=== PATIENT | male | born 1945 | race Caucasian/White ===

== ENCOUNTER 2017-09-17 14:42 | Emergency (ER) | payer MEDICARE, BC ==
--- NOTE | 2017-09-17 14:59 | ED ---
General Adult HPI - General Chief complaint: Urogenital Stated complaint: Poss UTI Time Seen by Provider: 09/17/17 14:50 Source: patient, family Mode of arrival: ambulatory Limitations: no limitations - History of Present Illness Initial comments: Cayetano is a 72-year-old man presents to the emergency department today for evaluation of inability to urinate since last night. Patient reports that he is having pain with urination, he is experiencing a constant urge to urinate but when he attempts he is only able to dribble out a little bit of urinated very painful. He has not noticed any blood in the urine. Patient does report that after a surgery 1 year ago he did develop similar symptoms and was diagnosed with a urinary tract infection. He did have to have a Kaur catheter while he was in the hospital at that time, however he is never required a Kaur catheter home. He does know he has an enlarged prostate but doesn't follow regularly with a urologist. He denies any fevers, chills, nausea, vomiting, change in bowel habits. He reports he is otherwise in his usual state of health. - Related Data Home Medications Medication Instructions Recorded Confirmed Atorvastatin [Lipitor] 80 mg PO HS 05/25/16 09/17/17 Cholecalciferol [Vitamin D3] 2,000 unit PO DAILY 05/25/16 09/17/17 Furosemide [Lasix] 40 mg PO DAILY 05/25/16 09/17/17 Multivitamin [Men's Multi-Vitamin] 1 tab PO HS 05/25/16 09/17/17 Clopidogrel [Plavix] 75 mg PO DAILY 08/25/16 09/17/17 Metoprolol Tartrate [Lopressor] 50 mg PO BID 08/25/16 09/17/17 Nitroglycerin Sl Tabs [Nitrostat] 0.4 mg SUBLINGUAL Q5M PRN 08/25/16 09/17/17 Tamsulosin HCl [Flomax] 0.4 mg PO DAILY 08/25/16 09/17/17 Fish Oil/Dha/Epa [Fish Oil 1,200 1 cap PO DAILY 09/17/17 09/17/17 mg Fish Oil] Lisinopril [Zestril] 10 mg PO DAILY 09/17/17 09/17/17 Rivaroxaban [Xarelto] 20 mg PO W/SUPPER 09/17/17 09/17/17 Allergies Allergy/AdvReac Type Severity Reaction Status Date / Time onion AdvReac Indigestion Verified 09/17/17 14:53 Pepper AdvReac Indigestion Verified 09/17/17 14:53 tomato AdvReac Indigestion Verified 09/17/17 14:53 Review of Systems ROS Statement: Those systems with pertinent positive or pertinent negative responses have been documented in the HPI. ROS Other: All systems not noted in ROS Statement are negative. Past Medical History Past Medical History: Atrial Flutter, Heart Failure, COPD, Hyperlipidemia, Hypertension, Pneumonia, Prostate Disorder, Sleep Apnea/CPAP/BIPAP Additional Past Medical History / Comment(s): not using CPAP- unable to sleep on his back, SOB w/activity, "bad aortic valve"-had it replaced at [facility] History of Any Multi-Drug Resistant Organisms: None Reported Past Surgical History: Heart Catheterization, Hernia Repair Additional Past Surgical History / Comment(s): hernia repairs x 3 jade, aortic valve replacement 07-24-14 at [facility] Past Anesthesia/Blood Transfusion Reactions: No Reported Reaction Past Psychological History: No Psychological Hx Reported Smoking Status: Former smoker Past Alcohol Use History: None Reported Past Drug Use History: None Reported - Past Family History Father Additional Family Medical History / Comment(s): "hypochondric" Mother History Unknown: Yes General Exam Limitations: no limitations General appearance: alert, other (appears uncomfortable) Head exam: Present: atraumatic, normocephalic Eye exam: Present: normal appearance ENT exam: Present: normal exam Neck exam: Present: normal inspection Respiratory exam: Absent: respiratory distress Cardiovascular Exam: Present: regular rate GI/Abdominal exam: Present: soft, distended, other (palpable bladder) Extremities exam: Present: normal inspection Back exam: Present: normal inspection Neurological exam: Present: alert, oriented X3, other (antalgic gait) Psychiatric exam: Present: normal affect Skin exam: Present: warm Course Vital Signs 09/17/17 09/17/17 14:43 16:26 Temperature 97.5 F L 97.8 F Pulse Rate 75 68 Respiratory 17 18 Rate Blood Pressure 156/68 141/78 O2 Sat by Pulse 97 97 Oximetry Medical Decision Making - Medical Decision Making Patient seen and evaluated, history obtained from the patient Vital signs with no Sirs criteria History and physical exam are concerning for acute urinary retention, at this time the patient has a urge to urinate. I advised the patient to use the restroom and attempt to provide a urinary sample. After this we will get a postvoid residual Patient was able to provide a urine sample, bladder scan subsequently revealed greater than 1 L of volume in the bladder Patient very anxious about a year Kaur catheter placement, by mouth Ativan was ordered Urinalysis reveals no UTI, at this time I think the patient's urinary retention is secondary to prostatic hyperplasia. We will place a Kaur catheter and discharge home. There is no indication for antibiotics at this time. Patient tolerated only catheter placement without complication. Clear urine drained out. Patient was discharged home with Kaur catheter in place in a referral to urology. Questions pertaining to care were answered to the best my ability and the patient was discharged - Lab Data Lab Results 09/17/17 Range/Units 14:57 Urine Color Yellow Urine Appearance Clear (Clear) Urine pH 5.0 (5.0-8.0) Ur Specific [place] 1.010 (1.001-1.035) Urine Protein Negative (Negative) Urine Glucose (UA) Negative (Negative) Urine Ketones Negative (Negative) Urine Blood Negative (Negative) Urine Nitrite Negative (Negative) Urine Bilirubin Negative (Negative) Urine Urobilinogen <2.0 (<2.0) mg/dL Ur Leukocyte Esterase Negative (Negative) Disposition Clinical Impression: Acute retention of urine Disposition: HOME SELF-CARE Condition: Good Instructions: Urinary Retention in Men (ED), Kaur Catheter Placement and Care (ED) Referrals: Rolo Nicholas MD [Primary Care Provider] - 1-2 days Toni Chris MD [STAFF PHYSICIAN] - 1-2 days Time of Disposition: 15:58
[2017-09-17 15:17] LABS: Appearance,Urine Clear (Clear); Bilirubin,Urine Negative (Negative); Blood,Urine Negative (Negative); Color,Urine Yellow; Glucose,Urine (UA) Negative (Negative); Ketones,Urine Negative (Negative); Leukocyte Esterase,Urine Negative (Negative); Nitrite,Urine Negative (Negative); Protein,Urine Negative (Negative); Urobilinogen,Urine <2.0 mg/dL (<2.0)
[2017-09-17] MEDS ORDERED: LIDOCAINE URO-JET JELLY 2% 5 ML KIT URETHRAL ONE (15:17)
[2017-09-17] MEDS ORDERED: LORazepam 1 MG TAB PO STA (15:24)
[2017-09-17 16:29] VITALS: BP 141/78; PULSE 68; RESP 18; TEMP 97.8
== END 2017-09-17 16:26 | disposition home or self-care (01) ==
LOC: EC 14:42
DX: R33.9 Retention of urine, unspecified (principal); N40.1 Benign prostatic hyperplasia with lower urinary tract symptoms; R39.15 Urgency of urination; I48.92 Unspecified atrial flutter; I11.0 Hypertensive heart disease with heart failure; I50.9 Heart failure, unspecified; Z79.01 Long term (current) use of anticoagulants; Z79.02 Long term (current) use of antithrombotics/antiplatelets; Z79.899 Other long term (current) drug therapy; Z91.018 Allergy to other foods; E78.5 Hyperlipidemia, unspecified; G47.30 Sleep apnea, unspecified; Z99.89 Dependence on other enabling machines and devices; Z95.5 Presence of coronary angioplasty implant and graft; Z87.891 Personal history of nicotine dependence
CPT/HCPCS: 51702; 51798; 81003; 87086; 99283

== ENCOUNTER 2017-12-10 12:22 | Inpatient (IN) | payer MEDICARE, BC ==
[2017-12-10 12:31] LABS: Glucose,Whole Blood 130 mg/dL (75-99)
[2017-12-10] MEDS ORDERED: IPRATROPIUM-ALBUTEROL 3 ML NEB INHALATION STA (15:28)
[2017-12-10] MEDS ORDERED: SODIUM CHLORIDE 0.9% 1,000 ML IV STA (15:30)
--- NOTE | 2017-12-10 15:41 | ED ---
General Adult HPI - General Source: patient, RN notes reviewed Mode of arrival: wheelchair Limitations: no limitations <Mejia Vo - Last Filed: 12/10/17 17:47> <Jacques Day - Last Filed: 12/10/17 18:10> - General Chief complaint: Upper Respiratory Infection Stated complaint: Chills, Tired Time Seen by Provider: 12/10/17 15:10 - History of Present Illness Initial comments: 72-year-old male presents for chief complaint of shortness of breath x the past 3 days. Patient states his shortness of breath was worse today and has been in the previous past few days. Patient states he had a cough that was productive cough for the past week that is feeling slightly better today. Patient states it was a very bad cough yesterday. Patient has never been diagnosed with COPD. Patient states he is no longer a smoker but smoked a pack to 3 packs a day for 50 years. Patient also admits to some congestion and pressure in the bilateral ears. Patient denies sore throat. Patient denies chest pain or abdominal pain. Patient denies nausea or vomiting. Patient had an aortic valve replacement 2 years ago. Patient also has a history of A. fib for which he takes metoprolol. Patient denies any past history of ACS. Patient does not have inhalers or breathing treatments at home. (Mejia Vo) - Related Data Home Medications Medication Instructions Recorded Confirmed Atorvastatin [Lipitor] 80 mg PO HS 05/25/16 12/10/17 Cholecalciferol [Vitamin D3] 5,000 unit PO DAILY 05/25/16 12/10/17 Multivitamin [Men's Multi-Vitamin] 1 tab PO HS 05/25/16 12/10/17 Clopidogrel [Plavix] 75 mg PO DAILY 08/25/16 12/10/17 Metoprolol Tartrate [Lopressor] 50 mg PO BID 08/25/16 12/10/17 Tamsulosin HCl [Flomax] 0.4 mg PO BID 08/25/16 12/10/17 Lisinopril [Zestril] 10 mg PO DAILY 09/17/17 12/10/17 Rivaroxaban [Xarelto] 20 mg PO W/SUPPER 09/17/17 12/10/17 Finasteride [Proscar] 5 mg PO DAILY 12/10/17 12/10/17 Furosemide [Lasix] 20 mg PO DAILY 12/10/17 12/10/17 Allergies Allergy/AdvReac Type Severity Reaction Status Date / Time onion AdvReac Indigestion Verified 12/10/17 16:18 Pepper AdvReac Indigestion Verified 12/10/17 16:18 tomato AdvReac Indigestion Verified 12/10/17 16:18 Review of Systems ROS Other: All systems not noted in ROS Statement are negative. <Mejia Vo - Last Filed: 12/10/17 17:47> ROS Other: All systems not noted in ROS Statement are negative. <Jacques Day - Last Filed: 12/10/17 18:10> ROS Statement: Those systems with pertinent positive or pertinent negative responses have been documented in the HPI. Past Medical History Past Medical History: Atrial Flutter, Heart Failure, COPD, Hyperlipidemia, Hypertension, Pneumonia, Prostate Disorder, Sleep Apnea/CPAP/BIPAP Additional Past Medical History / Comment(s): not using CPAP- unable to sleep on his back, SOB w/activity, "bad aortic valve"-had it replaced at [facility] History of Any Multi-Drug Resistant Organisms: None Reported Past Surgical History: Heart Catheterization, Hernia Repair Additional Past Surgical History / Comment(s): hernia repairs x 3 jade, aortic valve replacement 07-24-14 at [facility] Past Anesthesia/Blood Transfusion Reactions: No Reported Reaction Past Psychological History: No Psychological Hx Reported Smoking Status: Former smoker Past Alcohol Use History: None Reported Past Drug Use History: None Reported - Past Family History Father Additional Family Medical History / Comment(s): "hypochondric" Mother History Unknown: Yes <Mejia Vo P - Last Filed: 12/10/17 17:47> General Exam Limitations: no limitations General appearance: alert, in no apparent distress Head exam: Present: atraumatic, normocephalic, normal inspection Eye exam: Present: normal appearance, PERRL, EOMI. Absent: scleral icterus, conjunctival injection, periorbital swelling ENT exam: Present: normal exam, normal oropharynx, mucous membranes moist, TM's normal bilaterally Neck exam: Present: normal inspection. Absent: tenderness, meningismus, lymphadenopathy Respiratory exam: Present: wheezes (Wheezes noted bilaterally.). Absent: chest wall tenderness, accessory muscle use, decreased breath sounds Cardiovascular Exam: Present: regular rate, normal rhythm, normal heart sounds. Absent: systolic murmur, diastolic murmur, rubs, gallop, clicks GI/Abdominal exam: Present: soft, normal bowel sounds, other (Patient states his abdomen is tender bilaterally due to coughing.). Absent: distended, tenderness, guarding, rebound, rigid Extremities exam: Present: normal inspection, full ROM, normal capillary refill (In lower extremities bilaterally), other (Radial pulse 2+ bilaterally). Absent : tenderness, pedal edema, joint swelling, calf tenderness Neurological exam: Present: alert, oriented X3 <Mejia Vo P - Last Filed: 12/10/17 17:47> Vital Signs 12/10/17 12/10/17 12/10/17 12:25 15:45 15:57 Temperature 98.3 F Pulse Rate 73 87 75 Respiratory 18 16 16 Rate Blood Pressure 105/62 O2 Sat by Pulse 96 Oximetry 12/10/17 12/10/17 16:05 17:50 Temperature Pulse Rate 79 68 Respiratory 18 18 Rate Blood Pressure 113/56 139/58 O2 Sat by Pulse 95 95 Oximetry EKG Findings - EKG Comments: EKG Findings:: A. fib with ventricular rate 135, QRS duration 106, indeterminate AK interval, QT/QTc 284/426 <Mejia Vo - Last Filed: 12/10/17 17:47> Medical Decision Making - Lab Data Result diagrams: 12/10/17 15:30 12/10/17 15:30 <Mejia Vo - Last Filed: 12/10/17 17:47> - Lab Data Result diagrams: 12/10/17 15:30 12/10/17 15:30 <Jacques Day - Last Filed: 12/10/17 18:10> - Medical Decision Making 72-year-old male presents to the emergency department for a chief complaint of shortness of breath. Patient states he has had a cough for about a week which has since resolved somewhat. Patient has not been diagnosed as COPD but has a [id number] history. Patient has a history of A. fib and aortic valve replacement 2 years ago. He is currently taking metoprolol for the A. fib. Chest x-ray shows no focal airspace opacity, pleural effusion, or pneumothorax seen. Lung lines are compatible with underlying COPD and bronchial wall thickening. Difficult to exclude an early left upper lobe pneumonia. Patient has a troponin of 0.037. Other labs unremarkable. Patient is on Xarelto and Plavix. Patient takes metoprolol. Patient is in A. fib with RVR. Patient will be admitted under Dr. Andersen. (Mejia Vo) medical decision making; is a 72-year-old male here with several complaints. Dyspnea with even mild exertion and diaphoresis of time. This is the first days been like that. Past history of A. fib on Xarelto and Plavix. The patient denies any fever. The patient's heart rate initially was 79 on emergency room he did have an episode of A. fib with RVR rate 135 and then slowed again. Labs show d-dimer normal at 0.47 CK 121 but his troponin 0.037. Chest x-ray is reviewed radiologist's his impression is early left lower lobe pneumonia. I examined the patient and he does have crepitant rales on that left mid lung field. the patient has had heart valve replaced. He'll be started on Rocephin. He is early on Xarelto. The patient will have serial cardiac enzymestroponin repeated.Dr. Day patient be admitted to Dr. Andersen or who ever is covering for him. (Jacques Day) - Lab Data Lab Results 12/10/17 12/10/17 12/10/17 Range/Units 12:29 15:25 15:30 WBC 6.4 (3.8-10.6) k/uL RBC 4.89 (4.30-5.90) m/uL Hgb 15.1 (13.0-17.5) gm/dL Hct 42.6 (39.0-53.0) % MCV 87.2 (80.0-100.0) fL MCH 30.8 (25.0-35.0) pg MCHC 35.3 (31.0-37.0) g/dL RDW 13.9 (11.5-15.5) % Plt Count 114 L (150-450) k/uL Neutrophils % (Manual) 67 % Band Neutrophils % 4 % Lymphocytes % (Manual) 21 % Monocytes % (Manual) 8 % Neutrophils # (Manual) 4.50 (1.3-7.7) k/uL Lymphocytes # (Manual) 1.34 (1.0-4.8) k/uL Monocytes # (Manual) 0.51 (0-1.0) k/uL Nucleated RBCs 0 (0-0) /100 WBC Manual Slide Review Performed PT (9.0-12.0) sec INR (<1.2) APTT (22.0-30.0) sec D-Dimer (<0.60) mg/L FEU Sodium (137-145) mmol/L Potassium (3.5-5.1) mmol/L Chloride (98-107) mmol/L Carbon Dioxide (22-30) mmol/L Anion Gap mmol/L BUN (9-20) mg/dL Creatinine (0.66-1.25) mg/dL Est GFR (CKD-EPI)AfAm (>60 ml/min/1.73 sqM) Est GFR (CKD-EPI)NonAf (>60 ml/min/1.73 sqM) Glucose (74-99) mg/dL POC Glucose (mg/dL) 130 H (75-99) mg/dL POC Glu [employer] ID Ferreira, Johann Calcium (8.4-10.2) mg/dL Magnesium (1.6-2.3) mg/dL Total Bilirubin (0.2-1.3) mg/dL AST (17-59) U/L ALT (21-72) U/L Alkaline Phosphatase (38-126) U/L Total Creatine Kinase (55-170) U/L CK-MB (CK-2) (0.0-2.4) ng/mL CK-MB (CK-2) Rel Index Troponin I (0.000-0.034) ng/mL Total Protein (6.3-8.2) g/dL Albumin (3.5-5.0) g/dL Influenza Type A RNA Not Detected (Not Detectd) Influenza Type B (PCR) Not Detected (Not Detectd) 12/10/17 12/10/17 12/10/17 Range/Units 15:30 15:30 15:30 WBC (3.8-10.6) k/uL RBC (4.30-5.90) m/uL Hgb (13.0-17.5) gm/dL Hct (39.0-53.0) % MCV (80.0-100.0) fL MCH (25.0-35.0) pg MCHC (31.0-37.0) g/dL RDW (11.5-15.5) % Plt Count (150-450) k/uL Neutrophils % (Manual) % Band Neutrophils % % Lymphocytes % (Manual) % Monocytes % (Manual) % Neutrophils # (Manual) (1.3-7.7) k/uL Lymphocytes # (Manual) (1.0-4.8) k/uL Monocytes # (Manual) (0-1.0) k/uL Nucleated RBCs (0-0) /100 WBC Manual Slide Review PT 10.1 (9.0-12.0) sec INR 1.0 (<1.2) APTT 26.0 (22.0-30.0) sec D-Dimer 0.47 (<0.60) mg/L FEU Sodium (137-145) mmol/L Potassium (3.5-5.1) mmol/L Chloride (98-107) mmol/L Carbon Dioxide (22-30) mmol/L Anion Gap mmol/L BUN (9-20) mg/dL Creatinine (0.66-1.25) mg/dL Est GFR (CKD-EPI)AfAm (>60 ml/min/1.73 sqM) Est GFR (CKD-EPI)NonAf (>60 ml/min/1.73 sqM) Glucose (74-99) mg/dL POC Glucose (mg/dL) (75-99) mg/dL POC Glu [employer] ID Calcium (8.4-10.2) mg/dL Magnesium 2.1 (1.6-2.3) mg/dL Total Bilirubin (0.2-1.3) mg/dL AST (17-59) U/L ALT (21-72) U/L Alkaline Phosphatase (38-126) U/L Total Creatine Kinase 121 (55-170) U/L CK-MB (CK-2) 1.6 (0.0-2.4) ng/mL CK-MB (CK-2) Rel Index 1.3 Troponin I 0.037 H* (0.000-0.034) ng/mL Total Protein (6.3-8.2) g/dL Albumin (3.5-5.0) g/dL Influenza Type A RNA (Not Detectd) Influenza Type B (PCR) (Not Detectd) 12/10/17 Range/Units 15:30 WBC (3.8-10.6) k/uL RBC (4.30-5.90) m/uL Hgb (13.0-17.5) gm/dL Hct (39.0-53.0) % MCV (80.0-100.0) fL MCH (25.0-35.0) pg MCHC (31.0-37.0) g/dL RDW (11.5-15.5) % Plt Count (150-450) k/uL Neutrophils % (Manual) % Band Neutrophils % % Lymphocytes % (Manual) % Monocytes % (Manual) % Neutrophils # (Manual) (1.3-7.7) k/uL Lymphocytes # (Manual) (1.0-4.8) k/uL Monocytes # (Manual) (0-1.0) k/uL Nucleated RBCs (0-0) /100 WBC Manual Slide Review PT (9.0-12.0) sec INR (<1.2) APTT (22.0-30.0) sec D-Dimer (<0.60) mg/L FEU Sodium 142 (137-145) mmol/L Potassium 4.9 (3.5-5.1) mmol/L Chloride 104 (98-107) mmol/L Carbon Dioxide 26 (22-30) mmol/L Anion Gap 12 mmol/L BUN 19 (9-20) mg/dL Creatinine 1.10 (0.66-1.25) mg/dL Est GFR (CKD-EPI)AfAm 78 (>60 ml/min/1.73 sqM) Est GFR (CKD-EPI)NonAf 68 (>60 ml/min/1.73 sqM) Glucose 111 H (74-99) mg/dL POC Glucose (mg/dL) (75-99) mg/dL POC Glu [employer]ic ID Calcium 9.6 (8.4-10.2) mg/dL Magnesium (1.6-2.3) mg/dL Total Bilirubin 0.8 (0.2-1.3) mg/dL AST 33 (17-59) U/L ALT 35 (21-72) U/L Alkaline Phosphatase 77 (38-126) U/L Total Creatine Kinase (55-170) U/L CK-MB (CK-2) (0.0-2.4) ng/mL CK-MB (CK-2) Rel Index Troponin I (0.000-0.034) ng/mL Total Protein 6.5 (6.3-8.2) g/dL Albumin 3.8 (3.5-5.0) g/dL Influenza Type A RNA (Not Detectd) Influenza Type B (PCR) (Not Detectd) Disposition Decision Time: 17:46 <Mejia Vo - Last Filed: 12/10/17 17:47> <Jacques Day - Last Filed: 12/10/17 18:10> Clinical Impression: Atrial fibrillation with RVR, Pneumonia, Elevated troponin I level Disposition: ADMITTED IP TO THIS HOSP Condition: Good Referrals: Rolo Nicholas MD [Primary Care Provider] - 1-2 days
--- NOTE | 2017-12-10 15:49 | XR ---
EXAMINATION TYPE: XR chest 2V DATE OF EXAM: 12/10/2017 COMPARISON: Prior chest x-ray dated 08/25/2016 HISTORY: Shortness of breath, fever and cough TECHNIQUE: Frontal and lateral views of the chest are obtained. FINDINGS: There is no focal air space opacity, pleural effusion, or pneumothorax seen. The cardiac silhouette size is enlarged. Prominent lung lines compatible with underlying COPD. Patient shows with out replacement change as on prior exam. There is bronchial wall thickening. Question some early airs pace disease in the left upper lobe. The osseous structures are intact. IMPRESSION: Difficult to exclude an early left upper lobe pneumonia, follow-up suggested. [facility] ly.
[2017-12-10 15:58] LABS: HCT 42.6 % (39.0-53.0); HGB 15.1 gm/dL (13.0-17.5); MCH 30.8 pg (25.0-35.0); MCHC 35.3 g/dL (31.0-37.0); MCV 87.2 fL (80.0-100.0); Mean Platelet Volume 9.6; Platelet Count 114 k/uL (150-450); RBC 4.89 m/uL (4.30-5.90); RDW 13.9 % (11.5-15.5); WBC 6.4 k/uL (3.8-10.6)
[2017-12-10 16:01] LABS: D-Dimer 0.47 mg/L FEU (<0.60)
[2017-12-10 16:05] LABS: Prothrombin Time 10.1 sec (9.0-12.0)
[2017-12-10 16:17] LABS: Albumin 3.8 g/dL (3.5-5.0); Calcium 9.6 mg/dL (8.4-10.2); Potassium 4.9 mmol/L (3.5-5.1); Total Bilirubin 0.8 mg/dL (0.2-1.3); Total Protein 6.5 g/dL (6.3-8.2)
[2017-12-10 16:19] LABS: Creatine Kinase MB 1.6 ng/mL (0.0-2.4)
[2017-12-10 16:30] LABS: Band Neutrophils % 4 %; Lymphocytes # (M) 1.34 k/uL (1.0-4.8); Monocytes # (M) 0.51 k/uL (0-1.0); Neutrophils % (M) 67 %; Nucleated Red Blood Cells 0 /100 WBC (0-0); Total Cells Counted 100; Troponin I 0.037 ng/mL (0.000-0.034)
[2017-12-10] MEDS ORDERED: VERAPAMIL 2.5 MG/ML 2 ML AMP IVP STA (17:46)
[2017-12-10] MEDS ORDERED: NALOXONE 0.4 MG/ML 1 ML VIAL IV PRN (17:47)
[2017-12-10] MEDS ORDERED: ACETAMINOPHEN TAB 325 MG TAB PO PRN (17:47)
[2017-12-10] MEDS ORDERED: cefTRIAXone IN SWFI 1,000 MG/10 ML SYRINGE IVP STA (17:57)
[2017-12-10] MEDS: SODIUM CHLORIDE 0.9% 1,000 ML IV SCH (18:08)
[2017-12-10] MEDS ORDERED: TAMSULOSIN 0.4 MG CAP.ER.24H PO SCH (21:00)
[2017-12-10] MEDS: RIVAROXABAN 20 MG TAB PO SCH (21:45)
[2017-12-10] MEDS: ATORVASTATIN 80 MG TAB PO SCH (21:45)
[2017-12-10] MEDS: MULTIVITAMINS, THERA 1 EACH TAB PO SCH (21:45)
[2017-12-10] MEDS ORDERED: METOPROLOL TARTRATE 50 MG TAB PO SCH (22:00)
[2017-12-10 22:47] VITALS: BMI 44.4
[2017-12-11] MEDS ORDERED: MELATONIN 3 MG TABLET PO PRN (00:06)
[2017-12-11] MEDS ORDERED: LACTULOSE 20 GM/30 ML CUP PO PRN (00:06)
[2017-12-11] MEDS ORDERED: NALOXONE 0.4 MG/ML 1 ML VIAL IV PRN (00:06)
[2017-12-11] MEDS ORDERED: LORazepam 0.5 MG TAB PO PRN (00:06)
[2017-12-11] MEDS ORDERED: MAGNESIUM HYDROXIDE 2,400 MG/10 ML CUP PO PRN (00:06)
[2017-12-11] MEDS ORDERED: ONDANSETRON 4 MG/2 ML VIAL IVP PRN (00:06)
[2017-12-11] MEDS ORDERED: CALCIUM CARBONATE 500 MG CHEWABLE PO PRN (00:06)
--- NOTE | 2017-12-11 05:12 | HP ---
HISTORY AND PHYSICAL DATE OF ADMISSION: 12/10/2017 DATE OF SERVICE: 12/10/2017 PRESENTING COMPLAINT: Perspiration. HISTORY OF PRESENTING COMPLAINT: This is a pleasant 72-year-old patient of Dr. Nicholas. Chronic stable medical conditions include COPD, left bundle branch block, hypertension, hyperlipidemia, atrial flutter. The patient around noon today suddenly felt very weak in his legs and subsequently became drenched in his sweat. There was no shortness of breath. No chest pain. No nausea or vomiting. This culminated him coming down to the ER where he was found to be in atrial fibrillation with rapid ventricular rate and being admitted for the same. The patient is already on Xarelto for anticoagulation. The patient is still currently in atrial flutter fibrillation. REVIEW OF SYSTEMS: CONSTITUTIONAL: Tired. HEENT: None. RESPIRATORY: Occasional short of breath. CARDIOVASCULAR: As above. GASTROINTESTINAL: None. GENITOURINARY: None. MUSCULOSKELETAL: None. DERMATOLOGICAL: None. HEMATOLOGIC: None. LYMPHATIC: None. PSYCHIATRY: None. NEUROLOGICAL: None. PAST MEDICAL HISTORY: Atrial flutter, congestive heart failure, COPD, hypertension, hyperlipidemia, prostate disorder. PAST SURGICAL HISTORY: Cardiac catheterization, hernia repair x3, aortic valve replacement in 2014 in [facility]. SOCIAL HISTORY: The patient smoked for close to 55 years, stopped in 2016. Lives in a senior citizen apartment. No alcohol. FAMILY HISTORY: Reviewed noncontributory to presentation. HOME MEDICATIONS: 1. Flomax 0.4 mg p.o. b.i.d. 2. Xarelto 20 mg with supper. 3. Lopressor 50 mg b.i.d. 4. Zestril 10 mg p.o. daily. 5. Proscar 5 mg p.o. daily. 6. Plavix 75 mg p.o. daily. 7. Lipitor 80 mg q.h.s. 8. Men's multivitamin tablet p.o. q.h.s. 9. Lasix 20 mg p.o. daily. 10.Vitamin D3, 5000 units p.o. daily. ALLERGIES: Allergic to ONION, PEPPER, TOMATO. PHYSICAL EXAMINATION: On examination, vital signs on presentation, temperature 98.3, pulse up to 126, respiration 18, blood pressure 139/79, pulse ox 97% on room air. GENERAL APPEARANCE: Well built, BMI 44.4. Sitting up on a chair. Tired-appearing. EYES: Pupils equal. Conjunctivae normal. HENT: External appearance of the noses and ears normal. Oral cavity normal. . NECK: JVD not raised. Mass not palpable. RESPIRATORY: Effort normal. LUNGS: Slightly decreased breath sounds. CARDIOVASCULAR: Heart sounds irregular, minimal edema. ABDOMEN: Soft, nontender. Liver and spleen not palpable. LYMPHATIC: No lymph nodes palpable in neck or axillae. PSYCHIATRY: Alert and oriented x3. Mood and affect normal. NEUROLOGICAL: Pupils equal. Cranial nerves grossly intact. Power and sensation grossly intact. INVESTIGATIONS: White count 6.4, hemoglobin 15.1. Potassium 4.9. Troponin 0.037, 0.022. ASSESSMENT: 1. Persistent atrial flutter fibrillation with rapid ventricular rate, symptomatic. 2. Troponin leak from above. May need to rule out underlying ischemic heart disease if patient did not have a previous cardiac catheterization. 3. Chronic obstructive pulmonary disease in an ex-smoker, stable. 4. Essential hypertension. 5. Hyperlipidemia. 6. History of aortic valve replacement. 7. Morbid obesity with body mass index 44.4. PLAN: Home medications are resumed. The patient was felt to have pneumonia in the ER. Patient has no respiratory symptoms, no fever, no white count. Will DC the ceftriaxone. Cardiology was consulted. Care was discussed with the patient and family member at the bedside. MMRAL / EL: [id number] /
[2017-12-11] MEDS: CLOPIDOGREL 75 MG TAB PO SCH (08:21)
[2017-12-11] MEDS: METOPROLOL TARTRATE 50 MG TAB PO SCH ×2 (08:21→18:35)
[2017-12-11] MEDS: FINASTERIDE 5 MG TAB PO SCH (08:21)
[2017-12-11] MEDS ORDERED: cefTRIAXone IN SWFI 1,000 MG/10 ML SYRINGE IVP SCH (09:00)
[2017-12-11 11:48] VITALS: RESP 18
--- NOTE | 2017-12-11 13:58 | CONS ---
CONSULTATION CHIEF COMPLAINT: Atrial fibrillation with rapid ventricular rate. This is a 72-year-old gentleman with history of chronic atrial fibrillation, hypertension, dyslipidemia, COPD, who yesterday felt weak, fatigued, tired and was drenching in sweat. There was no shortness of breath. No chest pain. No nausea, vomiting. He came to the ER where he was found to be in atrial fibrillation with rapid ventricular rate for which he is admitted and Cardiology had been consulted. At the time of my evaluation, he remains in atrial fibrillation with better controlled ventricular rate. I am adding digoxin for more optimal control. He is already on an anticoagulant. PAST MEDICAL HISTORY: Significant for COPD, hypertension, dyslipidemia, atrial fibrillation. PAST SURGICAL HISTORY: Aortic valve replacement. MEDICATIONS: Include Xarelto 20 mg daily, Lopressor 50 b.i.d., Zestril 10 q. daily, Proscar, Plavix, Lipitor, Lasix, and vitamins. Allergic to ONION, PEPPER and TOMATO. REVIEW OF SYSTEMS: HEENT is unremarkable. CARDIAC: As described above. RESPIRATORY: As described above. GI: Negative. GENITOURINARY: Negative. ALLERGY/IMMUNOLOGY: Negative. SKIN: Negative. MUSCULOSKELETAL: Significant for arthritis. PSYCHOSOCIAL: Negative ENDOCRINE: Negative. DERM: negative. CONSTITUTIONAL: Negative. PHYSICAL EXAM: Patient is comfortable at rest. Heart rate is 82 beats per minute, irregular, regular. Blood pressure is 108/71, respiratory rate is 18, O2 sat is 97% on room air. There is no jugular venous distention. Chest exam reveals good air entry bilaterally. Heart exam reveals first and second heart sounds. Systolic murmur at the apex. Abdomen is soft. Exam of the extremities did not reveal any edema. Peripheral pulses are felt. LABS: Show that the hemoglobin is 15.1, potassium is 4.9. Troponin is 0.03, 0.02 and 0 02. EKG showed atrial fibrillation with rapid ventricular rate, is better controlled this morning. ASSESSMENT AND PLAN: 1. Chronic atrial fibrillation with poorly-controlled ventricular rate. Troponin elevation probably related to that. 2. History of aortic valve replacement with normal coronaries at that time. 3. Hypertension. PLAN: Patient will continue the Xarelto that he was on. I am adding digoxin to the Lopressor that he is on. He does not need a stress test. I will obtain a 2D echo. We should be able to discharge him home tomorrow. MMODL / IJN: [id number] /
[2017-12-11] MEDS: SODIUM CHLORIDE 0.9% 1,000 ML IV SCH (15:16)
[2017-12-11] MEDS: DIGOXIN 250 MCG TAB PO SCH (15:17)
[2017-12-11] MEDS: RIVAROXABAN 20 MG TAB PO SCH (15:18)
[2017-12-11] MEDS ORDERED: TAMSULOSIN 0.4 MG CAP.ER.24H PO SCH (18:30)
[2017-12-11] MEDS: ATORVASTATIN 80 MG TAB PO SCH (20:20)
[2017-12-11] MEDS: MULTIVITAMINS, THERA 1 EACH TAB PO SCH (20:20)
[2017-12-11 20:38] LABS: Glucose,Whole Blood 99 mg/dL (75-99)
--- NOTE | 2017-12-11 23:57 | PN ---
PROGRESS NOTE DATE OF SERVICE: 12/11/2017 PRESENT COMPLAINT: Tired. INTERVAL HISTORY: This patient presented with atrial flutter/fibrillation with rapid ventricular rate. This is chronic with acute rapid heart rate. Feeling better today, sitting up on a chair. Heart rate is still up. The patient's ex- is with him. I saw this patient this morning. REVIEW OF SYSTEMS: Done for constitutional, cardiovascular, GI, pulmonary; relevant findings as above. CURRENT MEDICATIONS: Reviewed that include: 1. Lipitor. 2. Digoxin 250 mg added today. 3. Lopressor 50 mg b.i.d. increased today. EXAMINATION: Temperature 98.3, pulse 130, respirations 18, blood pressure 108/71, pulse ox 97% on room air. GENERAL APPEARANCE: Sitting up, comfortable. EYES: Pupil equal. Conjunctivae normal. HEENT: External nose and ears normal. Oral cavity normal. NECK: JVD not raised. Mass not palpable. RESPIRATORY: Effort normal. LUNGS: Decreased breath sounds. CARDIOVASCULAR: Heart sounds irregular, minimal edema. ABDOMEN: Soft, nontender. Liver, spleen not palpable. PSYCHIATRY: Alert and oriented x3. Mood and affect normal. INVESTIGATION: Telemetry shows atrial flutter/fib with increased heart rate. Troponin 0.037, 0.022, 0.023. ASSESSMENT: 1. Persistent atrial flutter/fibrillation with rapid ventricular rate, uncontrolled this morning. 2. Troponin leak from above. May need to rule out underlying ischemic heart disease. 3. Chronic obstructive pulmonary disease in an ex-smoker. 4. Essential hypertension. 5. Hyperlipidemia. 6. History of aortic valve replacement. 7. Morbid obesity, BMI of 44.4. PLAN: Care was discussed with the patient. Follow with Cardiology pending results of 2D echo. MMODL / IJN: [id number] /
[2017-12-12] MEDS: METOPROLOL TARTRATE 50 MG TAB PO SCH (06:24)
[2017-12-12] MEDS: CLOPIDOGREL 75 MG TAB PO SCH (08:44)
[2017-12-12] MEDS: DIGOXIN 250 MCG TAB PO SCH (08:49)
[2017-12-12] MEDS: FINASTERIDE 5 MG TAB PO SCH (08:49)
[2017-12-12 12:00] VITALS: BP 102/69; PULSE 59; TEMP 97.7
--- NOTE | 2017-12-12 15:04 | P.PN ---
Subjective Progress Note Date: 12/12/17 Principal diagnosis: Atrial fibrillation 6 is a 72-year-old gentleman with history of chronic persistent atrial fibrillation, aortic valve replacement, hypertension, hyperlipidemia, COPD, who presented to the hospital with symptoms of weakness and fatigue as well as diaphoresis. In the emergency room he is found to be in atrial fibrillation with a rapid ventricular response for which cardiology consultation was requested. Medication adjustments were made including the addition of Lanoxin, patient was seen and examined this morning continues to be in atrial fibrillation with a heart rate in the 80s to 90s. Echo with Doppler study was performed and remains pending. Patient is on Xarelto for anticoagulation. Objective - Vital Signs Vital signs: Vital Signs Temp 97.7 F 12/12/17 11:56 Pulse 59 L 12/12/17 11:56 Resp 18 12/12/17 11:56 BP 102/69 12/12/17 11:56 Pulse Ox 97 12/12/17 11:56 Intake & Output 12/11/17 12/12/17 12/12/17 18:59 06:59 18:59 Intake Total 222 200 0 Balance 222 200 0 Weight 131 kg Intake: Oral 222 200 0 Other: Voiding Method Urinal Urinal # Voids 2 - Exam PHYSICAL EXAMINATION: HEENT: Head is atraumatic, normocephalic. Pupils equal, round. Neck is supple. There is no elevated jugular venous pressure. HEART EXAMINATION: Heart S1 and S2 irregularly irregular systolic murmur is heard CHEST EXAMINATION: Lungs are clear to auscultation and precussion. No chest wall tenderness is noted on palpation or with deep breathing. ABDOMEN: Soft, nontender. Bowel sounds are heard. No organomegaly noted. EXTREMITIES: 2+ peripheral pulses with no evidence of peripheral edema and no calf tenderness noted. NEUROLOGIC patient is awake, alert and oriented -3. . - Labs CBC & Chem 7: 12/10/17 15:30 12/10/17 15:30 Assessment and Plan Plan: Assessment and plan #1 chronic persistent atrial fibrillation, rate under better control today. #2 history of aortic valve replacement with cardiac catheterization performed prior to that revealing normal coronary arteries #3 hypertension Plan From cardiology's perspective, patient may be able to be discharged home once cleared by the primary. We will make him a follow-up appointment in the office post discharge. DNP note has been reviewed, I agree with a documented findings and plan of care. Patient was seen and examined.
--- NOTE | 2017-12-12 20:56 | ECHOF ---
Referral Reason:afib MEASUREMENTS -------- HEIGHT: 175.3 cm WEIGHT: 130.2 kg BP: 108/71 RVIDd: 3.5 cm (< 3.3) IVSd: 1.8 cm (0.6 - 1.1) LVIDd: 4.2 cm (3.9 - 5.3) LVPWd: 1.5 cm (0.6 - 1.1) EDV(Teich): 79 ml IVSs: 1.8 cm LVIDs: 3.5 cm LVPWs: 2.1 cm ESV(Teich): 49 ml EF(Teich): 38 % %FS: 18 % SV(Teich): 30 ml LA Diam: 4.7 cm (2.7 - 3.8) LALs A4C: 5.5 cm LAAs A4C: 21.9 cm LAESV A-L A4C: 74 ml LAESV MOD A4C: 66 ml LALs A2C: 7.0 cm LAAs A2C: 27.6 cm LAESV A-L A2C: 92 ml LAESV MOD A2C: 88 ml LAESV(A-L): 93 ml LAESV Index (A-L): 38.71 ml/m Ao Diam: 3.3 cm (2.0 - 3.7) AV Cusp: 1.7 cm (1.5 - 2.6) EPSS: 1.4 cm MV DecT: 99 ms MV PHT: 35 ms MVA By PHT: 6.4 cm LVOT Vmax: 1.63 m/s LVOT maxP.76 mmHg LVOT Vmax: 1.65 m/s LVOT Vmean: 1.11 m/s LVOT maxP.03 mmHg LVOT meanP.82 mmHg LVOT Env.Ti: 275 ms LVOT VTI: 30.7 cm AV Vmax: 2.44 m/s AV maxP.84 mmHg AV Vmax: 2.43 m/s AV Vmean: 1.69 m/s AV maxP.80 mmHg AV meanP.77 mmHg AV Env.Ti: 244 ms AV VTI: 41.2 cm TR Vmax: 2.73 m/s TR maxP.79 mmHg RAP: 5.00 mmHg RVSP: 34.79 mmHg MV EF SLOPE: 78.23 mm/s (70 - 150) MV EXCURSION: 1.52 cm (> 18.000) FINDINGS -------- Atrial fibrillation. This was a technically difficult study with suboptimal apical views. The left ventricular size is normal. There is severe concentric left ventricular hypertrophy. Ove rall left ventricular systolic function is moderate-severely impaired with, an EF between 30 - 35 %. The right ventricle is mildly enlarged. LA is moderately dilated 34-39 ml/m2 The right atrium was not well visualized. 5 ml of Lumason was utilized for enhancement of images. Peak/mean gradient across the Aortic Valve is 23.80mmHg / 12.77mmHg. Normally functioning bioprosth etic valve. Mild mitral annular calcification present. There is trace mitral regurgitation. Mild tricuspid regurgitation present. There is mild pulmonary hypertension. The right ventricular systolic pressure, as measured by Doppler, is 34.79mmHg. There is no pulmonic regurgitation present. The aortic root size is normal. There is no pericardial effusion. CONCLUSIONS -------- 1. Atrial fibrillation. 2. This was a technically difficult study with suboptimal apical views. 3. The left ventricular size is normal. 4. There is severe concentric left ventricular hypertrophy. 5. Overall left ventricular systolic function is moderate-severely impaired with, an EF between 30 - 35 %. 6. The right ventricle is mildly enlarged. 7. LA is moderately dilated 34-39 ml/m2 8. The right atrium was not well visualized. 9. 5 ml of Lumason was utilized for enhancement of images. 10. Peak/mean gradient across the Aortic Valve is 23.80mmHg / 12.77mmHg. 11. Normally functioning bioprosthetic valve. 12. Mild mitral annular calcification present. 13. There is trace mitral regurgitation. 14. Mild tricuspid regurgitation present. 15. There is mild pulmonary hypertension. 16. The right ventricular systolic pressure, as measured by Doppler, is 34.79mmHg. 17. There is no pulmonic regurgitation present. 18. The aortic root size is normal. 19. There is no pericardial effusion. SPEECH INSTRUCTOR: DVAID Downey
--- NOTE | 2017-12-13 04:13 | DS ---
DISCHARGE SUMMARY DATE OF ADMISSION: December 10, 2017. DATE OF DISCHARGE: December 12, 2017. FINAL DIAGNOSES: 1. Persistent atrial flutter fibrillation with rapid ventricular rate uncontrolled. 2. Chronic obstructive pulmonary disease in an ex-smoker. 3. Essential hypertension. 4. Hyperlipidemia. 5. History of aortic valve replacement. 6. Morbid obesity BMI 44.4. 7. Troponin leak probably from atrial flutter fibrillation. 8. Cardiomyopathy ejection fraction 30-35%. At this point cause unknown. It could be secondary to arrhythmia induced cardiomyopathy or rule out underlying coronary artery disease. HOSPITAL COURSE: The patient presented fairly weak, tired, run down, found to be atrial flutter fibrillation with rapid ventricular rate. Did have some troponin leak. Seen by Cardiology. Dr. Abdulaziz Balderas. The patient's 2-D echo showed EF of 30-35% percent and severe concentric left ventricular hypertrophy. Given patient's low EF and troponin leak, patient will need to be studied down the road. At this point, he has been cleared to go home. He is feeling well, up and about. Heart rate is better controlled. EXAMINATION: HEART: Sounds irregular. DISCHARGE MEDICATIONS: 1. Lipitor 80 mg q.h.s. 2. Vitamin D3 5000 units p.o. daily. 3. Men's multivitamin 1 tab p.o. q.h.s. 4. Plavix 75 mg p.o. daily. 5. Lopressor 50 mg b.i.d. 6. Xarelto 20 mg with supper. 7. Proscar 5 mg p.o. daily. 8. Lasix 20 mg p.o. daily. 9. Digoxin 250 mcg p.o. daily. 10.Flomax 0.8 mg p.o. q.h.s. CONSULTATION: Dr. Abdulaziz Balderas. FOLLOWUP: Follow up with Dr. Nicholas on December 17, 2017, follow up with Dr. Meng in [address] Nicholas. MMODL / IJN: [id number] /
== END 2017-12-12 16:06 | disposition home or self-care (01) | DRG 309 ==
LOC: EC 12:22 → 6SEL 18:10 → OBSVTOIN 12-11 00:08 → 6SEL 12-11 08:55
PROVIDERS: ADMIT Hospitalist; ATTEND Hospitalist
DX: I48.2 Chronic atrial fibrillation (principal); Z68.41 Body mass index [BMI] 40.0-44.9, adult; I42.9 Cardiomyopathy, unspecified; E66.01 Morbid (severe) obesity due to excess calories; I11.0 Hypertensive heart disease with heart failure; I50.9 Heart failure, unspecified; I48.1 Persistent atrial fibrillation; J44.9 Chronic obstructive pulmonary disease, unspecified; E78.5 Hyperlipidemia, unspecified; N42.9 Disorder of prostate, unspecified; I44.7 Left bundle-branch block, unspecified; I48.92 Unspecified atrial flutter; Z95.2 Presence of prosthetic heart valve; Z91.018 Allergy to other foods; Z79.899 Other long term (current) drug therapy; Z87.891 Personal history of nicotine dependence; Z79.01 Long term (current) use of anticoagulants; Z79.02 Long term (current) use of antithrombotics/antiplatelets; Z87.19 Personal history of other diseases of the digestive system
CPT/HCPCS: 36415; 71046; 80053; 82550; 82553; 83735; 84484; 85025; 85379; 85610; 85730; 87502; 93005; 93306; 94640; 96361; 96374; 96375; 99284

== ENCOUNTER → 2018-02-18 | Outpatient (CLI) | payer MEDICARE, BC ==
[2018-02-18 10:10] LABS: HCT 39.1 % (39.0-53.0); HGB 13.1 gm/dL (13.0-17.5); MCH 30.8 pg (25.0-35.0); MCHC 33.5 g/dL (31.0-37.0); MCV 91.8 fL (80.0-100.0); Mean Platelet Volume 9.4; Platelet Count 127 k/uL (150-450); RBC 4.27 m/uL (4.30-5.90); RDW 14.5 % (11.5-15.5); WBC 5.4 k/uL (3.8-10.6)
[2018-02-18 10:11] LABS: Calcium 9.4 mg/dL (8.4-10.2); Potassium 4.3 mmol/L (3.5-5.1)
== END | disposition home or self-care (01) ==
LOC: LABWHC1 09:20
PROVIDERS: ATTEND Internal Medicine Clinical Cardiac Electrophysiology
DX: E78.5 Hyperlipidemia, unspecified (principal); I48.1 Persistent atrial fibrillation; I42.0 Dilated cardiomyopathy; I10 Essential (primary) hypertension
CPT/HCPCS: 36415; 80048; 85027

== ENCOUNTER 2018-02-26 05:49 | Day surgery (SDC) | payer MEDICARE, BC ==
[2018-02-20 10:49] VITALS: BMI 41.9
[~2018-02-26 05:49] MED LIST: LACTATED RINGERS 1,000 ML IV SCH
[2018-02-26] MEDS ORDERED: SODIUM CHLORIDE 0.9% 1,000 ML IV SCH (05:54)
[2018-02-26 06:45] VITALS: TEMP 98.4
[2018-02-26] MEDS ORDERED: MIDAZOLAM 2 MG/2 ML VIAL IV ONE (06:53)
[2018-02-26] MEDS ORDERED: MIDAZOLAM 2 MG/2 ML VIAL ONE (06:55)
[2018-02-26] MEDS ORDERED: PROPOFOL 10 MG/ML 20 ML VIAL IV ONE (07:25)
[2018-02-26] MEDS ORDERED: LIDOCAINE 1% INJ 10MG/ML (20 ML MDV) ONE (07:25)
--- NOTE | 2018-02-26 07:41 | P.PCN ---
Preoperative Diagnosis: Procedure Electrical cardioversion for atrial fibrillation Indication for the procedure Symptomatic atrial fibrillation despite rate control, tiredness fatigue and shortness of breath and associated mild cardio myopathy History of TAVR Details Successful electrical cardioversion with a single 360 J shock to sinus rhythm heart rate in the mid 50s Plan Continue anticoagulation with xarelto Continue metoprolol 50 mrem twice daily Continue amiodarone 200 mg a day Follow-up 24-hour Holter monitor Follow-up 2-D echo and Doppler study to assess chronic structure and function If symptoms continue consider pharmacologic stress testing Anesthesia: MAC
[2018-02-26 08:17] VITALS: RESP 16
[2018-02-26] MEDS ORDERED: SODIUM CHLORIDE 0.9% 500 ML IV ONE (08:36)
[2018-02-26 10:25] VITALS: BP 108/72; PULSE 60
== END 2018-02-26 09:55 | disposition home or self-care (01) ==
LOC: CATHCVL 05:49
PROVIDERS: ATTEND Internal Medicine Clinical Cardiac Electrophysiology
DX: I48.1 Persistent atrial fibrillation (principal); R00.1 Bradycardia, unspecified; I44.0 Atrioventricular block, first degree; I10 Essential (primary) hypertension; I42.0 Dilated cardiomyopathy; E78.00 Pure hypercholesterolemia, unspecified; Z95.2 Presence of prosthetic heart valve; Z82.49 Family history of ischemic heart disease and other diseases of the circulatory system; Z79.01 Long term (current) use of anticoagulants; Z79.02 Long term (current) use of antithrombotics/antiplatelets; Z79.899 Other long term (current) drug therapy; Z87.891 Personal history of nicotine dependence; E66.9 Obesity, unspecified; Z68.41 Body mass index [BMI] 40.0-44.9, adult
CPT/HCPCS: 92960; J2250; J2001; J2704

== ENCOUNTER → 2018-05-21 | Outpatient (CLI) | payer MEDICARE, BC | END | disposition home or self-care (01) | LOC: CPPFTMAIN 10:01 | PROVIDERS: ATTEND Internal Medicine Clinical Cardiac Electrophysiology | DX: I48.1 Persistent atrial fibrillation (principal) | CPT/HCPCS: 94060; 94726; 94729 ==

== ENCOUNTER → 2018-07-15 | Outpatient (CLI) | payer MEDICARE, BC ==
--- NOTE | 2018-07-15 09:52 | US ---
EXAMINATION TYPE: US duplex aorta DATE OF EXAM: 07/15/2018 COMPARISON: NONE CLINICAL HISTORY: Z13.6 Screening for cardiovascular disorder. reassess aorta EXAM MEASUREMENTS: Abdominal Aorta: Proximal: 1.9 x 2.2cm Mid: 1.9 x 1.9cm Distal: 1.4 x 1.7cm Bifurcation: not seen due to bowel gas Very difficult patient to image due to bowel gas and habitus Normal appearing caliber of aorta seen, bifurcation was gassed out IMPRESSION: No evidence for abdominal aortic aneurysm.
== END | disposition home or self-care (01) ==
LOC: RADUSWWP 08:59
PROVIDERS: ATTEND Family Medicine
DX: Z13.6 Encounter for screening for cardiovascular disorders (principal)
CPT/HCPCS: 93979

== ENCOUNTER 2018-09-26 02:04 | Emergency (ER) | payer MEDICARE, BC ==
[2018-09-26] MEDS ORDERED: MECLIZINE 12.5 MG TAB PO STA (03:19)
[2018-09-26 03:43] LABS: Basophils % (A) 0 %; Eosinophils # (A) 0.2 k/uL (0-0.7); Eosinophils % (A) 5 %; HCT 38.4 % (39.0-53.0); HGB 13.1 gm/dL (13.0-17.5); Lymphocytes # (A) 1.4 k/uL (1.0-4.8); Lymphocytes % (A) 28 %; MCH 31.6 pg (25.0-35.0); MCHC 34.1 g/dL (31.0-37.0); MCV 92.6 fL (80.0-100.0); Mean Platelet Volume 9.5; Monocytes # (A) 0.4 k/uL (0-1.0); Monocytes % (A) 7 %; Neutrophils # (A) 2.8 k/uL (1.3-7.7); Neutrophils % (A) 56 %; Platelet Count 121 k/uL (150-450); RBC 4.14 m/uL (4.30-5.90); RDW 13.7 % (11.5-15.5); WBC 4.9 k/uL (3.8-10.6)
[2018-09-26 03:58] LABS: Albumin 3.7 g/dL (3.5-5.0); Calcium 9.1 mg/dL (8.4-10.2); Potassium 4.4 mmol/L (3.5-5.1); Total Bilirubin 0.7 mg/dL (0.2-1.3)
--- NOTE | 2018-09-26 05:58 | CT ---
EXAMINATION TYPE: CT angio head DATE OF EXAM: 09/26/2018 5:50 AM COMPARISON: None HISTORY: patient feels dizzy CT DLP: 2801.4 mGycm Automated exposure control for dose reduction was used. TECHNIQUE: Performed with IV Contrast, patient injected with 100mL mL of Isovue 370. . Exam was performed without and with IV contrast. There are 3-D post processed images. FINDINGS: There is cerebral cortical atrophy. There is evidence of old lacunar infarcts right anterior internal capsule and caudate nucleus. There is arterial flow in the vertebrobasilar artery system. There is arterial flow in both intracran ial internal carotid arteries. There is arterial flow in the anterior middle and posterior cerebral a rteries bilaterally. I see no evidence of hemodynamic stenosis. I see no aneurysm or neovascularity. There is no mass effect. There is patency of the right posterior communicating artery. There is otilio l contrast opacification of the venous sinuses. IMPRESSION: NEGATIVE CT ANGIOGRAM OF THE BRAIN.
--- NOTE | 2018-09-26 06:41 | ED ---
Dizziness HPI - General Chief Complaint: Dizziness Stated Complaint: Dizziness Time Seen by Provider: 09/26/18 02:10 Source: patient Mode of arrival: EMS Limitations: no limitations - History of Present Illness Initial Comments: This patient is 73-year-old man who presents to be evaluated for acute onset of vertigo tonight. The patient states she had been doing some reading tonight around 10 and then when he went to move he developed intense spinning sensation. When the symptoms did not resolve he felt he should be evaluated for this. He has had a similar episode in the past and states that meclizine did help previously. He is denying any neurologic symptoms, including no change in vision, hearing, speech or swallowing. No weakness or numbness of the extremities. No headache. No fever or chills. MD Complaint: dizziness -: hour(s) Timing: sudden onset Description: "room spinning" History of Same: Yes History of Trauma: No Severity: moderate Improves With: remaining still Worsens With: movement Associated Symptoms: denies other symptoms - Related Data Home Medications Medication Instructions Recorded Confirmed Atorvastatin [Lipitor] 80 mg PO W/SUPPER 05/25/16 09/26/18 Cholecalciferol [Vitamin D3] 5,000 unit PO W/SUPPER 05/25/16 09/26/18 Multivitamin [Men's Multi-Vitamin] 1 tab PO W/SUPPER 05/25/16 09/26/18 Clopidogrel [Plavix] 75 mg PO DAILY 08/25/16 09/26/18 Rivaroxaban [Xarelto] 20 mg PO W/SUPPER 09/17/17 09/26/18 Finasteride [Proscar] 5 mg PO DAILY 12/10/17 09/26/18 Furosemide [Lasix] 20 mg PO Q48H 12/10/17 09/26/18 Amiodarone [Cordarone] 100 mg PO DAILY 12/27/17 09/26/18 Tamsulosin HCl [Flomax] 0.4 mg PO DAILY 02/20/18 09/26/18 Clobetasol Propionate [Temovate 1 applic TOPICAL BID 09/26/18 09/26/18 0.05% Cream] Latanoprost [Xalatan 0.005%] 1 drop BOTH EYES HS 09/26/18 09/26/18 Previous Rx's Medication Instructions Recorded Meclizine [Antivert] 25 mg PO TID PRN #15 tab 09/26/18 Allergies Allergy/AdvReac Type Severity Reaction Status Date / Time onion AdvReac Indigestion Verified 09/26/18 07:05 Pepper AdvReac Indigestion Verified 09/26/18 07:05 tomato AdvReac Indigestion Verified 09/26/18 07:05 Review of Systems ROS Statement: Those systems with pertinent positive or pertinent negative responses have been documented in the HPI. ROS Other: All systems not noted in ROS Statement are negative. Constitutional: Denies: fever, chills, weakness Eyes: Denies: vision change ENT: Denies: ear pain, hearing loss, congestion Respiratory: Denies: cough, dyspnea Cardiovascular: Denies: chest pain, palpitations, orthopnea, edema, syncope Gastrointestinal: Reports: nausea. Denies: abdominal pain, vomiting Musculoskeletal: Denies: back pain Skin: Denies: rash Neurological: Reports: vertigo. Denies: headache, weakness, numbness, paresthesias, confusion Past Medical History Past Medical History: Atrial Flutter, Heart Failure, COPD, Hyperlipidemia, Hypertension, Pneumonia, Prostate Disorder, Sleep Apnea/CPAP/BIPAP Additional Past Medical History / Comment(s): not using CPAP- unable to sleep on his back, SOB w/activity, "bad aortic valve"-had it replaced at [facility] History of Any Multi-Drug Resistant Organisms: None Reported Past Surgical History: Heart Catheterization, Hernia Repair Additional Past Surgical History / Comment(s): hernia repairs x 3 jade, aortic valve replacement 07-24-14 at [facility] Past Anesthesia/Blood Transfusion Reactions: No Reported Reaction Past Psychological History: No Psychological Hx Reported Smoking Status: Former smoker Past Alcohol Use History: None Reported, Occasional Past Drug Use History: None Reported - Past Family History Father Additional Family Medical History / Comment(s): "hypochondric" Mother History Unknown: Yes General Exam Limitations: no limitations General appearance: alert, in no apparent distress Head exam: Present: atraumatic, normocephalic Eye exam: Present: normal appearance, PERRL, EOMI, nystagmus. Absent: scleral icterus, conjunctival injection ENT exam: Present: normal oropharynx Neck exam: Present: normal inspection, full ROM, other (No carotid bruit) Respiratory exam: Present: normal lung sounds bilaterally. Absent: respiratory distress, wheezes, rales, rhonchi, stridor Cardiovascular Exam: Present: regular rate, normal rhythm, normal heart sounds. Absent: systolic murmur, diastolic murmur, rubs, gallop GI/Abdominal exam: Present: soft. Absent: distended, tenderness, guarding, rebound, rigid Extremities exam: Present: normal inspection, normal capillary refill. Absent: pedal edema, calf tenderness Back exam: Present: normal inspection. Absent: CVA tenderness (R), CVA tenderness (L) Neurological exam: Present: alert, oriented X3, CN II-XII intact. Absent: motor sensory deficit Skin exam: Present: warm, dry, intact, normal color. Absent: rash Course Vital Signs 09/26/18 09/26/18 09/26/18 02:08 03:30 03:34 Temperature 98 F Pulse Rate 63 64 67 Respiratory 18 18 20 Rate Blood Pressure 167/77 140/68 140/68 O2 Sat by Pulse 97 98 Oximetry 09/26/18 06:56 Temperature 98.6 F Pulse Rate 62 Respiratory 17 Rate Blood Pressure 131/58 O2 Sat by Pulse 95 Oximetry Medical Decision Making - Lab Data Result diagrams: 09/26/18 02:30 09/26/18 02:30 Lab Results 09/26/18 09/26/18 09/26/18 Range/Units 02:30 02:30 02:30 WBC 4.9 (3.8-10.6) k/uL RBC 4.14 L (4.30-5.90) m/uL Hgb 13.1 (13.0-17.5) gm/dL Hct 38.4 L (39.0-53.0) % MCV 92.6 (80.0-100.0) fL MCH 31.6 (25.0-35.0) pg MCHC 34.1 (31.0-37.0) g/dL RDW 13.7 (11.5-15.5) % Plt Count 121 L (150-450) k/uL Neutrophils % 56 % Lymphocytes % 28 % Monocytes % 7 % Eosinophils % 5 % Basophils % 0 % Neutrophils # 2.8 (1.3-7.7) k/uL Lymphocytes # 1.4 (1.0-4.8) k/uL Monocytes # 0.4 (0-1.0) k/uL Eosinophils # 0.2 (0-0.7) k/uL Basophils # 0.0 (0-0.2) k/uL Sodium 140 (137-145) mmol/L Potassium 4.4 (3.5-5.1) mmol/L Chloride 109 H (98-107) mmol/L Carbon Dioxide 25 (22-30) mmol/L Anion Gap 6 mmol/L BUN 20 (9-20) mg/dL Creatinine 1.11 (0.66-1.25) mg/dL Est GFR (CKD-EPI)AfAm 77 (>60 ml/min/1.73 sqM) Est GFR (CKD-EPI)NonAf 67 (>60 ml/min/1.73 sqM) Glucose 94 (74-99) mg/dL POC Glucose (mg/dL) (75-99) mg/dL POC Glu Wind Site Manager ID Calcium 9.1 (8.4-10.2) mg/dL Total Bilirubin 0.7 (0.2-1.3) mg/dL AST 24 (17-59) U/L ALT 37 (21-72) U/L Alkaline Phosphatase 63 (38-126) U/L Troponin I 0.012 (0.000-0.034) ng/mL Total Protein 6.0 L (6.3-8.2) g/dL Albumin 3.7 (3.5-5.0) g/dL Urine Color Urine Appearance (Clear) Urine pH (5.0-8.0) Ur Specific [place] (1.001-1.035) Urine Protein (Negative) Urine Glucose (UA) (Negative) Urine Ketones (Negative) Urine Blood (Negative) Urine Nitrite (Negative) Urine Bilirubin (Negative) Urine Urobilinogen (<2.0) mg/dL Ur Leukocyte Esterase (Negative) 09/26/18 09/26/18 Range/Units 03:54 06:35 WBC (3.8-10.6) k/uL RBC (4.30-5.90) m/uL Hgb (13.0-17.5) gm/dL Hct (39.0-53.0) % MCV (80.0-100.0) fL MCH (25.0-35.0) pg MCHC (31.0-37.0) g/dL RDW (11.5-15.5) % Plt Count (150-450) k/uL Neutrophils % % Lymphocytes % % Monocytes % % Eosinophils % % Basophils % % Neutrophils # (1.3-7.7) k/uL Lymphocytes # (1.0-4.8) k/uL Monocytes # (0-1.0) k/uL Eosinophils # (0-0.7) k/uL Basophils # (0-0.2) k/uL Sodium (137-145) mmol/L Potassium (3.5-5.1) mmol/L Chloride (98-107) mmol/L Carbon Dioxide (22-30) mmol/L Anion Gap mmol/L BUN (9-20) mg/dL Creatinine (0.66-1.25) mg/dL Est GFR (CKD-EPI)AfAm (>60 ml/min/1.73 sqM) Est GFR (CKD-EPI)NonAf (>60 ml/min/1.73 sqM) Glucose (74-99) mg/dL POC Glucose (mg/dL) 111 H (75-99) mg/dL POC Glu Wind Site Manager ID Blayne Lynn Calcium (8.4-10.2) mg/dL Total Bilirubin (0.2-1.3) mg/dL AST (17-59) U/L ALT (21-72) U/L Alkaline Phosphatase (38-126) U/L Troponin I (0.000-0.034) ng/mL Total Protein (6.3-8.2) g/dL Albumin (3.5-5.0) g/dL Urine Color Yellow Urine Appearance Clear (Clear) Urine pH 6.0 (5.0-8.0) Ur Specific [place] 1.026 (1.001-1.035) Urine Protein Negative (Negative) Urine Glucose (UA) Negative (Negative) Urine Ketones Negative (Negative) Urine Blood Negative (Negative) Urine Nitrite Negative (Negative) Urine Bilirubin Negative (Negative) Urine Urobilinogen 2.0 (<2.0) mg/dL Ur Leukocyte Esterase Negative (Negative) Disposition Clinical Impression: Vertigo Disposition: HOME SELF-CARE Condition: Good Instructions: Vertigo (DC) Prescriptions: Meclizine [Antivert] 25 mg PO TID PRN #15 tab PRN Reason: Vertigo Is patient prescribed a controlled substance at d/c from ED?: No Referrals: Rolo Nicholas MD [Primary Care Provider] - 1-2 days
[2018-09-26 06:56] LABS: Appearance,Urine Clear (Clear); Bilirubin,Urine Negative (Negative); Blood,Urine Negative (Negative); Color,Urine Yellow; Glucose,Urine (UA) Negative (Negative); Ketones,Urine Negative (Negative); Leukocyte Esterase,Urine Negative (Negative); Nitrite,Urine Negative (Negative); Protein,Urine Negative (Negative); Specific Gravity,Urine 1.026 (1.001-1.035)
[2018-09-26 06:58] VITALS: BP 131/58; PULSE 62; RESP 17; TEMP 98.6
[2018-09-26 10:42] LABS: Glucose,Whole Blood 111 mg/dL (75-99)
--- NOTE | 2018-09-28 00:54 | CDI ---
Documentation Clarification OP Dear Dr. Raine Lester Please do addendum to ED report for missing HPI and Physical examination. Thank you, Elizabeth Malhotra Head Setter If you have any questions, please contact Rug Receiving Clerk at [phone] [facility]
== END 2018-09-26 06:52 | disposition home or self-care (01) ==
LOC: EC 02:04
DX: R42 Dizziness and giddiness (principal); I48.92 Unspecified atrial flutter; E78.5 Hyperlipidemia, unspecified; I11.0 Hypertensive heart disease with heart failure; I50.9 Heart failure, unspecified; G47.30 Sleep apnea, unspecified; Z99.89 Dependence on other enabling machines and devices; Z87.438 Personal history of other diseases of male genital organs; Z95.818 Presence of other cardiac implants and grafts; Z95.2 Presence of prosthetic heart valve; Z87.891 Personal history of nicotine dependence; Z79.02 Long term (current) use of antithrombotics/antiplatelets; Z79.01 Long term (current) use of anticoagulants; Z79.52 Long term (current) use of systemic steroids; Z79.899 Other long term (current) drug therapy; Z91.018 Allergy to other foods
CPT/HCPCS: 99285; 36415; 93005; 80053; 84484; 85025; 81003; 70496; Q9967

== ENCOUNTER → 2018-10-02 | Outpatient (CLI) | payer MEDICARE, BC ==
[2018-10-04 17:07] VITALS: BMI 43.8
== END | disposition home or self-care (01) ==
LOC: LABWHC1 09:53
PROVIDERS: ATTEND Internal Medicine
DX: E66.01 Morbid (severe) obesity due to excess calories (principal); Z68.41 Body mass index [BMI] 40.0-44.9, adult
CPT/HCPCS: 97802

== ENCOUNTER → 2018-10-10 | Outpatient (CLI) | payer MEDICARE, BC ==
--- NOTE | 2018-10-11 07:13 | US ---
EXAMINATION TYPE: US carotid duplex BILAT DATE OF EXAM: 10/10/2018 COMPARISON: NONE CLINICAL HISTORY: R42 DIZZINESS AND GIDDINESS. EXAM MEASUREMENTS: RIGHT: Peak Systolic Velocity (PSV) cm/sec ----- Right CCA: 85.0 ----- Right ICA: 99.2 ----- Right ECA: 143.1 ICA/CCA ratio: 1.2 RIGHT: End Diastole cm/sec ----- Right CCA: 17.6 ----- Right ICA: 26.7 ----- Right ECA: 0.0 LEFT: Peak Systolic Velocity (PSV) cm/sec ----- Left CCA: 86.6 ----- Left ICA: 94.1 ----- Left ECA: 103.1 ICA/CCA ratio: 1.1 LEFT: End Diastole cm/sec ----- Left CCA: 17.2 ----- Left ICA: 31.9 ----- Left ECA: 9.8 VERTEBRALS (direction of flow): Right Vertebral: Antegrade Left Vertebral: Antegrade Rhythm: Normal IMPRESSION: No evidence for hemodynamically significant stenosis. Criteria for Assigning % of Stenosis / Diameter reduction (Estimation based on the indirect measurements of the internal carotid artery velocities (ICA PSV). 1. Normal (no stenosis)=ICA PSV < 125 cm/s: ratio < 2.0: ICA EDV<40 cm/s. 2. Less than 50% stenosis=ICA PSV < 125 cm/s: ratio < 2.0: ICA EDV<40 cm/s. 3. 50 to 69% stenosis=ICA PSV of 125 to 230 cm/s: ration 2.0 ? 4.0: ICA EDV 40-100 cm/s. 4. Greater than 70% stenosis to near occlusion= ICA PSV > 230 cm/s: ratio > 4.0: ICA EDV > 100 cm/s. 5. Near occlusion= ICA PSV velocities may be low or undetectable: variable ratio and ICA EDV. 6. Total occlusion=unable to detect flow.
== END ==
LOC: RADUSWWP 16:36
PROVIDERS: ATTEND Physician Assistant
DX: R42 Dizziness and giddiness (principal)
CPT/HCPCS: 93880

== ENCOUNTER 2018-12-16 22:30 | Emergency (ER) | payer MEDICARE, BC ==
[2018-12-16 22:59] LABS: Basophils % (A) 1 %; Eosinophils # (A) 0.2 k/uL (0-0.7); Eosinophils % (A) 3 %; HCT 39.9 % (39.0-53.0); Lymphocytes # (A) 1.8 k/uL (1.0-4.8); Lymphocytes % (A) 29 %; MCH 30.2 pg (25.0-35.0); MCHC 32.6 g/dL (31.0-37.0); MCV 92.5 fL (80.0-100.0); Monocytes # (A) 0.4 k/uL (0-1.0); Monocytes % (A) 6 %; Neutrophils # (A) 3.6 k/uL (1.3-7.7); Neutrophils % (A) 60 %; Platelet Count 121 k/uL (150-450); RBC 4.32 m/uL (4.30-5.90); RDW 13.8 % (11.5-15.5)
[2018-12-16 23:08] LABS: Albumin 3.8 g/dL (3.5-5.0); Calcium 9.6 mg/dL (8.4-10.2); Potassium 4.5 mmol/L (3.5-5.1); Total Bilirubin 0.6 mg/dL (0.2-1.3)
[2018-12-16 23:24] LABS: INR 1.4 (<1.2); Prothrombin Time 13.9 sec (9.0-12.0)
--- NOTE | 2018-12-16 23:53 | XR ---
EXAM: XR Chest, 1 View CLINICAL HISTORY: ITS.REASON XR Reason: dysrhythmia TECHNIQUE: Frontal view of the chest. COMPARISON: 12/10/17. FINDINGS: Lungs: No clear pulmonary edema or consolidation Pleural space: Unremarkable. No pneumothorax. Heart: Enlarged cardiac silhouette. Mitral valve prosthesis. Mediastinum: Unremarkable. Bones/joints: Unremarkable. IMPRESSION: Cardiomegaly with mitral valve prosthesis. No overt edema.
--- NOTE | 2018-12-17 01:43 | ED ---
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 Patient has previous history of atrial fibrillation and was concerned that he had gone back into that rhythm. Patient denies any associated chest pain. No dyspnea, diaphoresis, nausea or vomiting. Patient notes that his medications were recently changed to include amiodarone. He does state he is compliant with his meds. MD Complaint: irregular heart beat -: hour(s) Context: occurred during rest Arrhythmia History: atrial fibrillation Associated Symptoms: denies other symptoms - Related Data Home Medications Medication Instructions Recorded Confirmed Atorvastatin [Lipitor] 80 mg PO W/SUPPER 05/25/16 01/13/19 Cholecalciferol [Vitamin D3] 5,000 unit PO W/SUPPER 05/25/16 01/13/19 Multivitamin [Men's Multi-Vitamin] 1 tab PO W/SUPPER 05/25/16 01/13/19 Rivaroxaban [Xarelto] 20 mg PO W/SUPPER 09/17/17 01/13/19 Finasteride [Proscar] 5 mg PO DAILY 12/10/17 01/13/19 Furosemide [Lasix] 20 mg PO Q48H 12/10/17 01/13/19 Amiodarone [Cordarone] 100 mg PO DAILY 12/27/17 01/13/19 Tamsulosin HCl [Flomax] 0.4 mg PO BID 02/20/18 01/13/19 Clobetasol Propionate [Temovate 1 applic TOPICAL BID 09/26/18 01/13/19 0.05% Cream] Latanoprost [Xalatan 0.005%] 1 drop BOTH EYES HS 09/26/18 01/13/19 Previous Rx's Medication Instructions Recorded Losartan [Cozaar] 50 mg PO DAILY #30 tab 12/25/18 amLODIPine [Norvasc] 5 mg PO HS #30 tab 12/25/18 Allergies Allergy/AdvReac Type Severity Reaction Status Date / Time onion AdvReac Indigestion Verified 01/13/19 22:30 Pepper AdvReac Indigestion Verified 01/13/19 22:30 tomato AdvReac Indigestion Verified 01/13/19 22:30 Review of Systems ROS Statement: Those systems with pertinent positive or pertinent negative responses have been documented in the HPI. ROS Other: All systems not noted in ROS Statement are negative. Constitutional: Denies: fever, chills Respiratory: Denies: cough, dyspnea Cardiovascular: Reports: palpitations. 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 at [facility] History of Any Multi-Drug Resistant Organisms: None Reported Past Surgical History: Heart Catheterization, Hernia Repair Additional Past Surgical History / Comment(s): hernia repairs x 3 jade, aortic valve replacement 07-24-14 at [facility] Past Anesthesia/Blood Transfusion Reactions: No Reported Reaction Past Psychological History: No Psychological Hx Reported Smoking Status: Former smoker Past Alcohol Use History: Occasional Past Drug Use History: None Reported - Past Family History Father Additional Family Medical History / Comment(s): "hypochondric" Mother History Unknown: Yes General Exam General appearance: alert, in no apparent distress Head exam: Present: atraumatic, normocephalic Eye exam: Present: normal appearance. Absent: scleral icterus, conjunctival injection ENT exam: Present: normal oropharynx Neck exam: Present: normal inspection, full ROM Respiratory exam: Present: normal lung sounds bilaterally. Absent: respiratory distress, wheezes, rales, rhonchi, stridor Cardiovascular Exam: Present: regular rate, normal rhythm, normal heart sounds. Absent: systolic murmur, diastolic murmur, rubs, gallop GI/Abdominal exam: Present: soft, hernia (Patient does have moderate sized umbilical hernia which is nontender and). Absent: distended, tenderness, guarding, rebound, mass Extremities exam: Present: normal inspection, normal capillary refill, pedal edema (Trace of edema bilaterally at the ankles). Absent: calf tenderness Back exam: Present: normal inspection. Absent: CVA tenderness (R), CVA tenderness (L) Neurological exam: Present: alert Skin exam: Present: warm, dry, intact, normal color. Absent: rash Course Vital Signs 12/16/18 12/17/18 12/17/18 22:30 00:26 02:19 Temperature 98.7 F 98 F 98.7 F Pulse Rate 66 60 61 Respiratory 16 16 18 Rate Blood Pressure 171/92 146/74 139/86 O2 Sat by Pulse 97 96 97 Oximetry EKG Findings - EKG Results: EKG: interpreted by JEFF, sinus rhythm (Rate 64 bpm), normal ST/T - Blocks, [place], Hypertrophy, ST Abn: AV and intraventricular conduction: intraventricular conduction delay QRS axis and voltage: left axis deviation (-30 to -90) Medical Decision Making - Medical Decision Making Patient 73-year-old man presenting for palpitations. He is found to be in sinus rhythm. His workup is unremarkable and he is feeling better, requesting to go home. He will follow-up with the email designer, returning if symptoms recur if any new symptoms develop - Lab Data Result diagrams: 12/16/18 22:35 12/16/18 22:35 Lab Results 12/16/18 12/16/18 12/16/18 Range/Units 22:35 22:35 22:35 WBC 6.0 (3.8-10.6) k/uL RBC 4.32 (4.30-5.90) m/uL Hgb 13.0 (13.0-17.5) gm/dL Hct 39.9 (39.0-53.0) % MCV 92.5 (80.0-100.0) fL MCH 30.2 (25.0-35.0) pg MCHC 32.6 (31.0-37.0) g/dL RDW 13.8 (11.5-15.5) % Plt Count 121 L (150-450) k/uL Neutrophils % 60 % Lymphocytes % 29 % Monocytes % 6 % Eosinophils % 3 % Basophils % 1 % Neutrophils # 3.6 (1.3-7.7) k/uL Lymphocytes # 1.8 (1.0-4.8) k/uL Monocytes # 0.4 (0-1.0) k/uL Eosinophils # 0.2 (0-0.7) k/uL Basophils # 0.0 (0-0.2) k/uL PT 13.9 H (9.0-12.0) sec INR 1.4 H (<1.2) APTT 37.0 H (22.0-30.0) sec Sodium 143 (137-145) mmol/L Potassium 4.5 (3.5-5.1) mmol/L Chloride 111 H (98-107) mmol/L Carbon Dioxide 25 (22-30) mmol/L Anion Gap 7 mmol/L BUN 20 (9-20) mg/dL Creatinine 1.02 (0.66-1.25) mg/dL Est GFR (CKD-EPI)AfAm 85 (>60 ml/min/1.73 sqM) Est GFR (CKD-EPI)NonAf 74 (>60 ml/min/1.73 sqM) Glucose 86 (74-99) mg/dL Calcium 9.6 (8.4-10.2) mg/dL Magnesium 2.0 (1.6-2.3) mg/dL Total Bilirubin 0.6 (0.2-1.3) mg/dL AST 20 (17-59) U/L ALT 28 (21-72) U/L Alkaline Phosphatase 67 (38-126) U/L Troponin I (0.000-0.034) ng/mL Total Protein 6.0 L (6.3-8.2) g/dL Albumin 3.8 (3.5-5.0) g/dL 12/16/18 Range/Units 22:35 WBC (3.8-10.6) k/uL RBC (4.30-5.90) m/uL Hgb (13.0-17.5) gm/dL Hct (39.0-53.0) % MCV (80.0-100.0) fL MCH (25.0-35.0) pg MCHC (31.0-37.0) g/dL RDW (11.5-15.5) % Plt Count (150-450) k/uL Neutrophils % % Lymphocytes % % Monocytes % % Eosinophils % % Basophils % % Neutrophils # (1.3-7.7) k/uL Lymphocytes # (1.0-4.8) k/uL Monocytes # (0-1.0) k/uL Eosinophils # (0-0.7) k/uL Basophils # (0-0.2) k/uL PT (9.0-12.0) sec INR (<1.2) APTT (22.0-30.0) sec Sodium (137-145) mmol/L Potassium (3.5-5.1) mmol/L Chloride (98-107) mmol/L Carbon Dioxide (22-30) mmol/L Anion Gap mmol/L BUN (9-20) mg/dL Creatinine (0.66-1.25) mg/dL Est GFR (CKD-EPI)AfAm (>60 ml/min/1.73 sqM) Est GFR (CKD-EPI)NonAf (>60 ml/min/1.73 sqM) Glucose (74-99) mg/dL Calcium (8.4-10.2) mg/dL Magnesium (1.6-2.3) mg/dL Total Bilirubin (0.2-1.3) mg/dL AST (17-59) U/L ALT (21-72) U/L Alkaline Phosphatase (38-126) U/L Troponin I 0.019 (0.000-0.034) ng/mL Total Protein (6.3-8.2) g/dL Albumin (3.5-5.0) g/dL Disposition Clinical Impression: Palpitations Disposition: HOME SELF-CARE Condition: Good Instructions (If sedation given, give patient instructions): Heart Palpitations (ED) Is patient prescribed a controlled substance at d/c from ED?: No Referrals: Rolo Nicholas MD [Primary Care Provider] - 1-2 days Marvin Foreman MD [STAFF PHYSICIAN] - 1-2 days
[2018-12-17 02:20] VITALS: BP 139/86; PULSE 61; RESP 18; TEMP 98.7
== END 2018-12-17 02:19 | disposition home or self-care (01) ==
LOC: EC 22:30
DX: R00.2 Palpitations (principal); I48.91 Unspecified atrial fibrillation; I48.92 Unspecified atrial flutter; I11.0 Hypertensive heart disease with heart failure; I50.9 Heart failure, unspecified; J44.9 Chronic obstructive pulmonary disease, unspecified; E78.5 Hyperlipidemia, unspecified; N42.9 Disorder of prostate, unspecified; Z87.891 Personal history of nicotine dependence; Z79.01 Long term (current) use of anticoagulants; Z79.899 Other long term (current) drug therapy; Z91.018 Allergy to other foods; Z95.818 Presence of other cardiac implants and grafts; Z95.2 Presence of prosthetic heart valve
CPT/HCPCS: 36415; 71045; 80053; 83735; 84484; 85025; 85610; 85730; 93005; 99285

== ENCOUNTER 2018-12-24 19:37 | Observation (INO) | payer MEDICARE, BC ==
[2018-12-24] MEDS ORDERED: SODIUM CHLORIDE 0.9% 1,000 ML IV STA (19:59)
[2018-12-24] MEDS ORDERED: hydrALAZINE HCL 20 MG/ML 1 ML VIAL IVP STA (20:23)
--- NOTE | 2018-12-24 20:28 | ED ---
Dizziness HPI - General Source: patient, RN notes reviewed, old records reviewed Limitations: no limitations <Debbie Lincoln - Last Filed: 12/24/18 23:08> <Trevon Ni - Last Filed: 12/26/18 08:03> - General Chief Complaint: Dizziness Stated Complaint: Hypertensive, Dizziness Time Seen by Provider: 12/24/18 19:54 - History of Present Illness Initial Comments: Patient is a 73-year-old male who presents emergency Department today with complaints of chest burning pain off-and-on. As well as complaining of some dizziness today. Patient reports he spends emergency department twice within the past 2 weeks for similar complaint concern for A. fib. Patient reports a follow-up with Dr. Cardozo. They told him to monitor his blood pressure. Today patient's blood pressure was 190/100. Patient is also concerned because he is recently increase his amiodarone. Patient states that he denies any shortness of breath. He had this episode of lightheadedness and fell he is about to pass out. Patient states that his symptoms resolved after he sat down. (Debbie Lincoln) - Related Data Home Medications Medication Instructions Recorded Confirmed Atorvastatin [Lipitor] 80 mg PO W/SUPPER 05/25/16 12/24/18 Cholecalciferol [Vitamin D3] 5,000 unit PO W/SUPPER 05/25/16 12/24/18 Multivitamin [Men's Multi-Vitamin] 1 tab PO W/SUPPER 05/25/16 12/24/18 Clopidogrel [Plavix] 75 mg PO DAILY 08/25/16 12/24/18 Rivaroxaban [Xarelto] 20 mg PO W/SUPPER 09/17/17 12/24/18 Finasteride [Proscar] 5 mg PO DAILY 12/10/17 12/24/18 Furosemide [Lasix] 20 mg PO Q48H 12/10/17 12/24/18 Amiodarone [Cordarone] 200 mg PO TID 12/27/17 12/24/18 Tamsulosin HCl [Flomax] 0.4 mg PO BID 02/20/18 12/24/18 Clobetasol Propionate [Temovate 1 applic TOPICAL BID 09/26/18 12/24/18 0.05% Cream] Latanoprost [Xalatan 0.005%] 1 drop BOTH EYES HS 09/26/18 12/24/18 Previous Rx's Medication Instructions Recorded Losartan [Cozaar] 50 mg PO DAILY #30 tab 12/25/18 amLODIPine [Norvasc] 5 mg PO HS #30 tab 12/25/18 Allergies Allergy/AdvReac Type Severity Reaction Status Date / Time onion AdvReac Indigestion Verified 12/24/18 20:05 Pepper AdvReac Indigestion Verified 12/24/18 20:05 tomato AdvReac Indigestion Verified 12/24/18 20:05 Review of Systems ROS Other: All systems not noted in ROS Statement are negative. <Debbie Lincoln - Last Filed: 12/24/18 23:08> ROS Other: All systems not noted in ROS Statement are negative. <Trevon Ni - Last Filed: 12/26/18 08:03> ROS Statement: Those systems with pertinent positive or pertinent negative responses have been documented in the HPI. 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 at [facility] History of Any Multi-Drug Resistant Organisms: None Reported Past Surgical History: Heart Catheterization, Hernia Repair Additional Past Surgical History / Comment(s): hernia repairs x 3 jade, aortic valve replacement 07-24-14 at [facility] Past Anesthesia/Blood Transfusion Reactions: No Reported Reaction Past Psychological History: No Psychological Hx Reported Smoking Status: Former smoker Past Alcohol Use History: Occasional Past Drug Use History: None Reported - Past Family History Father Additional Family Medical History / Comment(s): "hypochondric" Mother History Unknown: Yes <Debbie Lincoln - Last Filed: 12/24/18 23:08> General Exam Limitations: no limitations General appearance: alert, in no apparent distress Head exam: Present: atraumatic, normocephalic, normal inspection Eye exam: Present: normal appearance, PERRL, EOMI. Absent: scleral icterus, conjunctival injection, periorbital swelling ENT exam: Present: normal exam, mucous membranes moist Neck exam: Present: normal inspection. Absent: tenderness, meningismus, lymphadenopathy Respiratory exam: Present: normal lung sounds bilaterally. Absent: respiratory distress, wheezes, rales, rhonchi, stridor Cardiovascular Exam: Present: regular rate, normal rhythm, normal heart sounds. Absent: systolic murmur, diastolic murmur, rubs, gallop, clicks GI/Abdominal exam: Present: soft, normal bowel sounds. Absent: distended, tenderness, guarding, rebound, rigid Extremities exam: Present: normal inspection, full ROM, normal capillary refill. Absent: tenderness, pedal edema, joint swelling, calf tenderness Back exam: Present: normal inspection Neurological exam: Present: alert, oriented X3, CN II-XII intact Psychiatric exam: Present: normal affect, normal mood <Debbie Lincoln - Last Filed: 12/24/18 23:08> - General Exam Comments Initial Comments: 73-year-old male. Alert and oriented 3. Patient appears in no significant distress. (Debbie Lincoln) Course Vital Signs 12/24/18 12/24/18 12/24/18 19:43 20:56 23:19 Temperature 97.7 F Pulse Rate 70 65 Respiratory 22 18 18 Rate Blood Pressure 191/77 137/74 O2 Sat by Pulse 97 94 L Oximetry EKG Findings - EKG Comments: EKG Findings:: Normal sinus rhythm left axis deviation. Left ventricular hypertrophy with QRS widening. Cannot rule out septal infarct age- indeterminate. Abnormal EKG. Ventricular rate of 60 bpm. [place] interval is 194 ms. She religious 124 ms. QT QTc is 4522 ms. <Debbie Lincoln - Last Filed: 12/24/18 23:08> Medical Decision Making - Lab Data Result diagrams: 12/24/18 20:21 12/24/18 20:21 <Debbie Lincoln - Last Filed: 12/24/18 23:08> - Lab Data Result diagrams: 12/24/18 20:21 12/24/18 20:21 <Trevon Ni - Last Filed: 12/26/18 08:03> - Medical Decision Making Patient is a pleasant 73-year-old male presents for his pharmacy today with left-sided burning chest pain. He complains of some dizziness and lightheadedness. Patient denies any headache. Denies any syncopal episodes. Patient was given IV fluids labwork obtained. Laboratory was reviewed including troponin unremarkable. Patient to emergency arm 3 times in the past 2 weeks for similar complaints. He followed up with Dr. Clark in. Blood pressure was elevated upon arrival 190/100. Patient states 3 check blood pressure is 130/90. Patient did not receive any antihypertensives in the emergency department. I discussed the concern for patient's symptoms of palpitations dizziness lightheadedness and repeat visits. Discussed admit the Patient with consult to cardiology. discussed the case with Dr. Ni. (Debbie Lincoln) I saw this patient in conjunction with the physician assistant brand manager. I performed independent history and physical exam. Agree with case management. (Trevon Ni) - Lab Data Lab Results 12/24/18 12/24/18 12/24/18 Range/Units 20:21 20:21 20:21 WBC 5.7 (3.8-10.6) k/uL RBC 4.54 (4.30-5.90) m/uL Hgb 14.0 (13.0-17.5) gm/dL Hct 40.5 (39.0-53.0) % MCV 89.3 (80.0-100.0) fL MCH 30.8 (25.0-35.0) pg MCHC 34.5 (31.0-37.0) g/dL RDW 13.7 (11.5-15.5) % Plt Count 116 L (150-450) k/uL Neutrophils % 65 % Lymphocytes % 22 % Monocytes % 8 % Eosinophils % 2 % Basophils % 1 % Neutrophils # 3.7 (1.3-7.7) k/uL Lymphocytes # 1.2 (1.0-4.8) k/uL Monocytes # 0.5 (0-1.0) k/uL Eosinophils # 0.1 (0-0.7) k/uL Basophils # 0.0 (0-0.2) k/uL PT (9.0-12.0) sec INR (<1.2) APTT (22.0-30.0) sec Sodium 141 (137-145) mmol/L Potassium 4.4 (3.5-5.1) mmol/L Chloride 110 H (98-107) mmol/L Carbon Dioxide 22 (22-30) mmol/L Anion Gap 9 mmol/L BUN 16 (9-20) mg/dL Creatinine 1.16 (0.66-1.25) mg/dL Est GFR (CKD-EPI)AfAm 73 (>60 ml/min/1.73 sqM) Est GFR (CKD-EPI)NonAf 64 (>60 ml/min/1.73 sqM) Glucose 86 (74-99) mg/dL Plasma Lactic Acid Izaiah 1.0 (0.7-2.0) mmol/L Calcium 9.6 (8.4-10.2) mg/dL Total Bilirubin 0.9 (0.2-1.3) mg/dL AST 22 (17-59) U/L ALT 26 (21-72) U/L Alkaline Phosphatase 66 (38-126) U/L Troponin I (0.000-0.034) ng/mL NT-Pro-B Natriuret Pep pg/mL Total Protein 6.1 L (6.3-8.2) g/dL Albumin 3.9 (3.5-5.0) g/dL Urine Color Urine Appearance (Clear) Urine pH (5.0-8.0) Ur Specific [place] (1.001-1.035) Urine Protein (Negative) Urine Glucose (UA) (Negative) Urine Ketones (Negative) Urine Blood (Negative) Urine Nitrite (Negative) Urine Bilirubin (Negative) Urine Urobilinogen (<2.0) mg/dL Ur Leukocyte Esterase (Negative) 12/24/18 12/24/18 12/24/18 Range/Units 20:21 20:21 20:25 WBC (3.8-10.6) k/uL RBC (4.30-5.90) m/uL Hgb (13.0-17.5) gm/dL Hct (39.0-53.0) % MCV (80.0-100.0) fL MCH (25.0-35.0) pg MCHC (31.0-37.0) g/dL RDW (11.5-15.5) % Plt Count (150-450) k/uL Neutrophils % % Lymphocytes % % Monocytes % % Eosinophils % % Basophils % % Neutrophils # (1.3-7.7) k/uL Lymphocytes # (1.0-4.8) k/uL Monocytes # (0-1.0) k/uL Eosinophils # (0-0.7) k/uL Basophils # (0-0.2) k/uL PT 13.8 H (9.0-12.0) sec INR 1.4 H (<1.2) APTT 36.4 H (22.0-30.0) sec Sodium (137-145) mmol/L Potassium (3.5-5.1) mmol/L Chloride (98-107) mmol/L Carbon Dioxide (22-30) mmol/L Anion Gap mmol/L BUN (9-20) mg/dL Creatinine (0.66-1.25) mg/dL Est GFR (CKD-EPI)AfAm (>60 ml/min/1.73 sqM) Est GFR (CKD-EPI)NonAf (>60 ml/min/1.73 sqM) Glucose (74-99) mg/dL Plasma Lactic Acid Izaiah (0.7-2.0) mmol/L Calcium (8.4-10.2) mg/dL Total Bilirubin (0.2-1.3) mg/dL AST (17-59) U/L ALT (21-72) U/L Alkaline Phosphatase (38-126) U/L Troponin I <0.012 (0.000-0.034) ng/mL NT-Pro-B Natriuret Pep 251 pg/mL Total Protein (6.3-8.2) g/dL Albumin (3.5-5.0) g/dL Urine Color Urine Appearance (Clear) Urine pH (5.0-8.0) Ur Specific [place] (1.001-1.035) Urine Protein (Negative) Urine Glucose (UA) (Negative) Urine Ketones (Negative) Urine Blood (Negative) Urine Nitrite (Negative) Urine Bilirubin (Negative) Urine Urobilinogen (<2.0) mg/dL Ur Leukocyte Esterase (Negative) 12/24/18 Range/Units 22:00 WBC (3.8-10.6) k/uL RBC (4.30-5.90) m/uL Hgb (13.0-17.5) gm/dL Hct (39.0-53.0) % MCV (80.0-100.0) fL MCH (25.0-35.0) pg MCHC (31.0-37.0) g/dL RDW (11.5-15.5) % Plt Count (150-450) k/uL Neutrophils % % Lymphocytes % % Monocytes % % Eosinophils % % Basophils % % Neutrophils # (1.3-7.7) k/uL Lymphocytes # (1.0-4.8) k/uL Monocytes # (0-1.0) k/uL Eosinophils # (0-0.7) k/uL Basophils # (0-0.2) k/uL PT (9.0-12.0) sec INR (<1.2) APTT (22.0-30.0) sec Sodium (137-145) mmol/L Potassium (3.5-5.1) mmol/L Chloride (98-107) mmol/L Carbon Dioxide (22-30) mmol/L Anion Gap mmol/L BUN (9-20) mg/dL Creatinine (0.66-1.25) mg/dL Est GFR (CKD-EPI)AfAm (>60 ml/min/1.73 sqM) Est GFR (CKD-EPI)NonAf (>60 ml/min/1.73 sqM) Glucose (74-99) mg/dL Plasma Lactic Acid Izaiah (0.7-2.0) mmol/L Calcium (8.4-10.2) mg/dL Total Bilirubin (0.2-1.3) mg/dL AST (17-59) U/L ALT (21-72) U/L Alkaline Phosphatase (38-126) U/L Troponin I (0.000-0.034) ng/mL NT-Pro-B Natriuret Pep pg/mL Total Protein (6.3-8.2) g/dL Albumin (3.5-5.0) g/dL Urine Color Yellow Urine Appearance Clear (Clear) Urine pH 7.0 (5.0-8.0) Ur Specific [place] 1.012 (1.001-1.035) Urine Protein Negative (Negative) Urine Glucose (UA) Negative (Negative) Urine Ketones Negative (Negative) Urine Blood Negative (Negative) Urine Nitrite Negative (Negative) Urine Bilirubin Negative (Negative) Urine Urobilinogen <2.0 (<2.0) mg/dL Ur Leukocyte Esterase Negative (Negative) Disposition Is patient prescribed a controlled substance at d/c from ED?: No Time of Disposition: 23:09 <Debbie Lincoln Filed: 12/24/18 23:08> <Trevon Ni - Last Filed: 12/26/18 08:03> Clinical Impression: Chest pain, Palpitations, Dizziness Disposition: ADMITTED IP TO THIS HOSP Condition: Stable
[2018-12-24 20:33] LABS: Basophils % (A) 1 %; Eosinophils # (A) 0.1 k/uL (0-0.7); Eosinophils % (A) 2 %; HCT 40.5 % (39.0-53.0); Lymphocytes # (A) 1.2 k/uL (1.0-4.8); Lymphocytes % (A) 22 %; MCH 30.8 pg (25.0-35.0); MCHC 34.5 g/dL (31.0-37.0); MCV 89.3 fL (80.0-100.0); Mean Platelet Volume 9.5; Monocytes # (A) 0.5 k/uL (0-1.0); Monocytes % (A) 8 %; Neutrophils # (A) 3.7 k/uL (1.3-7.7); Neutrophils % (A) 65 %; Platelet Count 116 k/uL (150-450); RBC 4.54 m/uL (4.30-5.90); RDW 13.7 % (11.5-15.5); WBC 5.7 k/uL (3.8-10.6)
[2018-12-24 20:44] LABS: Albumin 3.9 g/dL (3.5-5.0); Calcium 9.6 mg/dL (8.4-10.2); INR 1.4 (<1.2); Partial Thromboplastin Time 36.4 sec (22.0-30.0); Potassium 4.4 mmol/L (3.5-5.1); Prothrombin Time 13.8 sec (9.0-12.0); Total Bilirubin 0.9 mg/dL (0.2-1.3); Total Protein 6.1 g/dL (6.3-8.2)
--- NOTE | 2018-12-24 20:56 | XR ---
EXAMINATION: XR chest 2V DATE AND TIME: 12/24/2018 8:32 PM CLINICAL INDICATION: PHH; Pain TECHNIQUE: Departmental protocol COMPARISON: 12/16/2018 FINDINGS: The lungs are clear. The pleural spaces are negative. The cardiac silhouette is mild-moderately enlarged, and aortic valve prosthesis is noted. EKG leads a lso noted. The remainder of the mediastinal silhouette is unremarkable. The skeletal structures and soft tissues are negative for acute findings. IMPRESSION: NO ACUTE PROCESS.
[2018-12-24 22:26] LABS: Appearance,Urine Clear (Clear); Bilirubin,Urine Negative (Negative); Blood,Urine Negative (Negative); Color,Urine Yellow; Glucose,Urine (UA) Negative (Negative); Ketones,Urine Negative (Negative); Leukocyte Esterase,Urine Negative (Negative); Nitrite,Urine Negative (Negative); Protein,Urine Negative (Negative); Specific Gravity,Urine 1.012 (1.001-1.035); Urobilinogen,Urine <2.0 mg/dL (<2.0)
[2018-12-24] MEDS ORDERED: NALOXONE 0.4 MG/ML 1 ML VIAL IV PRN (23:10)
[2018-12-24] MEDS ORDERED: ONDANSETRON 4 MG/2 ML VIAL IVP PRN (23:10)
[2018-12-24] MEDS ORDERED: MORPHINE SULFATE 4 MG/ML SYRINGE IV PRN (23:10)
[2018-12-24] MEDS ORDERED: KETOROLAC 30 MG/ML 1 ML VIAL IVP PRN (23:10)
[2018-12-24] MEDS ORDERED: ASPIRIN 325 MG TAB PO STA (23:12)
[2018-12-24] MEDS ORDERED: NITROGLYCERIN SL TABS 0.4 MG TAB SUBLINGUAL PRN (23:12)
[2018-12-24] MEDS: SODIUM CHLORIDE 0.9% 1,000 ML IV SCH (23:53)
[2018-12-25 03:10] LABS: Cholesterol 125 mg/dL (<200); HDL Cholesterol 46 mg/dL (40-60); LDL Cholesterol,Calculated 55 mg/dL (0-99); Triglycerides 120 mg/dL (<150)
[2018-12-25] MEDS ORDERED: CLOBETASOL PROP 0.05% CR 15GM TOPICAL SCH (09:00)
[2018-12-25] MEDS ORDERED: CLOPIDOGREL 75 MG TAB PO SCH (09:00)
[2018-12-25] MEDS ORDERED: TAMSULOSIN 0.4 MG CAP.ER.24H PO SCH (09:00)
[2018-12-25] MEDS ORDERED: FINASTERIDE 5 MG TAB PO SCH (09:00)
[2018-12-25] MEDS ORDERED: ASPIRIN 325 MG TAB PO SCH (09:00)
[2018-12-25] MEDS: SODIUM CHLORIDE 0.9% 1,000 ML IV SCH (09:21)
[2018-12-25] MEDS ORDERED: amLODIPine 5 MG TAB PO SCH (10:00)
[2018-12-25] MEDS ORDERED: LOSARTAN 50 MG TAB PO SCH (10:00)
[2018-12-25] MEDS: AMIODARONE 200 MG TAB PO SCH ×2 (10:41→18:26)
--- NOTE | 2018-12-25 13:57 | P.CRDCN ---
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 He follows in the office with Dr. Meng. He saw Dr. Moreau in the office on December 19 after mohini krause been to the emergency department twice for going into atrial fibrillation and he was started on a burst of amiodarone 200 mg 3 times a day. He has been taking that as prescribed. He was also advised to check his blood pressure at home and keep record. His blood pressures been consistently elevated over the previous 3 days with readings in the 150s, 130s and 190 systolic. Last evening the blood pressure was 190/80 and he started feeling what he describes as a vibration in his chest associated with dizziness. No significant or clear-cut palpitations and he states it did not feel like he was in atrial fibrillation however there was an odd sensation. He did undergo cardiac catheterization in 2015 prior to his aortic valve repair which revealed normal coronary arteries with no significant obstructive disease. He is seen and examined resting comfortably in no acute distress with his daughter at the bedside. Blood pressure on arrival to the emergency department was 191/77. EKG on arrival reveals sinus mechanism with left axis deviation and poor R-wave progression. Telemetry tracings have been reviewed and consistently reveal sinus mechanism with no evidence of atrial fibrillation. Chest x-ray is negative for acute cardiopulmonary process. Laboratory data reviewed, WBC 5.7, hemoglobin 14, platelets 116, INR 1.4, sodium 141, potassium 4.4, creatinine 1.16, cardiac enzymes negative 3, NT proBNP 251, LDL 55. Current cardiac medications include amiodarone 200 mg 3 times a day, atorvastatin 80 mg daily, Plavix 75 mg daily, Lasix 20 mg every other day and Xarelto 20 mg daily. Most recent echocardiogram obtained in the office July 2018 reveals preserved left ventricular systolic function with ejection fraction 50-55%, moderate concentric left ventricular hypertrophy and no regional wall motion abnormalities, grade 1 diastolic dysfunction, moderately dilated left atrium, mild mitral regurgitation with moderate mitral calcification, aortic valve process he says with mild regurgitation with a mean gradient of 15 mmHg across the valve and mild tricuspid regurgitation. At the time of my exam: CONSTITUTIONAL: Denies fever. Denies chills. EYES: Denies blurred vision. Denies vision changes. Denies eye pain. EARS, NOSE, MOUTH & THROAT: Denies headache. Denies sore throat. Denies ear pain. CARDIOVASCULAR: Denies chest pain. Denies shortness of breath. Denies orthopnea. Denies PND. Denies palpitations. RESPIRATORY: Denies cough. GASTROINTESTINAL: Denies abdominal pain. Denies diarrhea. Denies constipation. Denies nausea. Denies vomiting. MUSCULOSKELETAL: Denies myalgias. INTEGUMENTARY: Denies pruitis. Denies rash. NEUROLOGIC: Denies numbness. Denies tingling. Denies weakness. PSYCHIATRIC: Denies anxiety. Denies depression. ENDOCRINE: Denies fatigue. Denies weight change. Denies polydipsia. Denies polyurina. GENITOURINARY: Denies burning, hematuria or urgency with micturation. HEMATOLOGIC: Denies history of anemia. Denies bleeding. Blood pressure 162/73 heart rate 60 afebrile maintaining oxygen saturation on room air GENERAL: This is a 73-year-old male in no apparent distress at the time of my examination. Obese. HEENT: Head is atraumatic, normocephalic. Pupils are equal, round. Sclerae anicteric. Conjunctivae are clear. Mucous membranes of the mouth are moist. Neck is supple. There is no jugular venous distention. No carotid bruit is heard. LUNGS: Clear to auscultation no wheezes, rales or rhonchi. No chest wall tenderness is noted on palpation or with deep breathing. HEART: Regular rate and rhythm with systolic ejection murmur at the base, no rubs or gallops. S1 and S2 heard. ABDOMEN: Soft, nontender. Bowel sounds are heard. No organomegaly noted. EXTREMITIES: No evidence of peripheral edema and no calf tenderness noted. VASCULAR: Radial and dorsalis pedis pulses palpated, no evidence of clubbing. NEUROLOGIC: Patient is awake, alert and oriented x3. ASSESSMENT Hypertension, uncontrolled Chest pain, atypical for angina. An acute coronary event has been ruled out. History of aortic valve repair, TAVR Dyslipidemia Paroxysmal atrial fibrillation on long-term anticoagulation currently maintaining sinus mechanism on amiodarone taper dose to reduce tomorrow Morbid obesity, BMI 42 PLAN An acute coronary event has been ruled out. Initiate the patient on losartan 50 mg daily and amlodipine 5 mg daily. If blood pressure is stable he may discharged home to follow up with Dr. Meng as previously established. Amiodarone to be cut in half starting tomorrow. Thank you kindly for this consultation. Nurse Practitioner note has been reviewed, I agree with a documented findings and plan of care. Patient was seen and examined. 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 at formerly [facility] History of Any Multi-Drug Resistant Organisms: None Reported Past Surgical History: Heart Catheterization, Hernia Repair Additional Past Surgical History / Comment(s): hernia repairs x 3 jade, aortic valve replacement 07-24-14 at formerly [facility] Past Anesthesia/Blood Transfusion Reactions: No Reported Reaction Past Psychological History: No Psychological Hx Reported Additional Psychological History / Comment(s): denies. Smoking Status: Former smoker Past Alcohol Use History: Occasional Additional Past Alcohol Use History / Comment(s): . Past Drug Use History: None Reported - Past Family History Father Additional Family Medical History / Comment(s): . Mother History Unknown: Yes Medications and Allergies Home Medications Medication Instructions Recorded Confirmed Type Atorvastatin [Lipitor] 80 mg PO W/SUPPER 05/25/16 12/24/18 History Cholecalciferol [Vitamin D3] 5,000 unit PO W/SUPPER 05/25/16 12/24/18 History Multivitamin [Men's Multi-Vitamin] 1 tab PO W/SUPPER 05/25/16 12/24/18 History Clopidogrel [Plavix] 75 mg PO DAILY 08/25/16 12/24/18 History Rivaroxaban [Xarelto] 20 mg PO W/SUPPER 09/17/17 12/24/18 History Finasteride [Proscar] 5 mg PO DAILY 12/10/17 12/24/18 History Furosemide [Lasix] 20 mg PO Q48H 12/10/17 12/24/18 History Amiodarone [Cordarone] 200 mg PO TID 12/27/17 12/24/18 History Tamsulosin HCl [Flomax] 0.4 mg PO BID 02/20/18 12/24/18 History Clobetasol Propionate [Temovate 1 applic TOPICAL BID 09/26/18 12/24/18 History 0.05% Cream] Latanoprost [Xalatan 0.005%] 1 drop BOTH EYES HS 09/26/18 12/24/18 History Allergies Allergy/AdvReac Type Severity Reaction Status Date / Time onion AdvReac Indigestion Verified 12/24/18 20:05 Pepper AdvReac Indigestion Verified 12/24/18 20:05 tomato AdvReac Indigestion Verified 12/24/18 20:05 Physical Exam Vitals: Vital Signs Temp Pulse Pulse Resp BP BP BP 12/25/18 11:52 98.2 F 65 18 183/90 12/25/18 07:20 98.0 F 60 18 162/73 12/25/18 04:08 97.7 F 62 18 150/69 12/25/18 04:00 55 L 18 12/25/18 00:17 97.5 F L 66 18 131/66 12/25/18 00:00 97.7 F 63 18 182/82 12/24/18 23:19 18 12/24/18 20:56 65 18 137/74 12/24/18 19:43 97.7 F 70 22 191/77 Pulse Ox 12/25/18 11:52 97 12/25/18 07:20 98 12/25/18 04:08 98 12/25/18 04:00 12/25/18 00:17 95 12/25/18 00:00 95 12/24/18 23:19 12/24/18 20:56 94 L 12/24/18 19:43 97 Intake and Output 12/24/18 12/25/18 12/25/18 22:59 06:59 14:59 Intake Total 118 Balance 118 Intake: Oral 118 Other: Voiding Method Toilet Toilet # Voids 1 Weight 131.542 kg Results 12/24/18 20:21 12/24/18 20:21 Cardiac Enzymes 12/24/18 12/24/18 12/25/18 Range/Units 20:21 20:21 02:35 AST 22 (17-59) U/L Troponin I <0.012 <0.012 (0.000-0.034) ng/mL 12/25/18 Range/Units 07:56 AST (17-59) U/L Troponin I 0.016 (0.000-0.034) ng/mL Coagulation 12/24/18 Range/Units 20:21 PT 13.8 H (9.0-12.0) sec APTT 36.4 H (22.0-30.0) sec Lipids 12/25/18 Range/Units 02:35 Triglycerides 120 (<150) mg/dL Cholesterol 125 (<200) mg/dL HDL Cholesterol 46 (40-60) mg/dL CBC 12/24/18 Range/Units 20:21 WBC 5.7 (3.8-10.6) k/uL RBC 4.54 (4.30-5.90) m/uL Hgb 14.0 (13.0-17.5) gm/dL Hct 40.5 (39.0-53.0) % Plt Count 116 L (150-450) k/uL Comprehensive Metabolic Panel 12/24/18 Range/Units 20:21 Sodium 141 (137-145) mmol/L Potassium 4.4 (3.5-5.1) mmol/L Chloride 110 H (98-107) mmol/L Carbon Dioxide 22 (22-30) mmol/L BUN 16 (9-20) mg/dL Creatinine 1.16 (0.66-1.25) mg/dL Glucose 86 (74-99) mg/dL Calcium 9.6 (8.4-10.2) mg/dL AST 22 (17-59) U/L ALT 26 (21-72) U/L Alkaline Phosphatase 66 (38-126) U/L Total Protein 6.1 L (6.3-8.2) g/dL Albumin 3.9 (3.5-5.0) g/dL Current Medications Generic Name Dose Route Start Last Admin Trade Name Freq PRN Reason Stop Dose Admin Amiodarone HCl 200 mg 12/25/18 09:00 12/25/18 10:41 Cordarone PO 200 mg TID MARY ANN Administration Amlodipine Besylate 5 mg 12/25/18 10:00 12/25/18 10:49 Norvasc PO 5 mg DAILY MARY ANN Administration Aspirin 325 mg 12/25/18 09:00 12/25/18 10:41 Aspirin PO 325 mg DAILY MARY ANN Administration Atorvastatin Calcium 80 mg 12/25/18 17:30 Lipitor PO W/SUPPER [facility] Cholecalciferol 5,000 unit 12/25/18 17:30 Vitamin D3 PO W/SUPPER [facility] Clobetasol Propionate 1 applic 12/25/18 09:00 12/25/18 10:42 Temovate TOPICAL Not Given BID [facility] Finasteride 5 mg 12/25/18 09:00 12/25/18 10:41 Proscar PO 5 mg DAILY [facility] Administration Furosemide 20 mg 12/26/18 09:00 Lasix PO Q48H [facility] Sodium Chloride 1,000 mls @ 100 mls/hr 12/24/18 23:15 12/25/18 09:21 Saline 0.9% IV 100 mls/hr .Q10H [facility] Administration Ketorolac Tromethamine 15 mg 12/24/18 23:10 Toradol IVP 12/29/18 23:11 Q6HR PRN Moderate Pain Latanoprost 1 drops 12/25/18 21:00 Xalatan 0.005% BOTH EYES HS [facility] Losartan Potassium 50 mg 12/25/18 10:00 12/25/18 10:49 Cozaar PO 50 mg DAILY [facility] Administration Morphine Sulfate 4 mg 12/24/18 23:10 Morphine Sulfate (Inj) IV Q4HR PRN Severe Pain Multivitamins 1 each 12/25/18 17:30 Theragran PO W/SUPPER [facility] Naloxone HCl 0.2 mg 12/24/18 23:10 Narcan IV Q2M PRN Opioid Reversal Nitroglycerin 0.4 mg 12/24/18 23:12 Nitrostat SUBLINGUAL Q5M PRN Chest Pain Ondansetron HCl 4 mg 12/24/18 23:10 Zofran IVP Q8HR PRN Nausea And Vomiting Rivaroxaban 20 mg 12/25/18 17:30 Xarelto PO W/SUPPER [facility] Tamsulosin HCl 0.4 mg 12/25/18 09:00 12/25/18 10:41 Flomax PO 0.4 mg BID [facility] Administration Intake and Output 12/24/18 12/25/18 12/25/18 22:59 06:59 14:59 Intake Total 118 Balance 118 Intake: Oral 118 Other: Voiding Method Toilet Toilet # Voids 1 Weight 131.542 kg 12/24/18 20:21 12/24/18 20:21
[2018-12-25 15:54] VITALS: TEMP 97.9
[2018-12-25] MEDS ORDERED: MULTIVITAMINS, THERA 1 EACH TAB PO SCH (17:30)
[2018-12-25] MEDS ORDERED: CHOLECALCIFEROL 1,000 UNIT TAB PO SCH (17:30)
[2018-12-25] MEDS ORDERED: ATORVASTATIN 80 MG TAB PO SCH (17:30)
[2018-12-25] MEDS ORDERED: RIVAROXABAN 20 MG TAB PO SCH (17:30)
[2018-12-25 19:13] VITALS: BP 151/80; PULSE 72; RESP 15
[2018-12-25] MEDS ORDERED: LATANOPROST 0.005% OPHTH DROPS 2.5 ML BTL BOTH EYES SCH (21:00)
--- NOTE | 2018-12-25 21:57 | HP ---
HISTORY AND PHYSICAL DATE OF ADMISSION: 12/24/2018. DATE OF SERVICE: 12/25/2018 PRESENTING COMPLAINT: High blood pressure. HISTORY OF PRESENTING COMPLAINT: A very pleasant 73-year-old patient of Dr. Nicholas, chronic stable medical conditions include atrial fibrillation, COPD, hyperlipidemia, aortic valve replaced, congestive heart failure, EF 30-35 percent, and left bundle branch block. The patient's Amiodarone is being adjusted by his automobile sales representative, Dr. Meng. Yesterday noticed the blood pressure has gone up to 192/95. The patient was feeling a bit dizzy. There was no change in vision. No headache. No focal weakness. Decided to present to the ER. Patient was seen by Cardiology earlier today and Cozaar and amlodipine was added. There is no chest pain or palpitation. Patient is chronically on Xarelto. The patient is feeling somewhat better when I saw this patient earlier today. REVIEW OF SYSTEMS: CONSTITUTIONAL: Tired. HEENT: None. RESPIRATORY: None. CARDIOVASCULAR: None. GASTROINTESTINAL: None. GENITOURINARY: None. MUSCULOSKELETAL: None. DERMATOLOGICAL, HEMATOLOGIC, LYMPHATIC: None. PSYCHIATRY none. NEUROLOGICAL: None. PAST MEDICAL HISTORY: Of atrial fibrillation, COPD, hypertension, hyperlipidemia, aortic valve replacement, congestive heart failure, EF 30-35 percent. Left bundle branch block. PAST SURGICAL HISTORY: Hernia repair x3, aortic valve replacement in 2014 at [facility]. SOCIAL HISTORY: The patient smoked for close to 55 years. Stopped in 2016. No alcohol. FAMILY HISTORY: Reviewed noncontributory to presentation. HOME MEDICATIONS: 1. Flomax 0.4 mg p.o. b.i.d. 2. Xarelto 20 mg with supper. 3. Men's multivitamin 1 tablet p.o. with supper. 4. Xalatan 0.005% 1 drop to both eyes at bedtime. 5. Lasix 20 mg p.o. q.48 hours. 6. Proscar 5 mg p.o. daily. 7. Plavix 75 mg p.o. daily. 8. Temovate 0.05% 1 application topical b.i.d. 9. Vitamin D3 5000 units with supper. 10.Lipitor 80 mg with supper. 11.Cordarone 200 mg p.o. t.i.d. ALLERGIES: TO ONION, PEPPER AND TOMATO. PHYSICAL EXAMINATION: VITAL SIGNS: On presentation: Temperature 97.7, pulse 72, respiration 22, blood pressure 119/77, pulse ox 97% on room air. GENERAL APPEARANCE: Well built, BMI 42.8. Lying in bed, not in distress. EYES: Pupils are equal. Conjunctivae normal. HEENT: External appearance of nose and ears normal. Oral cavity normal. NECK: JVD not raised. Mass not palpable. RESPIRATORY: Effort normal. LUNGS fair entry. CARDIOVASCULAR: Heart sounds irregular. No edema. ABDOMEN: Soft, nontender. Liver and spleen not palpable. LYMPHATICS: No lymph nodes palpable in the neck and axilla. PSYCHIATRY: Alert and oriented x3. Mood and affect normal. NEUROLOGICAL: Pupils equal. Cranial nerves grossly intact. Power and sensation grossly intact. INVESTIGATIONS: White count 5.7, hemoglobin 14, potassium 4.4. BUN and creatinine normal. Troponin x3 negative. LDL is 55. UA negative. EKG tracing personally reviewed by me shows normal sinus rhythm. Poor R-wave progression in the anterior leads. Chest x-ray film personally reviewed by me shows some cardiomegaly. ASSESSMENT: 1. Essential hypertension with urgency. 2. Paroxysmal atrial fibrillation currently in sinus rhythm chronically on Xarelto. 3. Chronic obstructive pulmonary disease in an ex-smoker. 4. Hyperlipidemia. 5. History of aortic valve replacement. 6. Chronic congestive heart failure from systolic dysfunction, EF 30-35 percent, possibly arrhythmia induced. PLAN: Home medications resumed. Norvasc and Cozaar was added. The patient has been encouraged to ambulate. Will see how he does. Blood pressure being better controlled. Copy to Dr. Nicholas. MMODL / IJN: [id number] /
--- NOTE | 2018-12-25 23:20 | DS ---
DISCHARGE SUMMARY DATE OF ADMISSION: 12/24/2018. DATE OF DISCHARGE: 12/25/2018. FINAL DIAGNOSES: 1. Essential hypertension uncontrolled. 2. Paroxysmal atrial fibrillation currently in sinus rhythm chronically on Xarelto. 3. COPD in an ex-smoker. 4. Hyperlipidemia. 5. History of aortic valve replacement. 6. Chronic congestive heart failure from systolic dysfunction/EF 30 to 35%. HOSPITAL COURSE: This patient whose Amiodarone dose is being adjusted follows with Dr. Cardozo and also blood pressure medication, presented with a blood pressure greater than 190 systolic. The patient had been a bit dizzy. No chest pain. No palpitations. No change in vision. Blood pressure medications adjusted. Doing better, better by the time of discharge. On examination, blood pressure 150/80. Lungs clear. Cardiovascular 1st and 2nd sounds normal. CONSULTATION: Consultation with Dr. Dejon Hermosillo. DISCHARGE MEDICATIONS: 1. Lipitor 80 mg with supper. 2. Vitamin D3, 5000 units with supper. 3. Medications multivitamin 1 tablet p.o. with supper. 4. Plavix 75 mg p.o. daily. 5. Xarelto 20 mg with supper. 6. Proscar 5 mg p.o. daily. 7. Lasix 20 mg p.o. every 48 hours. 8. Cordarone 200 mg p.o. t.i.d. and as directed by Dr. Meng to the patient. 9. Flomax 0.4 mg b.i.d. 10.Temovate 0.05% 1 application topical b.i.d. 11.Xalatan 0.005% 1 drop to both eyes at bedtime. 12.Cozaar 50 mg p.o. daily. 13.Norvasc 5 mg p.o. at bedtime. FOLLOW UP: Follow up with Dr. Nicholas in [address] Meng in 1 week. MMODL / IJN: [id number] /
[2018-12-26] MEDS ORDERED: FUROSEMIDE 20 MG TAB PO SCH (09:00)
== END 2018-12-25 21:35 ==
LOC: EC 19:37 → 1SOBS 22:41
PROVIDERS: ADMIT Hospitalist; ATTEND Hospitalist
DX: I16.0 Hypertensive urgency (principal); I11.0 Hypertensive heart disease with heart failure; I50.22 Chronic systolic (congestive) heart failure; I48.0 Paroxysmal atrial fibrillation; J44.9 Chronic obstructive pulmonary disease, unspecified; I48.92 Unspecified atrial flutter; I42.9 Cardiomyopathy, unspecified; I08.3 Combined rheumatic disorders of mitral, aortic and tricuspid valves; R07.89 Other chest pain; I44.7 Left bundle-branch block, unspecified; G47.30 Sleep apnea, unspecified; E78.5 Hyperlipidemia, unspecified; E66.01 Morbid (severe) obesity due to excess calories; Z68.41 Body mass index [BMI] 40.0-44.9, adult; N42.9 Disorder of prostate, unspecified; Z79.02 Long term (current) use of antithrombotics/antiplatelets; Z79.01 Long term (current) use of anticoagulants; Z79.899 Other long term (current) drug therapy; Z91.018 Allergy to other foods; Z95.2 Presence of prosthetic heart valve; Z99.89 Dependence on other enabling machines and devices; Z87.891 Personal history of nicotine dependence; Z87.01 Personal history of pneumonia (recurrent); Z81.8 Family history of other mental and behavioral disorders
CPT/HCPCS: 96360; 99285; 36415; 93005; 83880; 80061; 80053; 83605; 84484 ×2; 85025; 85610; 85730; 81003; 71046; G0378 ×2; S0138

== ENCOUNTER 2019-01-13 22:14 | Emergency (ER) | payer MEDICARE, BC ==
--- NOTE | 2019-01-13 22:53 | ED ---
Dizziness HPI - General Chief Complaint: Dizziness Stated Complaint: Dizziness Time Seen by Provider: 01/13/19 22:21 Source: family, EMS Mode of arrival: EMS Limitations: no limitations - History of Present Illness Initial Comments: This patient is 73-year-old man with history of previous vertigo who states that he had recurrence of symptoms tonight. He describes a feeling of instability and spinning and then the inability to walk. He states that it came on when he was attempting to get up to use the bathroom. He also was feeling very nauseated. Patient denies headache. No focal neurologic symptoms MD Complaint: dizziness, difficulty walking -: hour(s) Timing: sudden onset Description: "room spinning", difficulty walking, nausea History of Same: Yes History of Trauma: No Severity: severe Improves With: nothing Worsens With: nothing Associated Symptoms: denies other symptoms - Related Data Home Medications Medication Instructions Recorded Confirmed Atorvastatin [Lipitor] 80 mg PO W/SUPPER 05/25/16 01/13/19 Cholecalciferol [Vitamin D3 (25 5,000 unit PO W/SUPPER 05/25/16 01/13/19 Mcg = 1000 Iu)] Multivitamin [Men's Multi-Vitamin] 1 tab PO W/SUPPER 05/25/16 01/13/19 Rivaroxaban [Xarelto] 20 mg PO W/SUPPER 09/17/17 01/13/19 Finasteride [Proscar] 5 mg PO DAILY 12/10/17 01/13/19 Furosemide [Lasix] 20 mg PO Q48H 12/10/17 01/13/19 Amiodarone [Cordarone] 100 mg PO DAILY 12/27/17 01/13/19 Tamsulosin HCl [Flomax] 0.4 mg PO BID 02/20/18 01/13/19 Clobetasol Propionate [Temovate 1 applic TOPICAL BID 09/26/18 01/13/19 0.05% Cream] Latanoprost [Xalatan 0.005%] 1 drop BOTH EYES HS 09/26/18 01/13/19 Previous Rx's Medication Instructions Recorded Losartan [Cozaar] 50 mg PO DAILY #30 tab 12/25/18 amLODIPine [Norvasc] 5 mg PO HS #30 tab 12/25/18 Allergies Allergy/AdvReac Type Severity Reaction Status Date / Time onion AdvReac Indigestion Verified 01/13/19 22:30 Pepper AdvReac Indigestion Verified 01/13/19 22:30 tomato AdvReac Indigestion Verified 01/13/19 22:30 Review of Systems ROS Statement: Those systems with pertinent positive or pertinent negative responses have been documented in the HPI. ROS Other: All systems not noted in ROS Statement are negative. Constitutional: Denies: fever, chills, weakness Eyes: Denies: eye pain, vision change ENT: Denies: ear pain, hearing loss Respiratory: Denies: cough, dyspnea Cardiovascular: Denies: chest pain, palpitations, edema Gastrointestinal: Reports: nausea. Denies: abdominal pain, diarrhea, constipation, melena, hematochezia Genitourinary: Denies: dysuria Musculoskeletal: Denies: back pain Skin: Denies: rash Neurological: Reports: vertigo. Denies: headache, weakness, numbness, paresthesias 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 at [facility] History of Any Multi-Drug Resistant Organisms: None Reported Past Surgical History: Heart Catheterization, Hernia Repair Additional Past Surgical History / Comment(s): hernia repairs x 3 jade, aortic valve replacement 07-24-14 at [facility] Past Anesthesia/Blood Transfusion Reactions: No Reported Reaction Past Psychological History: No Psychological Hx Reported Smoking Status: Former smoker Past Alcohol Use History: Occasional Past Drug Use History: None Reported - Past Family History Father Additional Family Medical History / Comment(s): . Mother History Unknown: Yes General Exam Limitations: no limitations General appearance: alert, in no apparent distress Head exam: Present: atraumatic, normocephalic Eye exam: Present: normal appearance, PERRL, EOMI, nystagmus. Absent: scleral icterus, conjunctival injection ENT exam: Present: normal oropharynx Neck exam: Present: normal inspection Respiratory exam: Present: normal lung sounds bilaterally. Absent: respiratory distress, wheezes, rales, rhonchi, stridor Cardiovascular Exam: Present: regular rate, normal rhythm, normal heart sounds. Absent: systolic murmur, diastolic murmur, rubs, gallop GI/Abdominal exam: Present: soft. Absent: distended, tenderness, guarding, rebound, mass Extremities exam: Present: normal inspection, normal capillary refill. Absent: pedal edema, calf tenderness Back exam: Present: normal inspection Neurological exam: Present: alert, oriented X3, CN II-XII intact. Absent: motor sensory deficit Skin exam: Present: warm, dry, intact, normal color. Absent: rash Course Vital Signs 01/13/19 01/13/19 01/14/19 22:15 23:57 01:20 Temperature 99 F Pulse Rate 60 85 52 L Respiratory 16 16 18 Rate Blood Pressure 138/70 120/64 130/46 O2 Sat by Pulse 98 96 98 Oximetry 01/14/19 01/14/19 01/14/19 01:40 02:00 02:48 Temperature 97.9 F Pulse Rate 64 59 L 55 L Respiratory 16 16 18 Rate Blood Pressure 134/69 129/69 140/71 O2 Sat by Pulse 99 99 100 Oximetry EKG Findings - EKG Results: EKG: interpreted by ERMD, sinus rhythm (Rate 61 bpm) - Blocks, [place], Hypertrophy, ST Abn: AV and intraventricular conduction: intraventricular conduction delay QRS axis and voltage: left axis deviation (-30 to -90) Medical Decision Making - Lab Data Result diagrams: 01/13/19 22:21 01/13/19 22:21 Lab Results 01/13/19 01/13/19 01/13/19 Range/Units 22:21 22:21 22:21 WBC 6.0 (3.8-10.6) k/uL RBC 4.49 (4.30-5.90) m/uL Hgb 13.5 (13.0-17.5) gm/dL Hct 41.0 (39.0-53.0) % MCV 91.4 (80.0-100.0) fL MCH 30.2 (25.0-35.0) pg MCHC 33.0 (31.0-37.0) g/dL RDW 14.9 (11.5-15.5) % Plt Count 125 L (150-450) k/uL Neutrophils % 67 % Lymphocytes % 23 % Monocytes % 6 % Eosinophils % 2 % Basophils % 1 % Neutrophils # 4.1 (1.3-7.7) k/uL Lymphocytes # 1.4 (1.0-4.8) k/uL Monocytes # 0.3 (0-1.0) k/uL Eosinophils # 0.1 (0-0.7) k/uL Basophils # 0.0 (0-0.2) k/uL Sodium 141 (137-145) mmol/L Potassium 4.1 (3.5-5.1) mmol/L Chloride 109 H (98-107) mmol/L Carbon Dioxide 27 (22-30) mmol/L Anion Gap 5 mmol/L BUN 18 (9-20) mg/dL Creatinine 1.09 (0.66-1.25) mg/dL Est GFR (CKD-EPI)AfAm 79 (>60 ml/min/1.73 sqM) Est GFR (CKD-EPI)NonAf 68 (>60 ml/min/1.73 sqM) Glucose 99 (74-99) mg/dL Plasma Lactic Acid Izaiah 0.9 (0.7-2.0) mmol/L Calcium 9.2 (8.4-10.2) mg/dL Total Bilirubin 0.8 (0.2-1.3) mg/dL AST 24 (17-59) U/L ALT 29 (21-72) U/L Alkaline Phosphatase 53 (38-126) U/L Troponin I (0.000-0.034) ng/mL Total Protein 6.2 L (6.3-8.2) g/dL Albumin 4.0 (3.5-5.0) g/dL Urine Color Urine Appearance (Clear) Urine pH (5.0-8.0) Ur Specific Jet (1.001-1.035) Urine Protein (Negative) Urine Glucose (UA) (Negative) Urine Ketones (Negative) Urine Blood (Negative) Urine Nitrite (Negative) Urine Bilirubin (Negative) Urine Urobilinogen (<2.0) mg/dL Ur Leukocyte Esterase (Negative) 01/13/19 01/13/19 Range/Units 22:21 23:25 WBC (3.8-10.6) k/uL RBC (4.30-5.90) m/uL Hgb (13.0-17.5) gm/dL Hct (39.0-53.0) % MCV (80.0-100.0) fL MCH (25.0-35.0) pg MCHC (31.0-37.0) g/dL RDW (11.5-15.5) % Plt Count (150-450) k/uL Neutrophils % % Lymphocytes % % Monocytes % % Eosinophils % % Basophils % % Neutrophils # (1.3-7.7) k/uL Lymphocytes # (1.0-4.8) k/uL Monocytes # (0-1.0) k/uL Eosinophils # (0-0.7) k/uL Basophils # (0-0.2) k/uL Sodium (137-145) mmol/L Potassium (3.5-5.1) mmol/L Chloride (98-107) mmol/L Carbon Dioxide (22-30) mmol/L Anion Gap mmol/L BUN (9-20) mg/dL Creatinine (0.66-1.25) mg/dL Est GFR (CKD-EPI)AfAm (>60 ml/min/1.73 sqM) Est GFR (CKD-EPI)NonAf (>60 ml/min/1.73 sqM) Glucose (74-99) mg/dL Plasma Lactic Acid Izaiah (0.7-2.0) mmol/L Calcium (8.4-10.2) mg/dL Total Bilirubin (0.2-1.3) mg/dL AST (17-59) U/L ALT (21-72) U/L Alkaline Phosphatase (38-126) U/L Troponin I <0.012 (0.000-0.034) ng/mL Total Protein (6.3-8.2) g/dL Albumin (3.5-5.0) g/dL Urine Color Yellow Urine Appearance Clear (Clear) Urine pH 7.0 (5.0-8.0) Ur Specific Jet 1.014 (1.001-1.035) Urine Protein Negative (Negative) Urine Glucose (UA) Negative (Negative) Urine Ketones Negative (Negative) Urine Blood Negative (Negative) Urine Nitrite Negative (Negative) Urine Bilirubin Negative (Negative) Urine Urobilinogen 2.0 (<2.0) mg/dL Ur Leukocyte Esterase Negative (Negative) Disposition Clinical Impression: Dizziness Disposition: HOME SELF-CARE Condition: Fair Instructions (If sedation given, give patient instructions): Dizziness (ED) Is patient prescribed a controlled substance at d/c from ED?: No Referrals: Rolo Nicholas MD [Primary Care Provider] - 1-2 days Maria Del Carmen Sotelo MD [STAFF PHYSICIAN] - 1-2 days
[2019-01-13 23:12] LABS: Basophils % (A) 1 %; Eosinophils # (A) 0.1 k/uL (0-0.7); Eosinophils % (A) 2 %; HGB 13.5 gm/dL (13.0-17.5); Lymphocytes # (A) 1.4 k/uL (1.0-4.8); Lymphocytes % (A) 23 %; MCH 30.2 pg (25.0-35.0); MCV 91.4 fL (80.0-100.0); Mean Platelet Volume 9.9; Monocytes # (A) 0.3 k/uL (0-1.0); Monocytes % (A) 6 %; Neutrophils # (A) 4.1 k/uL (1.3-7.7); Neutrophils % (A) 67 %; Platelet Count 125 k/uL (150-450); RBC 4.49 m/uL (4.30-5.90); RDW 14.9 % (11.5-15.5)
[2019-01-13 23:21] LABS: Calcium 9.2 mg/dL (8.4-10.2); Total Bilirubin 0.8 mg/dL (0.2-1.3); Total Protein 6.2 g/dL (6.3-8.2)
[2019-01-13 23:24] LABS: Potassium 4.1 mmol/L (3.5-5.1)
[2019-01-13 23:44] LABS: Appearance,Urine Clear (Clear); Bilirubin,Urine Negative (Negative); Blood,Urine Negative (Negative); Color,Urine Yellow; Glucose,Urine (UA) Negative (Negative); Ketones,Urine Negative (Negative); Leukocyte Esterase,Urine Negative (Negative); Nitrite,Urine Negative (Negative); Protein,Urine Negative (Negative); Specific Gravity,Urine 1.014 (1.001-1.035)
--- NOTE | 2019-01-14 02:05 | CT ---
EXAM: CT Angiography Head With Intravenous Contrast CLINICAL HISTORY: ITS.REASON CT Reason: Pain TECHNIQUE: Axial computed tomographic angiography images of the head with intravenous contrast using CT angiography protocol. CTDI is 57.7 mGy and DLP is 1447 mGy-cm. This CT exam was performed using one or more of the following dose reduction techniques: automated exposure control, adjustment of the mA and/or kV according to patient size, and/or use of iterative reconstruction technique. MIP reconstructed images were created and reviewed. COMPARISON: CTA dated 09/26/2018. FINDINGS: Right internal carotid artery: No acute findings. No occlusion or significant stenosis. No aneurysm. Right anterior cerebral artery: Partially azygos anterior cerebral artery. No occlusion or significant stenosis. No aneurysm. Right middle cerebral artery: 3 mm saccular aneurysm directed superiorly and arising from the proximal right M1 segments with lenticulostriate vessels originating from it. No occlusion or significant stenosis. Right posterior cerebral artery: Unremarkable. No occlusion or significant stenosis. No aneurysm. Right vertebral artery: Unremarkable as visualized. Left internal carotid artery: No acute findings. Intracranial segment is patent with no significant stenosis. No aneurysm. Left anterior cerebral artery: See above. Left middle cerebral artery: Unremarkable. No occlusion or significant stenosis. No aneurysm. Left posterior cerebral artery: Unremarkable. No occlusion or significant stenosis. No aneurysm. Left vertebral artery: Unremarkable as visualized. Basilar artery: Unremarkable. No occlusion or significant stenosis. No aneurysm. IMPRESSION: 1. 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 2. No significant steno-occlusive lesion in the head. EXAM: CT Angiography Neck With Intravenous Contrast CLINICAL HISTORY: ITS.REASON CT Reason: Pain TECHNIQUE: Axial computed tomographic angiography images of the neck with intravenous contrast using CT angiography protocol. CTDI is 15.5 mGy and DLP is 76 mGy-cm. This CT exam was performed using one or more of the following dose reduction techniques: automated exposure control, adjustment of the mA and/or kV according to patient size, and/or use of iterative reconstruction technique. MIP reconstructed images were created and reviewed. COMPARISON: No relevant prior studies available. FINDINGS: VASCULATURE: Right common carotid artery: Unremarkable. No significant stenosis. No dissection or occlusion. Right internal carotid artery: There is calcified and noncalcified plaque the right carotid bulb and proximal right internal carotid artery resulting in approximately 50% stenosis. No dissection or occlusion. Right external carotid artery: Unremarkable. No occlusion. Right vertebral artery: Unremarkable. No significant stenosis. No dissection or occlusion. Left common carotid artery: See below. Left internal carotid artery: There is calcified and noncalcified plaque left carotid bulb and proximal left internal carotid artery without significant stenosis. No dissection or occlusion. Left external carotid artery: Unremarkable. No occlusion. Left vertebral artery: Unremarkable. No significant stenosis. No dissection or occlusion. NECK: Bones/joints: Moderate degenerative changes of cervical spine. No acute fracture. No dislocation. Soft tissues: Unremarkable as visualized. No mass. Retropharyngeal space: There is a retropharyngeal course of the left common carotid artery. Lung apices: Paraseptal emphysema. Heart: Mild coronary artery calcification. CAROTID STENOSIS REFERENCE USING NASCET CRITERIA: % ICA stenosis = (1 - narrowest ICA diameter/diameter of distal cervical ICA) x 100. Mild - <50% stenosis. Moderate - 50-69% stenosis. Severe - 70-94% stenosis. Near occlusion - 95-99% stenosis. Occluded - 100% stenosis. IMPRESSION: There is calcified and noncalcified plaque the right carotid bulb and proximal right internal carotid artery resulting in approximately 50% stenosis. EXAM: CT Head Without Intravenous Contrast CLINICAL HISTORY: ITS.REASON CT Reason: Pain TECHNIQUE: Axial computed tomography images of the head/brain without intravenous contrast. CTDI is 2.4 mGy and DLP is 33.6 mGy-cm. This CT exam was performed using one or more of the following dose reduction techniques: automated exposure control, adjustment of the mA and/or kV according to patient size, and/or use of iterative reconstruction technique. COMPARISON: No relevant prior studies available. FINDINGS: Brain: No evidence of acute intracranial hemorrhage. Multiple punctate cortical calcifications. No mass effect or herniation. Multiple small chronic appearing lacunar infarcts in the right basal ganglia. Ventricles: Unremarkable. No ventriculomegaly. Bones/joints: No acute fracture. Soft tissues: Unremarkable. Vasculature: Calcification of the distal internal carotid arteries. Sinuses: Unremarkable as visualized. Mastoid air cells: Unremarkable as visualized. IMPRESSION: 1. No evidence of acute intracranial hemorrhage. 2. Multiple punctate cortical calcifications. These are nonspecific but may related to remote infection.
[2019-01-14 02:48] VITALS: BP 140/71; PULSE 55; RESP 18; TEMP 97.9
== END 2019-01-14 02:48 | disposition home or self-care (01) ==
LOC: EC 22:14
DX: R42 Dizziness and giddiness (principal); R11.0 Nausea; I48.91 Unspecified atrial fibrillation; I48.92 Unspecified atrial flutter; I11.0 Hypertensive heart disease with heart failure; I50.9 Heart failure, unspecified; N42.9 Disorder of prostate, unspecified; Z87.891 Personal history of nicotine dependence; Z79.01 Long term (current) use of anticoagulants; Z79.899 Other long term (current) drug therapy; Z91.018 Allergy to other foods; Z95.818 Presence of other cardiac implants and grafts; Z95.2 Presence of prosthetic heart valve
CPT/HCPCS: 36415; 80053; 83605; 84484; 85025; 81003; 70496; 70498; 99285; Q9967

== ENCOUNTER → 2019-01-28 | Outpatient (CLI) | payer MEDICARE, BC ==
--- NOTE | 2019-01-28 14:56 | MR ---
EXAMINATION TYPE: MR brain wo/w con DATE OF EXAM: 01/28/2019 COMPARISON: Correlation CTA 01/13/2019 HISTORY: 73-year-old male Aneurysm of carotid artery / Calcification of brain TECHNIQUE: Multiplanar, multisequence images of the brain and brainstem were acquired before and aft er administration of 13 mL IV Gadavist. Diffusion weighted imaging is performed. FINDINGS: No evidence for acute infarction, hemorrhage, mass, mass effect, midline shift, herniation, effacemen t of basal cisterns, or extra-axial fluid collection. There is mild to moderate generalized supratentorial volume loss. No hydrocephalus. Major intracranial flow voids are intact. Known 3 mm saccular aneurysm projecting superiorly from the M1 segment right MCA not well demonstrated on the present study. T2/FLAIR weighted sequences show mild to moderate scattered burden of white white matter change in th e periventricular deep white matter regions of both hemispheres. In addition, cystic areas are presen t in the right coronal radiata measuring up to 7 mm suggesting prominent perivascular spaces or small areas of old white matter infarcts. Midline structures demonstrate normal morphology. The craniocervical junction is normal. Post contrast images demonstrate no evidence of pathologic enhancement. Dural venous sinuses are pat ent. Moderate mucosal thickening ethmoid air cells and mild within the maxillary sinuses. Globes are intac t. IMPRESSION: 1. Mild to moderate cerebral atrophy. There is also scattered bright white matter change most likely representing mild to moderate burden of chronic small vessel ischemic disease. 2. No acute intracranial abnormality seen. No enhancing lesions. 3. A few cystic areas measuring up to 7 mm in the right mayfield radiata most likely represent prominen t perivascular spaces. Old white matter lacunar infarcts are also possible. 4. Known 3 mm saccular aneurysm M1 segment right MCA not well-demonstrated on the current study.
== END | disposition home or self-care (01) ==
LOC: RADMRIMAIN 13:01
PROVIDERS: ATTEND Psychiatry & Neurology Neurology
DX: G31.1 Senile degeneration of brain, not elsewhere classified (principal); G93.0 Cerebral cysts; I67.1 Cerebral aneurysm, nonruptured; I72.0 Aneurysm of carotid artery
CPT/HCPCS: 70553; A9585

== ENCOUNTER → 2019-04-04 | Outpatient (CLI) | payer MEDICARE, BC ==
--- NOTE | 2019-04-04 13:58 | CT ---
EXAMINATION TYPE: CT lumbar spine wo con DATE OF EXAM: 04/04/2019 COMPARISON: None HISTORY: Severe lumbar psin CT DLP: 2232.[address] of the lumbar spine was performed. Bone and soft tissue window settings are submitted as well as coronal and sagittal reconstructions. L1-L2: Vacuum disks noted. Severe degenerative disc space narrowing. Mild posterior disc bulge. No ev idence for central stenosis disc herniation. Facet joint arthropathy with mild left-sided foraminal e ncroachment. L2-L3: Vacuum disks noted. Severe degenerative disc space narrowing. Mild posterior disc bulge. No ev idence for central stenosis disc herniation. Facet joint arthropathy with mild left-sided foraminal e ncroachment. L3-L4: Vacuum disks noted. Severe degenerative disc space narrowing. Mild posterior disc bulge. No ev idence for central stenosis disc herniation. Facet joint arthropathy without encroachment. L4-L5: Severe degenerative disc space narrowing and vacuum disc. Ventral and dorsal spondylosis with hard disc noted. Mild to moderate central stenosis appreciated. Facet joint arthropathy with bilater al foraminal encroachment. L5-S1: Vacuum disks noted. Severe degenerative disc space narrowing. Mild posterior disc bulge. No ev idence for central stenosis disc herniation. Facet joint arthropathy with mild left-sided foraminal e ncroachment. No paraspinal masses are identified. Lumbar segments are free if fracture. IMPRESSION: 1. Severe multilevel degenerative disc disease with vacuum discs. Central stenosis at L4-5.
== END | disposition home or self-care (01) ==
LOC: RADCTMAIN 13:20
PROVIDERS: ATTEND Family Medicine
DX: M51.36 Other intervertebral disc degeneration, lumbar region (principal); M48.061 Spinal stenosis, lumbar region without neurogenic claudication
CPT/HCPCS: 72131

== ENCOUNTER 2019-04-29 08:42 | Day surgery (SDC) | payer MEDICARE, BC ==
[2019-04-24 11:33] VITALS: BMI 42.3
[~2019-04-29 08:42] MED LIST changes: -LACTATED RINGERS 1,000 ML IV SCH; +SODIUM CHLORIDE 0.9% 1,000 ML IV SCH
[2019-04-29] MEDS ORDERED: ceFAZolin 3 GM in SODIUM CHLORIDE 0.9% 100 ML IVPB ONE (09:00)
[2019-04-29 09:20] VITALS: RESP 16; TEMP 97.8
[2019-04-29] MEDS ORDERED: SODIUM CHLORIDE 0.9% 1,000 ML IV ONE (09:26)
[2019-04-29] MEDS ORDERED: LIDOCAINE 1% INJ 10MG/ML (20 ML MDV) ONE (09:59)
[2019-04-29] MEDS ORDERED: fentaNYL (PF) 50 MCG/ML 2 ML AMP ONE (09:59)
[2019-04-29] MEDS ORDERED: SODIUM CHLORIDE 0.9% 500 ML 500 ML IV ONE (10:03)
[2019-04-29] MEDS: MIDAZOLAM (PF) 2 MG/2 ML VIAL IV ONE ×2 (10:12→10:24)
[2019-04-29] MEDS ORDERED: LIDOCAINE 1% INJ 10MG/ML (20 ML MDV) SQ ONE (10:13)
--- NOTE | 2019-04-29 10:37 | P.PCN ---
Preoperative Diagnosis: Loop monitor implant Primary physicians: Dr. Nicholas Wood Last Maker: Dr. Meng Operators: Dr. Meng and Jacqueline Lewis PA-C Indication: Post TAVR, atrial fibrillation Patient was brought to the EP lab in a fasting state. Written informed consent was obtained prior to the procedure. The left pectoral area was prepped and draped per protocol. Intravenous antibiotic was administered preoperatively. A subcutaneous Loop monitor was implanted successfully and the wound was closed per protocol. The device was programmed to detect significant chelo- arrhythmic and tachy-arrhythmic events, per protocol. Device and programming details: Programmed for A. fib and AV block
--- NOTE | 2019-04-29 10:40 | P.PCN ---
Preoperative Diagnosis: Diagnosis: Post TAVR, atrial fibrillation Patient underwent EP procedure under conscious sedation/moderate sedation under Dr. Meng's supervision, monitoring of the level of consciousness and physiologic parameters including but not limited to vital signs and oxygenation. Patient tolerated the procedure well without any acute complications. Start time: 1012 Stop time: 1032
--- NOTE | 2019-04-29 10:47 | P.PRLE ---
RE: Cayetano Lemus Dear Rolo Monteiro underwent implantation of a loop monitor for monitoring for atrial fibrillation as well as for paroxysmal AV block since he is undergone transvalvular aortic valve replacement in the past He'll continue to follow with you and there've been no changes in his medications so far he Thank you for entrusting me with the care of the patient Warm regards Sincerely Luke Meng
[2019-04-29 11:40] VITALS: BP 125/79; PULSE 61
== END 2019-04-29 11:45 | disposition home or self-care (01) ==
LOC: CATHEP 08:42
PROVIDERS: ATTEND Internal Medicine Clinical Cardiac Electrophysiology
DX: I48.0 Paroxysmal atrial fibrillation (principal); I45.4 Nonspecific intraventricular block; I49.5 Sick sinus syndrome; Z95.2 Presence of prosthetic heart valve; I10 Essential (primary) hypertension; E78.5 Hyperlipidemia, unspecified; Z72.0 Tobacco use; Z82.49 Family history of ischemic heart disease and other diseases of the circulatory system; Z79.01 Long term (current) use of anticoagulants; Z79.899 Other long term (current) drug therapy
CPT/HCPCS: 33285; C1764; J0690; J2001; J3010; J2250

== ENCOUNTER → 2019-08-22 | Outpatient (CLI) | payer MEDICARE, BC | END | disposition home or self-care (01) | LOC: CPPFTMAIN 12:27 | PROVIDERS: ATTEND Internal Medicine Clinical Cardiac Electrophysiology | DX: J44.9 Chronic obstructive pulmonary disease, unspecified (principal); R94.2 Abnormal results of pulmonary function studies | CPT/HCPCS: 94060; 94726; 94729 ==

== ENCOUNTER 2019-08-31 18:53 | Emergency (ER) | payer MEDICARE, BC ==
[2019-08-31 18:59] VITALS: RESP 18
[2019-08-31] MEDS ORDERED: MECLIZINE 12.5 MG TAB PO STA (19:45)
[2019-08-31] MEDS ORDERED: SODIUM CHLORIDE 0.9% 500 ML 500 ML IV STA (19:45)
--- NOTE | 2019-08-31 19:51 | ED ---
Dizziness HPI - General Chief Complaint: Dizziness Stated Complaint: Afib Time Seen by Provider: 08/31/19 18:55 Source: patient Mode of arrival: ambulatory Limitations: no limitations - History of Present Illness Initial Comments: The patient is a 74-year-old male with past medical history of A. fib, hypertension and hyperlipidemia who presents to the emergency department with reported vertiginous symptoms and presyncope. The patient states that his symptoms have been present for the past several days. He does believe it secondary to recent medication change. He was on amlodipine and losartan. He was switched to a combination pill of lisinopril and hydrochlorothiazide. The changes happens last week on Sunday. He also states that he is only taking half doses of his amlodipine. This is the third week that he has had an adjustment in this medication. He takes these medications for hypertension and A. fib. He is currently under the care of Dr. Thibodeaux. He is anticoagulated on Xarelto. The medication changes were made by his primary care physician. Symptoms appear to be worse. States that he feels lightheaded. Also reports that when he turns his head he does have some vertiginous symptoms. Does have a history of vertigo. He denies any chest pain or shortness of breath. Does admit to chest palpitations. He had an ablation 1 year ago and states that he has been out of A. fib ever since. He feels as if he has gone back into the rhythm. He denies any abdominal pain. No changes in his bowel or bladder habits. No ripping or tearing sensation to his back. There are no other alleviating, precipitating or modifying factors - Related Data Home Medications Medication Instructions Recorded Confirmed Atorvastatin [Lipitor] 80 mg PO W/SUPPER 05/25/16 04/29/19 Cholecalciferol [Vitamin D3 (25 5,000 unit PO W/SUPPER 05/25/16 04/29/19 Mcg = 1000 Iu)] Multivitamin [Men's Multi-Vitamin] 1 tab PO W/SUPPER 05/25/16 04/29/19 Rivaroxaban [Xarelto] 20 mg PO W/SUPPER 09/17/17 04/29/19 Finasteride [Proscar] 5 mg PO DAILY 12/10/17 04/29/19 Furosemide [Lasix] 40 mg PO DAILY 12/10/17 04/29/19 Amiodarone [Cordarone] 200 mg PO DAILY 12/27/17 04/29/19 Tamsulosin HCl [Flomax] 0.4 mg PO BID 02/20/18 04/29/19 Clobetasol Propionate [Temovate 1 applic TOPICAL BID PRN 09/26/18 04/29/19 0.05% Cream] Latanoprost [Xalatan 0.005%] 1 drop BOTH EYES HS 09/26/18 04/29/19 [place]-3 Fatty Acids/Fish Oil [Fish 3 each PO DAILY 04/24/19 04/29/19 Oil 1,000 mg Softgel] Previous Rx's Medication Instructions Recorded Losartan [Cozaar] 50 mg PO DAILY #30 tab 12/25/18 amLODIPine [Norvasc] 5 mg PO HS #30 tab 12/25/18 Allergies Allergy/AdvReac Type Severity Reaction Status Date / Time onion AdvReac Indigestion Verified 04/29/19 09:10 Pepper AdvReac Indigestion Verified 04/29/19 09:10 tomato AdvReac Indigestion Verified 04/29/19 09:10 Review of Systems ROS Statement: Those systems with pertinent positive or pertinent negative responses have been documented in the HPI. ROS Other: All systems not noted in ROS Statement are negative. 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 at [facility] History of Any Multi-Drug Resistant Organisms: None Reported Past Surgical History: Heart Catheterization, Hernia Repair Additional Past Surgical History / Comment(s): hernia repairs x 3 jade, aortic va lve replacement 07-24-14 at [facility] Past Anesthesia/Blood Transfusion Reactions: No Reported Reaction Additional Past Anesthesia/Blood Transfusion Reaction / Comment(s): "STATES HAS HAD VERTIGO IN THE PAST DENIES MOTION SICKNESS" Past Psychological History: No Psychological Hx Reported Smoking Status: Former smoker Past Alcohol Use History: None Reported Past Drug Use History: None Reported - Past Family History Father Family Medical History: Cancer Additional Family Medical History / Comment(s): BLADDER CANCER . Mother History Unknown: Yes Family Medical History: No Reported History Brother(s) Family Medical History: Cancer General Exam Limitations: no limitations General appearance: alert, in no apparent distress Head exam: Present: atraumatic, normocephalic, normal inspection Eye exam: Present: normal appearance, PERRL, EOMI. Absent: scleral icterus, conjunctival injection, periorbital swelling ENT exam: Present: normal exam, mucous membranes moist Neck exam: Present: normal inspection. Absent: tenderness, meningismus, lymphadenopathy Respiratory exam: Present: normal lung sounds bilaterally. Absent: respiratory distress, wheezes, rales, rhonchi, stridor Cardiovascular Exam: Present: regular rate, irregular rhythm, normal heart sounds. Absent: systolic murmur, diastolic murmur, rubs, gallop, clicks GI/Abdominal exam: Present: soft, normal bowel sounds. Absent: distended, tenderness, guarding, rebound, rigid Extremities exam: Present: normal inspection, full ROM, normal capillary refill. Absent: tenderness, pedal edema, joint swelling, calf tenderness Back exam: Present: normal inspection Neurological exam: Present: alert, oriented X3, CN II-XII intact Psychiatric exam: Present: normal affect, normal mood Skin exam: Present: warm, dry, intact, normal color. Absent: rash Course Vital Signs 08/31/19 08/31/19 08/31/19 18:56 20:48 21:39 Temperature 97.8 F 97.9 F Pulse Rate 85 82 Pulse Rate [ 92 Sitting Deputy Brand Inspector] Pulse Rate [ 88 Standing Deputy Brand Inspector ] Pulse Rate [ 94 Supine Deputy Brand Inspector] Respiratory 18 18 Rate Blood Pressure 115/70 133/82 Blood Pressure 127/78 [Left Arm Standing] Blood Pressure 124/96 [Sitting] Blood Pressure 124/88 [Supine] O2 Sat by Pulse 97 97 Oximetry EKG Findings - EKG Comments: EKG Findings:: EKG demonstrates H fibrillation with a rate of 87. QRS 132. QTC of 483. Left axis deviation. Left ventricular hypertrophy with QRS widening. No acute ST segment elevations or depressions concerning for ischemic changes Medical Decision Making - Medical Decision Making Upon arrival the patient was placed into room 3. A thorough history and physical exam was performed. Peripheral IV was established. The patient did have orthostatic performed which were negative. A 12-lead EKG was also performed. It does demonstrate that the patient is in A. fib with a controlled ventricular rate. He was given a 500 mL bolus of normal saline. He was also given 25 mg of meclizine. Laboratory studies were conducted. CBC is unremarkable. INR is 1.3. Creatinine is 1.5 from a previous value of 1.0. Troponin is negative. Chest x-ray is performed and demonstrates mild pulmonary congestion with no obvious heart failure CT of the patient's brain demonstrates old right internal capsule lacunar infarct. He did reevaluate the patient. He does feel improved. I discussed results with the patient. I did recommend hospital admission for cardiology consultation reevaluation of his home medications however the patient adamantly refuses. He is aware of the risks to include permanent facility and even . The patient is adamant that he wants to go home. I do believe the patient needs some medication adjustments. I informed him that he should cut down on his lisinopril-hctz because of his acute kidney injury. He needs to have repeat blood work this week. I instructed him to call the cant hooker tomorrow. He does have an appointment with his primary care doctor on Sunday. The patient should return to the emergency room and should he agree to hospital admission or has any new or worsening symptoms. The patient understood. is at bedside and agrees to the plan. The patient was then discharged home in stable condition - Lab Data Result diagrams: 08/31/19 19:20 08/31/19 19:20 Lab Results 08/31/19 08/31/19 08/31/19 Range/Units 19:20 19:20 19:20 WBC 5.7 (3.8-10.6) k/uL RBC 4.26 L (4.30-5.90) m/uL Hgb 12.9 L (13.0-17.5) gm/dL Hct 39.5 (39.0-53.0) % MCV 92.8 (80.0-100.0) fL MCH 30.3 (25.0-35.0) pg MCHC 32.6 (31.0-37.0) g/dL RDW 13.3 (11.5-15.5) % Plt Count 195 (150-450) k/uL Neutrophils % 69 % Lymphocytes % 19 % Monocytes % 8 % Eosinophils % 2 % Basophils % 1 % Neutrophils # 3.9 (1.3-7.7) k/uL Lymphocytes # 1.1 (1.0-4.8) k/uL Monocytes # 0.5 (0-1.0) k/uL Eosinophils # 0.1 (0-0.7) k/uL Basophils # 0.0 (0-0.2) k/uL PT 13.4 H (9.0-12.0) sec INR 1.3 H (<1.2) APTT 35.2 H (22.0-30.0) sec Sodium 137 (137-145) mmol/L Potassium 4.8 (3.5-5.1) mmol/L Chloride 105 (98-107) mmol/L Carbon Dioxide 22 (22-30) mmol/L Anion Gap 10 mmol/L BUN 28 H (9-20) mg/dL Creatinine 1.53 H (0.66-1.25) mg/dL Est GFR (CKD-EPI)AfAm 52 (>60 ml/min/1.73 sqM) Est GFR (CKD-EPI)NonAf 45 (>60 ml/min/1.73 sqM) Glucose 94 (74-99) mg/dL Calcium 9.4 (8.4-10.2) mg/dL Magnesium 2.0 (1.6-2.3) mg/dL Total Bilirubin 0.5 (0.2-1.3) mg/dL AST 26 (17-59) U/L ALT 26 (4-49) U/L Alkaline Phosphatase 75 (38-126) U/L Troponin I (0.000-0.034) ng/mL Total Protein 6.3 (6.3-8.2) g/dL Albumin 3.9 (3.5-5.0) g/dL TSH 3.960 (0.465-4.680) mIU/L 15/ Range/Units 19:20 WBC (3.8-10.6) k/uL RBC (4.30-5.90) m/uL Hgb (13.0-17.5) gm/dL Hct (39.0-53.0) % MCV (80.0-100.0) fL MCH (25.0-35.0) pg MCHC (31.0-37.0) g/dL RDW (11.5-15.5) % Plt Count (150-450) k/uL Neutrophils % % Lymphocytes % % Monocytes % % Eosinophils % % Basophils % % Neutrophils # (1.3-7.7) k/uL Lymphocytes # (1.0-4.8) k/uL Monocytes # (0-1.0) k/uL Eosinophils # (0-0.7) k/uL Basophils # (0-0.2) k/uL PT (9.0-12.0) sec INR (<1.2) APTT (22.0-30.0) sec Sodium (137-145) mmol/L Potassium (3.5-5.1) mmol/L Chloride (98-107) mmol/L Carbon Dioxide (22-30) mmol/L Anion Gap mmol/L BUN (9-20) mg/dL Creatinine (0.66-1.25) mg/dL Est GFR (CKD-EPI)AfAm (>60 ml/min/1.73 sqM) Est GFR (CKD-EPI)NonAf (>60 ml/min/1.73 sqM) Glucose (74-99) mg/dL Calcium (8.4-10.2) mg/dL Magnesium (1.6-2.3) mg/dL Total Bilirubin (0.2-1.3) mg/dL AST (17-59) U/L ALT (4-49) U/L Alkaline Phosphatase (38-126) U/L Troponin I <0.012 (0.000-0.034) ng/mL Total Protein (6.3-8.2) g/dL Albumin (3.5-5.0) g/dL TSH (0.465-4.680) mIU/L Disposition Clinical Impression: Palpitations, Atrial fibrillation, controlled, Vertigo, ANNEL (acute kidney injury) Disposition: HOME SELF-CARE Condition: Stable Instructions (If sedation given, give patient instructions): A-fib (Atrial Fibrillation) (ED) Additional Instructions: Please follow-up with your primary care doctor at the soonest appointment. I also recommend that you see your cant hooker. Take half dose of your lisinopril-hctz until they made further medication changes. I did recommend hospital admission. Return to the emergency department for any new or worsening symptoms Is patient prescribed a controlled substance at d/c from ED?: No Referrals: Rolo Nicholas MD [Primary Care Provider] - 1-2 days Time of Disposition: 21:14
[2019-08-31 19:59] LABS: Basophils % (A) 1 %; Eosinophils # (A) 0.1 k/uL (0-0.7); Eosinophils % (A) 2 %; HCT 39.5 % (39.0-53.0); HGB 12.9 gm/dL (13.0-17.5); Lymphocytes # (A) 1.1 k/uL (1.0-4.8); Lymphocytes % (A) 19 %; MCH 30.3 pg (25.0-35.0); MCHC 32.6 g/dL (31.0-37.0); MCV 92.8 fL (80.0-100.0); Mean Platelet Volume 8.6; Monocytes # (A) 0.5 k/uL (0-1.0); Monocytes % (A) 8 %; Neutrophils # (A) 3.9 k/uL (1.3-7.7); Neutrophils % (A) 69 %; Platelet Count 195 k/uL (150-450); RBC 4.26 m/uL (4.30-5.90); RDW 13.3 % (11.5-15.5); WBC 5.7 k/uL (3.8-10.6)
[2019-08-31 20:08] LABS: Albumin 3.9 g/dL (3.5-5.0); Calcium 9.4 mg/dL (8.4-10.2); Potassium 4.8 mmol/L (3.5-5.1); Total Bilirubin 0.5 mg/dL (0.2-1.3); Total Protein 6.3 g/dL (6.3-8.2)
[2019-08-31 20:14] LABS: INR 1.3 (<1.2); Partial Thromboplastin Time 35.2 sec (22.0-30.0); Prothrombin Time 13.4 sec (9.0-12.0)
--- NOTE | 2019-08-31 20:40 | CT ---
EXAMINATION TYPE: CT brain wo con DATE OF EXAM: 08/31/2019 COMPARISON: None HISTORY: Dizziness, fuzzy vision, ataxia. CT DLP: 1142.4 mGycm Automated exposure control for dose reduction was used. There is mild cerebral atrophy. There is no mass effect nor midline shift. There is no sign of intrac ranial hemorrhage. There is 1 cm hypodense area anterior right internal capsule. The calvarium is int act. Skull base is intact. IMPRESSION: Old right internal capsule lacunar infarct. No acute intracranial abnormality.
--- NOTE | 2019-08-31 20:42 | XR ---
EXAMINATION TYPE: XR chest 2V DATE OF EXAM: 08/31/2019 COMPARISON: 12/24/2018 HISTORY: Syncope dizziness TECHNIQUE: 2 views FINDINGS: Heart is enlarged. There is mild pulmonary congestion. There are chest leads. There is slig ht blunting of the costophrenic angles.. Bony thorax is intact. There is aortic valve surgery noted. IMPRESSION: There is mild pulmonary congestion that is increased slightly compared to last exam. No o bvious heart failure.
[2019-08-31 21:40] VITALS: BP 133/82; PULSE 82; TEMP 97.9
== END 2019-08-31 21:40 | disposition home or self-care (01) ==
LOC: EC 18:53
DX: I48.91 Unspecified atrial fibrillation (principal); N17.9 Acute kidney failure, unspecified; R42 Dizziness and giddiness; R09.89 Other specified symptoms and signs involving the circulatory and respiratory systems; I48.92 Unspecified atrial flutter; I11.0 Hypertensive heart disease with heart failure; I50.9 Heart failure, unspecified; G47.30 Sleep apnea, unspecified; E78.5 Hyperlipidemia, unspecified; Z79.01 Long term (current) use of anticoagulants; Z79.899 Other long term (current) drug therapy; Z91.018 Allergy to other foods; Z86.73 Personal history of transient ischemic attack (TIA), and cerebral infarction without residual deficits; Z95.2 Presence of prosthetic heart valve; Z87.891 Personal history of nicotine dependence
CPT/HCPCS: 36415; 70450; 71046; 80053; 83735; 84443; 84484; 85025; 85610; 85730; 93005; 99284

== ENCOUNTER → 2019-09-18 | Outpatient (CLI) | payer MEDICARE, BC ==
[2019-09-18 16:53] LABS: African American GFR (CKD) 86.8 (60.0-200.0); Calcium 9.1 mg/dL (8.7-10.3); Non-African American GFR(CKD) 74.9 (60.0-200.0); Potassium 4.5 mmol/L (3.5-5.5)
== END | disposition home or self-care (01) ==
LOC: LABWHC1 09:40
PROVIDERS: ATTEND Urology
DX: I10 Essential (primary) hypertension (principal); R97.20 Elevated prostate specific antigen [PSA]
CPT/HCPCS: 36415; 80048; 84153

== ENCOUNTER 2020-04-05 10:37 | Inpatient (IN) | payer MEDICARE, BC ==
[2020-04-01 13:32] VITALS: BMI 44.3
[2020-04-05] MEDS ORDERED: SODIUM CHLORIDE 0.9% 1,000 ML IV ONE ×2 (11:23→16:08)
--- NOTE | 2020-04-05 12:20 | P.HPCAR ---
History of Present Illness This is Dr. Meng dictating an H/P on this patient The patient was interviewed and examined IMPRESSION / ASSESSMENT: 74-year-old male patient with symptomatic persistent atrial fibrillation has failed electrical cardioversion Recent electrical cardioversion about a month back and he recovered within 3 days Appropriately anticoagulated Sick sinus syndrome with a tendency for bradycardia Tachybradycardia syndrome with A. fib with RVR Hypertension Dyslipidemia Severe aortic stenosis status post TAVR Denies any fever chills orthopnea PND. Stable to proceed with A. fib ablation under general anesthesia PLAN: A. fib ablation today Continue anticoagulation For the management thereafter HPI Patient recently underwent electrical cardioversion about a month back but he recovered back in A. fib. Complete tiredness and fatigue shortness of breath Complains of recurrent dizzy spells No chest discomfort Low energy during atrial fibrillation ROS: No fever chills or rigors, no cough, phlegm or expectoration, no nausea, vomiting or diarrhea, no hematuria, dysuria, no musculoskeletal complaints, no strokes or seizures, no skin lesions. EXAMINATION: Afebrile 97.9F pulse rate in the 80s normal respirations Orthopnea Blood pressure 134/66 mmHg Sounds are reduced bilaterally on account of body habitus but no rhonchi no crackles Heart sounds S1 is normal S2 is crisp Irregular rhythm Abdomen soft nontender No lower extremity edema Central obesity REVIEW OF LABS, ECG & MEDICAL DATA BUN 24 creatinine 1.0 calcium 4.5 TSH 3.96 LDL 55 Physical Exam Vitals: Vital Signs Temp Pulse Resp BP Pulse Ox 04/05/20 11:21 97.9 F 89 16 134/66 96 Intake and Output 04/04/20 04/05/20 04/05/20 22:59 06:59 14:59 Intake Total 100 Balance 100 Intake: IV 100 Other: Weight 129 kg Past Medical History Past Medical History: Atrial Fibrillation, Atrial Flutter, Heart Failure, COPD, Hyperlipidemia, Hypertension, Pneumonia, Prostate Disorder, Sleep Apnea/C PAP/BIPAP Additional Past Medical History / Comment(s): not using CPAP- unable to sleep on his back, SOB w/activity, see Dr Meng H & P History of Any Multi-Drug Resistant Organisms: None Reported Past Surgical History: Heart Catheterization, Hernia Repair Additional Past Surgical History / Comment(s): hernia repairs x 3, jade, aortic valve replacement 2016 at [facility] [place], recent cardioversion Past Anesthesia/Blood Transfusion Reactions: No Reported Reaction Additional Past Anesthesia/Blood Transfusion Reaction / Comment(s): "STATES HAS HAD VERTIGO IN THE PAST DENIES MOTION SICKNESS" Smoking Status: Former smoker - Past Family History Father Family Medical History: Cancer Additional Family Medical History / Comment(s): BLADDER CANCER . Mother History Unknown: Yes Family Medical History: No Reported History Brother(s) Family Medical History: Cancer Physical Examination Vital Signs Temp Pulse Resp BP Pulse Ox 04/05/20 11:21 97.9 F 89 16 134/66 96 Intake and Output 04/04/20 04/05/20 04/05/20 22:59 06:59 14:59 Intake Total 100 Balance 100 Intake: IV 100 Other: Weight 129 kg Results Current Medications Generic Name Dose Route Start Last Admin Trade Name Freq PRN Reason Stop Dose Admin Sodium Chloride 1,000 mls @ 50 mls/hr 04/05/20 05:48 Saline 0.9% IV .Q20H MARY ANN Lactated Ringer's 1,000 mls @ 20 mls/hr 04/05/20 05:48 Lactated Ringers IV .Q24H MARY ANN Intake and Output 04/04/20 04/05/20 04/05/20 22:59 06:59 14:59 Intake Total 100 Balance 100 Intake: IV 100 Other: Weight 129 kg Patient Weight 04/06/20 06:59 Weight 129 kg
[2020-04-05] MEDS ORDERED: LIDOCAINE 1% INJ 10MG/ML (20 ML MDV) ONE (12:24)
[2020-04-05] MEDS ORDERED: HEPARIN SOD,PORK IN 0.45% NACL 25,000 UNIT in 0.45% NACL 1 250ML.BAG IV ONE (12:38)
[2020-04-05] MEDS ORDERED: LIDOCAINE 1% INJ 10MG/ML (20 ML MDV) SQ ONE (12:40)
[2020-04-05] MEDS ORDERED: IOPAMIDOL-370 100ML BTL INJ ONE (14:08)
[2020-04-05] MEDS ORDERED: HEPARIN SODIUM (1,000 UNIT/ML) 1,000 UNIT in SODIUM CHLORIDE 0.9% 1,000 ML IRRIGATION ONE (14:38)
[2020-04-05] MEDS ORDERED: ACETAMINOPHEN IV (For NPO) 1,000 MG in EMPTY BAG 1 BAG IVPB ONE (16:58)
[2020-04-05] MEDS ORDERED: ACETAMINOPHEN TAB 325 MG TAB PO PRN (16:58)
--- NOTE | 2020-04-05 17:18 | P.PCN ---
Preoperative Diagnosis: Diagnosis Atrial fibrillation, symptomatic, refractory to therapy, persistent Failed drug therapy and cardioversion Result No left atrial appendage mass seen on intracardiac echo, a very large left atrial appendage anterior to the left inferior vein, technically challenging mitral isthmus anatomy for possible ablation in the future Successful pulmonary vein isolation of all veins using cryo-ablation Complete entrance block in all 4 veins confirmed No evidence for phrenic nerve injury Linear ablation septum left atrium Linear ablation left atrial roof Minimal organization of atrial fibrillation despite wide [place] antral isolation of the pulmonary veins and linear ablation in the left atrium Esophageal deflection YES Electrical cardioversion with a synchronized shock across the chest YES Plan Consider dofetilide. Patient's renal function is normal Underlying left bundle branch block We will start dofetilide 125 g twice daily and monitor on telemetry per protocol Procedure details Patient was brought to the EP lab in a fasting state. Written informed consent was obtained prior to the procedure. Procedure performed under general anesthesia After initial muscle relaxant use, muscle relaxants were not given thereafter in order to assess phrenic nerve during procedure. Patient prepped and draped as per protocol Full cryo-set up with standard preparation of the cryoablation tools done. Femoral Venous access obtained on the right and left groins Venous and arterial Sheaths placed. Diagnostic catheters for the high right atrium, phrenic nerve stimulation and pacing, His bundle, RV and coronary sinus placed Intracardiac echo catheter placed. Long sheath placed in the right atrium Left and right transseptal catheterization performed under intracardiac echo guidance. Intravenous heparin with aCT above 300 Later, catheter positioning and balloon positioning in the left atrium, under intracardiac echo guidance Diagnostic EP study with Coronary sinus pacing and recording Baseline measurements sinus cycle length 1011 ms, GA interval 187 ms, QRS 179 ms left bundle branch block pattern, QT 547 ms AH 74, HV 73 Atrial pacing performed from the high right atrium and the coronary sinus RV pacing Sinus recovery times at 600 500 and 400 ms were 943, 1308 and 1398 AV node Wenckebach block 290 ms VA Wenckebach block 320 ms Digna response to Parahisian pacing Transseptal catheterization performed RA pressure /17 LA pressure 35/14/19 Transseptal catheterization performed with standard sheath. The cryoablation sheath was then placed with an over the wire exchange without any acute complications. All 4 pulmonary veins were isolated in the following sequence: Left superior followed by left inferior followed by right superior followed by right inferior The cryo-ablation balloon was placed at the os of each vein 1.5 mL of IV dye was injected to confirm an occluded vein Goal during cryoablation was to achieve complete occlusion of the pulmonary vein, achieve -30 degrees C at 30 seconds and achieve -40 degrees C at 60 seconds and a time to effect of less than 60-90 seconds, . If not the balloon was repositioned to obtain this result After completion of Cryoblation with durations from 180-240 seconds, entrance block was confirmed with the Attain circular catheter in a roving fashion around the antrum of the pulmonary veins Phrenic nerve pacing was performed from the SVC, right innominate vein area and diaphragm voltage was monitored. Diaphragmatic contractions were also monitored manually for strength of contraction. Parameter goals for each cryo freeze Complete occlusion of the appropriate vein -30 degrees C by 30 seconds -40 degrees C by 60 seconds Minimum between minus 40-55 degrees C Thaw time greater than 10 seconds Balloon visualized by intracardiac echo The esophagus was intubated. Esophageal Temperature monitoring with a CIRCA catheter formed. Esophageal deflection for hypothermia of the esophagus below 30 degrees C Left superior pulmonary vein, large, within left common Complete isolation, entrance block Left inferior pulmonary vein, large with a left common Complete isolation, entrance block Right superior pulmonary vein, during phrenic nerve pacing, large with a right middle vein Complete isolation, entrance block Right inferior pulmonary vein, during phrenic nerve pacing Complete isolation, entrance block At the end of the procedure the Achieve catheter was once again used to check for entrance block Phrenic nerve stimulation was performed to confirm diaphragmatic stimulation the end of the procedure Cine fluoroscopy was performed at the very end of the procedure to confirm movement of both diaphragms with inspiration and expiration Thereafter and RF ablation cath was placed in the left atrium 3-D electro-anatomic mapping was performed Voltage mapping was performed the veins are completely isolated. Exit and entrance block was proven Linear ablation was performed in the left atrial roof This was later verified with the voltage map for completeness Linear ablation was performed along the septum in lesions of fractionation The septum between the pulmonary veins and this RF line was completely isolated with exit block as well as non-capture along the RF line Non-capture is also documented along the roof line At the end of the procedure the patient was extubated Heparin was reversed Venous sheaths were removed and hemostasis assured Procedures performed (PVI - CRYO Ablation) Diagnostic EP study CS pacing and recording Left and right transseptal catheterization 3D mapping) Intracardiac echocardiography Pulmonary vein isolation with transseptal and comprehensive EPS, [id number] Left atrial roof line, +[id number] Linear ablation, left atrium, [id number] Electrical cardioversion with a synchronized shock across the chest [id number]
[2020-04-05 17:22] LABS: African American GFR (CKD) >90 (>60 ml/min/1.73 sqM); Anion Gap 2 mmol/L; Blood Urea Nitrogen 18 mg/dL (9-20); Calcium 7.8 mg/dL (8.4-10.2); Carbon Dioxide 25 mmol/L (22-30); Chloride 112 mmol/L (98-107); Glucose 107 mg/dL (74-99); Magnesium 1.9 mg/dL (1.6-2.3); Non-African American GFR(CKD) 83 (>60 ml/min/1.73 sqM); Potassium 4.1 mmol/L (3.5-5.1); Sodium 139 mmol/L (137-145)
[2020-04-05] MEDS: LACTATED RINGERS 1,000 ML IV SCH (18:57)
[2020-04-05] MEDS: HYDROcodone/APAP 5-325MG 1 EACH TAB PO PRN (19:01)
[2020-04-05] MEDS: SODIUM CHLORIDE 0.9% 1,000 ML IV SCH (19:04)
[2020-04-05 20:45] LABS: Glucose,Whole Blood 101 mg/dL (75-99)
[2020-04-05] MEDS: ATORVASTATIN 80 MG TAB PO SCH (22:14)
[2020-04-05] MEDS: RIVAROXABAN 20 MG TAB PO SCH (22:14)
[2020-04-05] MEDS: lisinopriL 10 MG TAB PO SCH (22:15)
[2020-04-05] MEDS: TAMSULOSIN 0.4 MG CAP.ER.24H PO SCH (22:15)
[2020-04-06 05:55] LABS: Glucose,Whole Blood 124 mg/dL (75-99)
[2020-04-06] MEDS: LATANOPROST 0.005% OPHTH DROPS 2.5 ML BTL BOTH EYES SCH ×2 (05:57→20:09)
[2020-04-06] MEDS: DOFETILIDE 125 MCG CAP PO SCH ×2 (06:00→18:11)
[2020-04-06] MEDS: LACTATED RINGERS 1,000 ML IV SCH (06:01)
[2020-04-06] MEDS: SODIUM CHLORIDE 0.9% 1,000 ML IV SCH (06:02)
[2020-04-06 06:40] LABS: African American GFR (CKD) >90 (>60 ml/min/1.73 sqM); Anion Gap 3 mmol/L; Blood Urea Nitrogen 18 mg/dL (9-20); Calcium 8.6 mg/dL (8.4-10.2); Carbon Dioxide 25 mmol/L (22-30); Chloride 111 mmol/L (98-107); Glucose 110 mg/dL (74-99); Magnesium 1.9 mg/dL (1.6-2.3); Non-African American GFR(CKD) >90 (>60 ml/min/1.73 sqM); Potassium 4.4 mmol/L (3.5-5.1); Sodium 139 mmol/L (137-145)
[2020-04-06] MEDS ORDERED: MAGNESIUM SULFATE-D5W PMX 1 GM in DEXTROSE/WATER 1 100ML.BAG IVPB PRN (07:36)
[2020-04-06] MEDS: FINASTERIDE 5 MG TAB PO SCH (07:47)
[2020-04-06] MEDS: TAMSULOSIN 0.4 MG CAP.ER.24H PO SCH ×2 (07:47→20:09)
[2020-04-06] MEDS: FUROSEMIDE 40 MG TAB PO SCH (07:47)
[2020-04-06] MEDS: lisinopriL 10 MG TAB PO SCH ×2 (07:47→20:09)
[2020-04-06] MEDS: SPIRONOLACTONE 25 MG TAB PO SCH (07:47)
[2020-04-06] MEDS: atenoloL 25 MG TAB PO SCH (07:48)
[2020-04-06] MEDS ORDERED: FUROSEMIDE 10 MG/ML 4 ML VIAL IV STA (09:37)
[2020-04-06] MEDS: MAGNESIUM OXIDE 400 MG TAB PO SCH (09:52)
[2020-04-06 11:55] LABS: Glucose,Whole Blood 111 mg/dL (75-99)
--- NOTE | 2020-04-06 13:29 | P.PN ---
Subjective This is Jacqueline Lewis PA-C dictating a progress note on this patient The patient was interviewed and examined by me as well as by Dr. Meng Case discussed with Dr. Meng and he agrees with the plan of care HPI/interval history Patient is a 74-year-old male with symptomatic persistent atrial fibrillation, tachybradycardia syndrome, hypertension, dyslipidemia, severe aortic stenosis status post TAVR who presented for an atrial fibrillation ablation. Yesterday he underwent a successful pulmonary vein isolation using cryoablation and linear ablation of the left atrium with minimal organization of atrial fibrillation. At the end of the procedure underwent electrical cardioversion to sinus rhythm. This morning he was started on dofetilide 125 g. He remains in sinus rhythm. Patient seen and examined sitting up in the chair. Complaining of back pain. He did have some pain with swallowing. No difficulty swallowing. No chest pain or shortness of breath however he hasn't gotten up to walk because he still has his Kaur catheter in. EXAMINATION Patient is afebrile, pulse in the 60s, respirations 18, blood pressure 120/66, oxygen saturation 96% on room air Patient seen and examined sitting up in the chair, in no acute distress Breath sounds are reduced bilaterally, no wheezing rhonchi or crackles Heart is regular, no audible murmurs 1+ lower extremity edema bilaterally REVIEW OF LABS, ECG Potassium 4.4, BUN 18, creatinine 0.77, magnesium 1. TSH on 0.04 EKG shows sinus mechanism with absolute QT 480-500 ms The patient has been in sinus rhythm on telemetry him a no ventricular arrhythmias IMPRESSION / ASSESSMENT: #1 symptomatic persistent atrial fibrillation status post pulmonary vein isolation and linear ablation, currently in sinus rhythm, anticoagulated #2 tachycardia bradycardia syndrome #3 hypertension #4 dyslipidemia #5 severe aortic stenosis status post TAVR PLAN: Continue dofetilide 125 g twice a day Monitor QT interval with serial EKGs 3 hours post dofetilide Monitor telemetry for arrhythmias Monitor BMP and magnesium Continue anticoagulation Objective - Vital Signs Vital signs: Vital Signs Temp 98.4 F 04/06/20 06:00 Pulse 69 04/06/20 06:00 Resp 20 04/06/20 06:00 BP 129/66 04/06/20 06:00 Pulse Ox 96 04/06/20 06:00 Intake & Output 04/05/20 04/06/2020 18:59 06:59 18:59 Intake Total 2277 Output Total 475 1075 Balance 1802 -1075 Weight 129 kg Intake: IV 2227 Intake, IV Titration 50 Amount Sodium Chloride 0.9% 1, 50 000 ml @ 50 mls/hr IV . Q20H [facility] Rx#:[id number] Oral 0 Output: Urine 475 1075 Other: Voiding Method Indwelling Catheter - Labs CBC & Chem 7: 04/06/20 05:41 Labs: Abnormal Lab Results - Last 24 Hours (Table) 04/05/20 04/05/20 04/06/20 Range/Units 16:57 20:43 05:41 Chloride 112 H 111 H (98-107) mmol/L Glucose 107 H 110 H (74-99) mg/dL POC Glucose (mg/dL) 101 H (75-99) mg/dL Calcium 7.8 L (8.4-10.2) mg/dL 04/06/20 04/06/20 Range/Units 05:53 11:53 Chloride (98-107) mmol/L Glucose (74-99) mg/dL POC Glucose (mg/dL) 124 H 111 H (75-99) mg/dL Calcium (8.4-10.2) mg/dL
[2020-04-06 16:44] LABS: Glucose,Whole Blood 106 mg/dL (75-99)
[2020-04-06] MEDS: HYDROcodone/APAP 5-325MG 1 EACH TAB PO PRN (17:28)
[2020-04-06] MEDS: RIVAROXABAN 20 MG TAB PO SCH (18:07)
[2020-04-06] MEDS: ATORVASTATIN 80 MG TAB PO SCH (20:09)
[2020-04-06 20:15] LABS: Glucose,Whole Blood 113 mg/dL (75-99)
[2020-04-07] MEDS: DOFETILIDE 125 MCG CAP PO SCH ×2 (05:24→18:11)
[2020-04-07 05:57] LABS: HCT 33.9 % (39.0-53.0); HGB 11.3 gm/dL (13.0-17.5); MCH 32.3 pg (25.0-35.0); MCHC 33.4 g/dL (31.0-37.0); MCV 96.7 fL (80.0-100.0); Mean Platelet Volume 10.4; Platelet Count 102 k/uL (150-450); RBC 3.51 m/uL (4.30-5.90); RDW 14.4 % (11.5-15.5); WBC 6.6 k/uL (3.8-10.6)
[2020-04-07 06:07] LABS: African American GFR (CKD) >90 (>60 ml/min/1.73 sqM); Anion Gap 4 mmol/L; Blood Urea Nitrogen 16 mg/dL (9-20); Calcium 8.6 mg/dL (8.4-10.2); Carbon Dioxide 27 mmol/L (22-30); Chloride 106 mmol/L (98-107); Glucose 100 mg/dL (74-99); Magnesium 1.9 mg/dL (1.6-2.3); Non-African American GFR(CKD) 84 (>60 ml/min/1.73 sqM); Potassium 4.2 mmol/L (3.5-5.1); Sodium 137 mmol/L (137-145)
[2020-04-07 06:20] LABS: Glucose,Whole Blood 120 mg/dL (75-99)
[2020-04-07] MEDS: MAGNESIUM OXIDE 400 MG TAB PO SCH (08:30)
[2020-04-07] MEDS: lisinopriL 10 MG TAB PO SCH ×2 (08:30→20:09)
[2020-04-07] MEDS: TAMSULOSIN 0.4 MG CAP.ER.24H PO SCH ×2 (08:30→20:09)
[2020-04-07] MEDS: FUROSEMIDE 40 MG TAB PO SCH (08:30)
[2020-04-07] MEDS: SPIRONOLACTONE 25 MG TAB PO SCH (08:30)
[2020-04-07] MEDS: atenoloL 25 MG TAB PO SCH (08:30)
[2020-04-07] MEDS: FINASTERIDE 5 MG TAB PO SCH (08:30)
[2020-04-07 12:22] LABS: Glucose,Whole Blood 102 mg/dL (75-99)
--- NOTE | 2020-04-07 13:10 | P.PN ---
Subjective This is Jacqueline Lewis PA-C dictating a progress note on this patient The patient was interviewed and examined by me as well as by Dr. Meng Case discussed with Dr. Meng and he agrees with the plan of care HPI/interval history Patient is a 74-year-old male with symptomatic persistent atrial fibrillation, tachybradycardia syndrome, hypertension, dyslipidemia, severe aortic stenosis status post TAVR who presented for an atrial fibrillation ablation. He underwent a successful pulmonary vein isolation using cryoablation and linear ab lation of the left atrium with minimal organization of atrial fibrillation. At the end of the procedure underwent electrical cardioversion to sinus rhythm. He was started on dofetilide 125 g. He remains in sinus rhythm today. Patient seen and examined resting in the chair. He is complaining of some shortness of breath. No chest pain. No dizziness or syncope. EXAMINATION Patient is afebrile, pulse in the 70s, respirations 16, one pressure in the 130s over 60s, oxygen saturation 97% on 2 L nasal cannula Patient seen and examined sitting up in the chair, in no acute distress Breath sounds are diminished at the bases Heart is regular, no audible murmurs 1+ lower extremity edema bilaterally REVIEW OF LABS, ECG WBC 6.6, hemoglobin 11.3, platelets 102, potassium 4.2, BUN 16, creatinine 0.91, magnesium 1.9 EKG today shows sinus mechanism with absolute QT 480 ms IMPRESSION / ASSESSMENT: #1 symptomatic persistent atrial fibrillation status post pulmonary vein isolation and linear ablation, currently in sinus rhythm on dofetilide 125 g twice daily, anticoagulated #2 tachycardia bradycardia syndrome #3 hypertension #4 dyslipidemia #5 severe aortic stenosis status post TAVR PLAN: Add spironolactone 25 mg daily Continue Lasix Monitor BMP Continue Tikosyn 125 g twice a day Monitor QT interval Objective - Vital Signs Vital signs: Vital Signs Temp 98.2 F 04/07/20 08:00 Pulse 71 04/07/20 11:38 Resp 16 04/07/20 11:38 BP 142/67 04/07/20 11:38 Pulse Ox 98 04/07/20 11:38 Intake & Output 04/06/20 04/07/20 04/07/20 18:59 06:59 18:59 Intake Total 1130 120 Output Total 500 250 Balance 630 -250 120 Intake: Oral 1130 120 Output: Urine 500 250 Straight 450 Other: Voiding Method Urinal Urinal # Voids 1 1 - Labs CBC & Chem 7: 04/07/20 05:33 04/07/20 05:33 Labs: Abnormal Lab Results - Last 24 Hours (Table) 04/06/20 04/06/20 04/07/20 Range/Units 16:42 20:13 05:33 RBC (4.30-5.90) m/uL Hgb (13.0-17.5) gm/dL Hct (39.0-53.0) % Plt Count (150-450) k/uL Glucose 100 H (74-99) mg/dL POC Glucose (mg/dL) 106 H 113 H (75-99) mg/dL 04/07/20 04/07/20 04/07/20 Range/Units 05:33 06:18 12:05 RBC 3.51 L (4.30-5.90) m/uL Hgb 11.3 L (13.0-17.5) gm/dL Hct 33.9 L (39.0-53.0) % Plt Count 102 L (150-450) k/uL Glucose (74-99) mg/dL POC Glucose (mg/dL) 120 H 102 H (75-99) mg/dL
[2020-04-07 17:12] LABS: Glucose,Whole Blood 100 mg/dL (75-99)
[2020-04-07] MEDS: RIVAROXABAN 20 MG TAB PO SCH (18:00)
[2020-04-07] MEDS: LATANOPROST 0.005% OPHTH DROPS 2.5 ML BTL BOTH EYES SCH (20:09)
[2020-04-07] MEDS: ATORVASTATIN 80 MG TAB PO SCH (20:09)
[2020-04-07 20:10] LABS: Glucose,Whole Blood 121 mg/dL (75-99)
[2020-04-08] MEDS: DOFETILIDE 125 MCG CAP PO SCH ×2 (05:59→18:00)
[2020-04-08 06:08] LABS: Glucose,Whole Blood 114 mg/dL (75-99)
[2020-04-08 06:58] LABS: MCH 32.1 pg (25.0-35.0); MCHC 33.5 g/dL (31.0-37.0); MCV 95.8 fL (80.0-100.0); RBC 3.45 m/uL (4.30-5.90); RDW 14.4 % (11.5-15.5); WBC 6.1 k/uL (3.8-10.6)
[2020-04-08 07:14] LABS: African American GFR (CKD) >90 (>60 ml/min/1.73 sqM); Anion Gap 5 mmol/L; Blood Urea Nitrogen 16 mg/dL (9-20); Calcium 8.9 mg/dL (8.4-10.2); Carbon Dioxide 26 mmol/L (22-30); Chloride 107 mmol/L (98-107); Glucose 103 mg/dL (74-99); Magnesium 1.9 mg/dL (1.6-2.3); Non-African American GFR(CKD) >90 (>60 ml/min/1.73 sqM); Potassium 4.1 mmol/L (3.5-5.1); Sodium 138 mmol/L (137-145)
[2020-04-08 08:10] LABS: Platelet Count 98 k/uL (150-450)
[2020-04-08] MEDS: atenoloL 25 MG TAB PO SCH (09:03)
[2020-04-08] MEDS: MAGNESIUM OXIDE 400 MG TAB PO SCH (09:03)
[2020-04-08] MEDS: FINASTERIDE 5 MG TAB PO SCH (09:03)
[2020-04-08] MEDS: FUROSEMIDE 40 MG TAB PO SCH (09:03)
[2020-04-08] MEDS: lisinopriL 10 MG TAB PO SCH ×2 (09:03→20:06)
[2020-04-08] MEDS: SPIRONOLACTONE 25 MG TAB PO SCH (09:03)
[2020-04-08] MEDS: TAMSULOSIN 0.4 MG CAP.ER.24H PO SCH ×2 (09:04→20:06)
[2020-04-08] MEDS ORDERED: SPIRONOLACTONE 25 MG TAB PO STA (10:05)
[2020-04-08 11:54] LABS: Glucose,Whole Blood 115 mg/dL (75-99)
[2020-04-08 16:47] LABS: Glucose,Whole Blood 107 mg/dL (75-99)
[2020-04-08] MEDS: RIVAROXABAN 20 MG TAB PO SCH (18:00)
--- NOTE | 2020-04-08 18:12 | P.PN ---
Subjective Patient is doing well. He maintains sinus rhythm I reviewed his 12-lead ECGs from last night and today Absolute QT interval 480 ms on dofetilide 125 g twice daily Denies any chest discomfort denies any shortness of breath but he does wear short of breath with walking to the bathroom Mild wheezing reduced air entry bilaterally [place] S1 and S2 Mild lower extremity edema Soft abdomen Labs are reviewed hemoglobin 11.0, sodium 138 potassium 4.1 BUN 16 creatinine 0.71 Magnesium 1.9 Impression History of aortic stenosis status post TAVR History of atrial fibrillation with asymptomatic status post ablation Currently on dofetilide 125 g twice daily Plan Daily BMP Continue daily monitoring of labs and QT interval on dofetilide Dofetilide education sheet given to the patient today Objective - Vital Signs Vital signs: Vital Signs Temp 98.4 F 04/08/20 16:00 Pulse 64 04/08/20 16:00 Resp 16 04/08/20 16:00 BP 113/62 04/08/20 16:00 Pulse Ox 97 04/08/20 16:00 Intake & Output 04/07/20 04/08/20 04/08/20 18:59 06:59 18:59 Intake Total 478 420 Output Total 300 180 Balance 178 -180 420 Weight 133.5 kg Intake: Oral 478 420 Output: Urine 300 180 - Labs CBC & Chem 7: 04/08/20 06:01 04/08/20 06:01 Labs: Abnormal Lab Results - Last 24 Hours (Table) 04/07/20 04/08/20 04/08/20 Range/Units 20:08 06:01 06:01 RBC 3.45 L (4.30-5.90) m/uL Hgb 11.0 L (13.0-17.5) gm/dL Hct 33.0 L (39.0-53.0) % Plt Count 98 L (150-450) k/uL Glucose 103 H (74-99) mg/dL POC Glucose (mg/dL) 121 H (75-99) mg/dL 04/08/20 04/08/20 04/08/20 Range/Units 06:06 11:52 16:46 RBC (4.30-5.90) m/uL Hgb (13.0-17.5) gm/dL Hct (39.0-53.0) % Plt Count (150-450) k/uL Glucose (74-99) mg/dL POC Glucose (mg/dL) 114 H 115 H 107 H (75-99) mg/dL
[2020-04-08] MEDS: ATORVASTATIN 80 MG TAB PO SCH (20:06)
[2020-04-08] MEDS: LATANOPROST 0.005% OPHTH DROPS 2.5 ML BTL BOTH EYES SCH (20:11)
[2020-04-08 20:59] LABS: Glucose,Whole Blood 109 mg/dL (75-99)
[2020-04-09 01:29] VITALS: RESP 18
[2020-04-09] MEDS: DOFETILIDE 125 MCG CAP PO SCH (06:03)
[2020-04-09 06:14] LABS: Glucose,Whole Blood 100 mg/dL (75-99)
[2020-04-09 07:21] LABS: Basophils % (A) 0 %; Eosinophils # (A) 0.1 k/uL (0-0.7); Eosinophils % (A) 2 %; HCT 32.6 % (39.0-53.0); HGB 10.6 gm/dL (13.0-17.5); Lymphocytes % (A) 18 %; MCH 30.6 pg (25.0-35.0); MCHC 32.4 g/dL (31.0-37.0); MCV 94.5 fL (80.0-100.0); Mean Platelet Volume 9.7; Monocytes # (A) 0.4 k/uL (0-1.0); Monocytes % (A) 7 %; Neutrophils # (A) 3.9 k/uL (1.3-7.7); Neutrophils % (A) 70 %; Platelet Count 103 k/uL (150-450); RBC 3.45 m/uL (4.30-5.90); RDW 14.4 % (11.5-15.5); WBC 5.6 k/uL (3.8-10.6)
[2020-04-09 07:39] LABS: African American GFR (CKD) >90 (>60 ml/min/1.73 sqM); Anion Gap 5 mmol/L; Blood Urea Nitrogen 18 mg/dL (9-20); Calcium 8.8 mg/dL (8.4-10.2); Carbon Dioxide 28 mmol/L (22-30); Chloride 106 mmol/L (98-107); Glucose 102 mg/dL (74-99); Magnesium 1.9 mg/dL (1.6-2.3); Non-African American GFR(CKD) 88 (>60 ml/min/1.73 sqM); Potassium 4.6 mmol/L (3.5-5.1); Sodium 139 mmol/L (137-145)
[2020-04-09] MEDS: FUROSEMIDE 40 MG TAB PO SCH (07:44)
[2020-04-09] MEDS: MAGNESIUM OXIDE 400 MG TAB PO SCH (07:44)
[2020-04-09] MEDS: TAMSULOSIN 0.4 MG CAP.ER.24H PO SCH (07:44)
[2020-04-09] MEDS: atenoloL 25 MG TAB PO SCH (07:44)
[2020-04-09] MEDS: FINASTERIDE 5 MG TAB PO SCH (07:44)
[2020-04-09] MEDS: lisinopriL 10 MG TAB PO SCH (07:44)
[2020-04-09] MEDS: SPIRONOLACTONE 25 MG TAB PO SCH ×2 (07:44→09:47)
[2020-04-09] MEDS ORDERED: SPIRONOLACTONE 25 MG TAB PO SCH (09:00)
[2020-04-09 11:33] VITALS: BP 129/70; PULSE 71; TEMP 98.3
[2020-04-09 11:35] LABS: Glucose,Whole Blood 107 mg/dL (75-99)
--- NOTE | 2020-04-09 14:01 | P.DS ---
Providers Date of admission: 04/06/20 13:45 Attending physician: Luke Meng Primary care physician: Rolo Chambershina [facility] Course: Patient is doing well. He still has mild lower extremity edema which is chronic. No shortness of breath no dizziness lightheadedness. He's ablating around the room comfortably he feels well On examination his breath sounds are equal bilaterally without any rhonchi or crackles Normal heart sounds are regular no murmurs or gallops or rub S1 is normal S2 is crisp No JVD bilateral lower extremity edema Abdomen soft. Afebrile 98.3F pulse rate in the 60s and 70s, blood pressure 129/70 mmHg Labs are reviewed white count 5.6, hemoglobin 10.6 Sodium 139 potassium 4.6 chloride 106, BUN 18 creatinine 0.83, magnesium 1.9 Twelve-lead ECG shows sinus rhythm left bundle branch block pattern absolute QT interval of 480 ms His QT interval has been stable at around 480 ms on dofetilide 125 g twice daily I had a very detailed discussion with him regarding Tikosyn A full Tikosyn education was provided I went over the entire education packet and explained how to use Tikosyn in detail Plan May go home today Tikosyn 125 g twice daily Spironolactone 50 mg by mouth daily Magnesium oxide 400 mg daily Continue Rivaroxaban Avoid QT prolonging drugs Follow-up Dr. Meng in 2 weeks Impression Status post aortic valve replacement, transvalvular Persistent symptomatically atrial fibrillation Status post A. fib ablation Dofetilide initiated in the hospital at 125 mg twice daily Absolute QT interval stable at 480 ms Underlying sick sinus syndrome Status post implantation of loop monitor Plan - Discharge Summary Discharge Rx Participant: No New Discharge Prescriptions: New Dofetilide [Tikosyn] 125 mcg PO Q12HR 180 Days cap Spironolactone 50 mg PO DAILY #90 tablet Magnesium Oxide [Mag-Ox] 400 mg PO DAILY #90 tablet No Action Cholecalciferol [Vitamin D3 (25 Mcg = 1000 Iu)] 5,000 unit PO W/SUPPER Atorvastatin [Lipitor] 80 mg PO HS Multivitamin [Men's Multi-Vitamin] 1 tab PO DAILY Rivaroxaban [Xarelto] 20 mg PO W/SUPPER Finasteride [Proscar] 5 mg PO DAILY Furosemide [Lasix] 40 mg PO DAILY Tamsulosin HCl [Flomax] 0.4 mg PO BID Clobetasol Propionate [Temovate 0.05% Cream] 1 applic TOPICAL BID PRN PRN Reason: Rash Latanoprost [Xalatan 0.005%] 1 drop BOTH EYES HS [place]-3 Fatty Acids/Fish Oil [Fish Oil 1,000 mg Softgel] 3 each PO DAILY Spironolactone [Aldactone] 50 mg PO DAILY lisinopriL [Zestril] 10 mg PO BID atenoloL [Tenormin] 25 mg PO DAILY fluocinolone acetonide oiL [Fluocinolone Acetonide Oil (Otic)] 1 applic BOTH EARS DIRECTED PRN PRN Reason: Vertigo Betamethasone Dipropionate [Betamethasone Dipropionate 0.05%] 1 applic TOPICAL DAILY PRN PRN Reason: Rash Diclofenac Sodium [Voltaren Gel] 2 gram TOPICAL DIRECTED PRN PRN Reason: Pain Discharge Medication List Atorvastatin [Lipitor] 80 mg PO HS 05/25/16 [History] Cholecalciferol [Vitamin D3 (25 Mcg = 1000 Iu)] 5,000 unit PO W/SUPPER 05/25/16 [History] Multivitamin [Men's Multi-Vitamin] 1 tab PO DAILY 05/25/16 [History] Rivaroxaban [Xarelto] 20 mg PO W/SUPPER 09/17/17 [History] Finasteride [Proscar] 5 mg PO DAILY 12/10/17 [History] Furosemide [Lasix] 40 mg PO DAILY 12/10/17 [History] Tamsulosin HCl [Flomax] 0.4 mg PO BID 02/20/18 [History] Clobetasol Propionate [Temovate 0.05% Cream] 1 applic TOPICAL BID PRN 09/26/18 [History] Latanoprost [Xalatan 0.005%] 1 drop BOTH EYES HS 09/26/18 [History] [place]-3 Fatty Acids/Fish Oil [Fish Oil 1,000 mg Softgel] 3 each PO DAILY 04/24/19 [History] Betamethasone Dipropionate [Betamethasone Dipropionate 0.05%] 1 applic TOPICAL DAILY PRN 04/01/20 [History] Diclofenac Sodium [Voltaren Gel] 2 gram TOPICAL DIRECTED PRN 04/01/20 [History] Spironolactone [Aldactone] 50 mg PO DAILY 04/01/20 [History] atenoloL [Tenormin] 25 mg PO DAILY 04/01/20 [History] fluocinolone acetonide oiL [Fluocinolone Acetonide Oil (Otic)] 1 applic BOTH EARS DIRECTED PRN 04/01/20 [History] lisinopriL [Zestril] 10 mg PO BID 04/01/20 [History] Dofetilide [Tikosyn] 125 mcg PO Q12HR 180 Days cap 04/09/20 [Rx] Magnesium Oxide [Mag-Ox] 400 mg PO DAILY #90 tablet 04/09/20 [Rx] Spironolactone 50 mg PO DAILY #90 tablet 04/09/20 [Rx] Follow up Appointment(s)/Referral(s): Luke Meng MD [STAFF PHYSICIAN] - 04/23/20 9:30 am Patient Instructions/Handouts: Atrial Flutter (DC), Cardiac Ablation (DC) Activity/Diet/Wound Care/Special Instructions: pts Tikosyn scripts filled in [facility] pharmacy for $10
--- NOTE | 2020-04-09 14:03 | P.PRLE ---
RE: Cayetano Lemus Dear Rolo Monteiro underwent defibrillation and thereafter I admitted him for dofetilide initiation He is on dofetilide 125 g twice daily which is tolerated well His absolute QT interval is 480 ms He will continue anticoagulation as before He understands that he has to avoid certain medications that interact with dofetilide as well as QT prolonging medications including several antibiotics Thank you for entrusting me with the care of the patient Warm regards Sincerely Luke Meng
== END 2020-04-09 13:58 | disposition home or self-care (01) | DRG 274 ==
LOC: CATHEP 10:37 → 3SCARD 16:53 → CATHEP 04-06 13:25 → 3SCARD 04-06 13:45
PROVIDERS: ADMIT Internal Medicine Clinical Cardiac Electrophysiology; ATTEND Internal Medicine Clinical Cardiac Electrophysiology
PROC: 4A0234Z Measurement of Cardiac Electrical Activity, Percutaneous Approach (ICD-10-PCS; principal; 2020-04-05 11:30)
PROC: 02583ZZ Destruction of Conduction Mechanism, Percutaneous Approach (ICD-10-PCS; principal; 2020-04-05 11:30)
PROC: 5A2204Z Restoration of Cardiac Rhythm, Single (ICD-10-PCS; principal; 2020-04-05 11:30)
PROC: 02K83ZZ Map Conduction Mechanism, Percutaneous Approach (ICD-10-PCS; principal; 2020-04-05 11:30)
PROC: 4A023FZ Measurement of Cardiac Rhythm, Percutaneous Approach (ICD-10-PCS; principal; 2020-04-05 11:30)
DX: I48.19 Other persistent atrial fibrillation (principal); Z68.41 Body mass index [BMI] 40.0-44.9, adult; I49.5 Sick sinus syndrome; I50.9 Heart failure, unspecified; I11.0 Hypertensive heart disease with heart failure; J44.9 Chronic obstructive pulmonary disease, unspecified; I48.92 Unspecified atrial flutter; G47.30 Sleep apnea, unspecified; E66.9 Obesity, unspecified; E78.5 Hyperlipidemia, unspecified; N42.9 Disorder of prostate, unspecified; I44.7 Left bundle-branch block, unspecified; Z79.01 Long term (current) use of anticoagulants; Z79.899 Other long term (current) drug therapy; Z87.01 Personal history of pneumonia (recurrent); Z95.2 Presence of prosthetic heart valve; Z98.890 Other specified postprocedural states; Z87.891 Personal history of nicotine dependence; Z80.52 Family history of malignant neoplasm of bladder
CPT/HCPCS: 80048; 83735; 84443; 85025; 85027; 85347; 92960; 93613; 93656; 93657

== ENCOUNTER → 2020-07-22 | Outpatient (CLI) | payer MEDICARE, BC ==
[2020-07-23 01:20] LABS: African American GFR (CKD) 86.2 (60.0-200.0); Anion Gap 8.9 mmol/L (4.00-12.00); Calcium 9.4 mg/dL (8.7-10.3); Carbon Dioxide 26.1 mmol/L (21.6-31.8); Non-African American GFR(CKD) 74.3 (60.0-200.0); Potassium 4.9 mmol/L (3.5-5.5)
== END | disposition home or self-care (01) ==
LOC: LABWHC1 15:53
PROVIDERS: ATTEND Nurse Practitioner Adult Health
DX: I10 Essential (primary) hypertension (principal)
CPT/HCPCS: 36415; 80048; 83735

== ENCOUNTER → 2020-11-15 | Outpatient (CLI) | payer MEDICARE, BC ==
[2020-11-15 15:27] LABS: Basophils # (A) 0.05 X 10*3/uL (0.00-0.10); Basophils % (A) 0.6 %; Eosinophils # (A) 0.13 X 10*3/uL (0.04-0.35); Eosinophils % (A) 1.5 %; HCT 40.3 % (39.6-50.0); HGB 13.5 g/dL (13.0-17.0); Lymphocytes # (A) 1.81 X 10*3/uL (0.90-5.00); Lymphocytes % (A) 20.7 %; MCH 31.2 pg (27.0-32.0); MCHC 33.5 g/dL (32.0-37.0); MCV 93.1 fL (80.0-97.0); Mean Platelet Volume 12.7 fL (9.5-12.2); Monocytes # (A) 0.81 X 10*3/uL (0.20-1.00); Monocytes % (A) 9.2 %; Neutrophils # (A) 5.86 X 10*3/uL (1.80-7.70); Neutrophils % (A) 66.9 %; Platelet Count 171 X 10*3/uL (140-440); RBC 4.33 X 10*6/uL (4.40-5.60); RDW 13.2 % (11.5-14.5); WBC 8.76 X 10*3/uL (4.50-10.00)
[2020-11-15 16:23] LABS: African American GFR (CKD) 76.8 (60.0-200.0); Albumin 4.5 g/dL (3.80-4.90); Albumin/Globulin Ratio 2.65 (1.60-3.17); Anion Gap 3.7 mmol/L (4.00-12.00); BUN/Creat Ratio 21.82 Ratio (12.00-20.00); Calcium 9.8 mg/dL (8.7-10.3); Carbon Dioxide 29.3 mmol/L (21.6-31.8); Chol/HDL Ratio 3.02; Globulin 1.7 g/dL (1.6-3.3); LDL Cholesterol,Calculated 76.8 mg/dL (0.0-131.0); Magnesium 1.9 mg/dL (1.5-2.4); Non-African American GFR(CKD) 66.2 (60.0-200.0); Total Bilirubin 0.8 mg/dL (0.2-1.2); Total Protein 6.2 g/dL (6.2-8.2); VLDL Calculation 26.2 mg/dL (5.00-40.00)
== END | disposition home or self-care (01) ==
LOC: LABWHC1 09:42
PROVIDERS: ATTEND Nurse Practitioner Adult Health
DX: I10 Essential (primary) hypertension (principal); I50.9 Heart failure, unspecified; I48.91 Unspecified atrial fibrillation
CPT/HCPCS: 36415; 80053; 80061; 83735; 83880; 85025

== ENCOUNTER → 2021-03-02 | Outpatient (CLI) | payer MEDICARE, BC ==
[2021-03-03 05:36] LABS: African American GFR (CKD) 76.8 (60.0-200.0); Albumin 4.3 g/dL (3.80-4.90); Albumin/Globulin Ratio 2.26 (1.60-3.17); BUN/Creat Ratio 23.64 Ratio (12.00-20.00); Calcium 9.7 mg/dL (8.7-10.3); Globulin 1.9 g/dL (1.6-3.3); Magnesium 1.9 mg/dL (1.5-2.4); Non-African American GFR(CKD) 66.2 (60.0-200.0); Potassium 5.7 mmol/L (3.5-5.5); Total Bilirubin 0.8 mg/dL (0.3-1.2); Total Protein 6.2 g/dL (6.2-8.2)
== END | disposition home or self-care (01) ==
LOC: LABWHC1 14:31
PROVIDERS: ATTEND Nurse Practitioner Adult Health
DX: I10 Essential (primary) hypertension (principal)
CPT/HCPCS: 36415; 80053; 83735

== ENCOUNTER 2021-03-24 06:12 | Day surgery (SDC) | payer MEDICARE, BC ==
[2021-03-22 14:33] VITALS: BMI 42.0
[2021-03-24 06:49] VITALS: TEMP 97
[2021-03-24] MEDS ORDERED: SODIUM CHLORIDE 0.9% 500 ML 500 ML IV ONE (06:53)
[2021-03-24] MEDS ORDERED: ePHEDrine SULFATE/0.9% NACL/PF 50 MG/5 ML SYRINGE IV ONE (07:55)
[2021-03-24] MEDS ORDERED: LIDOCAINE 1% INJ 10MG/ML (20 ML MDV) ONE (07:55)
[2021-03-24] MEDS ORDERED: PROPOFOL 10 MG/ML 20 ML VIAL IV ONE (07:55)
[2021-03-24] MEDS ORDERED: BENZOCAINE SPRAY 1 CAN TOPICAL ONE (07:58)
[2021-03-24 09:32] VITALS: RESP 18
[2021-03-24 09:35] VITALS: BP 101/52; PULSE 62
--- NOTE | 2021-03-24 21:41 | P.TEE ---
Description of Procedure(s): Procedure performed: Transesophageal Echocardiogram with color flow doppler, pulsed wave doppler and continuous wave doppler, moderate conscious sedation Moderate conscious sedation: Moderate conscious sedation was supplied by anesthesia see separate note Complications: none Indications: Aortic regurgitation History: Patient is a pleasant 75-year-old male with history of atrial fibrillation, hypertension, hyperlipidemia, severe aortic stenosis status post TAVR approximately 5 years ago. He has been feeling fairly good however does have mild dyspnea on exertion. A transthoracic echo that showed an eccentric with appeared to be moderate aortic regurgitation and therefore KATTY was recommended to further assess. Patient does have a very strong gag reflex and therefore this was boarded with anesthesia. PROCEDURE: After the risks, benefits and alternatives of the above mentioned procedure was explained in detail with the patient, informed consent was obtained. Patient was brought to the lab in a fasting state. Patient was sedation. The throat was sprayed with Hurricane to anesthetize the throat. A lubricated Omni probe was then introduced into the esophagus and stomach and multiple views were obtained. 2D echo with color flow doppler, pulsed wave doppler and continuous wave doppler was utilized. Agitated saline bubbles were injected to assess for any intra-atrial shunt. The probe was then removed. Patient tolerated the procedure well. Patient was transferred to the post procedure area in stable and satisfactory condition. FINDINGS: 1. There is a supra-anular Medtronic Evoute valve with normal leaflet excursion and no significant stenosis. There is mild to moderate paravalular aortic insufficiency at the 1-3 O'Clock position. 2. The mitral valve appears be normal with mild regurgitation. 3. Tricuspid valve appears to be normal. 4. The interatrial septum is intact. No evidence of PFO. 5. Left atrial appendage is free of clot. 6. Left ventricular size and function appear to be normal
== END 2021-03-24 10:06 | disposition home or self-care (01) ==
LOC: CATHCVL 06:12
PROVIDERS: ATTEND Internal Medicine
DX: I48.19 Other persistent atrial fibrillation (principal); I49.5 Sick sinus syndrome; J44.9 Chronic obstructive pulmonary disease, unspecified; I11.0 Hypertensive heart disease with heart failure; I50.9 Heart failure, unspecified; Z95.2 Presence of prosthetic heart valve; Q21.0 Ventricular septal defect; G47.30 Sleep apnea, unspecified; E66.9 Obesity, unspecified; Z68.41 Body mass index [BMI] 40.0-44.9, adult; Z79.899 Other long term (current) drug therapy; E78.5 Hyperlipidemia, unspecified; Z82.49 Family history of ischemic heart disease and other diseases of the circulatory system; Z72.0 Tobacco use; Z79.01 Long term (current) use of anticoagulants
CPT/HCPCS: 93312; 93320; 93325; 84132; J2001; J2704

== ENCOUNTER → 2021-05-13 | Outpatient (CLI) | payer MEDICARE, BC ==
[2021-05-13 20:47] LABS: African American GFR (CKD) 86.2 (60.0-200.0); Anion Gap 9.5 mmol/L (4.00-12.00); Calcium 9.4 mg/dL (8.7-10.3); Carbon Dioxide 24.5 mmol/L (21.6-31.8); Magnesium 1.7 mg/dL (1.5-2.4); Non-African American GFR(CKD) 74.3 (60.0-200.0); Potassium 4.9 mmol/L (3.5-5.5)
== END | disposition home or self-care (01) ==
LOC: LABWHC1 14:02
PROVIDERS: ATTEND Nurse Practitioner Adult Health
DX: I10 Essential (primary) hypertension (principal)
CPT/HCPCS: 36415; 80048; 83735

== ENCOUNTER → 2022-02-10 | Outpatient (CLI) | payer MEDICARE, BC ==
[2022-02-10 11:33] LABS: INR 1.2 (<1.2); Partial Thromboplastin Time 33.9 sec (22.0-30.0)
[2022-02-10 12:08] LABS: Appearance,Urine Clear (Clear); Bilirubin,Urine Negative (Negative); Blood,Urine Negative (Negative); Color,Urine Yellow; Glucose,Urine (UA) Negative (Negative); Ketones,Urine Negative (Negative); Leukocyte Esterase,Urine Negative (Negative); Nitrite,Urine Negative (Negative); PH, Urine 5.5 (5.0-8.0); Protein,Urine Negative (Negative); Urobilinogen,Urine <2.0 mg/dL (<2.0)
[2022-02-10 19:58] LABS: HCT 36.8 % (39.6-50.0); HGB 11.6 g/dL (13.0-17.0); MCHC 31.5 g/dL (32.0-37.0); MCV 95.1 fL (80.0-97.0); Mean Platelet Volume 13.3 fL (9.5-12.2); NRBC Per 100 WBC 0 /100 WBCS (0.0-0.0); Platelet Count 123 X 10*3/uL (140-440); RBC 3.87 X 10*6/uL (4.40-5.60); RDW 13.2 % (11.5-14.5); WBC 4.59 X 10*3/uL (4.50-10.00)
[2022-02-10 20:27] LABS: African American GFR (CKD) 85.6 (60.0-200.0); Albumin 3.9 g/dL (3.8-4.9); Albumin/Globulin Ratio 2.29 (1.60-3.17); Anion Gap 8.4 mmol/L (10.00-18.00); BUN/Creat Ratio 20.7 Ratio (12.00-20.00); Blood Urea Nitrogen 20.7 mg/dL (9.0-27.0); Calcium 9.5 mg/dL (8.7-10.3); Carbon Dioxide 22.6 mmol/L (20.0-27.5); Globulin 1.7 g/dL (1.6-3.3); Non-African American GFR(CKD) 73.8 (60.0-200.0); Potassium 4.3 mmol/L (3.5-5.5); Total Bilirubin 0.6 mg/dL (0.30-1.20); Total Protein 5.6 g/dL (6.2-8.2)
== END | disposition home or self-care (01) ==
LOC: LABPAT 09:32
PROVIDERS: ATTEND Orthopaedic Surgery
DX: Z01.818 Encounter for other preprocedural examination (principal)
CPT/HCPCS: 80053; 81003; 85027; 85610; 85730; 87070

== ENCOUNTER → 2022-02-16 | Outpatient (CLI) | payer MEDICARE, BC | END | disposition home or self-care (01) | LOC: LABPAT 14:04 | PROVIDERS: ATTEND Orthopaedic Surgery | DX: Z01.812 Encounter for preprocedural laboratory examination (principal) | CPT/HCPCS: 86850; 86900; 86901 ==

== ENCOUNTER → 2022-02-20 | Outpatient (CLI) | payer MEDICARE, BC ==
[2022-02-20 17:39] LABS: Basophils % (A) 1 %; Eosinophils # (A) 0.1 k/uL (0-0.7); Eosinophils % (A) 1 %; HCT 36.5 % (39.0-53.0); HGB 11.8 gm/dL (13.0-17.5); Lymphocytes # (A) 1.3 k/uL (1.0-4.8); Lymphocytes % (A) 22 %; MCHC 32.3 g/dL (31.0-37.0); Mean Platelet Volume 11.5; Monocytes # (A) 0.4 k/uL (0-1.0); Monocytes % (A) 7 %; Neutrophils # (A) 3.8 k/uL (1.3-7.7); Neutrophils % (A) 67 %; Platelet Count 128 k/uL (150-450); RBC 3.93 m/uL (4.30-5.90); RDW 13.5 % (11.5-15.5); WBC 5.7 k/uL (3.8-10.6)
== END | disposition home or self-care (01) ==
LOC: LABWHC1 15:15
PROVIDERS: ATTEND Physician Assistant Medical
DX: D64.9 Anemia, unspecified (principal)
CPT/HCPCS: 36415; 85025

== ENCOUNTER 2022-02-21 08:09 | Day surgery (SDC) | payer MEDICARE, BC ==
[2022-02-15 16:18] VITALS: BMI 42.8
[~2022-02-21 08:09] MED LIST changes: +ACETAMINOPHEN TAB 500 MG TAB PO PRN; +GABAPENTIN 300 MG CAP PO PRN; +LIDOCAINE 1% (10MG/ML) FOR IV START INTRADERMA PRN; +MELOXICAM 7.5 MG TAB PO PRN; +ONDANSETRON 4 MG/2 ML VIAL IVP ONE; -SODIUM CHLORIDE 0.9% 1,000 ML IV SCH; +TRANEXAMIC ACID IN NACL,ISO-OS 1,000 MG in SALINE 1 100ML.BAG IVPB PRN; +ceFAZolin 3 GM in SODIUM CHLORIDE 0.9% 100 ML IVPB PRN
[2022-02-21] MEDS ORDERED: DEXAMETHASONE SOD PHOSPHATE 4 MG/ML 1 ML VIAL IVP ONE (09:11)
[2022-02-21] MEDS: LACTATED RINGERS 1,000 ML IV SCH ×3 (09:11→22:16)
[2022-02-21] MEDS ORDERED: TEMAZEPAM 15 MG CAP PO PRN (09:19)
[2022-02-21] MEDS ORDERED: ONDANSETRON 4 MG/2 ML VIAL IVP PRN (09:19)
[2022-02-21] MEDS ORDERED: diazePAM 5 MG TAB PO PRN (09:19)
[2022-02-21] MEDS ORDERED: NALOXONE 0.4 MG/ML 1 ML VIAL IV PRN (09:19)
[2022-02-21] MEDS ORDERED: HYDROmorphone 0.5 MG/0.5 ML SYRINGE IVP PRN ×3 (09:19)
[2022-02-21] MEDS ORDERED: ACETAMINOPHEN TAB 325 MG TAB PO PRN (09:19)
[2022-02-21] MEDS ORDERED: MAGNESIUM HYDROXIDE 2,400 MG/10 ML CUP PO PRN (09:19)
[2022-02-21] MEDS ORDERED: LIDOCAINE 2% INJ 20 MG/ML (2 ML VIAL) ONE (09:26)
[2022-02-21] MEDS ORDERED: NEOSTIGMINE 1 MG/ML 10 ML VIAL ONE (09:26)
[2022-02-21] MEDS ORDERED: SUCCINYLCHOLINE CHLORIDE VIAL 200 MG/10 ML VIAL IV ONE (09:26)
[2022-02-21] MEDS ORDERED: MIDAZOLAM 2 MG/2 ML VIAL ONE (09:26)
[2022-02-21] MEDS ORDERED: PROPOFOL 10 MG/ML 20 ML VIAL IV ONE (09:26)
[2022-02-21] MEDS ORDERED: GLYCOPYRROLATE 0.2 MG/ML 2 ML VIAL ONE (09:26)
[2022-02-21] MEDS ORDERED: TRANEXAMIC ACID IN NACL,ISO-OS 1,000 MG/100 ML BAG ONE (09:26)
[2022-02-21] MEDS ORDERED: PHENYLEPHRINE-0.9% NACL SYG 1,000 MCG/10 ML SYRINGE ONE (09:26)
[2022-02-21] MEDS ORDERED: fentaNYL (PF) 50 MCG/ML 2 ML AMP ONE (09:26)
[2022-02-21] MEDS ORDERED: ROCURONIUM 10 MG/ML (5 ML VIAL) IV ONE (09:26)
--- NOTE | 2022-02-21 10:44 | P.OP ---
Date of Procedure: 02/21/22 Preoperative Diagnosis: Severe osteoarthritis of the right hip Postoperative Diagnosis: Severe osteoarthritis of the right hip Procedure(s) Performed: Right total hip arthroplasty with a direct anterior approach Implants: Pop [employer] Nephew Polarstem standard size 6 collar [employer] Nephew R3, 3 hole hemispherical acetabular shell, 54 mm [employer] Nephew Reflection 6.5 mm cancellus screw, 20 mm 2 [employer] Nephew R3, XLPE 20 acetabular liner [employer] Nephew Oxinium femoral head 36 m, +4 All components were press-fit. The articulation is Oxinium on polyethylene. Anesthesia: GETA Surgeon: Santiago Camargo Director Of Manufacturing #1: Feliberto Hernandez Estimated Blood Loss (ml): 400 Pathology: other (Femoral head) Condition: stable Disposition: PACU Indications for Procedure: After failure of conservative treatment we discussed the surgical and nonsurgical treatment options at length. Patient wishes to proceed with a total hip arthroplasty with a direct anterior approach. Complications specific to this procedure were discussed at length, including but not limited to infection, leg length discrepancy, dislocation, nerve injury, and fracture. Covid-19 was also discussed at length with the patient, and they are aware of the current policies and procedures. The patient was given the option of delaying surgery, but they elect to proceed knowing these risks. Patient is aware of all these complications and informed consent was obtained Operative Findings: The operative findings are consistent with severe osteoarthritis of the right hip Description of Procedure: Patient was seen and evaluated in the preoperative area and the consent was reviewed. The operative site was marked with a skin marker. The patient was then brought to the operating room and given preoperative antibiotics intravenously. 1 g of Tranexamic acid was also given intravenously. A general anesthetic was administered by the anesthesia department. The patient was then placed on the [place] table with the bony prominences well-padded. The hip area was then prepped with a ChloraPrep solution and draped in the usual sterile fashion. A universal timeout was then performed, which confirmed the patient's name, surgical site, ALLERGIES, and procedure being performed on the consent. Next the incision site was located at 1 cm distal and 2 cm lateral to the anterior superior iliac spine. The skin and subcutaneous tissues were sharply incised. Incision was carefully dissected down to the fascia overlying the tensor fascia brando muscle. This fascia was then incised in line with the incision. Care was taken to stay laterally in order to avoid injuring the lateral femoral cutaneous nerve. Next, using blunt finger dissection, the tensor fascia brando muscle was dissected off its investing fascia. The muscle was then carefully retracted laterally with a cobra retractor over the lateral neck of the femur. Next, the circumflex vessels were identified and cauterized using the AquaMantis device. The anterior hip capsule was then exposed. The capsule was then opened and an inverted T fashion. Cobra retractors were then placed intracapsularly. The retractors were maintained intracapsular throughout the procedure. The proximal femur was then visualized. Fluoroscopic x-rays were then taken in order to evaluate the preoperative leg lengths. A small amount of traction was placed on the leg. The femoral neck was then osteotomized at the appropriate level above the lesser trochanter. A small wedge of bone was then removed from the remaining femoral head. Next, using a corkscrew the femoral head was removed from the acetabulum. On gross visual inspection, the femoral head had complete loss of articular cartilage and multiple periarticular osteophytes. The femoral head was then measured. Attention was then turned to the acetabulum. The acetabulum was exposed and any remaining labrum was excised. Sequential reaming of the acetabulum was performed using fluoroscopic guidance until there was a good bed of bleeding cancellus bone. When the appropriate size was reached, a trial was then placed. The position and fit of the trial was checked with fluoroscopy. The trial was then removed. Then, using fluoroscopic guidance, the final implant was impacted at 20 of anteversion and 40 of abduction, and fully seated in the acetabulum. 2 screws were then placed in the acetabulum. Again fluoroscopy was used to check position of the screws. Next, the liner was then impacted, with a 20 elevated liner located in the anterior superior quadrant. Component locking was confirmed. Attention was then directed to the femur. With the aid of the Scappoose table, the femur was externally rotated to approximately 130, extended, and adducted under the opposite leg. A side hook was then placed under the proximal femur, and the side hook elevator was used to elevate the proximal femur while releasing the capsule. Retractors were then placed. A capsular release was performed, as well as a release of the conjoined tendon, which afforded excellent visualization of the proximal femur. Next, a box osteotome was used to lateralize the proximal femur. A ferry hand was then used to locate the femoral canal. Sequential broaching was then performed with appropriate size which afforded excellent fixation in the proximal femur. A trial was then placed with appropriate head and neck, and the hip was gently reduced with the aid of the Scappoose table. Fluoroscopy was then used to check position of the components, as well as to ensure equal leg lengths. The hip was then gently dislocated and the trials were then removed. Final implants were then impacted and the hip was again reduced. Final fluoroscopic x-rays confirmed that the components were in anatomic position, as well as equal leg lengths. The hip was also taken through range of motion, and found to be stable. The hip was then copiously irrigated with antibiotic solution with pulsatile lavage. The hip was then irrigated with Irrisept solution. The soft tissues were then injected with a ropivacaine solution. A second dose of 1 g of Tranexamic acid was also given intravenously. The fascia was then closed with 2-0 strata fix suture. The subcutaneous tissue was closed with 3-0 Vicryl. The subcuticular tissue was closed with 3-0 strata fix suture. The skin was then closed with Exofin skin glue. After the glue and dried, and Optifoam silver impregnated dressing was applied. The patient was then transferred to the recovery room in stable condition. The assistant to the ceo NONI Acuna was required due to the complexity of surgery, and the need for skilled retail sales assistant for positioning, draping, exposure, retraction, and closure of the wound.
[2022-02-21] MEDS: HYDROmorphone 0.5 MG/0.5 ML SYRINGE IVP PRN ×4 (11:16→11:55)
--- NOTE | 2022-02-21 11:54 | XR ---
EXAMINATION TYPE: XR Hip Limited RT DATE OF EXAM: 02/21/2022 COMPARISON: NONE HISTORY: Postop TECHNIQUE: One view submitted. FINDINGS: There is postsurgical change in near anatomic alignment. There is soft tissue edema and emphysema. V ascular calcifications noted. IMPRESSION: 1. Postoperative change. Appears in near-anatomic alignment.
[2022-02-21] MEDS: MULTIVITAMINS, THERA 1 EACH TAB PO SCH (15:24)
--- NOTE | 2022-02-21 15:50 | XR ---
EXAMINATION TYPE: XR Hip Limited RT DATE OF EXAM: 02/21/2022 COMPARISON: NONE HISTORY: Postop TECHNIQUE: One view submitted. FINDINGS: There is postsurgical change in near anatomic alignment. There is soft tissue edema and emphysema. IMPRESSION: 1. Postoperative change. Appears in near-anatomic alignment.
--- NOTE | 2022-02-21 15:55 | FL ---
EXAMINATION TYPE: FL guidance operating room DATE OF EXAM: 02/21/2022 HISTORY: Fluoroscopy time 10 seconds of fluoroscopy provided. IMPRESSION: 1. Fluoroscopy time.
--- NOTE | 2022-02-21 16:32 | P.CONS ---
History of Present Illness - Reason for Consult Consult date: 02/21/22 Medical management Requesting physician: Santiago Camargo - History of Present Illness History of Presenting Illness: Patient is a very pleasant 76-year-old male with a past medical history of CAD, severe aortic stenosis status post TAVR, hypertension, hyperlipidemia, atrial fibrillation on anticoagulation with Xarelto, and BPH. He is currently admitted under orthopedic surgery team and is status post right total hip arthroplasty completed by Dr. Freedman secondary to severe osteoarthritis of the right hip. We have been consulted to provide continued medical management throughout hospitalization. Patient seen and fully evaluated at the bedside. He is visiting with his fiance at bedside. He currently reports postoperative pain is controlled. Patient tolerating oral intake and denies having any postoperative nausea or vomiting. Patient denies having any headache, lightheadedness, dizziness, chest pain, palpitations, shortness of breath, nausea, vomiting, or any other complaints. Patient has not yet urinated during postoperative time frame. He has urinal and is attempting. Review of systems: Pertinent positives and negatives as discussed in HPI, a complete review of systems was performed and all other systems are negative. Physical exam: Vital signs reviewed and stable. General: Nontoxic, no distress and appears stated age. Derm: Skin warm and dry, normal coloration for ethnicity. Dressing right hip is clean dry and intact. No signs of bleeding or drainage. Head: Atraumatic, normocephalic and symmetric. Eyes: EOMs intact, no lid lag, and anicteric sclera Mouth: no lip lesions, mucus membranes moist Cardiovascular: regular rate and rhythm with normal S1S2, systolic urmur, positive posterior tibial pulses bilaterally, and cap refill < 2 seconds. Lungs: Respirations even, regular, and unlabored on room air. Lungs CTA bilaterally, no rhonchi, no rales, no wheezing, and no accessory muscle usage. Abdominal: soft, nontender to palpation, no guarding, no appreciable organomegaly Ext: ROM intact. No gross muscle atrophy, no edema, no contractures Neuro: Speech clear, face symmetrical and CN II-XII grossly intact with no noted focal neuro deficits Psych: Alert and oriented to person, place, time, and situation. Appropriate and pleasant affect. Assessment and Plan of Care: Right hip osteoarthritis Status post right total hip arthroplasty -Management per primary admitting orthopedic surgery team including DVT prophylaxis, pain management, weightbearing, and PT/OT. -Patient currently on DVT prophylaxis with Xarelto. -Provide safe and supportive care and encourage use of incentive spirometry 10- 15 times hourly while awake. Hypertension Monitor vital signs and continue daily medication regimen with lisinopril and atenolol. Atrial fibrillation Continue daily medication regimen with Dofetilide and oral anticoagulation with Xarelto (this was approved by primary admitting orthopedic surgery team to resume). Hyperlipidemia Continue daily medication regimen with atorvastatin. Recommend heart healthy diet. BPH Continue daily medication regimen with Flomax and finasteride. Closely monitor for urinary retention during postoperative period. Bladder scan as needed to monitor for postvoid residual and/or urinary retention. Past medical history of CAD Severe aortic stenosis status post TAVR Continue daily cardiac medication regimen Xarelto, Dofetilide, atenolol, atorvastatin, furosemide, and lisinopril. Recommend heart healthy diet. Thank you for allowing us to participate in the care of this pleasant patient. Do not hesitate to contact us with questions. Someone can be reached from the [facility] hospitalist group all hours of the day at [phone] or via [employer]. I reviewed the documentation as provided by the GISSEL above, who is the original author of this note. I agree with the documented assessment and plan, with the following changes: none Past Medical History Past Medical History: Atrial Fibrillation, Atrial Flutter, Heart Failure, COPD, Hyperlipidemia, Hypertension, Osteoarthritis (OA), Prostate Disorder, Sleep Apnea/CPAP/BIPAP Additional Past Medical History / Comment(s): not using CPAP- unable to sleep on his back, SOB w/activity, had elevated cardiac enzymes-not sure if VA, sensitive gag reflux, "rt groin area may have a clot", hx contact dermatitis, hypoglycemic, enlarged prostate Last Myocardial Infarction Date:: unk History of Any Multi-Drug Resistant Organisms: None Reported Past Surgical History: Cardiac Valve Replacement, EPS, Heart Catheterization, Hernia Repair Additional Past Surgical History / Comment(s): hernia repairs x 3, jade, aortic valve replacement 2016 at [facility] [place], cardioversion, loop recorder Past Anesthesia/Blood Transfusion Reactions: No Reported Reaction Additional Past Anesthesia/Blood Transfusion Reaction / Comm: "STATES HAS HAD VERTIGO IN THE PAST DENIES MOTION SICKNESS", sensitive gag reflux Type of Cardiac Device: Loop Smoking Status: Former smoker - Past Family History Father Family Medical History: Cancer Additional Family Medical History / Comment(s): prostate Mother History Unknown: Yes Family Medical History: No Reported History Brother(s) Family Medical History: Cancer Medications and Allergies Home Medications Medication Instructions Recorded Confirmed Type Atorvastatin [Lipitor] 80 mg PO 05/25/16 02/21/22 History Multivitamin [Men's Multi-Vitamin] 1 tab PO DAILY 05/25/16 02/15/22 History Rivaroxaban [Xarelto] 20 mg PO 202909/17/17 02/21/22 History Finasteride [Proscar] 5 mg PO QA 12/10/17 02/15/22 History Tamsulosin HCl [Flomax] 0.4 mg PO QA 02/20/18 02/15/22 History Diclofenac Sodium [Voltaren Gel] 2 gram TOPICAL DIRECTED PRN 04/01/20 02/15/22 History Spironolactone [Aldactone] 25 mg PO QA 04/01/20 02/15/22 History atenoloL [Tenormin] 25 mg PO QA 04/01/20 02/15/22 History lisinopriL [Zestril] 10 mg PO BID 04/01/20 02/15/22 History Dofetilide [Tikosyn] 125 mcg PO Q12HR 180 Days cap 04/09/20 02/15/22 Rx Bimatoprost [Lumigan .01% Ophth 1 drop BOTH EYES 03/22/21 02/21/22 History Soln] Furosemide [Lasix] 40 mg PO QA 03/22/21 02/15/22 History Magnesium Oxide [Mag-Ox] 400 mg PO 202903/22/21 02/21/22 History [place]-3 Fatty Acids/Fish Oil [Fish 3 each PO DAILY 03/22/21 02/15/22 History Oil 1,000 mg Softgel] Cholecalciferol [Vitamin D3 (25 100 mcg PO DAILY 02/15/22 02/15/22 History Mcg = 1000 Iu)] Allergies Allergy/AdvReac Type Severity Reaction Status Date / Time onion AdvReac Indigestion Verified 02/21/22 08:57 Pepper AdvReac Indigestion Verified 02/21/22 08:57 tomato AdvReac Indigestion Verified 02/21/22 08:57 Physical Exam Osteopathic Statement: *. No significant issues noted on an osteopathic structural exam other than those noted in the History and Physical/Consult. Vitals: Vital Signs Temp Pulse Resp BP Pulse Ox 02/21/22 14:18 58 L 16 127/57 98 02/21/22 13:30 56 L 16 117/56 97 02/21/22 13:00 52 L 16 118/57 97 02/21/22 12:30 58 L 16 130/60 97 02/21/22 12:15 55 L 16 130/61 97 02/21/22 12:00 56 L 16 120/57 97 02/21/22 11:45 60 16 130/60 97 02/21/22 11:30 59 L 16 123/59 99 02/21/22 11:12 96.8 F L 67 16 144/61 93 L 02/21/22 08:57 97.5 F L 66 16 145/65 95 Intake and Output 02/20/22 02/21/22 02/21/22 22:59 06:59 14:59 Intake Total 1400 Output Total 400 Balance 1000 Intake: IV 1400 Output: Estimated Blood Loss 400
[2022-02-21] MEDS: ceFAZolin 3 GM in SODIUM CHLORIDE 0.9% 100 ML IVPB SCH (17:43)
[2022-02-21 19:36] VITALS: RESP 16
[2022-02-21] MEDS ORDERED: MAGNESIUM OXIDE 400 MG TAB PO SCH (20:30)
[2022-02-21] MEDS ORDERED: RIVAROXABAN 20 MG TAB PO SCH (20:30)
[2022-02-21] MEDS ORDERED: SENNOSIDES-DOCUSATE SODIUM 1 EACH TAB PO SCH (21:00)
[2022-02-21] MEDS ORDERED: LATANOPROST 0.005% OPHTH DROPS 2.5 ML BTL BOTH EYES SCH (21:00)
[2022-02-21] MEDS ORDERED: ATORVASTATIN 80 MG TAB PO SCH (21:00)
[2022-02-21] MEDS: DOFETILIDE 125 MCG CAP PO SCH (21:21)
[2022-02-21] MEDS: lisinopriL 10 MG TAB PO SCH (21:25)
[2022-02-22] MEDS: ceFAZolin 3 GM in SODIUM CHLORIDE 0.9% 100 ML IVPB SCH (01:01)
[2022-02-22] MEDS: LACTATED RINGERS 1,000 ML IV SCH ×2 (05:21→13:30)
[2022-02-22 06:14] LABS: Basophils % (A) 1 %; Eosinophils % (A) 0 %; HCT 35.1 % (39.0-53.0); HGB 10.9 gm/dL (13.0-17.5); Hypochromasia Slight; Lymphocytes # (A) 0.9 k/uL (1.0-4.8); Lymphocytes % (A) 10 %; MCH 29.2 pg (25.0-35.0); MCHC 30.9 g/dL (31.0-37.0); MCV 94.7 fL (80.0-100.0); Mean Platelet Volume 11.6; Monocytes # (A) 0.6 k/uL (0-1.0); Monocytes % (A) 7 %; Neutrophils % (A) 81 %; Platelet Count 127 k/uL (150-450); RBC 3.71 m/uL (4.30-5.90); RDW 13.5 % (11.5-15.5); WBC 8.7 k/uL (3.8-10.6)
[2022-02-22 07:13] LABS: ALT 13 U/L (4-49); AST 27 U/L (17-59); African American GFR (CKD) 89 (>60 ml/min/1.73 sqM); Albumin 3.3 g/dL (3.5-5.0); Albumin/Globulin Ratio 1.7; Alkaline Phosphatase 71 U/L (38-126); Anion Gap 5 mmol/L; Blood Urea Nitrogen 19 mg/dL (9-20); Calcium 8.7 mg/dL (8.4-10.2); Carbon Dioxide 28 mmol/L (22-30); Chloride 104 mmol/L (98-107); Glucose 111 mg/dL (74-99); Non-African American GFR(CKD) 77 (>60 ml/min/1.73 sqM); Potassium 4.5 mmol/L (3.5-5.1); Sodium 137 mmol/L (137-145); Total Bilirubin 0.6 mg/dL (0.2-1.3); Total Protein 5.3 g/dL (6.3-8.2)
[2022-02-22] MEDS: traMADol 50 MG TAB PO PRN ×2 (07:25→14:24)
--- NOTE | 2022-02-22 08:28 | P.PN ---
Subjective Progress Note Date: 02/22/22 Principal diagnosis: Primary osteoarthritis right hip Status post total right hip arthroplasty. This is a 76-year-old male who is postop day #1 status post total right hip arthroplasty with direct anterior approach. He has no new complaints or concerns today. Vital signs are stable. Objective - Vital Signs Vital signs: Vital Signs Temp 98.4 F 02/22/22 08:00 Pulse 84 02/22/22 08:00 Resp 16 02/22/22 01:11 BP 134/71 02/22/22 08:00 Pulse Ox 94 L 02/22/22 08:00 FiO2 Intake & Output 02/21/22 02/22/22 02/22/22 18:59 06:59 18:59 Intake Total 1600 Output Total 400 50 Balance 1200 -50 Weight 131.542 kg Intake: IV 1400 Oral 200 Output: Urine 50 Estimated Blood Loss 400 Other: Voiding Method Urinal # Voids 0 2 - Exam This is a pleasant 76-year-old male in no acute distress. He is alert and oriented 3. Exam of the right hip reveals no erythema. Dressing is intact. He has full foot and ankle motion without difficulty or pain. Neurovascular status to the lower extremity is intact. - Labs CBC & Chem 7: 02/22/22 04:46 02/22/22 04:46 Labs: Abnormal Lab Results - Last 24 Hours (Table) 02/22/22 02/22/22 Range/Units 04:46 04:46 RBC 3.71 L (4.30-5.90) m/uL Hgb 10.9 L (13.0-17.5) gm/dL Hct 35.1 L (39.0-53.0) % MCHC 30.9 L (31.0-37.0) g/dL Plt Count 127 L (150-450) k/uL Lymphocytes # 0.9 L (1.0-4.8) k/uL Glucose 111 H (74-99) mg/dL Total Protein 5.3 L (6.3-8.2) g/dL Albumin 3.3 L (3.5-5.0) g/dL Assessment and Plan (1) Primary osteoarthritis of right hip Current Visit: Yes Status: Acute Code(s): M16.11 - UNILATERAL PRIMARY OSTEOARTHRITIS, RIGHT HIP SNOMED Code(s): 469198177636884 (2) Status post total hip replacement, right Current Visit: Yes Status: Acute Code(s): Z96.641 - PRESENCE OF RIGHT ART IFICIAL HIP JOINT SNOMED Code(s): 369606681443 Plan: The clinical findings are discussed with the patient. He is requesting discharge to inpatient rehab. He may be discharged to rehab when placement is arranged.
[2022-02-22] MEDS ORDERED: atenoloL 25 MG TAB PO SCH (09:00)
[2022-02-22] MEDS ORDERED: SPIRONOLACTONE 25 MG TAB PO SCH (09:00)
[2022-02-22] MEDS ORDERED: FUROSEMIDE 40 MG TAB PO SCH (09:00)
[2022-02-22] MEDS ORDERED: NON FORMULARY DRUG (Omega-3 Fatty Acids/Fish Oil [Fish Oil 1,000 Mg Softgel] 1 EACH Capsul PO SCH (09:00)
[2022-02-22] MEDS ORDERED: CHOLECALCIFEROL 25 MCG (1000 IU) TABLET PO SCH (09:00)
[2022-02-22] MEDS ORDERED: NON FORMULARY DRUG (Multivitamin [Men's Multi-Vitamin] 1 EACH Tablet) PO SCH (09:00)
[2022-02-22] MEDS ORDERED: TAMSULOSIN 0.4 MG CAP.ER.24H PO SCH (09:00)
[2022-02-22] MEDS ORDERED: FINASTERIDE 5 MG TAB PO SCH (09:00)
[2022-02-22] MEDS: MULTIVITAMINS, THERA 1 EACH TAB PO SCH (09:29)
[2022-02-22] MEDS: lisinopriL 10 MG TAB PO SCH (09:31)
[2022-02-22] MEDS: DOFETILIDE 125 MCG CAP PO SCH (10:22)
--- NOTE | 2022-02-22 13:05 | P.PN ---
Subjective Progress Note Date: 02/22/22 History of Presenting Illness: Patient is a very pleasant 76-year-old male with a past medical history of CAD, severe aortic stenosis status post TAVR, hypertension, hyperlipidemia, atrial fibrillation on anticoagulation with Xarelto, and BPH. He is currently admitted under orthopedic surgery team and is status post right total hip arthroplasty completed by Dr. Freedman 02/21/22 secondary to severe osteoarthritis of the right hip. We were consulted to provide continued medical management throughout hospitalization. Physical exam: Patient seen and fully evaluated at bedside this morning. Patient ambulatory with physical therapy at this time. Patient appears to be doing well walking with walker. Patient reports moderate pain with ambulation, but feels as though he is doing well. Morning labs showing normocytic normochromic anemia with hemoglobin of 10.9, expected finding. Baseline hemoglobin prior to surgery 11.8. Patient denies having any headache, lightheadedness, dizziness, chest pain, palpitations, shortness of breath, or experiencing any numbness/tingling in extremities. Vital signs stable. Vital signs reviewed and stable. General: Nontoxic, no distress and appears stated age. Derm: Skin warm and dry, normal coloration for ethnicity. Dressing right hip is clean dry and intact. No signs of bleeding or drainage. Head: Atraumatic, normocephalic and symmetric. Eyes: EOMs intact, no lid lag, and anicteric sclera Mouth: no lip lesions, mucus membranes moist Cardiovascular: Irregularly irregular, systolic murmur, positive posterior tibial pulses bilaterally, and cap refill < 2 seconds. Lungs: Respirations even, regular, and unlabored on room air. Lungs CTA bilaterally, no rhonchi, no rales, no wheezing, and no accessory muscle usage. Abdominal: soft, nontender to palpation, no guarding, no appreciable organomegaly Ext: ROM intact. No gross muscle atrophy, no edema, no contractures Neuro: Speech clear, face symmetrical and CN II-XII grossly intact with no noted focal neuro deficits Psych: Alert and oriented to person, place, time, and situation. Appropriate and pleasant affect. Assessment and Plan of Care: Acute postoperative blood loss anemia -Expected finding, stable at 10.9. -Patient showing no signs of active bleeding and no need for transfusion. Right hip osteoarthritis Status post right total hip arthroplasty -Management per primary admitting orthopedic surgery team including DVT prophylaxis, pain management, weightbearing, and PT/OT. -Patient currently on DVT prophylaxis with Xarelto. -Provide safe and supportive care and encourage use of incentive spirometry 10- 15 times hourly while awake. Hypertension Monitor vital signs and continue daily medication regimen with lisinopril and atenolol. Atrial fibrillation Continue daily medication regimen with Dofetilide and oral anticoagulation with Xarelto (this was approved by primary admitting orthopedic surgery team to resume). Hyperlipidemia Continue daily medication regimen with atorvastatin. Recommend heart healthy diet. BPH Continue daily medication regimen with Flomax and finasteride. Closely monitor for urinary retention during postoperative period. Bladder scan as needed to monitor for postvoid residual and/or urinary retention. Past medical history of CAD Severe aortic stenosis status post TAVR Continue daily cardiac medication regimen Xarelto, Dofetilide, atenolol, atorvastatin, furosemide, and lisinopril. Recommend heart healthy diet. Thank you for allowing us to participate in the care of this pleasant patient. Do not hesitate to contact us with questions. Someone can be reached from the [facility] hospitalist group all hours of the day at [phone] or via [employer]. Objective - Vital Signs Vital signs: Vital Signs Temp 99.1 F 02/22/22 01:11 Pulse 60 02/22/22 01:11 Resp 16 02/22/22 01:11 BP 112/57 02/22/22 01:11 Pulse Ox 93 L 02/22/22 01:11 FiO2 Intake & Output 02/21/22 02/22/22 02/22/22 18:59 06:59 18:59 Intake Total 1600 Output Total 400 50 Balance 1200 -50 Weight 131.542 kg Intake: IV 1400 Oral 200 Output: Urine 50 Estimated Blood Loss 400 Other: Voiding Method Urinal # Voids 0 - Labs CBC & Chem 7: 02/22/22 04:46 02/22/22 04:46 Labs: Abnormal Lab Results - Last 24 Hours (Table) 02/22/22 02/22/22 Range/Units 04:46 04:46 RBC 3.71 L (4.30-5.90) m/uL Hgb 10.9 L (13.0-17.5) gm/dL Hct 35.1 L (39.0-53.0) % MCHC 30.9 L (31.0-37.0) g/dL Plt Count 127 L (150-450) k/uL Lymphocytes # 0.9 L (1.0-4.8) k/uL Glucose 111 H (74-99) mg/dL Total Protein 5.3 L (6.3-8.2) g/dL Albumin 3.3 L (3.5-5.0) g/dL
--- NOTE | 2022-02-22 14:53 | P.DS ---
Providers Expected date of discharge: 02/22/22 Attending physician: Santiago Camargo Consults: 02/21/22 09:19 Consult Physician Routine Consulting Provider: Gerardo Carlin Consult Reason/Comments: post op medical management Do you want consulting provider notified?: Yes Primary care physician: Rolo Nicholas - Discharge Diagnosis(es) (1) Primary osteoarthritis of right hip Current Visit: Yes Status: Acute (2) Status post total hip replacement, right Current Visit: Yes Status: Acute Hospital Course: The patient has a known history of degenerative arthritis of the right hip. After failure of conservative treatment we discussed the surgical and no nsurgical treatment options at length. Patient wishes to proceed with a total hip arthroplasty with a direct anterior approach. Complications specific to this procedure were discussed at length, including but not limited to infection, leg length discrepancy, dislocation, nerve injury, and fracture. Covid-19 was also discussed at length with the patient, and they are aware of the current policies and procedures. The patient was given the option of delaying surgery, but they elect to proceed knowing these risks. Patient is aware of all these complications and informed consent was obtained. The patient is admitted to the [facility] on 02/21/2022 for total right hip arthroplasty with direct anterior approach. He is doing well postoperatively. Vital signs are stable. He is being discharged to inpatient rehabilitation today good condition. Plan - Discharge Summary Discharge Rx Participant: Yes New Discharge Prescriptions: New Sennosides-Docusate Sodium [Senokot-S] 1 tab PO BID #60 tablet traMADol HCL [Ultram] 50 mg PO Q6HR PRN #28 tab PRN Reason: Pain Ondansetron Odt [Zofran Odt] 4 mg PO Q8HR PRN #14 tab PRN Reason: Nausea No Action Atorvastatin [Lipitor] 80 mg PO HS Multivitamin [Men's Multi-Vitamin] 1 tab PO DAILY Rivaroxaban [Xarelto] 20 mg PO 2030 Finasteride [Proscar] 5 mg PO QAM Tamsulosin HCl [Flomax] 0.4 mg PO QAM Spironolactone [Aldactone] 25 mg PO QAM lisinopriL [Zestril] 10 mg PO BID atenoloL [Tenormin] 25 mg PO QAM Diclofenac Sodium [Voltaren Gel] 2 gram TOPICAL DIRECTED PRN PRN Reason: Pain Dofetilide [Tikosyn] 125 mcg PO Q12HR 180 Days cap [place]-3 Fatty Acids/Fish Oil [Fish Oil 1,000 mg Softgel] 3 each PO DAILY Cholecalciferol [Vitamin D3 (25 Mcg = 1000 Iu)] 100 mcg PO DAILY Bimatoprost [Lumigan .01% Ophth Soln] 1 drop BOTH EYES HS Furosemide [Lasix] 40 mg PO QAM Magnesium Oxide [Mag-Ox] 400 mg PO 2029 Discharge Medication List Atorvastatin [Lipitor] 80 mg PO HS 05/25/16 [History] Multivitamin [Men's Multi-Vitamin] 1 tab PO DAILY 05/25/16 [History] Rivaroxaban [Xarelto] 20 mg PO 202909/17/17 [History] Finasteride [Proscar] 5 mg PO QAM 12/10/17 [History] Tamsulosin HCl [Flomax] 0.4 mg PO QAM 02/20/18 [History] Diclofenac Sodium [Voltaren Gel] 2 gram TOPICAL DIRECTED PRN 04/01/20 [History] Spironolactone [Aldactone] 25 mg PO QAM 04/01/20 [History] atenoloL [Tenormin] 25 mg PO QAM 04/01/20 [History] lisinopriL [Zestril] 10 mg PO BID 04/01/20 [History] Dofetilide [Tikosyn] 125 mcg PO Q12HR 180 Days cap 04/09/20 [Rx] Bimatoprost [Lumigan .01% Ophth Soln] 1 drop BOTH EYES HS 03/22/21 [History] Furosemide [Lasix] 40 mg PO QAM 03/22/21 [History] Magnesium Oxide [Mag-Ox] 400 mg PO 202903/22/21 [History] [place]-3 Fatty Acids/Fish Oil [Fish Oil 1,000 mg Softgel] 3 each PO DAILY 03/22/21 [History] Cholecalciferol [Vitamin D3 (25 Mcg = 1000 Iu)] 100 mcg PO DAILY 02/15/22 [History] Ondansetron Odt [Zofran Odt] 4 mg PO Q8HR PRN #14 tab 02/22/22 [Rx] Sennosides-Docusate Sodium [Senokot-S] 1 tab PO BID #60 tablet 02/22/22 [Rx] traMADol HCL [Ultram] 50 mg PO Q6HR PRN #28 tab 02/22/22 [Rx] Follow up Appointment(s)/Referral(s): Fabiana Blum, [NON-STAFF] - As Needed Santiago Camargo DO [Doctor of Osteopathic Medicine] - 2 Weeks Activity/Diet/Wound Care/Special Instructions: May bear weight as tolerated with walker. Keep Optifoam dressing in place 7 days postop. Resume Xarelto per medical management. Discharge Disposition: TRANSFER TO SNF/ECF
[2022-02-22 15:51] VITALS: BP 133/76; PULSE 68; TEMP 98
== END 2022-02-22 17:13 ==
LOC: OR 08:09 → 4SSUR 11:13 → OR 02-22 17:13
PROVIDERS: ATTEND Orthopaedic Surgery
DX: M16.11 Unilateral primary osteoarthritis, right hip (principal); M25.751 Osteophyte, right hip; E78.5 Hyperlipidemia, unspecified; D62 Acute posthemorrhagic anemia; I11.9 Hypertensive heart disease without heart failure; J43.9 Emphysema, unspecified; I44.7 Left bundle-branch block, unspecified; Z87.891 Personal history of nicotine dependence; Z20.822 Contact with and (suspected) exposure to COVID-19; H40.9 Unspecified glaucoma; R42 Dizziness and giddiness; E66.9 Obesity, unspecified; Z68.41 Body mass index [BMI] 40.0-44.9, adult; G47.30 Sleep apnea, unspecified; I25.10 Atherosclerotic heart disease of native coronary artery without angina pectoris; N40.0 Benign prostatic hyperplasia without lower urinary tract symptoms; I25.2 Old myocardial infarction; Z97.3 Presence of spectacles and contact lenses; Z95.2 Presence of prosthetic heart valve; Z98.890 Other specified postprocedural states; Z83.3 Family history of diabetes mellitus; Z82.49 Family history of ischemic heart disease and other diseases of the circulatory system; Z83.2 Family history of diseases of the blood and blood-forming organs and certain disorders involving the immune mechanism; Z79.899 Other long term (current) drug therapy; Z79.01 Long term (current) use of anticoagulants; Z91.018 Allergy to other foods
CPT/HCPCS: 97161; 97535; 97166; 80053; 83735; 85025; 88300; 87635; 73501; 27130; C1776; S0138; J2250; J0330; J1100; J2710; J0690 ×2; J3010; J2370; J2704; J1170 ×2; J2001; 86850; 86900; 86901

== ENCOUNTER → 2022-05-18 | Outpatient (CLI) | payer BC, MEDICARE ==
[2022-05-18 16:41] LABS: African American GFR (CKD) 88.5 (60.0-200.0); Anion Gap 9.6 mmol/L (10.00-18.00); BUN/Creat Ratio 20.06 Ratio (12.00-20.00); Blood Urea Nitrogen 19.5 mg/dL (9.0-27.0); Calcium 9.4 mg/dL (8.7-10.3); Carbon Dioxide 26.2 mmol/L (20.0-27.5); Non-African American GFR(CKD) 76.4 (60.0-200.0); Potassium 4.8 mmol/L (3.5-5.5)
== END | disposition home or self-care (01) ==
LOC: LABWHC1 09:48
PROVIDERS: ATTEND Internal Medicine Clinical Cardiac Electrophysiology
DX: I48.91 Unspecified atrial fibrillation (principal)
CPT/HCPCS: 36415; 80048; 83735; 84443

== ENCOUNTER 2022-06-29 05:57 | Day surgery (SDC) | payer MEDICARE ==
[2022-06-29] MEDS ORDERED: SODIUM CHLORIDE 0.9% 1,000 ML IV SCH (06:02)
[2022-06-29 06:36] LABS: Glucose,Whole Blood 102 mg/dL (70-110)
[2022-06-29 06:56] VITALS: TEMP 97
[2022-06-29] MEDS ORDERED: MIDAZOLAM 2 MG/2 ML VIAL IV ONE (07:42)
[2022-06-29] MEDS ORDERED: LIDOCAINE 1% INJ 10MG/ML (30 ML VIAL-PF) SQ ONE (07:46)
--- NOTE | 2022-06-29 12:33 | P.EPPROC ---
- EP Procedure Note Electrophysiology Procedure Note: Procedure: Loop explant under sedation and local anesthesia. Diagnosis: Loop monitor at CLYDE Patient was brought to the EP lab in a fasting state. Written informed consent was obtained prior to the procedure. The subcutaneous device was successfully explanted under local anesthesia. Preoperative antibiotics were administered. The wound was closed in layers and dressed per protocol. Result: Successful loop monitor explantation. Loop monitor implant Primary physicians: Cafeteria Monitor: Dr. Meng Indication: IVCD, status post TAVR Patient was brought to the EP lab in a fasting state. Written informed consent was obtained prior to the procedure. The left pectoral area was prepped and draped per protocol. Intravenous antibiotic was administered preoperatively. A subcutaneous Loop monitor was implanted successfully and the wound was closed per protocol. The device was programmed to detect significant chelo- arrhythmic and tachy-arrhythmic events, per protocol. Device and programming details: Syncope protocol Patient underwent EP procedure under conscious sedation/moderate sedation, monitoring of the level of consciousness and physiologic parameters including but not limited to vital signs and oxygenation. Patient tolerated the procedure well without any acute complications. Start time: 5337 Stop time: 9811
[2022-06-29 17:44] VITALS: RESP 16
[2022-06-29 17:46] VITALS: BP 106/52; PULSE 57
== END 2022-06-29 09:22 | disposition home or self-care (01) ==
LOC: CATHEP 05:57
PROVIDERS: ATTEND Internal Medicine Clinical Cardiac Electrophysiology
DX: Z45.09 Encounter for adjustment and management of other cardiac device (principal); I44.7 Left bundle-branch block, unspecified; Z95.2 Presence of prosthetic heart valve; I10 Essential (primary) hypertension; E78.5 Hyperlipidemia, unspecified; Z82.49 Family history of ischemic heart disease and other diseases of the circulatory system; Z79.01 Long term (current) use of anticoagulants; Z79.02 Long term (current) use of antithrombotics/antiplatelets; Z79.899 Other long term (current) drug therapy
CPT/HCPCS: 33285; 33286; C1764; J2250; J0690; J2001

== ENCOUNTER 2022-07-15 18:34 | Emergency (ER) | payer BC, MEDICARE ==
[2022-07-15 18:39] VITALS: TEMP 97.4
[2022-07-15] MEDS ORDERED: KETOROLAC 15 MG/ML 1 ML VIAL IM STA (19:11)
[2022-07-15] MEDS ORDERED: HYDROmorphone 1 MG/ML 1 ML SYRINGE IM STA (19:11)
--- NOTE | 2022-07-15 19:15 | ED ---
General Adult HPI - General Chief complaint: Back Pain/Injury Stated complaint: Back Pain Time Seen by Provider: 07/15/22 18:41 Source: patient, RN notes reviewed Mode of arrival: ambulatory Limitations: no limitations - History of Present Illness Initial comments: Patient is a pleasant 77-year-old male presenting to the emergency Department with low back pain. Patient does have history of chronic lower back pain. Patient states he is seeing multiple previous providers for his back pain and had multiple imaging done. Discomfort feels similar to that. Discomfort is positional. No new weakness or loss of sensation. No incontinence or retention of bowel or bladder. - Related Data Home Medications Medication Instructions Recorded Confirmed Atorvastatin [Lipitor] 80 mg PO HS 05/25/16 06/28/22 Multivitamin [Men's Multi-Vitamin] 1 tab PO DAILY 05/25/16 06/29/22 Rivaroxaban [Xarelto] 20 mg PO 202909/17/17 06/29/22 Finasteride [Proscar] 5 mg PO QAM 12/10/17 06/29/22 Tamsulosin HCl [Flomax] 0.4 mg PO QAM 02/20/18 06/29/22 Diclofenac Sodium [Voltaren Gel] 2 gram TOPICAL DIRECTED PRN 04/01/20 1 Spironolactone [Aldactone] 25 mg PO QAM 04/01/20 06/29/22 atenoloL [Tenormin] 25 mg PO QAM 04/01/20 06/29/22 lisinopriL [Zestril] 10 mg PO BID 04/01/20 06/29/22 Bimatoprost [Lumigan 0.01% Ophth 1 drop BOTH EYES 03/22/21 06/29/22 Soln] Furosemide [Lasix] 40 mg PO QAM 03/22/21 06/29/22 Magnesium Oxide [Mag-Ox] 400 mg PO 202903/22/21 06/29/22 [place]-3 Fatty Acids/Fish Oil [Fish 3 each PO DAILY 03/22/21 06/29/22 Oil 1,000 mg Softgel] Cholecalciferol [Vitamin D3 (25 100 mcg PO DAILY 02/15/22 06/28/22 Mcg = 1000 Iu)] Previous Rx's Medication Instructions Recorded Dofetilide [Tikosyn] 125 mcg PO Q12HR 180 Days cap 04/09/20 Ondansetron Odt [Zofran Odt] 4 mg PO Q8HR PRN #14 tab 02/22/22 Sennosides-Docusate Sodium 1 tab PO BID #60 tablet 02/22/22 [Senokot-S] methylPREDNISolone Dose Pack 24 mg PO DAILY #1 packet 07/15/22 [Medrol Dose Pack] Allergies Allergy/AdvReac Type Severity Reaction Status Date / Time onion AdvReac Indigestion Verified 07/15/22 18:39 Pepper AdvReac Indigestion Verified 07/15/22 18:39 tomato AdvReac Indigestion Verified 07/15/22 18:39 Review of Systems ROS Statement: Those systems with pertinent positive or pertinent negative responses have been documented in the HPI. ROS Other: All systems not noted in ROS Statement are negative. Constitutional: Denies: fever Eyes: Denies: eye pain ENT: Denies: ear pain Respiratory: Denies: cough Cardiovascular: Denies: chest pain Endocrine: Denies: fatigue Gastrointestinal: Denies: abdominal pain Genitourinary: Denies: dysuria Musculoskeletal: Reports: as per HPI, back pain Skin: Denies: rash Neurological: Denies: weakness Past Medical History Past Medical History: Atrial Fibrillation, Atrial Flutter, Heart Failure, COPD, Hyperlipidemia, Hypertension, Osteoarthritis (OA), Prostate Disorder, Sleep Apnea/CPAP/BIPAP Additional Past Medical History / Comment(s): not using CPAP- unable to sleep on his back, SOB w/activity, had elevated cardiac enzymes-not sure if DE, sensitive gag reflux, "rt groin area may have a clot", hx contact dermatitis, hypoglycemic, enlarged prostate see Dr. Meng H & P History of Any Multi-Drug Resistant Organisms: None Reported Past Surgical History: Cardiac Valve Replacement, EPS, Heart Catheterization, Hernia Repair Additional Past Surgical History / Comment(s): hernia repairs x 3, jade, [place] [facility] [place], loop recorder cyst removed from back Past Anesthesia/Blood Transfusion Reactions: No Reported Reaction Additional Past Anesthesia/Blood Transfusion Reaction / Comment(s): "STATES HAS HAD VERTIGO IN THE PAST DENIES MOTION SICKNESS", sensitive gag reflux Type of Cardiac Device: Loop Past Psychological History: No Psychological Hx Reported Smoking Status: Former smoker Past Alcohol Use History: None Reported Past Drug Use History: None Reported - Past Family History Father Family Medical History: Cancer Additional Family Medical History / Comment(s): prostate Mother History Unknown: Yes Family Medical History: No Reported History Brother(s) Family Medical History: Cancer General Exam Limitations: no limitations General appearance: alert, in no apparent distress Head exam: Present: normocephalic Eye exam: Present: normal appearance Neck exam: Present: normal inspection Respiratory exam: Present: normal lung sounds bilaterally Cardiovascular Exam: Present: regular rate, normal rhythm Expanded Peripheral pulses: 2+: Posterior Tibialis (R), Posterior Tibialis (L) GI/Abdominal exam: Present: soft. Absent: tenderness Extremities exam: Present: normal inspection, full ROM Neurological exam: Present: alert. Absent: motor sensory deficit Expanded Sensory exam: Lower Extremity Light Touch: Normal Motor strength exam: RLE: 5, LLE: 5 Psychiatric exam: Present: normal affect, normal mood Skin exam: Present: normal color Course Vital Signs 07/15/22 07/15/22 18:36 19:06 Temperature 97.4 F L Pulse Rate 66 100 Respiratory 20 20 Rate Blood Pressure 150/77 151/67 O2 Sat by Pulse 98 96 Oximetry Medical Decision Making - Medical Decision Making Patient reevaluated and feeling much better and comfortable with discharge home. Patient does request steroids which have worked well for him in the past. Specifically Medrol Dosepak. Disposition Clinical Impression: Low back pain Disposition: HOME SELF-CARE Condition: Stable Instructions (If sedation given, give patient instructions): Acute Low Back Pain (ED) Additional Instructions: Prescription sent to pharmacy. Please do follow-up primary care physician in the next couple days for recheck. Return for increased pain, weakness, loss of control of bowel or bladder, worsening symptoms or any other concerns Prescriptions: methylPREDNISolone Dose Pack [Medrol Dose Pack] 24 mg PO DAILY #1 packet Is patient prescribed a controlled substance at d/c from ED?: No Referrals: Rolo Nicholas MD [Primary Care Provider] - 1-2 days Time of Disposition: 20:25
[2022-07-15 20:55] VITALS: BP 146/82; PULSE 68; RESP 16
== END 2022-07-15 20:56 | disposition home or self-care (01) ==
LOC: EC 18:34
DX: M54.50 Low back pain, unspecified (principal); I48.91 Unspecified atrial fibrillation; J44.9 Chronic obstructive pulmonary disease, unspecified; E78.5 Hyperlipidemia, unspecified; I10 Essential (primary) hypertension; M19.90 Unspecified osteoarthritis, unspecified site; G47.30 Sleep apnea, unspecified; F12.90 Cannabis use, unspecified, uncomplicated; Z79.83 Long term (current) use of bisphosphonates; Z79.899 Other long term (current) drug therapy; Z91.018 Allergy to other foods
CPT/HCPCS: 99283; 96372 ×2; J1170; J1885

== ENCOUNTER → 2023-02-16 | Outpatient (CLI) | payer BC, MEDICARE ==
--- NOTE | 2023-02-16 17:37 | CA ---
Transthoracic Echo Report Name: Cayetano Lemus Age: 77 Gender: M : 1945 Exam Date: 02/16/2023 14:31 Exam Location: [place] [facility] Ht (in): 69 Wt (lb): 285 Ordering Physician: Rolo Nicholas MD Attending/Referring Phys: Solar Sales Representative And Assessor Ivania Menchaca RDCS Procedure CPT: Indications: I35.2 Cardiac Hx: TAVR 2015 Technical Quality: Fair Contrast 1: Total Dose (mL): Contrast 2: Total Dose (mL): MEASUREMENTS (Male / Female) Normal Values 2D ECHO LV Diastolic Diameter PLAX 5.2 cm 4.2 - 5.9 / 3.9 - 5.3 cm LV Systolic Diameter PLAX 4.1 cm IVS Diastolic Thickness 1.4 cm 0.6 - 1.0 / 0.6 - 0.9 cm LVPW Diastolic Thickness 1.5 cm 0.6 - 1.0 / 0.6 - 0.9 cm LV Relative Wall Thickness 0.6 RV Internal Dim ED PLAX 3.4 cm LVOT Diameter 2.3 cm LA Systolic Diameter LX 4.7 cm 3.0 - 4.0 / 2.7 - 3.8 cm LV Diastolic Volume MOD BP 124.1 cm??? 67 - 155 / 56 - 104 cm??? LV Systolic Volume MOD BP 66.1 cm??? 22 - 58 / 19 - 49 cm??? LV Ejection Fraction MOD BP 46.7 % >= 55 % LV Diastolic Volume MOD 4C 115.2 cm??? LV Systolic Volume MOD 4C 63.5 cm??? LV Ejection Fraction MOD 4C 44.9 % LV Diastolic Length 4C 8.4 cm LV Systolic Length 4C 7.0 cm LV Diastolic Volume MOD 2C 121.4 cm??? LV Systolic Volume MOD 2C 63.3 cm??? LV Ejection Fraction MOD 2C 47.9 % LV Diastolic Length 2C 9.4 cm LV Systolic Length 2C 7.8 cm LA Volume 79.1 cm??? 18 - 58 / 22 - 52 cm??? M-MODE Aortic Root Diameter MM 3.4 cm MV E Point Septal Separation 2.0 cm DOPPLER AV Peak Velocity 307.8 cm/s AV Peak Gradient 37.9 mmHg AV Mean Velocity 205.4 cm/s AV Mean Gradient 19.7 mmHg AV Velocity Time Integral 69.2 cm AI Peak Velocity 399.1 cm/s AI Peak Gradient 63.7 mmHg AI Pressure Half Time 522.6 ms LVOT Peak Velocity 144.8 cm/s LVOT Peak Gradient 8.4 mmHg AV Area Cont Eq pk 1.9 cm??? MV Area PHT 2.0 cm??? Mitral E Point Velocity 77.3 cm/s Mitral A Point Velocity 97.8 cm/s Mitral E to A Ratio 0.8 MV Deceleration Time 388.3 ms TR Peak Velocity 185.3 cm/s TR Peak Gradient 13.7 mmHg Right Ventricular Systolic Press 18.7 mmHg FINDINGS Left Ventricle Left ventricular ejection fraction is estimated at 45-50 %. Left ventricular cavity size normal. Moderate concentric left ventricular hypertrophy Right Ventricle Mild right ventricular dilatation. Right ventricular systolic pressure within normal limits. Right Atrium Normal right atrial size. Left Atrium Moderately increased left atrial diameter. Severely increased left atrial volume. Mildly increased left atrial area. Mitral Valve Mitral valve thickened. Mitral annular calcification. No mitral stenosis, regurgitation or prolapse. Aortic Valve Paravalvular aortic regurgitation. Borderline bioprosthetic aortic valve stenosis with max gradient of 38 mmhg and mean gradient of 20 mmhg. AOV peak velocity 3.01 m/s, and estimated aortic valve area of 1.9 cm??? m/s Tricuspid Valve Structurally normal tricuspid valve. Trace to mild tricuspid regurgitation. Pulmonic Valve Pulmonic valve not well visualized. Pericardium Normal pericardium. No pericardial effusion. Aorta Normal size aortic root and proximal ascending aorta. CONCLUSIONS Mild LV systolic dysfunction Bioprosthetic valve in aortic position with a peak gradient of 38 mm and the mean gradient of 20 mm across the valve with mild paravalvular regurgitation Consider transesophageal echo if clinically indicated for better evaluation of the prosthetic valve Previewed by: Dr. Jordy Balderas MD (Electronically Signed) Final Date: 16 February 2023 17:36
== END | disposition home or self-care (01) ==
LOC: RADECHMAIN 14:20
PROVIDERS: ATTEND Family Medicine
DX: I08.0 Rheumatic disorders of both mitral and aortic valves (principal)
CPT/HCPCS: 93306

== ENCOUNTER → 2023-04-02 | Outpatient (CLI) | payer MEDICARE, BC ==
[2023-04-02 16:09] LABS: Basophils # (A) 0.05 X 10*3/uL (0.00-0.10); Basophils % (A) 0.7 %; Eosinophils # (A) 0.08 X 10*3/uL (0.04-0.35); Eosinophils % (A) 1.2 %; HCT 39.1 % (39.6-50.0); HGB 12.7 d/dL (12.0-15.0); Lymphocytes # (A) 1.37 X 10*3/uL (0.90-5.00); Lymphocytes % (A) 20.4 %; MCH 29.6 pg (27.0-32.0); MCHC 32.5 d/dL (32.0-37.0); MCV 91.1 FL (80.0-97.0); Mean Platelet Volume 12.2 FL (9.5-12.2); Monocytes # (A) 0.51 X 10*3/uL (0.20-1.00); Monocytes % (A) 7.6 %; NRBC Per 100 WBC 0 X 10*3/uL (0.00-0.01); Neutrophils # (A) 4.63 X 10*3/uL (1.80-7.70); Neutrophils % (A) 69.1 %; Platelet Count 114 X 10*3/uL (140-440); RBC 4.29 X 10*6/uL (4.40-5.60); RDW 18.6 % (11.5-14.5); WBC 6.71 X 10*3/uL (4.50-10.00)
[2023-04-02 16:12] LABS: % Iron Saturation 16.61 (15.00-50.00)
== END | disposition home or self-care (01) ==
LOC: LABWHC1 12:22
PROVIDERS: ATTEND Family Medicine
DX: D50.9 Iron deficiency anemia, unspecified (principal)
CPT/HCPCS: 36415; 83540; 83550; 85025

== ENCOUNTER → 2023-04-20 | Outpatient (CLI) | payer MEDICARE, BC ==
[2023-04-20 19:39] LABS: Gliadin AB IgA, Deaminated Negative (Negative); Gliadin AB IgA, Unit <0.5 U/mL; Gliadin AB IgG, Deaminated Negative (Negative); Gliadin AB IgG, Unit <0.4 U/mL
== END | disposition home or self-care (01) ==
LOC: LABWHC1 11:21
PROVIDERS: ATTEND Nurse Practitioner Family
DX: D50.9 Iron deficiency anemia, unspecified (principal)
CPT/HCPCS: 36415; 83516

== ENCOUNTER → 2023-06-29 | Outpatient (CLI) | payer MEDICARE, BC ==
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
== END | disposition home or self-care (01) ==
LOC: RADCTMAIN 13:41
PROVIDERS: ATTEND Physical Medicine & Rehabilitation
DX: M51.17 Intervertebral disc disorders with radiculopathy, lumbosacral region (principal); M43.16 Spondylolisthesis, lumbar region; M48.061 Spinal stenosis, lumbar region without neurogenic claudication; M99.73 Connective tissue and disc stenosis of intervertebral foramina of lumbar region; S32.010D Wedge compression fracture of first lumbar vertebra, subsequent encounter for fracture with routine healing; M47.27 Other spondylosis with radiculopathy, lumbosacral region; M41.26 Other idiopathic scoliosis, lumbar region; M16.12 Unilateral primary osteoarthritis, left hip; X58.XXXD Exposure to other specified factors, subsequent encounter
CPT/HCPCS: 72131

== ENCOUNTER 2023-12-18 06:22 | Day surgery (SDC) | payer MEDICARE, BC ==
[2023-12-18] MEDS: SODIUM CHLORIDE 0.9% 500 ML 500 ML IV ONE (07:08)
[2023-12-18 07:24] VITALS: RESP 16; TEMP 98.7
[2023-12-18] MEDS ORDERED: PROPOFOL 10 MG/ML 20 ML VIAL IV ONE (07:25)
[2023-12-18] MEDS: BENZOCAINE SPRAY 1 CAN TOPICAL ONE (07:34)
--- NOTE | 2023-12-18 08:58 | P.TEE ---
Date of Procedure: 12/18/23 Description of Procedure(s): Procedure performed: 1. Transesophageal Echocardiogram with color flow doppler, pulsed wave doppler and continuous wave doppler 2. Sedation by anesthesia Indications: 78-year-old with past medical history of Muniz TAVR valve had an echocardiogram in cardiology clinic which showed severe paravalvular leak and aortic root dilatation. To confirm these findings he was scheduled for a transesophageal echocardiogram. This patient is known to Dr. Meng in clinic. Consent: I have discussed the risks, benefits and alternative therapies for the above-mentioned procedure. The patient has indicated understanding and acceptance of the risks of the procedure. Signed consent was obtained and was placed in the paper chart. Procedural Steps: Timeout was performed in usual fashion. Patient's heart rate, blood pressure, oxygen saturation and ECG were monitored. Benzocaine was sprayed liberally in the back of the throat. Bite block was placed between the jaw. Sedation was provided by anesthesia team using propofol because patient has had confusion and combative behavior with moderate sedation in the past. After appropriate sedation was achieved, KATTY probe was advanced without difficulty and without any immediate complications to the esophagus. KATTY study was performed with color flow doppler, pulsed wave doppler and continuous wave doppler. The probe was then removed. Patient tolerated the procedure well. Patient was transferred to the post procedure area in stable and satisfactory condition. Throughout the procedure patient's heart rate, blood pressure, oxygen saturation and ECG were monitored. Complications: none FINDINGS Left Atrium: Mild LA dilatation. No evidence of mass or thrombus seen Left Atrial Appendage: No evidence of thrombus or mass seen in RICK Inter atrial septum: Intact inter-atrial septum with no evidence of atrial septal defect or patent foramen ovale. Left Ventricle: Normal global LV size and systolic function. Moderate LVH Right Atrium: Mild right atrial dilatation Right Ventricle: Normal global RV size and systolic function Aortic Valve: Muniz BRAYAN S3 TAVR valve in place. Normally functioning TAVR valve leaflets. No evidence of stenosis or regurgitation through the TAVR valve. There is evidence of single jet paravalvular regurgitation noticed at 2 o'clock. Pressure half-time 311 ms Vena contracta width 6 mm Holodiastolic regurgitant flow Could not assess diastolic flow reversal in ascending aorta. Could not assess EROA due to turbulent flow and difficulty to assess EROA. Overall appears moderate to severe paravalvular leak. Mitral Valve: Trace MR. Moderate mitral annular calcification. Pulmonic Valve: Not well visualized. Tricuspid Valve: Structurally normal, mild tricuspid regurgitation. Ascending aorta, Aortic root and Aortic arch: Aortic root 3.8 cm, ascending aorta 4 cm. Normal size aortic root and ascending aorta. Mild intimal thickening noticed. 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 Findings were discussed with patient and patient's family present at bedside. No complications were encountered during the procedure. Patient was evaluated in the postop holding area and was not found to have any immediate complications. Alonzo Henriquez MD, RPVI, FACC
[2023-12-18 10:43] VITALS: BP 129/61; PULSE 52
== END 2023-12-18 09:51 | disposition home or self-care (01) ==
LOC: CATHCVL 06:22
PROVIDERS: ATTEND Student in an Organized Health Care Education/Training Program
DX: I08.2 Rheumatic disorders of both aortic and tricuspid valves (principal); I48.19 Other persistent atrial fibrillation; I10 Essential (primary) hypertension; E66.9 Obesity, unspecified; I49.5 Sick sinus syndrome; I44.7 Left bundle-branch block, unspecified; Z79.01 Long term (current) use of anticoagulants; Z79.899 Other long term (current) drug therapy
CPT/HCPCS: 93312; 93320; 93325; J2704

== ENCOUNTER → 2024-07-28 | Outpatient (CLI) | payer MEDICARE, BC ==
--- NOTE | 2024-08-02 14:19 | CTL ---
EXAMINATION TYPE: CT Low Dose Lung DATE OF EXAM: 07/28/2024 4:45 PM COMPARISON: None. CLINICAL INDICATION: Male, 79 years old with history of Z12.2 ENCNTR SCREEN Z87.891 NICOTINE DEPENDEN CE, Former smoker. Quit in 2016. 1PPD x45yrs., Lung cancer screening, History of tobacco use. TECHNIQUE: Low dose computed tomography scan was performed through the chest at 1 mm thick sections a nd reconstructed images in the coronal plane at 1 mm thick sections. Contrast used: mL of , (none if empty) Oral contrast used: (none if empty) CT DLP: 157.8 mGycm, Automated exposure control for dose reduction was used. CT CTDI: 4.3 mGy, Automated exposure control for dose reduction was used. SCREENING VISIT: Initial CT DIAGNOSTIC QUALITY: Satisfactory FINDINGS: LUNG NODULES: Present, detailed below: 1. There is a 0.7 cm nodule posterior lateral right lung base. Series 6 image 40. 2. There is a pleural-based density which may contain some peripheral calcification measuring 1.3 cm in the posterior left lung base. Series 6 image 36. LUNGS: COPD: Severity: None Fibrosis: Severity: None Lymph nodes: None Other findings: None RIGHT PLEURAL SPACE: Effusion: None Calcification: Mild anterior lateral right upper lung field Thickening: None Pneumothorax: None LEFT PLEURAL SPACE: Effusion: None Calcification: Mild posterior medial mid lung. Anterolateral left upper lung field Thickening: None Pneumothorax: None HEART: Other: Ascending thoracic aorta at the level the main pulmonary artery measures 4.0 cm. The main pul monary artery at the bifurcation measures3.3 cm. Heart Size: Normal Coronary calcification: Moderate Pericardial effusion: None OTHER FINDINGS: Upper abdomen: Normal Bony thorax: Normal Supraclavicular region: Normal IMPRESSION: 1. Couple of posterior lower lobe nodules consider follow-up with PET/CT. 2. Some pleural calcifications present may be compatible with prior asbestos exposure. FOLLOW UP CT CHEST RECOMMENDATION: PET/CT CT LUNG RAD: 4 [facility], , 08/02/2024 2:17 PM
== END | disposition home or self-care (01) ==
LOC: RADCTMAIN 16:06
PROVIDERS: ATTEND Family Medicine
DX: Z12.2 Encounter for screening for malignant neoplasm of respiratory organs (principal); J92.9 Pleural plaque without asbestos; R91.8 Other nonspecific abnormal finding of lung field; Z87.891 Personal history of nicotine dependence
CPT/HCPCS: 71271

== ENCOUNTER → 2024-09-12 | Outpatient (CLI) | payer MEDICARE, BC ==
--- NOTE | 2024-09-14 02:08 | PE ---
EXAMINATION TYPE: PET CT fusion skull to thigh DATE OF EXAM: 09/12/2024 CLINICAL INDICATION:Male, 79 years old with history of R91.8 OTHER NONSPECIFIC ABNORMAL FINDING OF GRAYSON NG F; TECHNIQUE: Following the intravenous administration of 13.75 mCi of F-18 FDG, whole body images are performed from the skull base to the midthigh. Images are reviewed on the computer in the coronal, axial, and sagittal planes. Reconstructed rotating images are created on independent workstation and reviewed on the computer. A non-contrast CT is performed in conjunction with the PET scan. Glucose level 113 mg/dL CT DLP: 1007.99 mGycm, Automated exposure control for dose reduction was used. COMPARISON: CT 07/28/2024, PET/CT None, MRI: None FINDINGS: Mediastinal SUV mean is 2.6. Hepatic parenchyma SUV mean is 3.7. SKULL BASE AND NECK: No suspicious radiotracer activity. CHEST, MEDIASTINUM, AND HILAR REGION: No suspicious radiotracer activity. Right lower lobe 7 mm pulmonary nodule (series 3, image 115). Demonstrates a maximum SUV of 2.9. Scattered pleural plaques identified. ABDOMEN AND PELVIS: Heterogenous mild radiotracer uptake throughout the enlarged prostate gland with a maximum SUV of 6.8 . MUSCULOSKELETAL STRUCTURES: No suspicious radiotracer activity. OTHER CT: Atherosclerotic calcification of the intracranial vasculature. Bilateral carotid bulb calci fications. Atherosclerotic calcification of the aorta and its branches. Bilateral calcified pleural p laques. Correlate for prior stenosis exposure. Cardiomegaly. Dense mitral anulus calcifications. Post surgical changes from above the aortic valve. Coronary artery calcifications. Bilateral gynecomastia. Bilateral shoulder arthropathy with FDG activity consistent with inflammatory degenerative changes. Left anterior chest wall loop recorder. Bilateral renal cysts. Infrarenal fusiform abdominal aortic aneurysm measuring up to 3.5 cm. Moderate sized fat filled periumbilical hernia. Prostatomegaly measuring up to 5.7 cm in diameter. Postsurgic al changes from left inguinal hernia repair with mesh clips. Distal colonic diverticulosis without ev idence for acute diverticulitis. Postsurgical changes from right hip arthroplasty. Multilevel degener ative disc disease of the visualized spine. IMPRESSION: 1. Right lower lobe 7 mm pulmonary nodule with FDG activity at background levels. This may be below the sensitivity of PET/CT. Consider follow-up CT chest in 3 months. 2. Scattered calcified pleural plaques. Correlate for prior asbestosis exposure. 3. Heterogenous mild radiotracer uptake within the enlarged prostate gland. Correlate with PSA level s. 4. Infrarenal abdominal aortic aneurysm measuring up to 3.5 cm. [facility], , 09/14/2024 2:05 AM
== END | disposition home or self-care (01) ==
LOC: RADPETMAIN 14:07
PROVIDERS: ATTEND Family Medicine
DX: R91.8 Other nonspecific abnormal finding of lung field (principal); N40.0 Benign prostatic hyperplasia without lower urinary tract symptoms; I71.43 Infrarenal abdominal aortic aneurysm, without rupture; N28.1 Cyst of kidney, acquired
CPT/HCPCS: 78815; A9552

== ENCOUNTER 2024-11-03 12:37 | Inpatient (IN) | payer BC, MEDICARE ==
[2024-11-03] MEDS: MIDAZOLAM 2 MG/2 ML VIAL IV ONE (13:09)
[2024-11-03 13:10] LABS: Basophils % (A) 0 %; Eosinophils % (A) 0 %; HCT 38.1 % (39.0-53.0); HGB 12.6 gm/dL (13.0-17.5); Lymphocytes # (A) 0.3 k/uL (1.0-4.8); Lymphocytes % (A) 3 %; MCH 30.7 pg (25.0-35.0); MCHC 33.1 g/dL (31.0-37.0); Mean Platelet Volume 11.5; Monocytes # (A) 0.7 k/uL (0-1.0); Monocytes % (A) 7 %; Neutrophils # (A) 8.7 k/uL (1.3-7.7); Neutrophils % (A) 86 %; RDW 13.5 % (11.5-15.5); WBC 10.1 k/uL (3.8-10.6)
[2024-11-03 13:23] LABS: ALT 33 U/L (4-49); AST 39 U/L (17-59); African American GFR (CKD) 36 (>60 ml/min/1.73 sqM); Alkaline Phosphatase 105 U/L (38-126); Anion Gap 14 mmol/L; Blood Urea Nitrogen 62 mg/dL (9-20); Calcium 8.8 mg/dL (8.4-10.2); Carbon Dioxide 15 mmol/L (22-30); Chloride 100 mmol/L (98-107); Glucose 134 mg/dL (74-99); Magnesium 2.3 mg/dL (1.6-2.3); Non-African American GFR(CKD) 31 (>60 ml/min/1.73 sqM); Potassium 4.4 mmol/L (3.5-5.1); Sodium 129 mmol/L (137-145); Total Bilirubin 2.3 mg/dL (0.2-1.3); Total Protein 5.5 g/dL (6.3-8.2)
--- NOTE | 2024-11-03 14:19 | ED ---
General Adult HPI - General Chief complaint: Chest Pain Stated complaint: AFIB Time Seen by Provider: 11/03/24 12:39 Source: patient, EMS, RN notes reviewed, old records reviewed Mode of arrival: EMS - History of Present Illness Initial comments: This is a 79-year-old male who presents to the emergency department with difficulty breathing. Patient was brought in with atrial fibrillation by EMS. Patient had a history of influenza A a week ago. Patient states he does feel sh ort of breath and extremely weak. Patient denies chest pain. Patient denies any abdominal pain patient has nausea vomiting. Patient states he has not had a fever lately. - Related Data Home Medications Medication Instructions Recorded Confirmed Rivaroxaban [Xarelto] 20 mg PO W/SUPPER 09/17/17 11/03/24 Finasteride [Proscar] 5 mg PO DAILY 12/10/17 11/03/24 Tamsulosin HCl [Flomax] 0.4 mg PO DAILY 02/20/18 11/03/24 Spironolactone [Aldactone] 25 mg PO DAILY 04/01/20 11/03/24 atenoloL [Tenormin] 37.5 mg PO DAILY 04/01/20 11/03/24 lisinopriL [Zestril] 10 mg PO BID 04/01/20 11/03/24 Furosemide [Lasix] 40 mg PO DAILY 03/22/21 11/03/24 Ferrous Sulfate [Iron] 325 mg PO W/SUPPER 04/03/23 11/03/24 Omeprazole 40 mg PO DAILY 04/03/23 11/03/24 Dofetilide [Tikosyn] 125 mcg PO BID 11/03/24 11/03/24 Rosuvastatin Calcium [Crestor] 40 mg PO DAILY 11/03/24 11/03/24 Allergies Allergy/AdvReac Type Severity Reaction Status Date / Time onion AdvReac Indigestion Verified 11/03/24 13:00 Pepper AdvReac Indigestion Verified 11/03/24 13:00 tomato AdvReac Indigestion Verified 11/03/24 13:00 Review of Systems ROS Statement: Those systems with pertinent positive or pertinent negative responses have been documented in the HPI. ROS Other: All systems not noted in ROS Statement are negative. Past Medical History Past Medical History: Atrial Fibrillation, Atrial Flutter, Heart Failure, COPD, Hyperlipidemia, Hypertension, Myocardial Infarction (SC), Osteoarthritis (OA), Prostate Disorder, Skin Disorder, Sleep Apnea/CPAP/BIPAP Additional Past Medical History / Comment(s): EXTREME GAG REFLEX/VOMITS, vertigo in past, not using CPAP- unable to sleep on his back, SOB w/activity, lower leg/pedal edema, "rt groin area may have a clot", hx contact dermatitis, hypoglycemic, enlarged prostate. Last Myocardial Infarction Date:: unknown History of Any Multi-Drug Resistant Organisms: None Reported Past Surgical History: Cardiac Valve Replacement, EPS, Heart Catheterization, Hernia Repair Additional Past Surgical History / Comment(s): [place], cardioversion, [place] [facility] [place] [place], hernia repairs x3, cyst removed from back Past Anesthesia/Blood Transfusion Reactions: No Reported Reaction Additional Past Anesthesia/Blood Transfusion Reaction / Comment(s): VERY SENSITIVE GAG REFLEX/VOMITS. "TWILIGHT DOES NOT WORK FOR ME" PATIENT HAS BECOME COMBATIVE. Type of Cardiac Device: Loop Past Psychological History: No Psychological Hx Reported Smoking Status: Former smoker - Past Family History Father Family Medical History: Cancer Additional Family Medical History / Comment(s): prostate Mother History Unknown: Yes Family Medical History: Dementia Brother(s) Family Medical History: Cancer General Exam - General Exam Comments Initial Comments: GENERAL: Patient is well-developed and well-nourished. Patient is nontoxic and well- hydrated and is in mild distress. ENT: Neck is soft and supple. No significant lymphadenopathy is noted. Oropharynx is clear. Moist mucous membranes. Neck has full range of motion without eliciting any pain. EYES: The sclera were anicteric and conjunctiva were pink and moist. Extraocular movements were intact and pupils were equal round and reactive to light. Eyelids were unremarkable. PULMONARY: Unlabored respirations. Good breath sounds bilaterally. No audible rales rhonchi or wheezing was noted. CARDIOVASCULAR: Patient has an irregular heart rate about 130 bpm ABDOMEN: Soft and nontender with normal bowel sounds. SKIN: Skin is clear with no lesions or rashes and otherwise unremarkable. NEUROLOGIC: Patient is alert and oriented x3. Cranial nerves II through XII are grossly intact. Motor and sensory are also intact. Normal speech, volume and content. Symmetrical smile. MUSCULOSKELETAL: Normal extremities with adequate strength and full range of motion. No lower extremity swelling or edema. No calf tenderness. LYMPHATICS: No significant lymphadenopathy is noted PSYCHIATRIC: Normal psychiatric evaluation. Course Vital Signs 11/03/24 11/03/24 11/03/24 12:38 12:56 13:11 Temperature 98.0 F Pulse Rate 156 H 89 Respiratory 18 16 Rate Blood Pressure 85/72 72/50 106/68 O2 Sat by Pulse 95 95 Oximetry 11/03/24 11/03/24 11/03/24 14:13 14:24 14:37 Temperature Pulse Rate 89 87 Respiratory 16 16 Rate Blood Pressure 105/73 90/59 110/68 O2 Sat by Pulse 100 100 Oximetry Medical Decision Making - Medical Decision Making EKG is interpreted by myself. Initial EKG showed a atrial fibrillation with rapid ventricular response at 146 beats a minute QRS 140 QT interval is 323 QTc is 407. Patient has a history of left bundle branch block. A repeat EKG was done after cardioversion it was interpreted by myself. Patient went into sinus rhythm at 87 bpm ID interval 185 QRS 182 QT interval is 416 QTc is 461. Patient's EKG shows no ST segment elevation or depression. Was pt. sent in by a medical professional or institution ([facility], HANDMADE TILE ARTIST, urgent care, hospital, or detention...) When possible be specific @ -No Did you speak to anyone other than the patient for history (EMS, parent, family, police, friend...)? What history was obtained from this source @ -No Did you review nursing and triage notes (agree or disagree)? Why? @ -I reviewed and agree with nursing and triage notes Were old charts reviewed (outside hosp., previous admission, EMS record, old EKG, old radiological studies, urgent care reports/EKG's, detention records)? Report findings @ -No old charts were reviewed Differential Diagnosis? @ -Differential Dyspnea: Coronary syndrome, arrhythmia, tamponade, asthma, COPD, pulmonary embolism, pneumonia, pneumothorax, pulmonary effusion, anaphylaxis, diabetic ketoacidosis, flailed chest, pulmonary contusion, diaphragmatic rupture, anemia, neuromuscular, this is not meant to be an all-inclusive list. EKG interpreted by me (3pts min.). @ -As above X-rays interpreted by me (1pt min.). @ -Chest x-ray shows no acute amount CT interpreted by me (1pt min.). @ -None done U/S interpreted by me (1pt. min.). @ -None done What testing was considered but not performed or refused? (CT, X-rays, U/S, labs)? Why? @ -None What meds were considered but not given or refused? Why? @ -None Did you discuss the management of the patient with other professionals (professionals i.e. Dr., PA, HANDMADE TILE ARTIST, lab, RT, psych nurse, home health care social worker, asphalt paving superintendent, teacher, amphibious operations officer, family service caseworker)? Give summary @ -I spoke with Dr. Foreman he agreed to be on consult for the patient. I wrote admit the patient recommending orders. I spoke with Dr. Worley he agreed to admit the patient. Was smoking cessation discussed for >3mins.? @ -No Was critical care preformed (if so, how long)? @ -45 minutes Were there social determinants of health that impacted care today? How? (Homelessness, low income, unemployed, alcoholism, drug addiction, transportation, low edu. Level, literacy, decrease access to med. care, long-term, rehab)? @ -No Was there de-escalation of care discussed even if they declined (Discuss DNR or withdrawal of care, Hospice)? DNR status @ -No What co-morbidities impacted this encounter? (DM, HTN, Smoking, COPD, CAD, Cancer, CVA, ARF, Chemo, Hep., AIDS, mental health diagnosis, sleep apnea, morbid obesity)? @ -None Was patient admitted / discharged? Hospital course, mention meds given and route, prescriptions, significant lab abnormalities, going to OR and other pertinent info. @ -Patient was in A-fib with rapid ventricular response with a left bundle branch block which all has been there before. Patient was unstable blood pressure was low so eventually I cardioverted the patient with 200 J. Patient cardioverted after he was given 2 mg of Versed. Patient was in a sinus rhythm thereafter I started the patient on amiodarone in consultation with Dr. Foreman. I did hold the Tikosyn. Patient will stay on Xarelto Undiagnosed new problem with uncertain prognosis? @ -No Drug Therapy requiring intensive monitoring for toxicity (Heparin, Nitro, Insulin, Cardizem)? @ -No Were any procedures done? @ -No Diagnosis/symptom? @ -A-fib with rapid ventricular response Acute, or Chronic, or Acute on Chronic? @ -Acute Uncomplicated (without systemic symptoms) or Complicated (systemic symptoms)? @ -Comp Side effects of treatment? @ -No Exacerbation, Progression, or Severe Exacerbation? @ -No Poses a threat to life or bodily function? How? (Chest pain, USA, SC, pneumonia, PE, COPD, DKA, ARF, appy, cholecystitis, CVA, Diverticulitis, Homicidal, Suicidal, threat to staff... and all critical care pts) @ -Yes this could cause poor perfusion and endorgan dysfunction - Lab Data Result diagrams: 11/03/24 12:52 11/03/24 12:52 Lab Results 11/03/24 11/03/24 11/03/24 Range/Units 12:52 12:52 12:52 WBC 10.1 (3.8-10.6) k/uL RBC 4.10 L (4.30-5.90) m/uL Hgb 12.6 L (13.0-17.5) gm/dL Hct 38.1 L (39.0-53.0) % MCV 93.0 (80.0-100.0) fL MCH 30.7 (25.0-35.0) pg MCHC 33.1 (31.0-37.0) g/dL RDW 13.5 (11.5-15.5) % Plt Count 70 L (150-450) k/uL MPV 11.5 PT 12.1 (10.0-12.5) sec INR 1.1 (<1.2) APTT 23.8 (22.0-30.0) sec Sodium 129 L (137-145) mmol/L Potassium 4.4 (3.5-5.1) mmol/L Chloride 100 (98-107) mmol/L Carbon Dioxide 15 L (22-30) mmol/L Anion Gap 14 mmol/L BUN 62 H (9-20) mg/dL Creatinine 1.99 H (0.66-1.25) mg/dL Est GFR (CKD-EPI)AfAm 36 (>60 ml/min/1.73 sqM) Est GFR (CKD-EPI)NonAf 31 (>60 ml/min/1.73 sqM) Glucose 134 H (74-99) mg/dL POC Glucose (mg/dL) (70-110) mg/dL POC Glu Chief Operator Hydroformer ID Calcium 8.8 (8.4-10.2) mg/dL Magnesium 2.3 (1.6-2.3) mg/dL Total Bilirubin 2.3 H (0.2-1.3) mg/dL AST 39 (17-59) U/L ALT 33 (4-49) U/L Alkaline Phosphatase 105 (38-126) U/L Troponin I (0.000-0.034) ng/mL Total Protein 5.5 L (6.3-8.2) g/dL Albumin 3.0 L (3.5-5.0) g/dL 11/03/24 11/03/24 Range/Units 12:52 14:31 WBC (3.8-10.6) k/uL RBC (4.30-5.90) m/uL Hgb (13.0-17.5) gm/dL Hct (39.0-53.0) % MCV (80.0-100.0) fL MCH (25.0-35.0) pg MCHC (31.0-37.0) g/dL RDW (11.5-15.5) % Plt Count (150-450) k/uL MPV PT (10.0-12.5) sec INR (<1.2) APTT (22.0-30.0) sec Sodium (137-145) mmol/L Potassium (3.5-5.1) mmol/L Chloride (98-107) mmol/L Carbon Dioxide (22-30) mmol/L Anion Gap mmol/L BUN (9-20) mg/dL Creatinine (0.66-1.25) mg/dL Est GFR (CKD-EPI)AfAm (>60 ml/min/1.73 sqM) Est GFR (CKD-EPI)NonAf (>60 ml/min/1.73 sqM) Glucose (74-99) mg/dL POC Glucose (mg/dL) 115 H (70-110) mg/dL POC Glu Chief Operator Hydroformer ID Vasyl Good Calcium (8.4-10.2) mg/dL Magnesium (1.6-2.3) mg/dL Total Bilirubin (0.2-1.3) mg/dL AST (17-59) U/L ALT (4-49) U/L Alkaline Phosphatase (38-126) U/L Troponin I 0.026 (0.000-0.034) ng/mL Total Protein (6.3-8.2) g/dL Albumin (3.5-5.0) g/dL Disposition Clinical Impression: Atrial fibrillation with rapid ventricular response Disposition: ADMITTED IP TO THIS HOSP Referrals: Rolo Nicholas MD [Primary Care Provider] - 1-2 days Time of Disposition: 15:02
[2024-11-03 14:29] LABS: INR 1.1 (<1.2); Partial Thromboplastin Time 23.8 sec (22.0-30.0); Prothrombin Time 12.1 sec (10.0-12.5)
[2024-11-03 14:33] LABS: Glucose,Whole Blood 115 mg/dL (70-110)
--- NOTE | 2024-11-03 14:38 | XR ---
EXAMINATION TYPE: XR chest 2V DATE OF EXAM: 11/03/2024 2:20 PM COMPARISON: None. CLINICAL INDICATION: Male, 79 years old with history of dysrhythmia, TECHNIQUE: XR chest 2V view(s) obtained. FINDINGS: The heart size is enlarged. The pulmonary vasculature is normal. Retrocardiac infiltrate is present. Pneumonia should be considered. This may be at the right base.. IMPRESSION: 1. Clinical correlation recommended for posterior lung infiltrate. Follow-up 2 view chest x-ray recom mended. [facility], , 11/03/2024 2:36 PM
[2024-11-03] MEDS: SODIUM CHLORIDE 0.9% 500 ML 500 ML IV ONE (14:40)
[2024-11-03] MEDS ORDERED: NITROGLYCERIN SL TABS 0.4 MG TAB SUBLINGUAL PRN (15:02)
[2024-11-03 15:06] LABS: Platelet Count 70 k/uL (150-450)
[2024-11-03] MEDS: DEXTROSE 5% IN WATER 100 ML with AMIODARONE 150 MG IV ONE (15:25)
[2024-11-03] MEDS: AMIODARONE 360 MG in DEXTROSE 5% IN WATER 200 ML IV ONE (15:45)
--- NOTE | 2024-11-03 16:45 | P.HPIM ---
History of Present Illness H&P Date: 11/03/24 History of present illness; 79-year-old male with PMH of HFrEF (will recent echocardiogram 02/16/2023 showed EF 45-50%), atrial fibrillation with RVR maintained on Xarelto, history of aortic stenosis s/p TAVR, and a history of left bundle branch block and prolonged QT. Presented to the emergency department after an episode where he slowly fell to the floor in his living room. He states that he began to feel as though he might pass out, and was able to bring himself to the floor with only minor rug palomo on his feet. He was seen at bedside accompanied by his daughter Edel, he notes that at that time he became significantly short of breath, however denies any chest pain, palpitations or diaphoresis at that time. Upon arrival to the emergency department he notes having an anginal episode, and underwent cardioversion with 200 J of electricity due to his continued A-fib with significant tachycardia. He currently feels significantly better than he did earlier today. Labratory review: -WBCs 10.1, hemoglobin 12.6, hematocrit 38.1, platelet 70; sodium 129, potassium 4.4, BUN 62, creatinine 1.99, calcium 8.8, magnesium 2.3, total bilirubin 2.3, AST 39, ALT 33, alkaline phosphatase 105; troponin 0.026 Imaging: -Chest x-ray done in the ER recommended clinical correlation for posterior lung infiltrate -EKG done in the ER showed heart rate of 146, A-fib with RVR and left bundle branch block -EKG done in the ER following cardioversion showed heart rate 87, sinus rhythm with associated left axis deviation and left bundle branch block Vitals: -On arrival: Blood pressure 85/72, heart rate of 156, SpO2 95% on room air -Following cardioversion: Blood pressure 110/68, heart rate 87, SpO2 100% on 3 L nasal cannula Patient admitted to internal medicine service REVIEW OF SYSTEMS: Pertinent positives and negatives noted in HPI. The rest of the 14-point review of systems is negative. Physical Exam: General: nontoxic, no distress, appears at stated age Derm: warm, dry, intact; minor rug palomo on his first and second toes bilateral feet Head: atraumatic, normocephalic, symmetric Eyes: EOMI, anicteric sclera Mouth: no lip lesion, mucus membranes moist Cardiovascular: S1, S2 reg, no murmur, rubs, or gallops Lungs: CTA bilateral, no rales, no accessory muscle use Abdominal: soft, non-tender to palpataion, no appreciable organomegaly Extremities: no gross muscle atrophy, no edema, no contractures Neuro: Alert, Oriented, CNII-XII grossly intact, gait normal Psych: well appearing, appropriate affect Assessment and plan 79-year-old male with PMH of HFrEF (will recent echocardiogram 02/16/2023 showed EF 45-50%), atrial fibrillation with RVR maintained on Xarelto, history of aortic stenosis s/p TAVR, and a history of left bundle branch block and prolonged QT. Presented to the emergency department after an episode where he slowly fell to the floor in his living room. #A-fib with RVR -Continue with amiodarone drip -Patient was cardioverted in the ED -Resumed Xarelto 20 mg daily -Cardiology consulted -Oxygen supplementation as needed, currently on 3 L, wean as able -Cardiac monitoring -Repeat echocardiogram pending -Fall precaution -Also hold atenolol #HFrEF (most recent echocardiogram 02/16/2023 showed EF 45-50%), not in exacerbation -Hold home lisinopril, Lasix and Aldactone given hypotension and ANNEL -Repeat echocardiogram pending # Prerenal acute kidney injury # Hypovolemic hyponatremia -Creatinine 1.99 -Sodium on arrival 129 -Hold lisinopril and Lasix -Has received 1500 cc normal saline bolus -Continue LR 75 cc/h -Repeat BMP at 22:00 (11/03/2024) -Continue to monitor BMP #Thrombocytopenia, possibly reactive -Continue monitor CBC #Chronic back pain -Ordered Voltaren gel 2 g 4 times daily -Tylenol 650 every 6 hours as needed available Chronic: History of aortic stenosis status post TAVR BPH GERD Dyslipidemia Hypertension GI prophylaxis: Omeprazole 40 mg daily DVT prophylaxis: Xarelto 20 mg daily The patient is admitted with an anticipated more than than 2 midnight stay for evaluation of A-fib with RVR Anticipated discharge place: Home Dictation was produced using [employer] dictation software. please excuse any grammatical, word or spelling errors. A total of 66 minutes was spent on the care of this complex patient more than 50% of the time was spent in counseling and care coordination. I have seen and evaluated the patient today. Discussed with the resident and agree with the residents finding and plan as documented in the resident's note. Changes highlighted in blue font. Past Medical History Past Medical History: Atrial Fibrillation, Atrial Flutter, Heart Failure, COPD, Hyperlipidemia, Hypertension, Myocardial Infarction (NM), Osteoarthritis (OA), Prostate Disorder, Skin Disorder, Sleep Apnea/CPAP/BIPAP Additional Past Medical History / Comment(s): EXTREME GAG REFLEX/VOMITS, vertigo in past, not using CPAP- unable to sleep on his back, SOB w/activity, lower leg/pedal edema, "rt groin area may have a clot", hx contact dermatitis, hypoglycemic, enlarged prostate. Last Myocardial Infarction Date:: unknown History of Any Multi-Drug Resistant Organisms: None Reported Past Surgical History: Cardiac Valve Replacement, EPS, Heart Catheterization, Hernia Repair Additional Past Surgical History / Comment(s): Po, cardioversion, aortic valve replacement 2016 at [facility] [place], loop recorder, hernia repairs x3, cyst removed from back Past Anesthesia/Blood Transfusion Reactions: No Reported Reaction Additional Past Anesthesia/Blood Transfusion Reaction / Comment(s): VERY SENSITIVE GAG REFLEX/VOMITS. "TWILIGHT DOES NOT WORK FOR ME" PATIENT HAS BECOME COMBATIVE. Type of Cardiac Device: Loop Past Psychological History: No Psychological Hx Reported Smoking Status: Former smoker - Past Family History Father Family Medical History: Cancer Additional Family Medical History / Comment(s): prostate Mother History Unknown: Yes Family Medical History: Dementia Brother(s) Family Medical History: Cancer Medications and Allergies Home Medications Medication Instructions Recorded Confirmed Type Rivaroxaban [Xarelto] 20 mg PO W/SUPPER 09/17/17 11/03/24 History Finasteride [Proscar] 5 mg PO DAILY 12/10/17 11/03/24 History Tamsulosin HCl [Flomax] 0.4 mg PO DAILY 02/20/18 11/03/24 History Spironolactone [Aldactone] 25 mg PO DAILY 04/01/20 11/03/24 History atenoloL [Tenormin] 37.5 mg PO DAILY 04/01/20 11/03/24 History lisinopriL [Zestril] 10 mg PO BID 04/01/20 11/03/24 History Furosemide [Lasix] 40 mg PO DAILY 03/22/21 11/03/24 History Ferrous Sulfate [Iron] 325 mg PO W/SUPPER 04/03/23 11/03/24 History Omeprazole 40 mg PO DAILY 04/03/23 11/03/24 History Dofetilide [Tikosyn] 125 mcg PO BID 11/03/24 11/03/24 History Rosuvastatin Calcium [Crestor] 40 mg PO DAILY 11/03/24 11/03/24 History Allergies Allergy/AdvReac Type Severity Reaction Status Date / Time onion AdvReac Indigestion Verified 11/03/24 13:00 Pepper AdvReac Indigestion Verified 11/03/24 13:00 tomato AdvReac Indigestion Verified 11/03/24 13:00 Physical Exam Vitals: Vital Signs Temp Pulse Resp BP Pulse Ox 11/03/24 14:37 87 16 110/68 100 11/03/24 14:24 89 16 90/59 100 11/03/24 14:13 105/73 11/03/24 13:11 89 16 106/68 95 11/03/24 12:56 72/50 11/03/24 12:38 98.0 F 156 H 18 85/72 95 Intake and Output 11/02/24 11/03/24 11/03/24 22:59 06:59 14:59 Other: Weight 117.934 kg Results CBC & Chem 7: 11/03/24 12:52 11/03/24 12:52 Labs: Abnormal Lab Results - Last 24 Hours (Table) 11/03/24 11/03/24 11/03/24 Range/Units 12:52 12:52 14:31 RBC 4.10 L (4.30-5.90) m/uL Hgb 12.6 L (13.0-17.5) gm/dL Hct 38.1 L (39.0-53.0) % Plt Count 70 L (150-450) k/uL Sodium 129 L (137-145) mmol/L Carbon Dioxide 15 L (22-30) mmol/L BUN 62 H (9-20) mg/dL Creatinine 1.99 H (0.66-1.25) mg/dL Glucose 134 H (74-99) mg/dL POC Glucose (mg/dL) 115 H (70-110) mg/dL Total Bilirubin 2.3 H (0.2-1.3) mg/dL Total Protein 5.5 L (6.3-8.2) g/dL Albumin 3.0 L (3.5-5.0) g/dL
[2024-11-03] MEDS: DICLOFENAC SODIUM GEL 50 GM TUBE TOPICAL SCH (16:46)
[2024-11-03] MEDS: LACTATED RINGERS 1,000 ML IV SCH (18:30)
[2024-11-03] MEDS: RIVAROXABAN 20 MG TAB PO SCH (18:30)
[2024-11-03] MEDS ORDERED: lisinopriL 10 MG TAB PO SCH (21:00)
[2024-11-03] MEDS: AMIODARONE 450 MG in DEXTROSE 5% IN WATER 250 ML IV SCH (21:25)
[2024-11-04 00:03] LABS: African American GFR (CKD) 49 (>60 ml/min/1.73 sqM); Anion Gap 11 mmol/L; Blood Urea Nitrogen 63 mg/dL (9-20); Calcium 8.6 mg/dL (8.4-10.2); Carbon Dioxide 18 mmol/L (22-30); Chloride 101 mmol/L (98-107); Glucose 121 mg/dL (74-99); Non-African American GFR(CKD) 42 (>60 ml/min/1.73 sqM); Potassium 4.3 mmol/L (3.5-5.1); Sodium 130 mmol/L (137-145)
[2024-11-04] MEDS: ACETAMINOPHEN TAB 325 MG TAB PO PRN (01:20)
[2024-11-04 07:46] LABS: HCT 35.9 % (39.0-53.0); HGB 11.8 gm/dL (13.0-17.5); Hypochromasia Slight; MCH 31.6 pg (25.0-35.0); MCV 95.9 fL (80.0-100.0); RBC 3.75 m/uL (4.30-5.90); RDW 13.8 % (11.5-15.5); WBC 8.2 k/uL (3.8-10.6)
[2024-11-04 07:59] LABS: African American GFR (CKD) 53 (>60 ml/min/1.73 sqM); Anion Gap 12 mmol/L; Blood Urea Nitrogen 58 mg/dL (9-20); Calcium 8.7 mg/dL (8.4-10.2); Carbon Dioxide 19 mmol/L (22-30); Chloride 100 mmol/L (98-107); Glucose 124 mg/dL (74-99); Non-African American GFR(CKD) 46 (>60 ml/min/1.73 sqM); Potassium 4.2 mmol/L (3.5-5.1); Sodium 131 mmol/L (137-145)
[2024-11-04 08:32] LABS: Platelet Count 72 k/uL (150-450)
[2024-11-04] MEDS ORDERED: SPIRONOLACTONE 25 MG TAB PO SCH (09:00)
[2024-11-04] MEDS ORDERED: FUROSEMIDE 40 MG TAB PO SCH (09:00)
[2024-11-04] MEDS ORDERED: ASPIRIN 325 MG TAB PO SCH (09:00)
[2024-11-04] MEDS: PANTOPRAZOLE 40 MG TABLET PO SCH (09:29)
[2024-11-04] MEDS: ASPIRIN 81 MG PO SCH (09:29)
[2024-11-04] MEDS: ATORVASTATIN 80 MG TAB PO SCH (09:29)
[2024-11-04] MEDS: FINASTERIDE 5 MG TAB PO SCH (09:29)
[2024-11-04] MEDS: TAMSULOSIN 0.4 MG CAP.ER.24H PO SCH (09:29)
[2024-11-04 10:41] LABS: LDL Cholesterol,Calculated 35.4 mg/dL (0.0-131.0)
[2024-11-04] MEDS ORDERED: DOFETILIDE 125 MCG CAP PO SCH (11:00)
[2024-11-04] MEDS: SPIRONOLACTONE 25 MG TAB PO SCH (12:14)
[2024-11-04] MEDS: lisinopriL 10 MG TAB PO SCH (12:14)
--- NOTE | 2024-11-04 12:26 | P.CRDCN ---
History of Present Illness History of present illness: HISTORY OF PRESENT ILLNESS: This is a 79-year-old male with a past medical history significant for atrial fibrillation, pulmonary vein isolation, sick sinus syndrome, aortic stenosis status post TAVR, hypertension, sleep apnea, and morbid obesity. Patient follows in the office with Dr. Meng. We have been asked to see the patient in consultation for A-fib with RVR. Patient examined at the bedside in the emergency room. Patient states yesterday he slipped and fell at home. He den ies passing out. He states he was unable to get up and EMS had to come help him after he laid on the floor for about 10 to 15 minutes. This morning he is complaining of back pain. He denies any chest pain or shortness of breath. The patient was found to be in A-fib with RVR. He was hypotensive and was cardioverted by the ER physician. This morning he is maintaining sinus mechanism with a heart rate in the 80s. Patient also gives recent history of having influenza A last week. DIAGNOSTICS: - EKG reveals sinus mechanism. Repeat EKG reveals A-fib with RVR. Third EKG reveals sinus mechanism. - Chest xray clinical correlation recommended for posterior lung infiltrate.. - Laboratory data: WBC 8.2. Hemoglobin 11.8. Platelet count 72. Sodium 131. Potassium 4.2. BUN 58. Creatinine 1.45. Troponin 0.026. 0.028. 0.037. - Current home cardiac medications include Tikosyn 125mcg twice a day, Lasix 40 mg daily, Crestor 40 mg daily, Xarelto 20 mg with dinner, spironolactone 25 mg daily, atenolol 37.5 mg daily, and lisinopril 10 mg twice a day - Most recent echocardiogram obtained in February 2023 revealing ejection fraction 45 to 50%, bioprosthetic aortic valve with mild perivalvular regurgitation - Cardiac catheterization history: May 2016 revealing normal coronary arteries - Patient underwent PO in December 2023 revealing moderate to severe TAVR perivalvular leak, normally functioning Muniz BRAYAN TAVR valve, normal global LV systolic function, moderate LVH, mild biatrial dilatation. REVIEW OF SYSTEMS: At the time of my exam: CONSTITUTIONAL: Denies fever or chills. HEENT: Denies blurred vision, vision changes, or eye pain. Denies hemoptysis CARDIOVASCULAR: Denies chest pain. Denies orthopnea. Denies PND. Denies palpitations RESPIRATORY: Denies shortness of breath. GASTROINTESTINAL: Denies abdominal pain. Denies nausea or vomiting. HEMATOLOGIC: Denies bleeding disorders. GENITOURINARY: Denies any blood in urine. SKIN: Denies pruitis. Denies rash. PHYSICAL EXAM: VITAL SIGNS: Reviewed. GENERAL: Well-developed in no acute distress. HEENT: Head is normocephalic. Pupils are equal, round. Sclerae anicteric. Mucous membranes of the mouth are moist. Neck supple. No JVD or thyromegaly LUNGS: Respirations even and unlabored. Lungs essentially clear to auscultation bilaterally. HEART: Regular rate and rhythm. S1 and S2 heard. Systolic murmur noted. ABDOMEN: Soft. Nondistended. Nontender. EXTREMITIES: Normal range of motion. No clubbing or cyanosis. Peripheral pulses intact. No lower extremity edema NEUROLOGIC: Awake and alert. Oriented x 3. ASSESSMENT: Paroxysmal atrial fibrillation with RVR, status post cardioversion in the ER due to hypotension Minimally elevated troponin, type II AK secondary to oxygen supply/demand mismatch secondary to A-fib with RVR Acute kidney injury Recent influenza A infection History of pulmonary vein isolation History of sick sinus syndrome Aortic stenosis status post TAVR Moderate to severe perivalvular leak alongside the aortic valve, followed up with Dr. Nino and unable to repair Normal coronary arteries, per cath 2016 Hypertension History of sleep apnea Obesity: BMI 38.4 PLAN: Obtain 2D echo to assess cardiac structure and function Discontinue IV amiodarone Resume Tikosyn this evening at 2100 Resume beta-thad Check magnesium Repeat EKG in a.m. Continue telemetry monitoring Repeat kidney function in a.m. Further recommendations pending patient course Nurse practitioner note has been reviewed by physician. Signing provider agrees with the documented findings, assessment, and plan of care documented by [employer] C[employer] OPERATOR as a scribe. Past Medical History Past Medical History: Atrial Fibrillation, Atrial Flutter, Heart Failure, COPD, Hyperlipidemia, Hypertension, Myocardial Infarction (AK), Osteoarthritis (OA), Prostate Disorder, Skin Disorder, Sleep Apnea/CPAP/BIPAP Additional Past Medical History / Comment(s): EXTREME GAG REFLEX/VOMITS, vertigo in past, not using CPAP- unable to sleep on his back, SOB w/activity, lower leg /pedal edema, "rt groin area may have a clot", hx contact dermatitis, hypoglycemic, enlarged prostate. Last Myocardial Infarction Date:: unknown History of Any Multi-Drug Resistant Organisms: None Reported Past Surgical History: Cardiac Valve Replacement, EPS, Heart Catheterization, Hernia Repair Additional Past Surgical History / Comment(s): Po, cardioversion, aortic valve replacement 2016 at [facility] [place], loop recorder, hernia repairs x3, cyst removed from back Past Anesthesia/Blood Transfusion Reactions: No Reported Reaction Additional Past Anesthesia/Blood Transfusion Reaction / Comment(s): VERY SENSITIVE GAG REFLEX/VOMITS. "TWILIGHT DOES NOT WORK FOR ME" PATIENT HAS BECOME COMBATIVE. Type of Cardiac Device: Loop Past Psychological History: No Psychological Hx Reported Smoking Status: Former smoker - Past Family History Father Family Medical History: Cancer Additional Family Medical History / Comment(s): prostate Mother History Unknown: Yes Family Medical History: Dementia Brother(s) Family Medical History: Cancer Medications and Allergies Home Medications Medication Instructions Recorded Confirmed Type Rivaroxaban [Xarelto] 20 mg PO W/SUPPER 09/17/17 11/03/24 History Finasteride [Proscar] 5 mg PO DAILY 12/10/17 11/03/24 History Tamsulosin HCl [Flomax] 0.4 mg PO DAILY 02/20/18 11/03/24 History Spironolactone [Aldactone] 25 mg PO DAILY 04/01/20 11/03/24 History atenoloL [Tenormin] 37.5 mg PO DAILY 04/01/20 11/03/24 History lisinopriL [Zestril] 10 mg PO BID 04/01/20 11/03/24 History Furosemide [Lasix] 40 mg PO DAILY 03/22/21 11/03/24 History Ferrous Sulfate [Iron] 325 mg PO W/SUPPER 04/03/23 11/03/24 History Omeprazole 40 mg PO DAILY 04/03/23 11/03/24 History Dofetilide [Tikosyn] 125 mcg PO BID 11/03/24 11/03/24 History Rosuvastatin Calcium [Crestor] 40 mg PO DAILY 11/03/24 11/03/24 History Allergies Allergy/AdvReac Type Severity Reaction Status Date / Time onion AdvReac Indigestion Verified 11/03/24 13:00 Pepper AdvReac Indigestion Verified 11/03/24 13:00 tomato AdvReac Indigestion Verified 11/03/24 13:00 Physical Exam Vitals: Vital Signs Temp Pulse Resp BP Pulse Ox 11/04/24 09:42 98.7 F 81 20 159/126 96 11/04/24 06:13 77 22 125/60 97 11/04/24 04:00 75 20 151/66 95 11/04/24 02:16 82 20 141/71 95 11/04/24 00:18 82 18 119/83 97 11/03/24 23:20 82 16 125/73 99 11/03/24 21:33 84 18 114/85 98 11/03/24 20:33 86 18 132/88 100 11/03/24 18:50 87 16 109/57 100 11/03/24 16:51 85 18 118/88 96 11/03/24 15:46 88 16 113/60 100 11/03/24 15:27 70 16 131/88 99 11/03/24 14:37 87 16 110/68 100 11/03/24 14:24 89 16 90/59 100 11/03/24 14:13 105/73 11/03/24 13:11 89 16 106/68 95 11/03/24 12:56 72/50 11/03/24 12:38 98.0 F 156 H 18 85/72 95 Results 11/04/24 07:04 11/04/24 07:04 Cardiac Enzymes 11/03/24 11/03/24 11/03/24 Range/Units 12:52 12:52 16:05 AST 39 (17-59) U/L Troponin I 0.026 0.028 (0.000-0.034) ng/mL 11/03/24 Range/Units 19:14 AST (17-59) U/L Troponin I 0.037 H* (0.000-0.034) ng/mL Coagulation 11/03/24 Range/Units 12:52 PT 12.1 (10.0-12.5) sec APTT 23.8 (22.0-30.0) sec Lipids 11/04/24 Range/Units 07:04 Triglycerides 183.00 H (0.00-149.00) mg/dL Cholesterol 84.00 (0.00-200.00) mg/dL HDL Cholesterol 12.00 L (40.00-60.00) mg/dL Cholesterol/HDL Ratio 7.00 Ratio CBC 11/03/24 11/04/24 Range/Units 12:52 07:04 WBC 10.1 8.2 (3.8-10.6) k/uL RBC 4.10 L 3.75 L (4.30-5.90) m/uL Hgb 12.6 L 11.8 L (13.0-17.5) gm/dL Hct 38.1 L 35.9 L (39.0-53.0) % Plt Count 70 L 72 L (150-450) k/uL Comprehensive Metabolic Panel 11/03/24 11/03/24 11/04/24 Range/Units 12:52 23:28 07:04 Sodium 129 L 130 L 131 L (137-145) mmol/L Potassium 4.4 4.3 4.2 (3.5-5.1) mmol/L Chloride 100 101 100 (98-107) mmol/L Carbon Dioxide 15 L 18 L 19 L (22-30) mmol/L BUN 62 H 63 H 58 H (9-20) mg/dL Creatinine 1.99 H 1.57 H 1.45 H (0.66-1.25) mg/dL Glucose 134 H 121 H 124 H (74-99) mg/dL Calcium 8.8 8.6 8.7 (8.4-10.2) mg/dL AST 39 (17-59) U/L ALT 33 (4-49) U/L Alkaline Phosphatase 105 (38-126) U/L Total Protein 5.5 L (6.3-8.2) g/dL Albumin 3.0 L (3.5-5.0) g/dL Current Medications Generic Name Dose Route Start Last Admin Trade Name Freq PRN Reason Stop Dose Admin Acetaminophen 650 mg 11/03/24 15:32 11/04/24 09:51 Acetaminophen Tab 325 Mg Tab PO 650 mg Q6HR PRN Administration Fever and/ or Pain Aspirin 81 mg 11/04/24 09:00 11/04/24 09:29 Aspirin 81 Mg PO 81 mg DAILY MARY ANN Administration Atorvastatin Calcium 80 mg 11/04/24 09:00 11/04/24 09:29 Atorvastatin 80 Mg Tab PO 80 mg DAILY MARY ANN Administration Diclofenac Sodium 2 gm 02/17/25 16:00 11/04/24 12:14 Diclofenac Sodium Gel 50 Gm Tube TOPICAL 2 gm QID MARY ANN Administration Protocol Dofetilide 125 mcg 11/04/24 21:00 Dofetilide 125 Mcg Cap PO BID MARY ANN Finasteride 5 mg 11/04/24 09:00 11/04/24 09:29 Finasteride 5 Mg Tab PO 5 mg DAILY MARY ANN Administration Lactated Ringer's 1,000 mls @ 75 mls/hr 11/03/24 16:30 11/04/24 04:57 Lactated Ringers IV 75 mls/hr .[id number] MARY ANN Administration Lisinopril 10 mg 11/04/24 11:45 11/04/24 12:14 Lisinopril 10 Mg Tab PO 10 mg BID MARY ANN Administration Nitroglycerin 0.4 mg 11/03/24 15:02 Nitroglycerin Sl Tabs 0.4 Mg Tab SUBLINGUAL Q5M PRN Chest Pain Pantoprazole Sodium 40 mg 11/04/24 09:00 11/04/24 09:29 Pantoprazole 40 Mg Tablet PO 40 mg DAILY MARY ANN Administration Rivaroxaban 20 mg 11/03/24 17:30 11/03/24 18:30 Rivaroxaban 20 Mg Tab PO 20 mg W/SUPPER MARY ANN Administration Protocol Spironolactone 25 mg 11/04/24 11:45 11/04/24 12:14 Spironolactone 25 Mg Tab PO 25 mg DAILY MARY ANN Administration Tamsulosin HCl 0.4 mg 11/04/24 09:00 11/04/24 09:29 Tamsulosin 0.4 Mg Cap.Er.24h PO 0.4 mg DAILY MARY ANN Administration 11/04/24 07:04 11/04/24 07:04
--- NOTE | 2024-11-04 14:04 | P.PN ---
Subjective Progress Note Date: 11/04/24 79-year-old male with PMH of HFrEF (will recent echocardiogram 02/16/2023 showed EF 45-50%), atrial fibrillation with RVR maintained on Xarelto, history of aortic stenosis s/p TAVR, and a history of left bundle branch block and prolonged QT. Presented to the emergency department after an episode where he slowly fell to the floor in his living room. He states that he began to feel as though he might pass out, and was able to bring himself to the floor with only minor rug palomo on his feet. He was seen at bedside accompanied by his daughter Edel, he notes that at that time he became significantly short of breath, however denies any chest pain, palpitations or diaphoresis at that time. Upon arrival to the emergency department he notes having an anginal episode, and underwent cardioversion with 200 J of electricity due to his continued A-fib with significant tachycardia. He currently feels significantly better than he did earlier today. 11/04/24 - Patient seen and examined at bedside, remaining in the ED. No acute events overnight. Denies any chest pain and no associated shortness of breath. However, due to his chronic back pain and the beds in the emergency department remains in significant pain secondary to that. He has no acute complaints at this time. This morning he has been maintaining sinus rhythm with a heart rate in the 80s. REVIEW OF SYSTEMS: Pertinent positives and negatives noted in HPI. Physical Exam: General: nontoxic, no distress, appears at stated age Derm: warm, dry, intact; minor rug palomo on his first and second toes bilateral feet Head: atraumatic, normocephalic, symmetric Eyes: EOMI, anicteric sclera Mouth: no lip lesion, mucus membranes moist Cardiovascular: S1, S2 reg, no murmur, rubs, or gallops Lungs: CTA bilateral, no rales, no accessory muscle use Abdominal: soft, non-tender to palpataion, no appreciable organomegaly Extremities: no gross muscle atrophy, no edema, no contractures Neuro: Alert, Oriented, CNII-XII grossly intact, gait normal Psych: well appearing, appropriate affect Data Received Today: Labs: WBCs 8.2, hemoglobin 11.8, hematocrit 35.9, platelet 72; sodium 131, potassium 4.2, bicarb 19, BUN 58, creatinine 1.45, calcium 8.7, magnesium 2.5; total cholesterol 84, LDL 35.4, VLDL 36.6, HDL 12.0, triglycerides 183 Imagining: No new imaging Assessment and plan 79-year-old male with PMH of HFrEF (will recent echocardiogram 02/16/2023 showed EF 45-50%), atrial fibrillation with RVR maintained on Xarelto, history of aortic stenosis s/p TAVR, and a history of left bundle branch block and prolonged QT. Presented to the emergency department after an episode where he slowly fell to the floor in his living room. #A-fib with RVR -Amiodarone drip discontinued, resume home dofetilide 125 mcg twice daily -Resumed Xarelto 20 mg daily -Resume home atenolol 37.5 mg daily -Repeat echocardiogram pending -Cardiology note reviewed, recommendations as above -Oxygen supplementation as needed, currently on 3 L, wean as able -Cardiac monitoring -Fall precaution #HFrEF (most recent echocardiogram 02/16/2023 showed EF 45-50%), not in exacerbation -Hold home Lasix -Resume home lisinopril 10 twice daily and Aldactone 25 daily -Repeat echocardiogram pending #Prerenal acute kidney injury, improving #Hypovolemic hyponatremia, improving -Creatinine 1.45 -Sodium 131 -Continue LR 75 cc/h -Continue to monitor BMP #Thrombocytopenia, possibly reactive -Continue monitor CBC #Chronic back pain -Ordered Voltaren gel 2 g 4 times daily -Tylenol 650 every 6 hours as needed available Chronic: #History of aortic stenosis s/p TAVR #BPH #GERD #Dyslipidemia #Hypertension DVT ppx: Xarelto 20 mg daily Code status: Full code omeprazole 40 mg daily F: LR 75 cc/h E: Replete as needed N: Heart healthy diet A: Ambulatory Anticipated discharge place: Pending clinical course Anticipated discharge time: Pending clinical course Dictation was produced using [employer] dictation software. please excuse any grammatical, word or spelling errors. I have seen and evaluated the patient today. Discussed with the resident and agree with the residents finding and plan as documented in the resident's note. Changes highlighted in blue font. Objective - Vital Signs Vital signs: Vital Signs Temp 98.7 F 11/04/24 09:42 Pulse 82 11/04/24 12:15 Resp 20 11/04/24 12:15 BP 120/60 11/04/24 12:15 Pulse Ox 95 11/04/24 12:15 FiO2 Intake & Output 11/03/24 11/04/24 11/04/24 18:59 06:59 18:59 Weight 117.934 kg - Labs CBC & Chem 7: 11/04/24 07:04 11/04/24 07:04 Labs: Abnormal Lab Results - Last 24 Hours (Table) 11/03/24 11/03/24 11/03/24 Range/Units 12:52 14:31 19:14 RBC (4.30-5.90) m/uL Hgb (13.0-17.5) gm/dL Hct (39.0-53.0) % Plt Count 70 L (150-450) k/uL Neutrophils # 8.7 H (1.3-7.7) k/uL Lymphocytes # 0.3 L (1.0-4.8) k/uL Sodium (137-145) mmol/L Carbon Dioxide (22-30) mmol/L BUN (9-20) mg/dL Creatinine (0.66-1.25) mg/dL Glucose (74-99) mg/dL POC Glucose (mg/dL) 115 H (70-110) mg/dL Magnesium (1.6-2.3) mg/dL Troponin I 0.037 H* (0.000-0.034) ng/mL Triglycerides (0.00-149.00) mg/dL HDL Cholesterol (40.00-60.00) mg/dL 11/03/24 11/04/24 11/04/24 Range/Units 23:28 07:04 07:04 RBC 3.75 L (4.30-5.90) m/uL Hgb 11.8 L (13.0-17.5) gm/dL Hct 35.9 L (39.0-53.0) % Plt Count 72 L (150-450) k/uL Neutrophils # (1.3-7.7) k/uL Lymphocytes # (1.0-4.8) k/uL Sodium 130 L (137-145) mmol/L Carbon Dioxide 18 L (22-30) mmol/L BUN 63 H (9-20) mg/dL Creatinine 1.57 H (0.66-1.25) mg/dL Glucose 121 H (74-99) mg/dL POC Glucose (mg/dL) (70-110) mg/dL Magnesium (1.6-2.3) mg/dL Troponin I (0.000-0.034) ng/mL Triglycerides 183.00 H (0.00-149.00) mg/dL HDL Cholesterol 12.00 L (40.00-60.00) mg/dL 11/04/24 11/04/24 Range/Units 07:04 07:04 RBC (4.30-5.90) m/uL Hgb (13.0-17.5) gm/dL Hct (39.0-53.0) % Plt Count (150-450) k/uL Neutrophils # (1.3-7.7) k/uL Lymphocytes # (1.0-4.8) k/uL Sodium 131 L (137-145) mmol/L Carbon Dioxide 19 L (22-30) mmol/L BUN 58 H (9-20) mg/dL Creatinine 1.45 H (0.66-1.25) mg/dL Glucose 124 H (74-99) mg/dL POC Glucose (mg/dL) (70-110) mg/dL Magnesium 2.5 H (1.6-2.3) mg/dL Troponin I (0.000-0.034) ng/mL Triglycerides (0.00-149.00) mg/dL HDL Cholesterol (40.00-60.00) mg/dL
[2024-11-04 15:41] LABS: Lymphocytes # (M) 0.49 k/uL (1.0-4.8); Monocytes # (M) 0.49 k/uL (0-1.0); Neutrophils # (M) 7.22 k/uL (1.3-7.7); Neutrophils % (M) 88 %; Nucleated Red Blood Cells 0 /100 WBC (0-0); Total Cells Counted 100
[2024-11-04 15:42] LABS: Crenated RBC Present
[2024-11-04] MEDS: DOFETILIDE 125 MCG CAP PO SCH (22:22)
--- NOTE | 2024-11-05 07:30 | CA ---
Transthoracic Echo Report Name: Cayetano Lemus Age: 79 Gender: M : 1945 Exam Date: 11/04/2024 10:31 Exam Location: [facility] Echo Ht (in): 69 Wt (lb): 260 Ordering Physician: Victorino Woods MD Attending/Referring Phys: Wheel Borer Iris Cadena RDCS Procedure CPT: Indications: Slurred speech, CVA Cardiac Hx: TAVR Technical Quality: Fair Contrast 1: Definity Total Dose (mL): 2 Contrast 2: Total Dose (mL): MEASUREMENTS (Male / Female) Normal Values 2D ECHO LV Diastolic Diameter PLAX 6.2 cm 4.2 - 5.9 / 3.9 - 5.3 cm LV Systolic Diameter PLAX 5.7 cm IVS Diastolic Thickness 1.0 cm 0.6 - 1.0 / 0.6 - 0.9 cm LVPW Diastolic Thickness 1.1 cm 0.6 - 1.0 / 0.6 - 0.9 cm LV Relative Wall Thickness 0.3 LVOT Diameter 2.2 cm Aortic Root Diameter 3.2 cm M-MODE Aortic Root Diameter MM 3.0 cm LA Systolic Diameter MM 5.1 cm LA Ao Ratio MM 1.7 DOPPLER AV Peak Velocity 298.2 cm/s AV Peak Gradient 35.6 mmHg AV Mean Velocity 217.7 cm/s AV Mean Gradient 21.1 mmHg AV Velocity Time Integral 60.3 cm AI Peak Velocity 431.0 cm/s AI Peak Gradient 74.3 mmHg AI Pressure Half Time 549.0 ms LVOT Peak Velocity 118.8 cm/s LVOT Peak Gradient 5.6 mmHg LVOT Velocity Time Integral 24.0 cm LVOT Stroke Volume 91.9 cm??? LVOT Stroke Volume Index 39.8 ml/m??? LVOT Cardiac Index 1841.4 cm???/min???m??? AV Area Cont Eq vti 1.5 cm??? AV Area Cont Eq pk 1.5 cm??? MV Peak Velocity 128.7 cm/s MV Peak Gradient 6.6 mmHg MV Mean Velocity 96.4 cm/s MV Mean Gradient 4.1 mmHg MV Velocity Time Integral 37.5 cm MV Area PHT 3.5 cm??? Mitral E Point Velocity 144.9 cm/s Mitral A Point Velocity 141.6 cm/s Mitral E to A Ratio 1.0 MV Deceleration Time 216.8 ms TR Peak Velocity 272.3 cm/s TR Peak Gradient 29.7 mmHg FINDINGS Left Ventricle Left ventricular ejection fraction is estimated at 20-25%. Mildly increased left ventricular diastolic diameter. Severely reduced global left ventricular systolic function. Left ventricular wall thickness normal. Right Ventricle Normal right ventricular size and function. Mild pulmonary hypertension. Right Atrium Mild right atrial dilatation. Left Atrium Moderate left atrial dilatation. Mitral Valve Mild mitral stenosis, MV Mean PG 4.1 mmHg. Moderate mitral regurgitation. Mitral annular calcification. Aortic Valve Bioprosthetic aortic valve with a peak velocity of 2.98m/s, peak gradient 36 mmHg, mean gradient 21 mmHg. Mild to Moderate paravalvular aortic regurgitation. Tricuspid Valve Structurally normal tricuspid valve. Mild tricuspid regurgitation. No tricuspid stenosis. Pulmonic Valve Structurally normal pulmonic valve. Trace pulmonic regurgitation. No pulmonic stenosis. Pericardium No pericardial or pleural effusion. Aorta Normal size aortic root and proximal ascending aorta. CONCLUSIONS Impaired LV function with EF between 20 to 25% Bioprosthetic aortic valve with a mean gradient of 21 mmHg and moderate perivalvular leak Mitral annular calcification with mild mitral stenosis and moderate mitral regurgitation No pericardial Mild pulmonary hypertension Previewed by: Dr. Arnoldo Faye MD (Electronically Signed) Final Date: 05 November 2024 07:29
[2024-11-05 08:24] LABS: HCT 35.7 % (39.0-53.0); HGB 11.7 gm/dL (13.0-17.5); Hypochromasia Slight; MCH 30.7 pg (25.0-35.0); MCHC 32.7 g/dL (31.0-37.0); Mean Platelet Volume 10.5; RDW 13.9 % (11.5-15.5); WBC 10.2 k/uL (3.8-10.6)
[2024-11-05 08:46] LABS: African American GFR (CKD) 65 (>60 ml/min/1.73 sqM); Anion Gap 8 mmol/L; Blood Urea Nitrogen 56 mg/dL (9-20); Calcium 8.5 mg/dL (8.4-10.2); Carbon Dioxide 22 mmol/L (22-30); Chloride 99 mmol/L (98-107); Glucose 96 mg/dL (74-99); Non-African American GFR(CKD) 57 (>60 ml/min/1.73 sqM); Potassium 4.3 mmol/L (3.5-5.1); Sodium 129 mmol/L (137-145)
[2024-11-05 08:54] LABS: Platelet Count 80 k/uL (150-450)
[2024-11-05 09:39] LABS: Monocytes # (M) 1.02 k/uL (0-1.0); Nucleated Red Blood Cells 0 /100 WBC (0-0)
[2024-11-05 09:42] LABS: Lymphocytes # (M) 0.31 k/uL (1.0-4.8); Metamyelocytes % 2 %; Neutrophils # (M) 8.77 k/uL (1.3-7.7); Neutrophils % (M) 86 %; Total Cells Counted 200
[2024-11-05 09:43] LABS: Crenated RBC Present
--- NOTE | 2024-11-05 11:10 | P.PN ---
Subjective Progress Note Date: 11/05/24 79-year-old male with PMH of HFrEF (most recent echocardiogram 11/04/2024 showed EF 20-25%), atrial fibrillation with RVR maintained on Xarelto, history of aortic stenosis s/p TAVR, and a history of left bundle branch block and prolonged QT. Presented to the emergency department after an episode where he s lowly fell to the floor in his living room. He states that he began to feel as though he might pass out, and was able to bring himself to the floor with only minor rug palomo on his feet. He was seen at bedside accompanied by his daughter Edel, he notes that at that time he became significantly short of breath, however denies any chest pain, palpitations or diaphoresis at that time. Upon arrival to the emergency department he notes having an anginal episode, and underwent cardioversion with 200 J of electricity due to his continued A-fib with significant tachycardia. He currently feels significantly better than he did earlier today. 11/04/24 - Patient seen and examined at bedside, remaining in the ED. No acute events overnight. Denies any chest pain and no associated shortness of breath. However, due to his chronic back pain and the beds in the emergency department remains in significant pain secondary to that. He has no acute complaints at this time. This morning he has been maintaining sinus rhythm with a heart rate in the 80s. 11/05/24 - Patient seen and examined at bedside, now on the third floor cardiac stepdown. No acute events overnight. He denies any chest pain and has no associated shortness of breath. Echocardiogram showed EF 20-25%. He does note however having worsening pains in his back which are eased somewhat with the use of Voltaren gel. He has no other acute complaints at this time. REVIEW OF SYSTEMS: Pertinent positives and negatives noted in HPI. Physical Exam: General: nontoxic, no distress, appears at stated age Derm: warm, dry, intact; minor rug palomo on his first and second toes bilateral feet Head: atraumatic, normocephalic, symmetric Eyes: EOMI, anicteric sclera Mouth: no lip lesion, mucus membranes moist Cardiovascular: S1, S2 reg, no murmur, rubs, or gallops Lungs: CTA bilateral, no rales, no accessory muscle use Abdominal: soft, non-tender to palpataion, no appreciable organomegaly Extremities: no gross muscle atrophy, no edema, no contractures Neuro: Alert, Oriented, CNII-XII grossly intact, gait normal Psych: well appearing, appropriate affect Data Received Today: Labs: CBC and BMP significant for RBC 3.8, Hg 11.7, Hct 35.7, Plt 80, Na 129, BUN 56 Imagining: No new imaging Assessment and plan 79-year-old male with PMH of HFrEF (most recent echocardiogram 11/04/2024 showed EF 20-25%), atrial fibrillation with RVR maintained on Xarelto, history of aortic stenosis s/p TAVR, and a history of left bundle branch block and prolonged QT. Presented to the emergency department after an episode where he slowly fell to the floor in his living room. #A-fib with RVR -Amiodarone drip discontinued, resume home dofetilide 125 mcg twice daily -Resumed Xarelto 20 mg daily -Resume home atenolol 37.5 mg daily -Echocardiogram (11/04/2024) read reviewed, showed EF 20-25%, with bioprosthetic aortic valve showed moderate perivalvular leak, mild mitral stenosis and moderate mitral regurgitation with mild pulmonary hypertension -Repeat EKG (11/05/2024) read and reviewed -Cardiology note reviewed, recommendations as above -Oxygen supplementation as needed, currently on 2 L, wean as able -Cardiac monitoring -Fall precaution #HFrEF (most recent echocardiogram 11/04/24 showed EF 20-25%), not in exacerbation -Echocardiogram read reviewed, showed EF 20-25%, with bioprosthetic aortic valve showed moderate perivalvular leak, mild mitral stenosis and moderate mitral regurgitation with mild pulmonary hypertension -Hold home Lasix -Resume home lisinopril and Aldactone #Weakness/debility -PT/OT consulted #Prerenal acute kidney injury, resolved #Hypovolemic hyponatremia -Creatinine 1.23 -Sodium 129 -Fluids discontinued -Continue to monitor BMP #Thrombocytopenia, possibly reactive -Continue monitor CBC #Chronic back pain -Ordered Voltaren gel 2 g 4 times daily -Tylenol 650 every 6 hours as needed available Chronic: #History of aortic stenosis s/p TAVR #BPH #GERD #Dyslipidemia #Hypertension DVT ppx: Xarelto 20 mg daily GI PPx: Omeprazole 40 mg daily Code status: No code F: None E: Replete as needed N: Heart healthy diet A: Ambulatory Anticipated discharge place: Pending clinical course Anticipated discharge time: Pending clinical course Dictation was produced using [employer] dictation software. please excuse any grammatical, word or spelling errors. I have seen and evaluated the patient today. Discussed with the resident and agree with the residents finding and plan as documented in the resident's note. Changes highlighted in blue font. Objective - Vital Signs Vital signs: Vital Signs Temp 98.2 F 11/05/24 04:00 Pulse 105 H 11/05/24 04:00 Resp 18 11/05/24 04:00 BP 114/70 11/05/24 04:00 Pulse Ox 96 11/05/24 04:00 FiO2 Intake & Output 11/04/24 11/05/24 11/05/24 18:59 06:59 18:59 Output Total 275 Balance -275 Weight 119 kg Output: Urine 275 Other: Voiding Method Urinal # Voids 1 - Labs CBC & Chem 7: 11/05/24 07:48 11/05/24 07:48 Labs: Abnormal Lab Results - Last 24 Hours (Table) 11/04/24 11/04/24 11/04/24 Range/Units 07:04 07:04 07:04 Lymphocytes # (Manual) 0.49 L (1.0-4.8) k/uL Magnesium 2.5 H (1.6-2.3) mg/dL Triglycerides 183.00 H (0.00-149.00) mg/dL HDL Cholesterol 12.00 L (40.00-60.00) mg/dL
--- NOTE | 2024-11-05 13:50 | P.PN ---
Subjective HISTORY OF PRESENT ILLNESS: This is a 79-year-old male with a past medical history significant for atrial fibrillation, pulmonary vein isolation, sick sinus syndrome, aortic stenosis status post TAVR, hypertension, sleep apnea, and morbid obesity. Patient follows in the office with Dr. Meng. We have been asked to see the patient in consultation for A-fib with RVR. Patient examined at the bedside in the emergency room. Patient states yesterday he slipped and fell at home. He denies passing out. He states he was unable to get up and EMS had to come help him after he laid on the floor for about 10 to 15 minutes. This morning he is complaining of back pain. He denies any chest pain or shortness of breath. The patient was found to be in A-fib with RVR. He was hypotensive and was cardioverted by the ER physician. This morning he is maintaining sinus mechanism with a heart rate in the 80s. Patient also gives recent history of having influenza A last week. DIAGNOSTICS: - EKG reveals sinus mechanism. Repeat EKG reveals A-fib with RVR. Third EKG reveals sinus mechanism. - Chest xray clinical correlation recommended for posterior lung infiltrate.. - Laboratory data: WBC 8.2. Hemoglobin 11.8. Platelet count 72. Sodium 131. Potassium 4.2. BUN 58. Creatinine 1.45. Troponin 0.026. 0.028. 0.037. - Current home cardiac medications include Tikosyn 125mcg twice a day, Lasix 40 mg daily, Crestor 40 mg daily, Xarelto 20 mg with dinner, spironolactone 25 mg daily, atenolol 37.5 mg daily, and lisinopril 10 mg twice a day - Most recent echocardiogram obtained in February 2023 revealing ejection fraction 45 to 50%, bioprosthetic aortic valve with mild perivalvular regurgitation - Cardiac catheterization history: May 2016 revealing normal coronary arteries - Patient underwent KATTY in December 2023 revealing moderate to severe TAVR perivalvular leak, normally functioning Muniz BRAYAN TAVR valve, normal global LV systolic function, moderate LVH, mild biatrial dilatation. 11/05/2024 Patient examined this morning at the bedside. Patient currently denies chest pain or pressure. He denies shortness of breath. He is complaining of back pain at the time of examination. Patient went back into atrial fibrillation and is maintaining atrial fibrillation with controlled ventricular rate at the time of examination. Blood pressure 97/54. Echocardiogram completed revealing ejection fraction 20 to 25%, bioprosthetic aortic valve with mean gradient 21 mmHg and moderate perivalvular leak, mild mitral stenosis, moderate mitral regurgitation, and mild pulmonary hypertension PHYSICAL EXAM: VITAL SIGNS: Reviewed. GENERAL: Well-developed in no acute distress. HEENT: Head is normocephalic. Pupils are equal, round. Sclerae anicteric. Mucous membranes of the mouth are moist. Neck supple. No JVD or thyromegaly LUNGS: Respirations even and unlabored. Lungs essentially clear to auscultation bilaterally. HEART: Irregular rate and rhythm. S1 and S2 heard. Systolic murmur noted. ABDOMEN: Soft. Nondistended. Nontender. EXTREMITIES: Normal range of motion. No clubbing or cyanosis. Peripheral pulses intact. No lower extremity edema NEUROLOGIC: Awake and alert. Oriented x 3. ASSESSMENT: Paroxysmal atrial fibrillation with RVR, status post cardioversion in the ER due to hypotension Minimally elevated troponin, type II NV secondary to oxygen supply/demand mismatch secondary to A-fib with RVR Acute kidney injury, improved Recent influenza A infection History of pulmonary vein isolation History of sick sinus syndrome Aortic stenosis status post TAVR Moderate to severe perivalvular leak alongside the aortic valve, followed up with Dr. 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 Begin metoprolol succinate 50 mg daily Add Farxiga 10 mg daily If patient remains in atrial fibrillation tomorrow, will likely discontinue Tikosyn Recommend repeating echocardiogram on an outpatient basis to see if there is improvement in EF Continue telemetry monitoring Further recommendations pending patient course Nurse practitioner note has been reviewed by physician. Signing provider agrees with the documented findings, assessment, and plan of care documented by PASS WORKER as a scribe. Objective - Vital Signs Vital signs: Vital Signs Temp 97.5 F L 11/05/24 08:47 Pulse 96 11/05/24 11:10 Resp 18 11/05/24 11:10 BP 97/54 11/05/24 11:10 Pulse Ox 94 L 11/05/24 11:10 FiO2 Intake & Output 11/04/24 11/05/24 11/05/24 18:59 06:59 18:59 Output Total 275 Balance -275 Weight 119 kg Output: Urine 275 Other: Voiding Method Urinal Urinal # Voids 1 - Labs CBC & Chem 7: 11/05/24 07:48 11/05/24 07:48 Labs: Abnormal Lab Results - Last 24 Hours (Table) 11/04/24 11/04/24 11/05/24 Range/Units 07:04 07:04 07:48 RBC (4.30-5.90) m/uL Hgb (13.0-17.5) gm/dL Hct (39.0-53.0) % Plt Count (150-450) k/uL Neutrophils # (Manual) (1.3-7.7) k/uL Lymphocytes # (Manual) 0.49 L (1.0-4.8) k/uL Monocytes # (Manual) (0-1.0) k/uL Metamyelocytes # (Man) (0) k/uL Sodium 129 L (137-145) mmol/L BUN 56 H (9-20) mg/dL Magnesium 2.5 H (1.6-2.3) mg/dL 11/05/24 Range/Units 07:48 RBC 3.80 L (4.30-5.90) m/uL Hgb 11.7 L (13.0-17.5) gm/dL Hct 35.7 L (39.0-53.0) % Plt Count 80 L (150-450) k/uL Neutrophils # (Manual) 8.77 H (1.3-7.7) k/uL Lymphocytes # (Manual) 0.31 L (1.0-4.8) k/uL Monocytes # (Manual) 1.02 H (0-1.0) k/uL Metamyelocytes # (Man) 0.20 H (0) k/uL Sodium (137-145) mmol/L BUN (9-20) mg/dL Magnesium (1.6-2.3) mg/dL
[2024-11-06 07:42] LABS: African American GFR (CKD) 40 (>60 ml/min/1.73 sqM); Anion Gap 12 mmol/L; Blood Urea Nitrogen 72 mg/dL (9-20); Calcium 8.6 mg/dL (8.4-10.2); Carbon Dioxide 20 mmol/L (22-30); Chloride 99 mmol/L (98-107); Glucose 102 mg/dL (74-99); Non-African American GFR(CKD) 34 (>60 ml/min/1.73 sqM); Potassium 4.2 mmol/L (3.5-5.1); Sodium 131 mmol/L (137-145)
[2024-11-06 08:01] LABS: Basophils # (A) 0.1 k/uL (0-0.2); Basophils % (A) 1 %; Eosinophils % (A) 0 %; HCT 37.9 % (39.0-53.0); HGB 12.8 gm/dL (13.0-17.5); Lymphocytes # (A) 0.3 k/uL (1.0-4.8); Lymphocytes % (A) 4 %; MCH 31.5 pg (25.0-35.0); MCHC 33.7 g/dL (31.0-37.0); MCV 93.4 fL (80.0-100.0); Mean Platelet Volume 12.6; Monocytes # (A) 0.5 k/uL (0-1.0); Monocytes % (A) 7 %; Neutrophils # (A) 6.2 k/uL (1.3-7.7); Neutrophils % (A) 84 %; Poikilocytosis Slight; RBC 4.06 m/uL (4.30-5.90); RDW 14.4 % (11.5-15.5); WBC 7.4 k/uL (3.8-10.6)
[2024-11-06 08:05] LABS: Platelet Count 77 k/uL (150-450)
[2024-11-06] MEDS: METOPROLOL SUCCINATE (ER) 50 MG TAB.ER.24H PO SCH (09:52)
[2024-11-06] MEDS: DAPAGLIFLOZIN PROPANEDIOL 10 MG TABLET PO SCH (09:55)
--- NOTE | 2024-11-06 12:29 | P.PN ---
Subjective Progress Note Date: 11/06/24 79-year-old male with PMH of HFrEF (most recent echocardiogram 11/04/2024 showed EF 20-25%), atrial fibrillation with RVR maintained on Xarelto, history of aortic stenosis s/p TAVR, and a history of left bundle branch block and prolonged QT. Presented to the emergency department after an episode where he s lowly fell to the floor in his living room. He states that he began to feel as though he might pass out, and was able to bring himself to the floor with only minor rug palomo on his feet. He was seen at bedside accompanied by his daughter Edel, he notes that at that time he became significantly short of breath, however denies any chest pain, palpitations or diaphoresis at that time. Upon arrival to the emergency department he notes having an anginal episode, and underwent cardioversion with 200 J of electricity due to his continued A-fib with significant tachycardia. He currently feels significantly better than he did earlier today. 11/04/24 - Patient seen and examined at bedside, remaining in the ED. No acute events overnight. Denies any chest pain and no associated shortness of breath. However, due to his chronic back pain and the beds in the emergency department remains in significant pain secondary to that. He has no acute complaints at this time. This morning he has been maintaining sinus rhythm with a heart rate in the 80s. 11/05/24 - Patient seen and examined at bedside, now on the third floor cardiac stepdown. No acute events overnight. He denies any chest pain and has no associated shortness of breath. Echocardiogram showed EF 20-25%. He does note however having worsening pains in his back which are eased somewhat with the use of Voltaren gel. He has no other acute complaints at this time. 11/06/24 - Patient seen and examined at bedside this morning. No acute events noted overnight. He denies any chest pain has no associated shortness of breath. Patient's home atenolol was discontinued and he was started on metoprolol 50 mg daily per cardiology recommendation. Yesterday patient was found to be back in atrial fibrillation, we will recheck EKG this morning (currently pending at time of dictation), patient remains in A-fib Tikosyn will be discontinued. His creatinine today increased to 1.86, had previously responded to IV fluids with his ANNEL on arrival. Chest x-ray ordered, currently pending, if no signs of pulmonary edema will consider starting LR 50 cc/h for day and monitor for improvement. He does note continued to have significant back pain with movement, which is nothing new for him however has been exacerbated at points while in the hospital using the hospital bed. REVIEW OF SYSTEMS: Pertinent positives and negatives noted in HPI. Physical Exam: General: nontoxic, no distress, appears at stated age Derm: warm, dry, intact; minor rug palomo on his first and second toes bilateral feet Head: atraumatic, normocephalic, symmetric Eyes: EOMI, anicteric sclera Mouth: no lip lesion, mucus membranes moist Cardiovascular: S1, S2 reg, no murmur, rubs, or gallops Lungs: CTA bilateral, no rales, no accessory muscle use Abdominal: soft, non-tender to palpataion, no appreciable organomegaly Extremities: no gross muscle atrophy, no edema, no contractures Neuro: Alert, Oriented, CNII-XII grossly intact, gait normal Psych: well appearing, appropriate affect Data Received Today: Labs: WBC 7.4, hemoglobin 12.8, hematocrit 37.9, platelet 77; sodium 131, potassium 4.2, bicarb 23 BUN 17, creatinine 1.86, calcium 8.6 Imagining: -EKG this morning independently interpreted showed a rate of 92, atrial fibr illation with PVCs noted along with left bundle branch block similar to previously seen -Chest x-ray pending Assessment and plan 79-year-old male with PMH of HFrEF (most recent echocardiogram 11/04/2024 showed EF 20-25%), atrial fibrillation with RVR maintained on Xarelto, history of aortic stenosis s/p TAVR, and a history of left bundle branch block and prolonged QT. Presented to the emergency department after an episode where he slowly fell to the floor in his living room. #A-fib with RVR -Amiodarone drip discontinued, resume home dofetilide 125 mcg twice daily; if patient remains in A-fib on EKG this morning (11/06/2024) we will discontinue dofetilide -Resumed Xarelto 20 mg daily -Initiated on metoprolol 50 mg daily per cardiology for mentation -Echocardiogram (11/04/2024) read reviewed, showed EF 20-25%, with bioprosthetic aortic valve showed moderate perivalvular leak, mild mitral stenosis and moderate mitral regurgitation with mild pulmonary hypertension -Repeat EKG (11/06/2024) read and reviewed showed him still in atrial fibrillation -Cardiology note reviewed, recommendations as above -Oxygen supplementation as needed, currently on 2 L, wean as able -Cardiac monitoring -Fall precaution #HFrEF (most recent echocardiogram 11/04/24 showed EF 20-25%), not in exacerbation -Echocardiogram read reviewed, showed EF 20-25%, with bioprosthetic aortic valve showed moderate perivalvular leak, mild mitral stenosis and moderate mitral regurgitation with mild pulmonary hypertension -Hold home Lasix -Resume home lisinopril and Aldactone #Weakness/debility -PT/OT consulted #Acute kidney injury on chronic kidney disease #Hypovolemic hyponatremia -Creatinine 1.86 -Sodium 131 -Chest x-ray pending; if no signs of pulmonary edema consider restarting LR at 50 cc/h -Continue to monitor BMP #Thrombocytopenia, possibly reactive -Continue monitor CBC #Chronic back pain -Ordered Voltaren gel 2 g 4 times daily -Tylenol 650 every 6 hours as needed available Chronic: #History of aortic stenosis s/p TAVR #BPH #GERD #Dyslipidemia #Hypertension DVT ppx: Xarelto 20 mg daily GI PPx: Omeprazole 40 mg daily Code status: No code F: None E: Replete as needed N: Heart healthy diet A: Ambulatory Anticipated discharge place: Pending clinical course Anticipated discharge time: Pending clinical course Dictation was produced using [employer] dictation software. please excuse any grammatical, word or spelling errors. I have seen and evaluated the patient today. Discussed with the resident and agree with the residents finding and plan as documented in the resident's note. Changes highlighted in blue font. Objective - Vital Signs Vital signs: Vital Signs Temp 97.3 F L 11/05/24 20:00 Pulse 89 11/06/24 04:00 Resp 20 11/06/24 04:00 BP 107/67 11/06/24 04:00 Pulse Ox 96 11/06/24 04:00 FiO2 Intake & Output 11/05/24 11/06/24 11/06/24 18:59 06:59 18:59 Intake Total 118 Output Total 400 300 Balance -282 -300 Weight 120 kg Intake: Oral 118 Output: Urine 400 300 Other: Voiding Method Urinal Urinal # Voids 1 - Labs CBC & Chem 7: 11/06/24 06:18 11/06/24 06:18 Labs: Abnormal Lab Results - Last 24 Hours (Table) 11/05/24 11/05/24 Range/Units 07:48 07:48 RBC 3.80 L (4.30-5.90) m/uL Hgb 11.7 L (13.0-17.5) gm/dL Hct 35.7 L (39.0-53.0) % Plt Count 80 L (150-450) k/uL Neutrophils # (Manual) 8.77 H (1.3-7.7) k/uL Lymphocytes # (Manual) 0.31 L (1.0-4.8) k/uL Monocytes # (Manual) 1.02 H (0-1.0) k/uL Metamyelocytes # (Man) 0.20 H (0) k/uL Sodium 129 L (137-145) mmol/L BUN 56 H (9-20) mg/dL
--- NOTE | 2024-11-06 12:32 | XR ---
EXAMINATION TYPE: XR chest 1V portable DATE OF EXAM: 11/06/2024 12:23 PM COMPARISON: 11/03/2024 CLINICAL INDICATION: Male, 79 years old with history of chf, TECHNIQUE: XR chest 1V portable view(s) obtained. FINDINGS: The heart size is enlarged. The pulmonary vasculature is normal. No suspicious infiltrates. Posterior infiltrate may not be visualized on this AP projection two-view chest recommended when the patient is stable IMPRESSION: 1. No acute pulmonary process radiographically apparent. Follow-up 2 view chest when the patient is s table is recommended . [facility], , 11/06/2024 12:29 PM
--- NOTE | 2024-11-06 12:49 | US ---
EXAMINATION TYPE: US kidneys/renal and bladder DATE OF EXAM: 11/06/2024 COMPARISON: NONE CLINICAL INDICATION: Male, 79 years old with history of Trinh; trinh TECHNIQUE: Grayscale imaging of the bilateral kidneys and urinary bladder: FINDINGS: EXAM MEASUREMENTS: Right Kidney: 12.6 x 6.8 x 5.7 cm Left Kidney: 13.2 x 6.0 x 5.8 cm Right Kidney: cystic area seen inf pole measuring 4.7x 4.2 x 4.0cm Left Kidney: cystic area seen inf pole measuring 2.2 x 1.7 x 1.8cm Bladder: wnl Bilateral Jets seen: no IMPRESSION: 1. Bilateral renal cysts. [facility], , 11/06/2024 12:47 PM
[2024-11-06] MEDS: LACTATED RINGERS 1,000 ML IV SCH (13:35)
--- NOTE | 2024-11-06 13:41 | P.PN ---
Subjective HISTORY OF PRESENT ILLNESS: This is a 79-year-old male with a past medical history significant for atrial fibrillation, pulmonary vein isolation, sick sinus syndrome, aortic stenosis status post TAVR, hypertension, sleep apnea, and morbid obesity. Patient follows in the office with Dr. Meng. We have been asked to see the patient in consultation for A-fib with RVR. Patient examined at the bedside in the emergency room. Patient states yesterday he slipped and fell at home. He denies passing out. He states he was unable to get up and EMS had to come help him after he laid on the floor for about 10 to 15 minutes. This morning he is complaining of back pain. He denies any chest pain or shortness of breath. The patient was found to be in A-fib with RVR. He was hypotensive and was cardioverted by the ER physician. This morning he is maintaining sinus mechanism with a heart rate in the 80s. Patient also gives recent history of having influenza A last week. DIAGNOSTICS: - EKG reveals sinus mechanism. Repeat EKG reveals A-fib with RVR. Third EKG reveals sinus mechanism. - Chest xray clinical correlation recommended for posterior lung infiltrate.. - Laboratory data: WBC 8.2. Hemoglobin 11.8. Platelet count 72. Sodium 131. Potassium 4.2. BUN 58. Creatinine 1.45. Troponin 0.026. 0.028. 0.037. - Current home cardiac medications include Tikosyn 125mcg twice a day, Lasix 40 mg daily, Crestor 40 mg daily, Xarelto 20 mg with dinner, spironolactone 25 mg daily, atenolol 37.5 mg daily, and lisinopril 10 mg twice a day - Most recent echocardiogram obtained in February 2023 revealing ejection fraction 45 to 50%, bioprosthetic aortic valve with mild perivalvular regurgitation - Cardiac catheterization history: May 2016 revealing normal coronary arteries - Patient underwent KATTY in December 2023 revealing moderate to severe TAVR perivalvular leak, normally functioning Muniz BRAYAN TAVR valve, normal global LV systolic function, moderate LVH, mild biatrial dilatation. 11/05/2024 Patient examined this morning at the bedside. Patient currently denies chest pain or pressure. He denies shortness of breath. He is complaining of back pain at the time of examination. Patient went back into atrial fibrillation and is maintaining atrial fibrillation with controlled ventricular rate at the time of examination. Blood pressure 97/54. Echocardiogram completed revealing ejection fraction 20 to 25%, bioprosthetic aortic valve with mean gradient 21 mmHg and moderate perivalvular leak, mild mitral stenosis, moderate mitral regurgitation, and mild pulmonary hypertension 11/06/2024 Patient examined this morning the bedside. Patient denies chest pain or pressure. He denies shortness of breath. Telemetry reveals atrial fibrillation with a heart rate in the 80s-90s. Blood pressure 92/56. Creatinine worsened today at 1.86 PHYSICAL EXAM: VITAL SIGNS: Reviewed. GENERAL: Well-developed in no acute distress. HEENT: Head is normocephalic. Pupils are equal, round. Sclerae anicteric. Mucous membranes of the mouth are moist. Neck supple. No JVD or thyromegaly LUNGS: Respirations even and unlabored. Lungs essentially clear to auscultation bilaterally. HEART: Irregular rate and rhythm. S1 and S2 heard. Systolic murmur noted. ABDOMEN: Soft. Nondistended. Nontender. EXTREMITIES: Normal range of motion. No clubbing or cyanosis. Peripheral pulses intact. No lower extremity edema NEUROLOGIC: Awake and alert. Oriented x 3. ASSESSMENT: Paroxysmal atrial fibrillation with RVR, status post cardioversion in the ER due to hypotension Minimally elevated troponin, type II [place] secondary to oxygen supply/demand mismatch secondary to A-fib with RVR Acute kidney injury, improved Recent influenza A infection History of pulmonary vein isolation History of sick sinus syndrome Aortic stenosis status post TAVR Moderate to severe perivalvular leak alongside the aortic valve, followed up with Dr. Nino and unable to repair Normal coronary arteries, per cath 2015 Hypertension History of sleep apnea Obesity: BMI 38.4 New onset cardiomyopathy, 20 to 25%, suspect nonischemic PLAN: Continue metoprolol succinate 50 mg daily Discontinue Tikosyn Decrease lisinopril to daily instead of twice daily dosing secondary to soft blood pressures Recommend repeating echocardiogram on an outpatient basis to see if there is improvement in EF Continue telemetry monitoring Repeat kidney function in AM Further recommendations pending patient course Nurse practitioner note has been reviewed by physician. Signing provider agrees with the documented findings, assessment, and plan of care documented by HUMAN GEOGRAPHY INSTRUCTOR as a scribe. Objective - Vital Signs Vital signs: Vital Signs Temp 97.4 F L 11/06/24 08:02 Pulse 102 H 11/06/24 08:10 Resp 19 11/06/24 08:53 BP 92/56 11/06/24 08:10 Pulse Ox 95 11/06/24 08:02 FiO2 Intake & Output 11/05/24 11/06/24 11/06/24 18:59 06:59 18:59 Intake Total 118 180 Output Total 400 300 300 Balance -282 -300 -120 Weight 120 kg Intake: Oral 118 180 Output: Urine 400 300 300 Other: Voiding Method Urinal Urinal Urinal # Voids 1 - Labs CBC & Chem 7: 11/06/24 06:18 11/06/24 06:18 Labs: Abnormal Lab Results - Last 24 Hours (Table) 11/06/24 11/06/24 Range/Units 06:18 06:18 RBC 4.06 L (4.30-5.90) m/uL Hgb 12.8 L (13.0-17.5) gm/dL Hct 37.9 L (39.0-53.0) % Plt Count 77 L (150-450) k/uL Lymphocytes # 0.3 L (1.0-4.8) k/uL Sodium 131 L (137-145) mmol/L Carbon Dioxide 20 L (22-30) mmol/L BUN 72 H (9-20) mg/dL Creatinine 1.86 H (0.66-1.25) mg/dL Glucose 102 H (74-99) mg/dL
--- NOTE | 2024-11-06 16:26 | CT ---
EXAMINATION TYPE: CT brain wo con DATE OF EXAM: 11/06/2024 COMPARISON: 08/31/2019 CLINICAL INDICATION: Male, 79 years old with history of recent fall; PHH, weakness, ams CT DLP: 1326 mGycm Automated exposure control for dose reduction was used. Findings: The ventricles, basal cisterns and sulci over the convexities are within normal limits for the patien t's age and there is no mass effect or shift of midline structures. There is a stable remote lacunar infarct in the right caudate nucleus. There is no acute intra or ext ra-axial hemorrhage. The posterior fossa including the brainstem, fourth ventricle and cerebellopontine angles appear norm al. Intraorbital contents appear normal and symmetric. Visualized paranasal sinuses and mastoid air cells are well aerated. The calvarium is intact. IMPRESSION: 1. Mild age-appropriate senescent changes. 2. Remote lacunar infarct right caudate nucleus. 3. No acute bleed or mass effect. 4. Calvarium intact. [facility], , 11/06/2024 4:23 PM
[2024-11-07 00:27] LABS: ABG Base Excess -3.1 mmol/L; ABG HCO3 21 mmol/L (21-25); ABG Oxygen Saturation 88.3 % (94-97); ABG PCO2 32 mmHg (35-45); ABG PH 7.42 (7.35-7.45); ABG TCO2 22 mmol/L (19-24); Allen Test Performed? Yes
[2024-11-07 00:32] LABS: ABG PO2 54 mmHg (83-108)
[2024-11-07] MEDS: LORazepam 2 MG/ML INJ IV PRN (02:51)
--- NOTE | 2024-11-07 06:40 | XR ---
EXAM: XR Chest, 1 View CLINICAL HISTORY: ITS.REASON XR Reason: SOB TECHNIQUE: Frontal view of the chest. COMPARISON: XR Chest dated 11/06/2024 FINDINGS: Limitations: Limited views. Lungs: Mild increased opacity of the right lung may be artifactual due to patient rotation. No focal consolidation. Pleural space: Unremarkable. No pneumothorax. Heart: Cardiomegaly. Mediastinum: Unremarkable. Normal mediastinal contour. Bones/joints: Unremarkable. No acute fracture. Tubes, lines and devices: Transcatheter aortic valve replacement (TAVR). Cardiac loop recorder overlies the left thorax. IMPRESSION: Suboptimal study. No evidence of acute abnormality.
[2024-11-07] MEDS: SODIUM CHLORIDE 0.9% 500 ML 500 ML IV ONE (06:49)
[2024-11-07 06:50] LABS: Glucose,Whole Blood 91 mg/dL (70-110)
[2024-11-07 07:22] LABS: HCT 39.1 % (39.0-53.0); HGB 12.8 gm/dL (13.0-17.5); Hypochromasia Slight; MCH 30.9 pg (25.0-35.0); MCHC 32.9 g/dL (31.0-37.0); MCV 93.9 fL (80.0-100.0); Mean Platelet Volume 11.4; RBC 4.16 m/uL (4.30-5.90); RDW 14.6 % (11.5-15.5); WBC 6.9 k/uL (3.8-10.6)
[2024-11-07 07:27] LABS: Platelet Count 56 k/uL (150-450)
--- NOTE | 2024-11-07 07:28 | P.CNPUL ---
History of Present Illness Consult date: 11/07/24 Requesting physician: Anh Miller Reason for consult: other (ICU consult for hypotension) Chief complaint: Transferred to the ICU for hypotension and A-fib RVR History of present illness: Patient is a 79-year-old male with past medical history significant for atrial fibrillation, nonischemic cardiomyopathy and valvular heart disease, previous TAVR, hypertension, hyperlipidemia, obstructive sleep apnea, COPD, among other things. Received a call from sound physician, patient was noted to be hypotensive and progressively more confused overnight. There is request for ICU evaluation. Patient originally mated to the hospital back on 11/03/2024, came in in respiratory distress. Noted to be in atrial fibrillation with a rate with unstable blood pressure. Patient was cardioverted in the ED, and placed on amiodarone. Amiodarone has since been discontinued, patient was on dofetilide until yesterday. Overnight, patient has been progressively more confused and obtunded. He is back in atrial fibrillation with RVR, rate is in the 120s. He is anticoagulated on Xarelto. Blood pressure has been hypotensive overnight and is currently 76/46 mmHg. Also, noted to have some difficulty in breathing. An ABG was drawn showing a PaO2 of 54, pCO2 of 32, and pH of 7.42. This was done on 2 L/min nasal cannula. Follow-up chest x-ray is rotated exam, cardiomegaly, with pulmonary vascular congestion noted. Patient has severe nonischemic cardiomyopathy with an ejection fraction of 20 to 25% and a bioprosthetic aortic valve with a mean gradient of 21 mmHg and a moderate perivalvular leak, as well as, mild mitral stenosis and moderate mitral regurgitation, and mild secondary pulmonary hypertension. Most recent labs from yesterday include a CBC with WBC count of 7.4, hemoglobin 12.8, platelets 77,000. CMP: Sodium 131, potassium 4.2, chloride 99, serum bicarb 20, BUN 72, creatinine up to 1.86, glucose 102. Patient has sustained an acute kidney injury, likely cardiorenal. I am r ecommending this patient be transferred to the intensive care unit. Review of Systems ROS unobtainable: due to mental status Past Medical History Past Medical History: Atrial Fibrillation, Atrial Flutter, Heart Failure, COPD, Hyperlipidemia, Hypertension, Myocardial Infarction ([place]), Osteoarthritis (OA), Prostate Disorder, Skin Disorder, Sleep Apnea/CPAP/BIPAP Additional Past Medical History / Comment(s): EXTREME GAG REFLEX/VOMITS, vertigo in past, not using CPAP- unable to sleep on his back, SOB w/activity, lower leg/pedal edema, "rt groin area may have a clot", hx contact dermatitis, hyp oglycemic, enlarged prostate. Last Myocardial Infarction Date:: unknown History of Any Multi-Drug Resistant Organisms: None Reported Past Surgical History: Cardiac Valve Replacement, EPS, Heart Catheterization, Hernia Repair Additional Past Surgical History / Comment(s): Po, cardioversion, aortic valve replacement 2016 at [facility] [place], loop recorder, hernia repairs x3, cyst removed from back Past Anesthesia/Blood Transfusion Reactions: No Reported Reaction Additional Past Anesthesia/Blood Transfusion Reaction / Comment(s): VERY SENSITIVE GAG REFLEX/VOMITS. "TWILIGHT DOES NOT WORK FOR ME" PATIENT HAS BECOME COMBATIVE. Type of Cardiac Device: Loop Past Psychological History: No Psychological Hx Reported Additional Psychological History / Comment(s): Pt resides with [facility]. Uses a walker. Smoking Status: Former smoker Past Alcohol Use History: None Reported Additional Past Alcohol Use History / Comment(s): quit smoking 2015, smoked 57 yrs. 1-3ppd, quit drinking 1990. Past Drug Use History: None Reported - Past Family History Father Family Medical History: Cancer Additional Family Medical History / Comment(s): prostate Mother History Unknown: Yes Family Medical History: Dementia Brother(s) Family Medical History: Cancer Medications and Allergies Home Medications Medication Instructions Recorded Confirmed Type Rivaroxaban [Xarelto] 20 mg PO W/SUPPER 09/17/17 11/03/24 History Finasteride [Proscar] 5 mg PO DAILY 12/10/17 11/03/24 History Tamsulosin HCl [Flomax] 0.4 mg PO DAILY 02/20/18 11/03/24 History Spironolactone [Aldactone] 25 mg PO DAILY 04/01/20 11/03/24 History atenoloL [Tenormin] 37.5 mg PO DAILY 04/01/20 11/03/24 History lisinopriL [Zestril] 10 mg PO BID 04/01/20 11/03/24 History Furosemide [Lasix] 40 mg PO DAILY 03/22/21 11/03/24 History Ferrous Sulfate [Iron] 325 mg PO W/SUPPER 04/03/23 11/03/24 History Omeprazole 40 mg PO DAILY 04/03/23 11/03/24 History Dofetilide [Tikosyn] 125 mcg PO BID 11/03/24 11/03/24 History Rosuvastatin Calcium [Crestor] 40 mg PO DAILY 11/03/24 11/03/24 History Allergies Allergy/AdvReac Type Severity Reaction Status Date / Time onion AdvReac Indigestion Verified 11/03/24 13:00 Pepper AdvReac Indigestion Verified 11/03/24 13:00 tomato AdvReac Indigestion Verified 11/03/24 13:00 Physical Exam Vitals: Vital Signs Temp Pulse Resp BP Pulse Ox FiO2 11/07/24 05:55 123 H 22 80/54 11/07/24 05:49 50 11/07/24 05:25 122 H 22 85/51 98 11/07/24 04:00 97.3 F L 71 20 96/53 11/07/24 01:05 98 18 11/06/24 22:57 97.7 F 98 18 110/78 96 11/06/24 20:00 87 16 107/59 98 11/06/24 17:46 92 L 11/06/24 15:40 99 11/06/24 15:17 75 17 103/58 99 11/06/24 11:38 98.1 F 87 19 101/59 95 11/06/24 08:53 19 11/06/24 08:10 102 H 92/56 11/06/24 08:02 97.4 F L 106 H 19 92/57 95 Intake and Output 11/06/24 11/06/24 11/07/24 14:59 22:59 06:59 Intake Total 180 180 570 Output Total 300 Balance -120 180 570 Intake: Intake, IV Titration 450 Amount Lactated Ringers 1,000 ml 450 @ 50 mls/hr IV .Q20H [facility] Rx#:[id number] Oral 180 180 120 Output: Urine 300 Other: Voiding Method Urinal Urinal Diaper # Voids 3 Weight 118 kg GENERAL EXAM: 79-year-old male, obtunded and confused, upper extremity restraints, on 6 L/min nasal cannula, in respiratory distress with accessory muscle use HEAD: Normocephalic and atraumatic EYES: Normal reaction of pupils, equal size. NOSE: Clear with pink turbinates. THROAT: No erythema or exudates. NECK: No masses, no JVD. CHEST: No chest wall deformity. LUNGS: Equal air entry with bibasilar inspiratory crackles. CVS: S1 and S2 normal with systolic murmur, irregular rhythm. No other extra heart sounds ABDOMEN: No hepatosplenomegaly, active bowel sounds, no guarding or rigidity. SPINE: No scoliosis or deformity SKIN: No rashes CENTRAL NERVOUS SYSTEM: No focal deficits, moves all 4 extremities EXTREMITIES: There is no peripheral edema. Peripheral pulses are irregular and weak and thready Results - Laboratory Findings CBC and BMP: 11/07/24 07:36 11/07/24 07:36 ABG ABG pH 7.42 (7.35-7.45) 11/07/24 00:12 ABG pCO2 32 mmHg (35-45) L 11/07/24 00:12 ABG pO2 54 mmHg (83-108) L* 11/07/24 00:12 ABG O2 Saturation 88.3 % (94-97) L 11/07/24 00:12 PT/INR, D-dimer PT 12.1 sec (10.0-12.5) 11/03/24 12:52 INR 1.1 (<1.2) 11/03/24 12:52 Abnormal lab findings: Abnormal Labs 11/03/24 11/03/24 11/03/24 12:52 12:52 14:31 RBC 4.10 L Hgb 12.6 L Hct 38.1 L Plt Count 70 L Neutrophils # 8.7 H Neutrophils # (Manual) Lymphocytes # 0.3 L Lymphocytes # (Manual) Monocytes # (Manual) Metamyelocytes # (Man) ABG pCO2 ABG pO2 ABG O2 Saturation Hemoglobin Sodium 129 L Carbon Dioxide 15 L BUN 62 H Creatinine 1.99 H Glucose 134 H POC Glucose (mg/dL) 115 H Magnesium Total Bilirubin 2.3 H Troponin I Total Protein 5.5 L Albumin 3.0 L Triglycerides HDL Cholesterol 11/03/24 11/03/24 11/04/24 19:14 23:28 07:04 RBC Hgb Hct Plt Count Neutrophils # Neutrophils # (Manual) Lymphocytes # Lymphocytes # (Manual) Monocytes # (Manual) Metamyelocytes # (Man) ABG pCO2 ABG pO2 ABG O2 Saturation Hemoglobin Sodium 130 L Carbon Dioxide 18 L BUN 63 H Creatinine 1.57 H Glucose 121 H POC Glucose (mg/dL) Magnesium Total Bilirubin Troponin I 0.037 H* Total Protein Albumin Triglycerides 183.00 H HDL Cholesterol 12.00 L 11/04/24 11/04/24 11/04/24 07:04 07:04 07:04 RBC 3.75 L Hgb 11.8 L Hct 35.9 L Plt Count 72 L Neutrophils # Neutrophils # (Manual) Lymphocytes # Lymphocytes # (Manual) 0.49 L Monocytes # (Manual) Metamyelocytes # (Man) ABG pCO2 ABG pO2 ABG O2 Saturation Hemoglobin Sodium 131 L Carbon Dioxide 19 L BUN 58 H Creatinine 1.45 H Glucose 124 H POC Glucose (mg/dL) Magnesium 2.5 H Total Bilirubin Troponin I Total Protein Albumin Triglycerides HDL Cholesterol 11/05/24 11/05/24 11/06/24 07:48 07:48 06:18 RBC 3.80 L 4.06 L Hgb 11.7 L 12.8 L Hct 35.7 L 37.9 L Plt Count 80 L 77 L Neutrophils # Neutrophils # (Manual) 8.77 H Lymphocytes # 0.3 L Lymphocytes # (Manual) 0.31 L Monocytes # (Manual) 1.02 H Metamyelocytes # (Man) 0.20 H ABG pCO2 ABG pO2 ABG O2 Saturation Hemoglobin Sodium 129 L Carbon Dioxide BUN 56 H Creatinine Glucose POC Glucose (mg/dL) Magnesium Total Bilirubin Troponin I Total Protein Albumin Triglycerides HDL Cholesterol 11/06/24 11/07/24 06:18 00:12 RBC Hgb Hct Plt Count Neutrophils # Neutrophils # (Manual) Lymphocytes # Lymphocytes # (Manual) Monocytes # (Manual) Metamyelocytes # (Man) ABG pCO2 32 L ABG pO2 54 L* ABG O2 Saturation 88.3 L Hemoglobin 12.1 L Sodium 131 L Carbon Dioxide 20 L BUN 72 H Creatinine 1.86 H Glucose 102 H POC Glucose (mg/dL) Magnesium Total Bilirubin Troponin I Total Protein Albumin Triglycerides HDL Cholesterol - Diagnostic Findings Chest x-ray: image reviewed Assessment and Plan Assessment: Acute hypoxemic respiratory failure, patient was placed on BiPAP, secondary to acute exacerbation of systolic congestive heart failure Atrial fibrillation with rapid ventricular response Hypotension, likely to require vasopressors Severe nonischemic cardiomyopathy with an ejection fraction of 20 to 25% and a bioprosthetic aortic valve with a mean gradient of 21 mmHg and a moderate perivalvular leak, as well as, mild mitral stenosis and moderate mitral regurgitation, and mild secondary pulmonary hypertension. Valvular heart disease, with previous TAVR and perivalvular leak Acute kidney injury, suspect cardiorenal factors Thrombocytopenia Altered mental status, acute metabolic encephalopathy/hypoxia Reported recent influenza A infection History of hypertension History of hyperlipidemia Gastroesophageal reflux disease History of obstructive sleep apnea Chronic obstructive pulmonary disease History of BPH Obesity, with a BMI of 38.4 kg/m Plan: I am recommending this patient be transferred to the intensive care unit for management of his hypotension Patient will receive fluid bolus, however, may require vasopressors Repeat labs, including lactic acid Monitor intake and output Cardiology is consulted and following Patient was placed on BiPAP with settings 14/6 and FiO2 50% GI prophylaxis: Protonix Anticoagulated on Xarelto Overall prognosis is guarded secondary to above mentioned comorbidities; Patient is a DO NOT RESUSCITATE/DO NOT INTUBATE status We will continue to follow I have personally seen and examined the patient, performed the documentation and the assessment and plan as written. Number of minutes spent on the visit: This is a joint evaluation that was done along with the nurse practitioner. This evaluation was done and 63 minutes. Noted, the patient is 79 with previous history of valvular heart disease/aortic valve disease and the patient is undergone TAVR and the patient is known to have cardiomyopathy and chronic atrial fibrillation along with COPD and obstructive sleep apnea. The patient was hospitalized for a fall. The patient denies having any syncope. He apparently was dizzy and he was on the floor for around 10 to 15 minutes. He came into the emergency and the patient was found to be in A-fib RVR. The patient received cardioversion. Subsequently was admitted to the medical floor. This morning, patient's condition decompensated. He became progressively more short of breath and hypoxic and hypotensive. At the time of his arrival to the ICU, the patient was altered neurologically. Was unable to follow any commands and his breathing was severely labored. I reviewed the chest x-ray and it was consistent with pulmonary edema although it was worse on the right side and the possibility of a right lung pneumonia could not be completely excluded. Immediately, the patient was intubated and placed on mechanical ventilator. He was hypotensive. He also developed severe bradycardia with atrial fibrillation, and this was of a low rate in the mid 30s. The patient was started on pressors. Lines were established. The patient currently is intubated on mechanical ventilator. He is on norepinephrine running at 0.8 mcg/kg/min, dopamine at 10 mcg/min and vasopressin physiologic dose at 0.04 units. The patient was started on propofol at 30 mcg/kg/min. Normal saline at rate of 75 cc an hour. Started on IV Zosyn. He is currently on mechanical ventilator assist-control mode with rate of 26, tidal volume of 400, FiO2 of 100% and a PEEP of 5. Postintubation blood gas showed a pH of 7.29 with a pCO2 of 39 and pO2 of 77. Upon initiation of dopamine, there was some improvement in the heart rate and his current heart rate is up to 45. Discussed the case with cardiology and the patient is being considered for a pacemaker insertion, TVP. Family was updated. Postintubation chest x-ray shows bilateral pulmonary infilt rates, orotracheal tube was accordingly adjusted. A triple-lumen catheter was inserted in the left subclavian. Arterial line was established. Condition is extremely critical. The daughter was updated. Echocardiogram was also reviewed from 11/04/2024 and the patient has a new onset cardiomyopathy. His left ventricular ejection fraction is around 20 to 25% and the patient has severe global LV dysfunction. The bioprosthetic aortic valve had some moderate amount of perivalvular leak. As stated, condition is quite critical. Will collaborate care with cardiology and further recommendations are to follow. Time with Patient: Greater than 30
[2024-11-07 07:35] LABS: African American GFR (CKD) 32 (>60 ml/min/1.73 sqM); Anion Gap 11 mmol/L; Blood Urea Nitrogen 88 mg/dL (9-20); Calcium 8.3 mg/dL (8.4-10.2); Carbon Dioxide 17 mmol/L (22-30); Chloride 103 mmol/L (98-107); Glucose 97 mg/dL (74-99); Non-African American GFR(CKD) 28 (>60 ml/min/1.73 sqM); Sodium 131 mmol/L (137-145)
[2024-11-07 07:39] LABS: Potassium 4.5 mmol/L (3.5-5.1)
[2024-11-07] MEDS: NOREPINEPHRINE 4 MG in SODIUM CHLORIDE 0.9% 250 ML IV SCH (07:53)
[2024-11-07 08:00] LABS: Influenza A Not Detected (Not Detectd); Influenza B Not Detected (Not Detectd); RSV Not Detected (Not Detectd)
[2024-11-07 08:07] LABS: African American GFR (CKD) 33 (>60 ml/min/1.73 sqM); Anion Gap 11 mmol/L; Blood Urea Nitrogen 89 mg/dL (9-20); Calcium 8.4 mg/dL (8.4-10.2); Carbon Dioxide 18 mmol/L (22-30); Chloride 103 mmol/L (98-107); Glucose 95 mg/dL (74-99); Magnesium 2.6 mg/dL (1.6-2.3); Non-African American GFR(CKD) 29 (>60 ml/min/1.73 sqM); Potassium 4.1 mmol/L (3.5-5.1); Sodium 132 mmol/L (137-145)
[2024-11-07 08:08] LABS: HCT 38.5 % (39.0-53.0); HGB 12.7 gm/dL (13.0-17.5); Hypochromasia Slight; MCH 31.2 pg (25.0-35.0); MCV 94.6 fL (80.0-100.0); Mean Platelet Volume 11.4; RBC 4.07 m/uL (4.30-5.90); RDW 14.5 % (11.5-15.5); WBC 7.5 k/uL (3.8-10.6)
[2024-11-07 08:09] LABS: Band Neutrophils % 3 %; Eosinophils # (M) 0.07 k/uL (0-0.7); Lymphocytes # (M) 0.35 k/uL (1.0-4.8); Metamyelocytes # (M) 0.07 k/uL (0); Metamyelocytes % 1 %; Monocytes # (M) 0.41 k/uL (0-1.0); Myelocytes # (M) 0.07 k/uL (0); Myelocytes % 1 %; Neutrophils % (M) 84 %; Nucleated Red Blood Cells 0 /100 WBC (0-0); Total Cells Counted 200
[2024-11-07 08:10] LABS: Crenated RBC Present; Poikilocytosis (M) Present
[2024-11-07 08:11] LABS: Toxic Granulation Present; Toxic Vacuolation Present
[2024-11-07 08:12] LABS: Platelet Count 59 k/uL (150-450)
[2024-11-07] MEDS ORDERED: lisinopriL 10 MG TAB PO SCH (09:00)
[2024-11-07] MEDS: DOPamine DRIP 800 MG in DEXTROSE/WATER 1 250ML.BAG IV SCH (09:55)
[2024-11-07 10:03] LABS: ABG Base Excess -7.2 mmol/L; ABG HCO3 19 mmol/L (21-25); ABG Oxygen Saturation 93.9 % (94-97); ABG PCO2 39 mmHg (35-45); ABG PH 7.29 (7.35-7.45); ABG PO2 77 mmHg (83-108); ABG TCO2 20 mmol/L (19-24)
[2024-11-07 10:18] LABS: Allen Test Performed? no
[2024-11-07] MEDS: SODIUM CHLORIDE 0.9% 1,000 ML IV SCH (10:42)
[2024-11-07] MEDS: VASOPRESSIN 60 UNIT in SODIUM CHLORIDE 0.9% 150 ML IV SCH (10:42)
--- NOTE | 2024-11-07 10:52 | XR ---
EXAMINATION TYPE: XR chest 1V portable DATE OF EXAM: 11/07/2024 9:54 AM COMPARISON: None. CLINICAL INDICATION: Male, 79 years old with history of Tube placement, TECHNIQUE: XR chest 1V portable view(s) obtained. FINDINGS: The heart size is enlarged. Cardiac valve surgery is evident. The pulmonary vasculature is mildly prominent. Scattered mild increased lung markings are present. Correlate for pulmonary edema. Findings may be im proving from comparison Endotracheal tube tip is 1.1 cm above the fredo and can be pulled back. Left central venous catheter tip is in the superior vena cava region. IMPRESSION: 1. Low-lying endotracheal tube, tip 1.1 cm above the fredo. This can be pulled back. 2. Mild prominence of the pulmonary vascular markings. Correlate for volume overload [facility], , 11/07/2024 10:50 AM
[2024-11-07 10:59] LABS: Band Neutrophils % 4 %; Eosinophils # (M) 0.08 k/uL (0-0.7); Lymphocytes # (M) 0.15 k/uL (1.0-4.8); Metamyelocytes # (M) 0.15 k/uL (0); Metamyelocytes % 2 %; Monocytes # (M) 0.53 k/uL (0-1.0); Myelocytes # (M) 0.08 k/uL (0); Myelocytes % 1 %; Neutrophils % (M) 85 %; Nucleated Red Blood Cells 0 /100 WBC (0-0); Total Cells Counted 200
[2024-11-07 11:01] LABS: Crenated RBC Present; Poikilocytosis (M) Present; Toxic Granulation Present; Toxic Vacuolation Present
--- NOTE | 2024-11-07 11:02 | XR ---
EXAMINATION TYPE: XR chest 1V confirm line [facility] DATE OF EXAM: 11/07/2024 10:56 AM COMPARISON: None. CLINICAL INDICATION: Male, 79 years old with history of difficulty breathing, lines placed TECHNIQUE: XR chest 1V confirm line plcoh view(s) obtained. FINDINGS: The heart size is enlarged. The pulmonary vasculature is normal. Retrocardiac infiltrate may be present. Cardiac valve surgery is evident. Endotracheal tube tip is 8.3 cm above the fredo. Nasogastric tube transverses the thorax. Left central venous catheter is present with the tip in the region of the superior vena cava. No pneu mothorax is evident. IMPRESSION: 1. Cardiomegaly with possible retrocardiac infiltrate. 2. Lines and catheters discussed above. [facility], , 11/07/2024 10:59 AM
--- NOTE | 2024-11-07 11:03 | XR ---
EXAMINATION TYPE: XR chest 1V portable DATE OF EXAM: 11/07/2024 10:53 AM COMPARISON: None. CLINICAL INDICATION: Male, 79 years old with history of OGT placement, TECHNIQUE: XR chest 1V portable view(s) obtained. FINDINGS: The heart size is enlarged. The pulmonary vasculature is normal. Retrocardiac opacity present. A right infrahilar infiltrate is present Endotracheal tube tip is 8.5 cm above the fredo. Nasogastric tube transverses the thorax. Left centr al venous catheter tip in the superior vena cava region. IMPRESSION: 1. Bibasilar infiltrates greater on the left. 2. Multiple lines and catheters discussed above [facility], , 11/07/2024 11:01 AM
--- NOTE | 2024-11-07 11:05 | XR ---
EXAMINATION TYPE: XR chest 1V DATE OF EXAM: 11/07/2024 10:57 AM COMPARISON: 11/07/2024 CLINICAL INDICATION: Male, 79 years old with history of ET TUBE READJUSTMENT #2, TECHNIQUE: XR chest 1V view(s) obtained. FINDINGS: The heart size is enlarged. The pulmonary vasculature is normal. Bibasilar infiltrates are stable Endotracheal tube tip is 8.5 cm above the fredo. Nasogastric tube is poorly visualized on this exam. Left central venous catheter tip is in the superior vena cava region IMPRESSION: 1. Bibasilar infiltrates, stable. 2. Lines and catheters discussed above [facility], , 11/07/2024 11:03 AM
--- NOTE | 2024-11-07 11:06 | XR ---
EXAMINATION TYPE: XR chest 1V portable DATE OF EXAM: 11/07/2024 10:59 AM COMPARISON: Earlier exams CLINICAL INDICATION: Male, 79 years old with history of ET TUBE READJUSTMENT #3, TECHNIQUE: XR chest 1V portable view(s) obtained. FINDINGS: The heart size is enlarged. The pulmonary vasculature is normal. Bibasilar infiltrates are stable Endotracheal tube tip is 5.4 cm above the fredo. Nasogastric tube tip is within the left upper quadrant of the abdomen. Left central venous catheter i s present with tip in the superior vena cava region IMPRESSION: 1. Bibasilar infiltrates, stable. 2. Lines and catheters discussed above. [facility], , 11/07/2024 11:04 AM
[2024-11-07] MEDS: NOREPINEPHRINE 8 MG in SODIUM CHLORIDE 0.9% 250 ML IV SCH (11:15)
[2024-11-07 11:16] LABS: Amorphous Sediment,Urine Few /hpf; Appearance,Urine Cloudy (Clear); Bacteria,Urine Rare /hpf; Bilirubin,Urine 1+ (Negative); Blood,Urine Trace (Negative); Color,Urine Dark Brown; Glucose,Urine (UA) Negative (Negative); Granular Casts,Urine 3 /lpf (0); Hyaline Casts,Urine 2 /lpf (0-2); Ketones,Urine Negative (Negative); Leukocyte Esterase,Urine Negative (Negative); Mucus,Urine Rare /hpf; Nitrite,Urine Negative (Negative); Protein,Urine 1+ (Negative); RBC,Urine 3 /hpf (0-5); Specific Gravity,Urine 1.026 (1.001-1.035); Squamous Epithelial Cell,Urine <1 /hpf (0-4); WBC,Urine 11 /hpf (0-5)
--- NOTE | 2024-11-07 11:37 | P.PCN ---
Date of Procedure: 11/07/24 Operative Findings: Intubation Indication: Respiratory compromise. A time-out was completed verifying correct patient, procedure, site, positioning, and implant(s) or special equipment if applicable. The patient was positioned appropriately and a # 8 endotracheal tube was placed under direct direct GlideScope inspection. The tube was anchored at 22 cm at the teeth. Correct placement was confirmed by presence of bilateral breath sounds without air sounds in the abdomen on auscultation. An end-tidal CO2 monitor was also used to confirm tracheal placement of the ET tube. A chest x-ray was ordered to assess for pneumothorax and verify endotracheal tube placement. The patient tolerated the procedure well and there were no complications. Arterial line insertion Indication: Hemodynamic monitoring. A time-out was completed verifying correct patient, procedure, site, positioning, and implant(s) or special equipment if applicable. The patients right groin was prepped and draped in sterile fashion. 1% Lidocaine was used to anesthetize the area. An 18G Arrow arterial line was i ntroduced into the right femoral artery. The catheter was threaded over the guide wire and the needle was removed with appropriate pulsatile blood return. Blood loss was minimal. The catheter was then sutured in place to the skin and a sterile dressing applied. Perfusion to the extremity distal to the point of catheter insertion was checked and found to be adequate. The patient tolerated the procedure well and there were no complications. Central line insertion Indication: Hemodynamic monitoring/Intravenous access. A time-out was completed verifying correct patient, procedure, site, positioning, and implant(s) or special equipment if applicable. The patient was placed in a dependent position appropriate for triple lumen catheter placement based on the vein to be cannulated. The patient's left subclavian area was prepped and draped in sterile fashion. 1% Lidocaine was used to anesthetize the surrounding skin area. A triple lumen 9F Cordis catheter was introduced into the subclavian vein using Seldinger technique. The catheter was threaded smoothly over the guide wire and appropriate blood return was obtained. Each lumen of the catheter was evacuated of air and flushed with sterile saline. The catheter was then sutured in
[2024-11-07] MEDS: PIPERACILLIN-TAZOBACTAM 3.375 GM in SODIUM CHLORIDE 0.9% 100 ML IVPB SCH (11:54)
--- NOTE | 2024-11-07 12:53 | P.PN ---
Subjective Progress Note Date: 11/07/24 79-year-old male with PMH of HFrEF (most recent echocardiogram 11/04/2024 showed EF 20-25%), atrial fibrillation with RVR maintained on Xarelto, history of aortic stenosis s/p TAVR, and a history of left bundle branch block and prolonged QT. Presented to the emergency department after an episode where he s lowly fell to the floor in his living room. He states that he began to feel as though he might pass out, and was able to bring himself to the floor with only minor rug palomo on his feet. He was seen at bedside accompanied by his daughter Edel, he notes that at that time he became significantly short of breath, however denies any chest pain, palpitations or diaphoresis at that time. Upon arrival to the emergency department he notes having an anginal episode, and underwent cardioversion with 200 J of electricity due to his continued A-fib with significant tachycardia. He currently feels significantly better than he did earlier today. 11/04/24 - Patient seen and examined at bedside, remaining in the ED. No acute events overnight. Denies any chest pain and no associated shortness of breath. However, due to his chronic back pain and the beds in the emergency department remains in significant pain secondary to that. He has no acute complaints at this time. This morning he has been maintaining sinus rhythm with a heart rate in the 80s. 11/05/24 - Patient seen and examined at bedside, now on the third floor cardiac stepdown. No acute events overnight. He denies any chest pain and has no associated shortness of breath. Echocardiogram showed EF 20-25%. He does note however having worsening pains in his back which are eased somewhat with the use of Voltaren gel. He has no other acute complaints at this time. 11/06/24 - Patient seen and examined at bedside this morning. No acute events noted overnight. He denies any chest pain has no associated shortness of breath. Patient's home atenolol was discontinued and he was started on metoprolol 50 mg daily per cardiology recommendation. Yesterday patient was found to be back in atrial fibrillation, we will recheck EKG this morning (currently pending at time of dictation), patient remains in A-fib Tikosyn will be discontinued. His creatinine today increased to 1.86, had previously responded to IV fluids with his ANNEL on arrival. Chest x-ray ordered, currently pending, if no signs of pulmonary edema will consider starting LR 50 cc/h for day and monitor for improvement. He does note continued to have significant back pain with movement, which is nothing new for him however has been exacerbated at points while in the hospital using the hospital bed. 11/07/24 - Patient seen and examined at bedside this morning, now in the ICU room 258. Overnight he became more confused and attended, he began having worsening hypotension as well as increased difficulty in breathing. He was noted to have a blood pressure of 80/54, with heart rate of 123, utilizing 6 L nasal cannula. ABG done while he was on 2 L nasal cannula showed pH 7.42, pCO2 32, pO2 54. Follow-up chest x-ray at that time was rotated exam noting cardiomegaly with pulmonary vascular congestion being noted. He continues to be in A-fib with RVR, the rate of 120s, continuing to be anticoagulated with Xarelto. Now in ICU, he is receiving Levophed at 0.83 mcg/kg/min, vasopressin 0.04 units/min, dopamine 10 mcg/kg/min. He is sedated with propofol at 45 mcg/min, and intubated in the setting of assist-control tidal volume 400, respiratory rate 2 6, FiO2 80% and a PEEP of 10. REVIEW OF SYSTEMS: Pertinent positives and negatives noted in HPI. Physical Exam: General: nontoxic, no distress, appears at stated age Derm: warm, dry, intact; minor rug palomo on his first and second toes bilateral feet Head: atraumatic, normocephalic, symmetric Eyes: EOMI, anicteric sclera Mouth: no lip lesion, mucus membranes moist Cardiovascular: S1, S2 reg, no murmur, rubs, or gallops Lungs: CTA bilateral, no rales, no accessory muscle use Abdominal: soft, non-tender to palpataion, no appreciable organomegaly Extremities: no gross muscle atrophy, no edema, no contractures Neuro: Alert, Oriented, CNII-XII grossly intact, gait normal Psych: well appearing, appropriate affect Data Received Today: Labs: WBC 7.5, hemoglobin 12.7, hematocrit 38.5, platelet 59; sodium 132, potassium 4.1, bicarb 18, BUN 89, creatinine 2.15, calcium 8.4, magnesium 2.6, lactic acid 1.7 Imagining: -EKG this morning independently interpreted showed a rate of 88, atrial fibrillation with PVCs noted along with left bundle branch block similar to previously seen -Chest x-ray pending Assessment and plan 79-year-old male with PMH of HFrEF (most recent echocardiogram 11/04/2024 showed EF 20-25%), atrial fibrillation with RVR maintained on Xarelto, history of aortic stenosis s/p TAVR, and a history of left bundle branch block and prolonged QT. Presented to the emergency department after an episode where he slowly fell to the floor in his living room. #A-fib with RVR -Amiodarone drip discontinued, resume home dofetilide 125 mcg twice daily; if patient remains in A-fib on EKG this morning (11/06/2024) we will discontinue dofetilide -Resumed Xarelto 20 mg daily -Initiated on metoprolol 50 mg daily per cardiology for mentation -Echocardiogram (11/04/2024) read reviewed, showed EF 20-25%, with bioprosthetic aortic valve showed moderate perivalvular leak, mild mitral stenosis and moderate mitral regurgitation with mild pulmonary hypertension -Repeat EKG (11/06/2024) read and reviewed showed him still in atrial fibrilla tion -Cardiology note reviewed, recommendations as above -Oxygen supplementation as needed, currently on 2 L, wean as able -Cardiac monitoring -Fall precaution #Severe nonischemic cardiomyopathy #HFrEF (most recent echocardiogram 11/04/24 showed EF 20-25%), not in exacerbation -Echocardiogram read reviewed, showed EF 20-25%, with bioprosthetic aortic valve showed moderate perivalvular leak, mild mitral stenosis and moderate mitral regurgitation with mild pulmonary hypertension -Hold home Lasix -Resume home lisinopril and Aldactone -Monitor I's and O's #Likely cardiogenic shock #Acute kidney injury, likely cardiorenal #Urinary retention #Hypovolemic hyponatremia #Altered mental status, acute metabolic encephalopathy/hypoxia #Acute hypoxic respiratory failure #Possible UTI -Received fluid bolus -UA showed 1+ protein, trace blood, 1+ bilirubin and was a dark brown and cloudy in appearance; cultures sent and pending -Start empirically on Zosyn -Monitor I's and O's -Receiving Levophed 0.83 mcg/kg/min, vasopressin 0.04 units/min, dopamine 10 mcg/kg/min -Now in the ICU intubated mechanically ventilated on assist-control volume 400, respiratory rate 26, FiO2 80% and PEEP of 10 -Singh catheter placed with 250 cc voided on placement, no urine production since that time #Weakness/debility -PT/OT consulted #Thrombocytopenia -Continue monitor CBC #Chronic back pain -Ordered Voltaren gel 2 g 4 times daily -Tylenol 650 every 6 hours as needed available Chronic: #History of aortic stenosis s/p TAVR #BPH #GERD #Dyslipidemia #Hypertension DVT ppx: Xarelto 20 mg daily GI PPx: Omeprazole 40 mg daily Code status: Full code F: None E: Replete as needed N: Heart healthy diet A: Ambulatory Anticipated discharge place: Pending clinical course Anticipated discharge time: Pending clinical course Dictation was produced using [email or web address] dictation software. please excuse any grammatical, word or spelling errors. I have seen and evaluated the patient today. Discussed with the resident and agree with the residents subjective as documented in the resident's note. Assessment and Plan discussed as below: Patient was seen and examined. Intubated. Discussed with RN. Transferred to ICU this morning for concerns of hypotension and need for BiPAP. Apparently went bradycardic while Singh was being inserted which required Atropine and subsequently intubated. Currently on Propofol at 50 mcg/kg/min. Other drips include NS at 75 cc/hr, Levophed at 0.83 mcg/kg/min, Dopamine at 10 mcg/kg/min. Urine looking grossly infected this morning, UA neg LE or nitrite. UCx/BCx sent and started on Zosyn 3.75 g IV TID. CBC and CMP significant for RBC 4.07, Hg 12.7, Hct 38.5, Plt 59, bicarb 18, Na 132, BUN 89, Cr 2.15. Mag 2.6. ABG pH 7.29, pCO2 39, pO2 77 on FiO2 100. Lactic acid 1.7. General: Intubated Derm: warm, dry Head: atraumatic, normocephalic, symmetric Eyes: no lid lag, anicteric sclera Mouth: no lip lesion, mucus membranes moist Cardiovascular: S1S2 chelo, no murmur Lungs: Coarse breath sounds bilaterally, no rhonchi, no rales , no accessory mus young use Ext: no gross muscle atrophy, no edema, no contractures Neuro: Intubated Psych: Intubated Shock, likely cardiogenic versus septic: Continue NS at 75 cc/hr. Continue Levophed at 0.83 mcg/kg/min, Dopamine at 10 mcg/kg/min, Vasopressin at 0.04 units/min to maintain MAP > 65. Repeat Echo ordered. Continue Zosyn 3.75 g IV TID. Follow UCx, BCx, Sputum Cx, Legionella Ag, Procal. Lactic acid 1.7. AFib with SVR: Concerns for complete AV block per Cardiology. Consideration for TVP if bradycardia does not improve. Continue Dopamine as above. Xarelto 20 mg PO QD for AC. Avoid AV nilam blockers. Cardiology on board. Acute hypoxic respiratory failure likely due to above: Ventilator management per Pulmonary. Acute kidney injury on CKD with metabolic acidosis: Likely prerenal and cardiorenal component. Status post singh. Renal US no hydro. Continue IV hydration as above. Monitor urine output. Avoid nephrotoxins. Daily BMP. Acute metabolic encephalopathy likely due to above: CT brain 11/06 remote lacunar infarct caudate nucleus. HFrEF: Holding ACEi, beta thad due to hypotension and bradycardia. Echo 11/04 EF 20-25% with bioprosthetic AV and moderate perivalvular leak. Repeat Echo pend ing. Cardiology on board. Thrombocytopenia: Unknown etiology. No obvious signs of bleeding. Monitor. Normocytic anemia: Unknown etiology. Likely component of AOCD. Objective - Vital Signs Vital signs: Vital Signs Temp 97.3 F L 11/07/24 04:00 Pulse 123 H 11/07/24 05:55 Resp 22 11/07/24 05:55 BP 80/54 11/07/24 05:55 Pulse Ox 98 11/07/24 05:25 FiO2 50 11/07/24 08:17 Intake & Output 11/06/24 11/07/24 11/07/24 18:59 06:59 18:59 Intake Total 360 570 16.409 Output Total 300 Balance 60 570 16.409 Weight 118 kg Intake: Intake, IV Titration 450 16.409 Amount Lactated Ringers 1,000 ml 450 @ 50 mls/hr IV .Q20H [facility] Rx#:[id number] Norepinephrine 4 mg In 16.409 Sodium Chloride 0.9% 250 ml @ 0.03 MCG/KG/MIN 13. 487 mls/hr IV .[id number] [facility] Rx#:[id number] Oral 360 120 Output: Urine 300 Other: Voiding Method Urinal Diaper # Voids 3 - Labs CBC & Chem 7: 11/07/24 07:36 11/07/24 07:36 Labs: Abnormal Lab Results - Last 24 Hours (Table) 11/07/24 11/07/24 11/07/24 Range/Units 00:12 06:54 06:54 RBC 4.16 L (4.30-5.90) m/uL Hgb 12.8 L (13.0-17.5) gm/dL Hct (39.0-53.0) % Plt Count 56 L (150-450) k/uL Lymphocytes # (Manual) 0.35 L (1.0-4.8) k/uL Metamyelocytes # (Man) 0.07 H (0) k/uL Myelocytes # (Manual) 0.07 H (0) k/uL ABG pCO2 32 L (35-45) mmHg ABG pO2 54 L* (83-108) mmHg ABG O2 Saturation 88.3 L (94-97) % Hemoglobin 12.1 L (13.0-17.5) gm/dL Sodium 131 L (137-145) mmol/L Carbon Dioxide 17 L (22-30) mmol/L BUN 88 H (9-20) mg/dL Creatinine 2.19 H (0.66-1.25) mg/dL Calcium 8.3 L (8.4-10.2) mg/dL Magnesium (1.6-2.3) mg/dL 11/07/24 11/07/24 Range/Units 07:36 07:36 RBC 4.07 L (4.30-5.90) m/uL Hgb 12.7 L (13.0-17.5) gm/dL Hct 38.5 L (39.0-53.0) % Plt Count 59 L (150-450) k/uL Lymphocytes # (Manual) (1.0-4.8) k/uL Metamyelocytes # (Man) (0) k/uL Myelocytes # (Manual) (0) k/uL ABG pCO2 (35-45) mmHg ABG pO2 (83-108) mmHg ABG O2 Saturation (94-97) % Hemoglobin (13.0-17.5) gm/dL Sodium 132 L (137-145) mmol/L Carbon Dioxide 18 L (22-30) mmol/L BUN 89 H (9-20) mg/dL Creatinine 2.15 H (0.66-1.25) mg/dL Calcium (8.4-10.2) mg/dL Magnesium 2.6 H (1.6-2.3) mg/dL
--- NOTE | 2024-11-07 13:31 | P.PN ---
Subjective Progress Note Date: 11/07/24 PROGRESS NOTE The patient is a 79-year-old male, status post TAVR with at least moderate perivalvular regurgitation, history of atrial fibrillation status post ablation who presented after a fall and with atrial fibrillation and rapid ventricular response, hypotensive. He underwent cardioversion in the emergency room with taoism of sinus mechanism. He subsequently went back in atrial fibrillation and persistent atrial fibrillation with relatively controlled ventricular response. He had influenza A last week. Yesterday he became more obtunded, hypoxemic and was transferred to the ICU in the morning on BiPAP. Later on during the morning he became more hypotensive, bradycardic requiring mechanical ventilation. He is intubated and sedated. He is in atrial fibrillation with junctional rate in the 40s. He is on vasopressors. There is no evidence of ventricular ectopic activity. During this admission his echocardiogram showed an impairment in the systolic function which is new compared to the last echocardiogram performed in 2022. Medications: Aspirin, atorvastatin 80 mg daily, norepinephrine, dopamine, Zosyn, Xarelto 20 mg daily PHYSICAL EXAMINATION: Blood pressure 146/30 heart rate 40, intubated and sedated LUNGS: Clear to auscultation HEART: Irregular rate and rhythm, S1, S2. No S3. Systolic ejection murmur ABDOMEN: Soft, obese , no organomegaly EXTREMETIES: No edema LAB: Hemoglobin 12.7, WBC 7.5. pH 7.29, pCO2 39, pO2 77. BUN 89, creatinine 2.25. Magnesium 2.6. IMPRESSION: 1. Acute respiratory failure, etiology unclear no clear evidence to suggest an infectious process 2. Atrial fibrillation, now with complete AV block and junctional rhythm 3. Acute renal injury 4. Status post TAVR with moderate aortic perivalvular regurgitation 5. Cardiomyopathy, worsened since February 2023 PLAN: 1. Continue supportive care 2. If persistent bradycardia consider temporary pacemaker 3. Follow renal functions closely 4. Depending on his progress further recommendations will be made, prognosis is guarded. Case discussed with the family. Objective - Vital Signs Vital signs: Vital Signs Temp 96.5 F L 11/07/24 12:00 Pulse 39 L 11/07/24 12:00 Resp 31 H 11/07/24 12:00 BP 99/49 11/07/24 10:40 Pulse Ox 99 11/07/24 12:00 FiO2 80 11/07/24 12:00 Intake & Output 11/06/24 11/07/24 11/07/24 18:59 06:59 18:59 Intake Total 449 653 7447.412 Output Total 300 250 Balance 60 570 986.412 Weight 118 kg Intake: IV 375 Piperacillin-Tazobactam 3 100 .375 gm In Sodium Chloride 0.9% 100 ml @ 25 mls/hr IVPB Q8H [facility] Rx#: [id number] Sodium Chloride 0.9% 1, 275 000 ml @ 75 mls/hr IV . [id number] [facility] Rx#:[id number] Intake, IV Titration 450 861.412 Amount DOPamine DRIP 800 mg In 44.619 Dextrose/Water 1 250ml. bag @ 1 MCG/KG/MIN 2.213 mls/hr IV .Q24H [facility] Rx#: [id number] Lactated Ringers 1,000 ml 450 @ 50 mls/hr IV .Q20H [facility] Rx#:[id number] Norepinephrine 4 mg In 540.082 Sodium Chloride 0.9% 250 ml @ 0.03 MCG/KG/MIN 13. 487 mls/hr IV .[id number] [facility] Rx#:[id number] Norepinephrine 8 mg In 202.148 Sodium Chloride 0.9% 250 ml @ 0.8 MCG/KG/MIN 182. 664 mls/hr IV .Q1H25M [facility] Rx#:[id number] Vasopressin 60 unit In 7.421 Sodium Chloride 0.9% 150 ml @ 0.03 UNITS/MIN 4.59 mls/hr IV .Q24H [facility] Rx#: [id number] propofoL 1,000 mg In 67.142 Empty Bag 1 bag @ 15 MCG/ KG/MIN 10.62 mls/hr IV . [id number] [facility] Rx#:[id number] Oral 360 120 Output: Urine 300 250 Other: Voiding Method Urinal Diaper # Voids 3 0 ABP, PAP, CO, CI - Last Documented Arterial Blood Pressure 146/33 - Labs CBC & Chem 7: 11/07/24 07:36 11/07/24 07:36 Labs: Abnormal Lab Results - Last 24 Hours (Table) 11/07/24 11/07/24 11/07/24 Range/Units 00:12 06:54 06:54 RBC 4.16 L (4.30-5.90) m/uL Hgb 12.8 L (13.0-17.5) gm/dL Hct (39.0-53.0) % Plt Count 56 L (150-450) k/uL Lymphocytes # (Manual) 0.35 L (1.0-4.8) k/uL Metamyelocytes # (Man) 0.07 H (0) k/uL Myelocytes # (Manual) 0.07 H (0) k/uL ABG pH (7.35-7.45) ABG pCO2 32 L (35-45) mmHg ABG pO2 54 L* (83-108) mmHg ABG HCO3 (21-25) mmol/L ABG O2 Saturation 88.3 L (94-97) % Hemoglobin 12.1 L (13.0-17.5) gm/dL Sodium 131 L (137-145) mmol/L Carbon Dioxide 17 L (22-30) mmol/L BUN 88 H (9-20) mg/dL Creatinine 2.19 H (0.66-1.25) mg/dL Calcium 8.3 L (8.4-10.2) mg/dL Magnesium (1.6-2.3) mg/dL Urine Protein (Negative) Urine Blood (Negative) Urine Bilirubin (Negative) Urine WBC (0-5) /hpf Amorphous Sediment (None) /hpf Urine Bacteria (None) /hpf Urine Mucus (None) /hpf 11/07/24 11/07/24 11/07/24 Range/Units 07:36 07:36 10:01 RBC 4.07 L (4.30-5.90) m/uL Hgb 12.7 L (13.0-17.5) gm/dL Hct 38.5 L (39.0-53.0) % Plt Count 59 L (150-450) k/uL Lymphocytes # (Manual) 0.15 L (1.0-4.8) k/uL Metamyelocytes # (Man) 0.15 H (0) k/uL Myelocytes # (Manual) 0.08 H (0) k/uL ABG pH 7.29 L (7.35-7.45) ABG pCO2 (35-45) mmHg ABG pO2 77 L (83-108) mmHg ABG HCO3 19 L (21-25) mmol/L ABG O2 Saturation 93.9 L (94-97) % Hemoglobin 12.6 L (13.0-17.5) gm/dL Sodium 132 L (137-145) mmol/L Carbon Dioxide 18 L (22-30) mmol/L BUN 89 H (9-20) mg/dL Creatinine 2.15 H (0.66-1.25) mg/dL Calcium (8.4-10.2) mg/dL Magnesium 2.6 H (1.6-2.3) mg/dL Urine Protein (Negative) Urine Blood (Negative) Urine Bilirubin (Negative) Urine WBC (0-5) /hpf Amorphous Sediment (None) /hpf Urine Bacteria (None) /hpf Urine Mucus (None) /hpf 11/07/24 Range/Units 10:39 RBC (4.30-5.90) m/uL Hgb (13.0-17.5) gm/dL Hct (39.0-53.0) % Plt Count (150-450) k/uL Lymphocytes # (Manual) (1.0-4.8) k/uL Metamyelocytes # (Man) (0) k/uL Myelocytes # (Manual) (0) k/uL ABG pH (7.35-7.45) ABG pCO2 (35-45) mmHg ABG pO2 (83-108) mmHg ABG HCO3 (21-25) mmol/L ABG O2 Saturation (94-97) % Hemoglobin (13.0-17.5) gm/dL Sodium (137-145) mmol/L Carbon Dioxide (22-30) mmol/L BUN (9-20) mg/dL Creatinine (0.66-1.25) mg/dL Calcium (8.4-10.2) mg/dL Magnesium (1.6-2.3) mg/dL Urine Protein 1+ H (Negative) Urine Blood Trace H (Negative) Urine Bilirubin 1+ H (Negative) Urine WBC 11 H (0-5) /hpf Amorphous Sediment Few H (None) /hpf Urine Bacteria Rare H (None) /hpf Urine Mucus Rare H (None) /hpf
[2024-11-07] MEDS: SODIUM CHLORIDE 0.9% 2,000 ML IV ONE ×2 (18:07→21:30)
[2024-11-07 18:16] VITALS: BP 117/32
[2024-11-07 18:32] LABS: Glucose,Whole Blood 150 mg/dL (70-110)
[2024-11-07] MEDS: NOREPINEPHRINE 32 MG in SODIUM CHLORIDE 0.9% 218 ML IV SCH (20:20)
--- NOTE | 2024-11-07 20:41 | CA ---
Transthoracic Echo Report Name: Cayetano Lemus Age: 79 Gender: M : 1945 Exam Date: 11/07/2024 16:10 Exam Location: [facility] Ht (in): 69 Wt (lb): 260 Ordering Physician: Tegan Waldron MD Attending/Referring Phys: Steel Pickler Grace Joshi RDCS Procedure CPT: Indications: assess LV function compare to last exam Cardiac Hx: Prior echo 11/03 20-25% EF, mean gradient 21mmHg aortic valve, mild PHTN, mild to moderate perivalvular leak. Coded at 9am 11/07, patient intubated. Technical Quality: Technically difficult study Contrast 1: Definity Total Dose (mL): 6 Contrast 2: Total Dose (mL): MEASUREMENTS (Male / Female) Normal Values 2D ECHO LV Diastolic Diameter PLAX 7.1 cm 4.2 - 5.9 / 3.9 - 5.3 cm LV Systolic Diameter PLAX 5.7 cm IVS Diastolic Thickness 0.7 cm 0.6 - 1.0 / 0.6 - 0.9 cm LVPW Diastolic Thickness 0.8 cm 0.6 - 1.0 / 0.6 - 0.9 cm LV Relative Wall Thickness 0.2 LV Diastolic Volume MOD BP 286.7 cm??? 67 - 155 / 56 - 104 cm??? LV Systolic Volume MOD BP 137.6 cm??? 22 - 58 / 19 - 49 cm??? LV Ejection Fraction MOD BP 52.0 % >= 55 % LV Cardiac Index MOD BP 2559.9 cm???/min???m??? LV Diastolic Volume MOD 4C 274.7 cm??? LV Systolic Volume MOD 4C 152.6 cm??? LV Ejection Fraction MOD 4C 44.5 % LV Cardiac Index MOD 4C 2097.2 cm???/min???m??? LV Diastolic Length 4C 10.2 cm LV Systolic Length 4C 8.8 cm LV Diastolic Volume MOD 2C 293.0 cm??? LV Systolic Volume MOD 2C 124.3 cm??? LV Ejection Fraction MOD 2C 57.6 % LV Cardiac Index MOD 2C 2896.5 cm???/min???m??? LV Diastolic Length 2C 10.5 cm LV Systolic Length 2C 8.8 cm DOPPLER AV Peak Velocity 513.1 cm/s AV Peak Gradient 105.3 mmHg AV Mean Velocity 383.2 cm/s AV Mean Gradient 64.5 mmHg AV Velocity Time Integral 91.1 cm AI Peak Velocity 393.5 cm/s AI Peak Gradient 62.0 mmHg AI Pressure Half Time 786.7 ms TR Peak Velocity 281.3 cm/s TR Peak Gradient 31.7 mmHg Right Ventricular Systolic Press 51.7 mmHg FINDINGS Left Ventricle Left ventricular ejection fraction is estimated at 25-30 % by visual. Severely increased left ventricular diastolic diameter. Severely increased left ventricular diastolic volume. Severely increased left ventricular systolic volume. Severely reduced global left ventricular systolic function. Septal bounce. Right Ventricle Right ventricular dilatation. Normal right ventricular global systolic function. Moderate to severe pulmonary hypertension. Right Atrium Left Atrium Mitral Valve Mitral valve thickened. Trace mitral regurgitation. Aortic Valve Bioprosthetic aortic valve with stenosis with a peak velocity of 5.1 m/s, peak gradient 105 mmHg, mean gradient 65 mmHg. Moderate to severe perivalvular regurgitation. Tricuspid Valve Structurally normal tricuspid valve. Trace to mild tricuspid regurgitation. Pulmonic Valve Pericardium No pericardial effusion. Aorta CONCLUSIONS Impaired LV systolic function with EF between 25- 30% and Poorly visualized aortic valve. Bioprosthetic aortic valve. The mean gradient across the aortic valve is 65 mmHg. Moderate to severe perivalvular leak No pericardial effusion Pleural effusion was identified Previewed by: Dr. Arnoldo Faye MD (Electronically Signed) Final Date: 07 November 2024 20:41
[2024-11-07] MEDS ORDERED: SODIUM CHLORIDE 0.9% 3,000 ML IV ONE (21:12)
[2024-11-07] MEDS: CHLORHEXIDINE GLUCONATE 15 ML CUP MUCOUS MEM SCH (21:17)
[2024-11-07] MEDS: SODIUM CHLORIDE 0.9% 3,000 ML IV ONE (21:28)
[2024-11-07] MEDS: SODIUM CHLORIDE 0.9% 1,000 ML IV ONE (23:20)
[2024-11-08 00:10] LABS: Glucose,Whole Blood 139 mg/dL (70-110)
[2024-11-08 00:11] VITALS: TEMP 99.7
[2024-11-08 02:02] VITALS: RESP 26
[2024-11-08] MEDS ORDERED: EPINEPHrine 10 ML SYRINGE (0.1 MG/ML) ONE (03:22)
[2024-11-08] MEDS ORDERED: SODIUM BICARB 8.4% 50 ML SYR (1 MEQ/ML) ONE (03:22)
[2024-11-08 03:28] LABS: Glucose,Whole Blood 133 mg/dL (70-110)
[2024-11-08 04:52] VITALS: PULSE 55
== END 2024-11-08 08:43 | disposition expired ==
LOC: EC 12:37 → 3SCARD 15:02 → 2SICU 11-07 06:25
PROVIDERS: ADMIT Student in an Organized Health Care Education/Training Program; ATTEND Student in an Organized Health Care Education/Training Program
PROC: 5A2204Z Restoration of Cardiac Rhythm, Single (ICD-10-PCS; 2024-11-03)
PROC: 4A133J1 Monitoring of Arterial Pulse, Peripheral, Percutaneous Approach (ICD-10-PCS; principal; 2024-11-07)
PROC: 03HY32Z Insertion of Monitoring Device into Upper Artery, Percutaneous Approach (ICD-10-PCS; principal; 2024-11-07)
PROC: 0BH17EZ Insertion of Endotracheal Airway into Trachea, Via Natural or Artificial Opening (ICD-10-PCS; principal; 2024-11-07)
PROC: 02HV33Z Insertion of Infusion Device into Superior Vena Cava, Percutaneous Approach (ICD-10-PCS; principal; 2024-11-07)
PROC: 4A133B1 Monitoring of Arterial Pressure, Peripheral, Percutaneous Approach (ICD-10-PCS; principal; 2024-11-07)
PROC: 5A1935Z Respiratory Ventilation, Less than 24 Consecutive Hours (ICD-10-PCS; principal; 2024-11-07)
PROC: 0D9670Z Drainage of Stomach with Drainage Device, Via Natural or Artificial Opening (ICD-10-PCS; 2024-11-07)
PROC: 5A09357 Assistance with Respiratory Ventilation, Less than 24 Consecutive Hours, Continuous Positive Airway Pressure (ICD-10-PCS; 2024-11-07)
PROC: 3E033XZ Introduction of Vasopressor into Peripheral Vein, Percutaneous Approach (ICD-10-PCS; 2024-11-07)
DX: I48.19 Other persistent atrial fibrillation (principal); G93.41 Metabolic encephalopathy; I21.A1 Myocardial infarction type 2; I50.23 Acute on chronic systolic (congestive) heart failure; J96.01 Acute respiratory failure with hypoxia; R57.0 Cardiogenic shock; Z66 Do not resuscitate; I13.0 Hypertensive heart and chronic kidney disease with heart failure and stage 1 through stage 4 chronic kidney disease, or unspecified chronic kidney disease; E66.01 Morbid (severe) obesity due to excess calories; J44.9 Chronic obstructive pulmonary disease, unspecified; I27.29 Other secondary pulmonary hypertension; D63.1 Anemia in chronic kidney disease; Z95.3 Presence of xenogenic heart valve; D69.6 Thrombocytopenia, unspecified; N18.9 Chronic kidney disease, unspecified; E87.1 Hypo-osmolality and hyponatremia; E87.20 Acidosis, unspecified; N17.9 Acute kidney failure, unspecified; I44.2 Atrioventricular block, complete; I48.92 Unspecified atrial flutter; I42.8 Other cardiomyopathies; I49.5 Sick sinus syndrome; I46.9 Cardiac arrest, cause unspecified; I05.2 Rheumatic mitral stenosis with insufficiency; Z68.38 Body mass index [BMI] 38.0-38.9, adult; Z78.1 Physical restraint status; E86.1 Hypovolemia; Z79.01 Long term (current) use of anticoagulants; I44.7 Left bundle-branch block, unspecified; M54.9 Dorsalgia, unspecified; M19.90 Unspecified osteoarthritis, unspecified site; G89.29 Other chronic pain; I25.2 Old myocardial infarction; K21.9 Gastro-esophageal reflux disease without esophagitis; E78.5 Hyperlipidemia, unspecified; N40.1 Benign prostatic hyperplasia with lower urinary tract symptoms; G47.33 Obstructive sleep apnea (adult) (pediatric); R33.8 Other retention of urine; Z20.822 Contact with and (suspected) exposure to COVID-19; Z91.81 History of falling; Z79.899 Other long term (current) drug therapy; Z86.73 Personal history of transient ischemic attack (TIA), and cerebral infarction without residual deficits; Z87.891 Personal history of nicotine dependence; Z79.82 Long term (current) use of aspirin
CPT/HCPCS: 36415; 36600; 70450; 71045; 71046; 76770; 80048; 80053; 80061; 81001; 82805; 83605; 83735; 84145; 84484; 85025; 85610; 85730; 87040; 87086; 87449; 87636; 92950; 93005; 93306; 93308; 94002; 94660; 96361; 96365; 96366; 96375; 99291